=== PATIENT | female | born 1975 | race Caucasian/White ===

== ENCOUNTER → 2023-06-01 09:58 | Outpatient (CLI) | payer BC, SELFPAY ==
[2023-06-02 08:58] LABS: FSH 10.8 mIU/mL (.)
== END ==
PROVIDERS: PCP Family Medicine; Visit Provider Obstetrics & Gynecology
DX: N93.9 Abnormal uterine and vaginal bleeding, unspecified (principal)
CPT/HCPCS: 36415; 82670; 83001

== ENCOUNTER 2024-02-11 08:23 | Emergency (ER) | payer BC, SELFPAY ==
--- NOTE | 2024-02-11 08:35 | ED_ITS ---
Discharge Plan Disposition Patient Disposition: Home, Self-Care Condition: Good Prescriptions Prescriptions: New azithromycin [Zithromax] 250 mg tablet 250 mg PO UD DOSE PK Qty: 6 0RF Rx Instructions: Take two (2) tablets today, then one (1) tablet days #2 thru #5 benzonatate 100 mg capsule 100 mg PO TIDP PRN (Reason: Cough) Qty: 30 0RF methylprednisolone 4 mg Tablets,Dose Pack 4 mg PO DIRECTED 6 Days Qty: 21 0RF Rx Instructions: Take 1 pack as directed for 6 days No Action oxybutynin chloride 5 mg tablet 5 mg PO DAILY tamoxifen 20 mg tablet 20 mg PO DAILY Referrals Follow up/Referrals: Андрей Thornton MD [Primary Care Provider] - See instructions Activity Restrictions/Add. Instructions Additional Instructions/Restrictions: Drink plenty of fluids. Take tylenol or ibuprofen for pain or fever. Take the medications as directed. Follow up with your regular doctor. GO TO THE ER FOR ANY WORSENING SYMPTOMS The rapid covid-19/influenza test will take a couple of hours to complete. If you can't get your results online then please call us to check on it. Clinical Impressions Clinical Impression: Sinusitis, Bronchitis Instructions Patient Instructions: Sinusitis, DI for Sinusitis Discharge ED Provider: Chalo Driver [facility] General Stated complaint: Sore throat Time Seen by Provider: 02/11/24 08:35 History of Present Illness Provider Complaint: She states that for the past 4 days she has had worsening sinus and chest congestion. She has a nonproductive cough and a scratchy throat also. She denies fever, but she has had chills. Related Data Home Medications Medication Instructions Recorded Confirmed oxybutynin chloride 5 mg tablet 5 mg PO DAILY 02/11/24 02/11/24 tamoxifen 20 mg tablet 20 mg PO DAILY 02/11/24 02/11/24 Previous Rx's Medication Instructions Recorded azithromycin 250 mg tablet 250 mg PO UD DOSE PK #6 tabs 02/11/24 (Zithromax) benzonatate 100 mg capsule 100 mg PO TIDP PRN Cough #30 caps 02/11/24 methylprednisolone 4 mg tablets in 4 mg PO DIRECTED 6 days #21 tabs 02/11/24 a dose pack Allergies Allergy/AdvReac Type Severity Reaction Status Date / Time No Known Allergies Allergy Verified 02/11/24 08:49 [facility] Disclaimer: The information contained in this section may have been updated after the patient was seen, as this information can be updated by other users. Medical History (Updated 02/11/24 @ 09:24 by Chalo Driver APRN) HGSIL (high grade squamous intraepithelial lesion) on Pap smear of cervix Breast cancer Abnormal uterine bleeding Surgical History H/O mastectomy History of lumpectomy of right breast Family History Mother Cancer Other Alcoholism Diabetes Hyperlipidemia Hypertension Stroke Social History Smoking Status: Former smoker smoking status stop date: 2015 alcohol intake: current alcohol intake frequency: 0-2 drinks per day substance use type: denies use current occupational status: other Travel in the last 8 weeks: None ROS Obtained: Yes All systems reviewed & no additional complaints except as documented Constitutional Constitutional: Reports poor appetite Eyes Eyes: Reports system reviewed and no additional complaints, except as documented ENT Ears, Nose, Mouth, and Throat: Reports as per HPI Cardiovascular Cardiovascular: Reports system reviewed and no additional complaints, except as documented and Denies chest pain Respiratory Respiratory: Denies shortness of breath, Reports chest congestion, Reports cough, Denies stridor and Denies wheezing Gastrointestinal Gastrointestingal: Reports system reviewed and no additional complaints, except as documented; Denies abdominal pain, diarrhea or vomiting Musculoskeletal Musculoskeletal: Reports system reviewed and no additional complaints, except as documented and Denies arthralgias Integumentary/Breasts Skin/Breast: Reports system reviewed and no additional complaints, except as documented and Denies rash Neurologic Neurologic: Denies paresthesias Allergic/Immunologic Allergic/Immunologic: Denies wheezing Physical Exam General General appearance: alert and in no apparent distress Eye Eye exam: Present normal appearance, PERRL and EOMI ENT ENT exam: Present mucous membranes moist and normal external ear exam Expanded ENT Exam External ear exam: Present normal external inspection TM/Canal exam: Bilateral TM: erythema and bulging Nose exam: Absent sinus tenderness Nasal speculum exam: Bilateral: normal Mouth exam: Present normal external inspection; Absent drooling Teeth exam: Present normal inspection Throat exam: Present tonsillar erythema and tonsillomegaly Neck Neck exam: Present normal inspection, full ROM and trachea midline; Absent tenderness, lymphadenopathy or thyromegaly Chest Chest inspection: Present normal inspection and symmetric chest wall rise; Absent tenderness or rash Respiratory Respiratory exam: Present normal lung sounds bilaterally; Absent respiratory distress, wheezes, stridor or accessory muscle use Cardiovascular Cardiovascular exam: Present regular rate, normal rhythm and normal heart sounds Abdominal Exam Abdominal exam: Present soft; Absent distention, tenderness, guarding, rebound or rigidity Extremities Exam Extremities exam: Present normal inspection, full ROM and normal capillary refill; Absent tenderness or calf tenderness Back Exam Back exam: Present normal inspection and full ROM; Absent tenderness Neurological Exam Neurological exam: Present alert and oriented X3 Psychiatric Psychiatric exam: Present normal affect and normal mood Skin Skin exam: Present warm, dry, intact and normal color Lymphatic Lymphatic Findings: no adenopathy Medical Decision Making Medical Records Medical records reviewed: No I reviewed the patient's medical records. Uday Inquiry Pt receiving controlled substance: No Lab Data Lab results reviewed: Yes I reviewed the patient's lab results.
[2024-02-11 08:40] VITALS: BP 137/88; PULSE 82; RESP 19; TEMP 36.8; O2SAT 98; BMI 35.3
[2024-02-11 08:52] LABS: UTC Strep Screen (Rapid) Negative (Negative)
--- NOTE | 2024-02-11 09:30 | PC.NURSE ---
Rapid sent to lab
[2024-02-11 09:31] VITALS: BP 137/88; PULSE 82; RESP 18; TEMP 36.8; O2SAT 98
--- NOTE | 2024-02-11 09:34 | PC.NURSE ---
Sent rapid to lab via tube system
[2024-02-11 11:14] LABS: Coronavirus 19, PCR Not Detected (NotDetected); Influenza A, PCR Not Detected (NotDetected); Influenza B, PCR Not Detected (NotDetected)
--- NOTE | 2024-02-11 18:16 | PC.NURSE ---
Called pt about test results LM
== END 2024-02-11 09:31 | disposition home or self-care (01) ==
PROVIDERS: Emergency Provider Nurse Practitioner Family; PCP Family Medicine
DX: J20.9 Acute bronchitis, unspecified (principal); J01.90 Acute sinusitis, unspecified; R07.0 Pain in throat
CPT/HCPCS: 87636; 87880; 99204; 99212; G0463

== ENCOUNTER 2024-03-09 09:21 | Outpatient (CLI) | payer BC, SELFPAY ==
[2024-03-09 10:16] LABS: Basophils # 0.1 K/mm3 (0-0.2); Basophils % 1.6 % (0.1-2.0); Eosinophils # 0.2 K/mm3 (0.0-0.4); Eosinophils % 2.9 % (0.1-12.0); Hematocrit 42.6 % (37.0-47.0); Hemoglobin 13.3 g/dL (12.2-16.2); Lymphocytes # 1.4 K/mm3 (0.7-4.5); Lymphocytes % 22.2 % (10-50); Mean Corpuscular HGB Conc 31.1 g/dL (31.8-35.4); Mean Corpuscular Hemoglobin 30.9 pg (27.0-31.2); Mean Corpuscular Volume 99.4 fl (81-99); Mean Platelet Volume 8.1 fl (7.4-10.4); Monocytes # 0.3 K/mm3 (0.1-1.0); Monocytes % 4.4 % (1.7-9.3); Neutrophils # 4.4 K/mm3 (1.8-7.8); Neutrophils % 68.9 % (37.0-80.0); Platelet Count 279 K/mm3 (142-424); Red Blood Count 4.29 M/mm3 (4.20-5.40); Red Cell Distribution Width 13.8 % (11.5-17.5); White Blood Count 6.4 K/mm3 (4.8-10.8)
[2024-03-09 10:56] LABS: Chloride 106 mmol/L (98-107); Sodium 137 mmol/L (136-145)
[2024-03-09 10:57] LABS: Potassium 4.3 mmoL/L (3.5-5.1)
[2024-03-09 10:59] LABS: Alanine Aminotransferase 22 U/L (12-78); Albumin Level 3.6 g/dl (3.5-5.0); Albumin/Globulin Ratio 1.2 (1.1-1.8); Alkaline Phosphatase 78 U/L (38-126); Anion Gap 10.3 mEq/L (5-15); Aspartate Amino Transferase 26 U/L (14-36); Bilirubin,Total 0.3 mg/dl (0.2-1.3); Blood Urea Nitrogen 10 mg/dl (7-17); Carbon Dioxide 25 mmol/L (22.0-30.0); Estimated Glomerular Filt Rate 107 ml/min (>60); GFR (African American) 129 ML/MIN (>60); Total Protein,Serum 6.6 g/dl (6.3-8.2)
[2024-03-09 11:00] LABS: Calcium 9.5 mg/dl (8.4-10.2); Glucose 103 mg/dl (74-100)
[2024-03-09 11:17] LABS: HCG,Quantitative < 2 mIU/ml (0-5.42)
== END 2024-03-09 23:59 | disposition home or self-care (01) ==
LOC: LAB 09:21
PROVIDERS: PCP Family Medicine; Visit Provider Obstetrics & Gynecology
DX: N93.9 Abnormal uterine and vaginal bleeding, unspecified (principal); C50.911 Malignant neoplasm of unspecified site of right female breast
CPT/HCPCS: 36415; 80053; 84702; 85025

== ENCOUNTER 2024-03-16 07:36 | Day surgery (SDC) | payer BC, SELFPAY ==
[2024-03-14 14:12] VITALS: BMI 35.3
[2024-03-16] VITALS (9 sets, daily range): BP systolic 102–148; BP diastolic 57–83; PULSE 64–77; RESP 14–18; TEMP 36.3–36.6; O2SAT 95–100; BMI 35.3
[2024-03-16] MEDS: ACETAMINOPHEN 500MG TAB 1000 MG PO (07:48)
[2024-03-16] MEDS: LACTATED RINGERS 1000ML 1,000 ML 25 ML IV (07:49)
--- NOTE | 2024-03-16 08:26 | P.PNANES_ITS ---
[facility] Disclaimer: The information contained in this section may have been updated after the patient was seen, as this information can be updated by other users. Medical History HGSIL (high grade squamous intraepithelial lesion) on Pap smear of cervix Breast cancer Abnormal uterine bleeding On Tamoxifen Surgical History H/O mastectomy partial, right History of lumpectomy of right breast November and December Family History Mother Cancer Other Alcoholism Diabetes Hyperlipidemia Hypertension Stroke Social History Smoking Status: Former smoker smoking status stop date: 2015 alcohol intake: current alcohol intake frequency: 0-2 drinks per day substance use type: denies use current occupational status: other Travel in the last 8 weeks: None [facility] Anesthesia Checklist Patient Identification Patient Identification: Arm Band Structural Data Admitted From: Home Planned Operative Procedure/s: Hysteroscopy, D&C, Novasu Consent for Planned Operative Procedure(s) Verified: Yes Verified Documents: Surgical Consent and History and Physical NPO Status Verified Time NPO: 00:00 Additional verifications Anesthesia Reactions: Yes (numbness, weakness after surgery.) Hx Blood Transfusions: No Blood Transfusion Reaction: No Airway Assessment Mallampati Score:: Class II C-Spine Mobility Assessed: Yes TMJ Mobility Assessed: Yes Dentition: Good Dentition Neurological Assessment Level of Consciousness: Awake, Alert and Appropriate Anesthesia Plan Anesthesia Risk discussed: Yes Anesthesia Plan: Verified ASA Class: II Anesthesia Type: General
--- NOTE | 2024-03-16 09:50 | EXP.ANES.I ---
[facility] Anesthesia Record Part I Anesthesia Record I Intake, IV Amount: 800 Hydration: Adequate Estimated blood loss (mL): 5 Urine output (mL): 0 Blood Products used (#): none Blood Pressure: 121/77 SaO2: 96 Pulse Rate: 75 Airway Patency: Patent Respiratory Rate: 14 Temperature: 97.8 F Patient is:: Drowsy and Stable Stable to PACU at:: 09:45
--- NOTE | 2024-03-16 10:11 | EXP.OP.NOTE ---
Date of procedure: 03/16/24 Pre-op Diagnosis:: 1. Abnormal uterine bleeding on Tamoxifen 2. History of breast cancer Post-op Diagnosis:: 1. Abnormal uterine bleeding on Tamoxifen 2. History of breast cancer Procedure performed:: Hysteroscopy, dilation and Myosure curettage Surgeon:: Elda Hutchinson DO Program Services Assistant(s):: N/a INFORMATION TECHNOLOGY DIRECTOR:: Chalo Cleaning Anesthesia: GETA Estimated blood loss (mL): 5 Clinical Note:: Mrs Roberta Tolbert is a 48 yo P2002 who presents to [facility] for scheduled procedure. History of breast cancer. She is taking Tamoxifen (started July 2022). Periods are every 3rd month. She reports no bleeding for two months and then a period with heavy flow for 4 days and normal/light flow for 2-3 days. The months she does not have bleeding she notices a clear discharge around the time her period would be. No odor, itching or burning. LMP 03/07/24. She stopped Tamoxifen Wednesday and will restart the day following surgery. Operative findings:: 1. On bimanual exam, uterus normal size and shape, midposition, freely moveable. No adnexal masses palpated 2. On hysteroscopic exam, bilateral tubal ostia easily visualized, areas of fluffy tissue noted on anterior and posterior wall. No vascularity in the tissue seen Operative note:: Risks, benefits and alternatives were discussed with the patient. Risks include but are not limited to bleeding, infection, uterine perforation and VTE. Patient voiced understanding and agreed to proceed. She was wheeled back to the operating room and placed under general anesthesia without difficulty. She was placed in dorsal lithotomy position and prepped and draped in the normal sterile fashion. Straight catheter was used to drain the bladder. A bimanual exam was performed. A weighted Auvard was placed in the vaginal vault. Single tooth tenaculum was placed on anterior lip of the cervix. Uterus sounded to 7. Sequential Dc dilators were used to dilate the cervical os. Hysteroscope was inserted through the cervix without difficulty. Endometrial cavity was evaluated. See findings above. Pictures were taken. Myosure was inserted through the hysteroscope. Myosure curettage was performed per protocol in a 360 degree fashion under direct visualization. A moderate amount of tissue was obtained. Pictures were taken. Hysteroscope with Myosure was removed. Instruments were removed from the vagina. Tenaculum site was noted to be oozing. 2-0 Chromic suture used to ligate tenaculum site. Hemostasis noted. Patient was awaken from anesthesia without difficulty. She was transported to recovery room in stable condition. Patient will be discharged home when awake and ambulating. She was given postop instructions as well as instructions to follow-up in the office in 2 weeks. Will call patient when pathology results. Condition: stable Disposition: same day Specimens:: 1. Endometrial curettings Complications:: None
--- NOTE | 2024-03-17 13:14 | EXP.ANES.II ---
[facility] Anesthesia Record Part II Anesthesia Record Part II Discharge Time: 10:15 Destination: Surgical Day Care (OP Surgery) PACU nurse assessment reviewed?: Yes Patient Condition:: Good Anesthesia Complications:: None Swallowing reflex intact?: Yes Airway Patency: Patent Cyanosis?: No Blood Pressure: 112/67 SaO2: 98 Respiratory Rate: 18 Pulse Rate: 65 Temperature: 97.5 F Mental Status: Alert & Oriented Pain level:: 0 Nausea and/or vomitting:: None Intake, IV Amount: 0 Hydration: Adequate
[2024-03-17 13:15] VITALS: BP 112/67; PULSE 65; RESP 18; TEMP 36.4; O2SAT 98
== END 2024-03-16 10:45 | disposition home or self-care (01) ==
PROVIDERS: PCP Family Medicine; Visit Provider Obstetrics & Gynecology
PROC: (CPT 58558; principal; 2024-03-16 09:15)
DX: N93.9 Abnormal uterine and vaginal bleeding, unspecified (principal); Z85.3 Personal history of malignant neoplasm of breast
CPT/HCPCS: 58558; 96372; J1100; J1885; J2250; J2405; J3010; J7120

== ENCOUNTER 2024-10-18 10:55 | Outpatient (CLI) | payer BC, SELFPAY ==
--- NOTE | 2024-10-18 11:02 | US_ITS ---
PROCEDURE: US TRANSVAGINAL CLINICAL INDICATION: AUB COMPARISON: No exams were available for comparison FINDINGS: Transvaginal sonographic images of the pelvis were obtained. UTERUS: 9.5 cm x 7.2cmx 5.9 cm anteverted with a combined endometrial thickness of 16.8mm. The endometrium has a cystic appearance. Concerning for hyperplasia or endometrial carcinoma. Suggest endometrial sampling. LEFT OVARY: 3.6 cm x3.0 cmx2.6cm with a volume of 14.7ml. There is a follicle in the left ovary measuring 2.3 cm x 3.0 cm x 2.3 cm. RIGHT OVARY: 3.5cmx 3.7 cm. There is a follicle in the right ovary measuring 3.0 cm x 2.8 cm x 2.9 cm. Both ovaries are seen and appear normal. Doppler flow to both ovaries are seen. There is a small amount of fluid in the cul-de-sac. IMPRESSION: 1. Anteverted uterus enlarged and globular in shape. 2. The endometrium is thickened and cystic and is concerning for hyperplasia or endometrial carcinoma. Suggest endometrial sampling. 3. Both ovaries are seen and have dominant follicles. 4. There is a small amount of fluid in the cul-de-sac. Dictated by: Juan F Beck MD 10/18/2024 14:19 Juan F Beck MD in OV 10/18/2024 14:19
== END 2024-10-18 23:59 | disposition home or self-care (01) ==
LOC: RAD 10:57
PROVIDERS: PCP Family Medicine; Visit Provider Obstetrics & Gynecology
DX: N93.9 Abnormal uterine and vaginal bleeding, unspecified (principal)
CPT/HCPCS: 76830

== ENCOUNTER 2024-11-17 10:15 | Outpatient (CLI) | payer BC, SELFPAY ==
--- NOTE | 2024-11-17 10:50 | ECG_ITS ---
APPROVED REPORT Exam: Resting ECG HR:74 bpm ECG Measurements Heart Rate 74 AXES MA 150 P 49 QRSd 89 QRS 15 QT 377 T 41 QTc 404 Conclusion SINUS RHYTHM NORMAL ECG UNCONFIRMED REPORT Electronically signed by : Андрей Flores MD 11/17/2024 15:48:31
[2024-11-17 10:58] LABS: Basophils # 0.1 K/mm3 (0-0.2); Basophils % 1.1 % (0.1-2.0); Eosinophils # 0.1 K/mm3 (0.0-0.4); Eosinophils % 1.8 % (0.1-12.0); Hematocrit 37.5 % (37.0-47.0); Hemoglobin 12.3 g/dL (12.2-16.2); Lymphocytes # 1.6 K/mm3 (0.7-4.5); Lymphocytes % 25.9 % (10-50); Mean Corpuscular HGB Conc 32.8 g/dL (31.8-35.4); Mean Corpuscular Hemoglobin 29.6 pg (27.0-31.2); Mean Corpuscular Volume 90.1 fl (81-99); Mean Platelet Volume 10.3 fl (7.4-10.4); Monocytes # 0.4 K/mm3 (0.1-1.0); Neutrophils # 3.9 K/mm3 (1.8-7.8); Platelet Count 348 K/mm3 (142-424); Red Blood Count 4.16 M/mm3 (4.20-5.40); Red Cell Distribution Width 12.1 % (11.5-17.5); White Blood Count 6.1 K/mm3 (4.8-10.8)
[2024-11-17 11:10] LABS: Alanine Aminotransferase 25 U/L (12-78); Albumin Level 4.3 g/dl (3.5-5.0); Albumin/Globulin Ratio 1.6 (1.1-1.8); Alkaline Phosphatase 53 U/L (38-126); Anion Gap 13.2 mEq/L (5-15); Aspartate Amino Transferase 32 U/L (14-36); Bilirubin,Total 0.3 mg/dl (0.2-1.3); Blood Urea Nitrogen 9 mg/dl (7-17); Calcium 9.3 mg/dl (8.4-10.2); Carbon Dioxide 26 mmol/L (22.0-30.0); Chloride 103 mmol/L (98-107); Estimated Glomerular Filt Rate 107 ml/min (>60); GFR (African American) 129 ML/MIN (>60); Globulin 2.7 g/dL (1.3-3.2); Glucose 106 mg/dl (74-100); Potassium 4.2 mmoL/L (3.5-5.1); Sodium 138 mmol/L (136-145)
[2024-11-17 11:35] LABS: HCG,Quantitative < 2 mIU/ml (0-5.42)
== END 2024-11-17 23:59 | disposition home or self-care (01) ==
LOC: PREOP 10:16
PROVIDERS: PCP Family Medicine; Visit Provider Obstetrics & Gynecology
DX: N93.9 Abnormal uterine and vaginal bleeding, unspecified (principal)
CPT/HCPCS: 80053; 84702; 85025; 93005

== ENCOUNTER 2024-11-23 06:55 | Day surgery (SDC) | payer BC, SELFPAY ==
[2024-11-17 10:54] VITALS: BMI 34.7
[2024-11-23] VITALS (10 sets, daily range): BP systolic 111–130; BP diastolic 47–79; PULSE 61–91; RESP 16–18; TEMP 36.5–36.6; O2SAT 92–100
[2024-11-23] MEDS: LACTATED RINGERS 1000ML 1,000 ML 25 ML IV (07:23)
[2024-11-23] MEDS: ACETAMINOPHEN 500MG TAB 1000 MG PO (07:25)
--- NOTE | 2024-11-23 07:38 | P.PNANES_ITS ---
[facility] Disclaimer: The information contained in this section may have been updated after the patient was seen, as this information can be updated by other users. Medical History Menorrhagia HGSIL (high grade squamous intraepithelial lesion) on Pap smear of cervix Breast cancer Abnormal uterine bleeding Surgical History History of hysteroscopy H/O mastectomy History of lumpectomy of right breast Family History Mother Cancer Other Alcoholism Diabetes Hyperlipidemia Hypertension Stroke Social History (Updated 11/23/24 @ 07:15 by Lala Navarro RN) Smoking Status: Former smoker smoking status stop date: 2015 alcohol intake: former substance use type: denies use current occupational status: unemployed Travel in the last 8 weeks: None Have you lived/traveled outside US in past 30 days?: No Contact w/someone who lives/traveled outside US past 30 days?: No Exposure to someone with infectious disease in past 14 days?: No Do you have a fever (greater than 100.4 F or 38 C)?: No Have you tested positive for COVID-19: Yes Exposed to someone with COVID-19 in past 14 days?: No Do you have a sore throat?: No Do you have a cough?: No Do you have any weakness?: No Are you experiencing any nausea/vomitting?: No Do you have any diarrhea?: No Are you experiencing any unusual bleeding?: No Do you have any muscle aches/pain?: No Do you have any abdominal pain?: No Are you experiencing loss of taste or smell?: No [facility] Anesthesia Checklist Patient Identification Patient Identification: Arm Band Structural Data Admitted From: Home Planned Operative Procedure/s: Hysteroscopy, D&C, Myosure Consent for Planned Operative Procedure(s) Verified: Yes Verified Documents: Surgical Consent and History and Physical NPO Status Verified Time NPO: 00:00 Additional verifications Anesthesia Reactions: No Hx Blood Transfusions: No Blood Transfusion Reaction: No Airway Assessment Mallampati Score:: Class II C-Spine Mobility Assessed: Yes TMJ Mobility Assessed: Yes Dentition: Good Dentition Neurological Assessment Level of Consciousness: Awake, Alert and Appropriate Anesthesia Plan Anesthesia Risk discussed: Yes Anesthesia Plan: Verified ASA Class: II Anesthesia Type: General
--- NOTE | 2024-11-23 08:53 | P.PNANES_ITS ---
[facility] Anesthesia Record Part I Anesthesia Record I Intake, IV Amount: 800 Hydration: Adequate Estimated blood loss (mL): 0 Urine output (mL): 0 Blood Products used (#): none Blood Pressure: 130/79 SaO2: 93 Pulse Rate: 79 Airway Patency: Patent Respiratory Rate: 16 Temperature: 97.7 F Patient is:: Drowsy and Stable Stable to PACU at:: 08:50
--- NOTE | 2024-11-23 09:01 | EXP.OP.NOTE ---
Date of procedure: 11/23/24 Pre-op Diagnosis:: 1. Abnormal uterine bleeding 2. Menorrhagia on Tamoxifen 3. History of breast cancer 4. Abnormal pelvic ultrasound findings Post-op Diagnosis:: 1. Abnormal uterine bleeding 2. Menorrhagia on Tamoxifen 3. History of breast cancer 4. Abnormal pelvic ultrasound findings Procedure performed:: 1. Hysteroscopy, dilation and Myosure curettage Surgeon:: Elda Hutchinson DO Feed House Supervisor(s):: N/a ATTENDING PHYSICIAN:: Mansoor Liang Anesthesia: GETA Estimated blood loss (mL): 0 Clinical Note:: Mrs Roberta Tolbert is a 49 yo P2002 who presents to [facility] for scheduled procedure. She has history of breast cancer and is taking Tamoxifen. She reports having a period every month and bleeding is fairly heavy. She also reports fatigue and headaches. For the past 2 months she stopped drinking alcohol, increased exercise and started the mediteranean diet. We are monitoring endometrial thickness with ultrasound every 6 months since she is having periods on Tamoxifen. Pelvic ultrasound 10/18/24 demonstrated 1. Anteverted uterus enlarged and globular in shape. 2. The endometrium is thickened and cystic and is concerning for hyperplasia or endometrial carcinoma. Suggest endometrial sampling. 3. Both ovaries are seen and have dominant follicles. 4. There is a small amount of fluid in the cul-de-sac. Operative findings:: 1. On bimanual exam, uterus normal size and shape, midposition. No adnexal masses palpated 2. On hysteroscopic exam, bilateral tubal ostia easily visualized. Moderate amount of fluffy endometrial tissue present througout the cavity. Operative note:: Risks, benefits and alternatives were discussed with the patient. Risks include but are not limited to bleeding, infection, uterine perforation and VTE. Patient voiced understanding and agreed to proceed. She was wheeled back to the operating room and placed under general anesthesia without difficulty. She was placed in dorsal lithotomy position and prepped and draped in the normal sterile fashion. Straight catheter was used to drain the bladder. A bimanual exam was performed. A weighted Auvard was placed in the vaginal vault. Single tooth tenaculum was placed on anterior lip of the cervix. Uterus sounded to 7. Sequential Dc dilators were used to dilate the cervical os. Hysteroscope was inserted through the cervix without difficulty. Endometrial cavity was evaluated. See findings above. Pictures were taken. Myosure was inserted through the hysteroscope. Myosure curettage was performed per protocol in a 360 degree fashion under direct visualization. A moderate amount of tissue was obtained. Pictures were taken. Hysteroscope with Myosure was removed. Instruments were removed from the vagina. Tenaculum site had a small amount oozing. Silver nitrate stick x 2 applied to tenaculum site. Hemostasis noted. Patient was awaken from anesthesia without difficulty. She was transported to recovery room in stable condition. Patient will be discharged home when awake and ambulating. She was given postop instructions as well as instructions to follow-up in the office in 2 weeks or sooner if needed. Condition: stable Disposition: same day Specimens:: 1. Endometrial curettings Complications:: None
--- NOTE | 2024-11-23 09:41 | EXP.ANES.II ---
[facility] Anesthesia Record Part II Anesthesia Record Part II Discharge Time: 09:19 Destination: Surgical Day Care (OP Surgery) PACU nurse assessment reviewed?: Yes Patient Condition:: Good Anesthesia Complications:: None Swallowing reflex intact?: Yes Airway Patency: Patent Cyanosis?: No Blood Pressure: 115/71 SaO2: 96 Respiratory Rate: 16 Pulse Rate: 73 Temperature: 97.7 F Mental Status: Alert & Oriented Pain level:: 0 Nausea and/or vomitting:: None Intake, IV Amount: 0 Hydration: Adequate
== END 2024-11-23 09:50 | disposition home or self-care (01) ==
PROVIDERS: PCP Family Medicine; Visit Provider Obstetrics & Gynecology
PROC: 0UDB8ZZ Extraction of Endometrium, Via Natural or Artificial Opening Endoscopic (ICD-10-PCS; CPT 58558; principal; 2024-11-23 08:30)
DX: N93.9 Abnormal uterine and vaginal bleeding, unspecified (principal); N92.0 Excessive and frequent menstruation with regular cycle; Z85.3 Personal history of malignant neoplasm of breast; R93.89 Abnormal findings on diagnostic imaging of other specified body structures
CPT/HCPCS: 58558; J1100; J1885; J2250; J2405; J3010; J7120

== ENCOUNTER 2025-05-22 10:38 | Outpatient (CLI) | payer BC, SELFPAY ==
--- NOTE | 2025-05-22 10:40 | XR_ITS ---
FINAL REPORT CLINICAL HISTORY: cat bite R hand COMPARISON: None FINDINGS: RIGHT HAND Three views demonstrate no acute fracture or dislocation. The visualized joint spaces are normally aligned. There is mild soft tissue swelling over the dorsum of the hand. No evidence of radiopaque foreign body. IMPRESSION: Soft tissue swelling without acute bony abnormality. Reviewed, Interpreted and Dictated by Chauncey Santiago MD Transcribed by Sally Lopez Authenticated and [facility]
--- OUTSIDE RECORDS SUMMARY | 2025-05-22 10:43 | XMS_ITS | Encounter Summary ---
Author Organization [employer] ([place], [place], [place], [place]) Address [address] [place] [address] Care Team Providers Care Solar Process Engineer Name Role Phone Unavailable Primary Care Provider Unavailabl e Encounter Details Date Type Department Care Team (Late st Contact Info) Description 02/03/2022 Transcribed Document [facility] Family Medicine [address] [place] [address] ProviderGuerita MD [address] [place] [address] Social History Tobacco Use Types Packs/Day Years Used Date Smoking Tobacco: Never Assessed Food Insecurity Answer Date Recorded Food run out past 12 months Not on file 10/04 Food did not last past 12 months Not on file 10/22/2023 Employment Answer Date Recorded Help finding and keeping a job Not on file 0 10/22/2023 Family and Community Support Answer Abdoul e Recorded Help with Day to Day Activities Not on file 10/22/2023 Feeling Lonely or Isolated Not on file 10/22 Educational Attainment Answer Date Murray rded Speak language other than Belarusian at home Not on file 10/22/2023 Want help with school or training Not on file 10/22/2023 Substance Use Answer Date Recorded Used prescription meds for non-medical reasons N ot on file 10/22/2023 Used illegal drugs past 12 months Not on file 10/22/2023 Comments Unknown Sex and Gender Information Value Date Recorded Sex Assigned at Female 08/19/2022 12:34 PM AUTOMATION ANALYST Legal Sex Female 6:29 PM CDT Gender Identity Female 08/19/2022 12:34 PM AUTOMATION ANALYST Sexual Orientation Straight 08/19/2022 12 :34 PM AUTOMATION ANALYST COVID-19 Exposure Response Date Recorded In the last 10 days, have rufino reyes been in contact with someone who was confirmed or suspected to have Coronavirus/COVID-19? No / Unsure 02/08/2023 1:28 PM EDT documented as of this encounter Miscellaneous Notes * Cerner Conversion Note - Historical Provider, - 02/03/2022 8:19 AM CDT [facility] PACU Summary Primary Physician: IBIS OLIVAS MD-SUR Finalized Date/Time: 02/03/22 11:54:06 Pt. Name: ROBERTA ROE TIANNA /Sex: 1975 Female Med Rec #: [id number] Physician: IBIS OLIVAS MD-SUR Financial #: [id number] Pt. Type: O Room/Bed: [facility] Admit/Disch: 02/03/22 05:18:00 - Institution: [facility] PACU Case Times Entry 1 In PACU I 02/03/22 11:01:00 Ready for PACU 02/03/22 11:46:00 Discharge Discharge from PACU 02/03/22 11:46:00 I Last Modified By: Graciela Lam RN 02/03/22 11:46:42 [facility] PACU Case Times Audit 02/03/22 11:46:42 Rack Worker: RODOLFO Modifier: CARRIEC <+> 1 Ready for PACU Discharge <+> 1 Discharge from PACU I Finalized By: Graciela Lam, CLARENCE Document Signatures Signed By: Graciela Lam RN 02/03/22 11:54 Electronically signed by Izabel [facility] Conversion Toby Maker Cerner at 01/19/2023 9:12 PM CDT documented in this encounter Plan of Treatment Not on file documented as of this encounter Visit Diagnoses Not on filedocumented in this encounter
--- OUTSIDE RECORDS SUMMARY | 2025-05-22 10:43 | XMS_ITS | Encounter Summary ---
Author Organization [employer] ([place], [place], [place], [place]) Address [address] [place] [address] Care Team Providers Care Manager Deli Name Role Phone Unavailable Primary Care Provider Unavailabl e Encounter Details Date Type Department Care Team (Late st Contact Info) Description 08/20/2022 Outside Orders [facility] [address] [place] [address] Manuel Jefferson MD [address] [place] [address] Personal history of breast cancer (Primary Dx) Social History Tobacco Use Types Packs/Day Years Used Date Smoking Tobacco: Former Smokeless Tobacco: Never Alcohol Use Standard Drinks/Week Comments Not Currently 0 (1 standard drink = 0.6 oz pur e alcohol) Comments Unknown Sex and Gender Information Value Date Recorded Sex Assigned at Female 08/19/2022 12:34 PM HTML WEB DEVELOPER Legal Sex Female 6:29 PM CDT Gender Identity Female 08/19/2022 12:34 PM HTML WEB DEVELOPER Sexual Orientation Straight 08/19/2022 12 :34 PM HTML WEB DEVELOPER documented as of this encounter Plan of Treatment Not on file documented as of this encounter Visit Diagnoses Diagnosis Personal history of breast cancer- Primary Personal history of malignant neoplasm of breast documented in this encounter
--- OUTSIDE RECORDS SUMMARY | 2025-05-22 10:43 | XMS_ITS | Encounter Summary ---
Author Organization [employer] ([place], [place], [place], [place]) Address [address] [place] [address] Care Team Providers Care Rectifying Operator Name Role Phone Unavailable Primary Care Provider Unavailabl e Encounter Details Date Type Department Care Team (Late st Contact Info) Description 10/29/2021 Transcribed Document [facility] Family Medicine [address] [place] [address] ProviderGuerita MD [address] [place] [address] Social History Tobacco Use Types [...] Date Murray rded Speak language other than Polish at home Not on file 10/22/2023 Want help with school or training Not on file 10/22/2023 Substance Use Answer Date Recorded Used prescription meds for non-medical reasons N ot on file 10/22/2023 Used illegal drugs past 12 months Not on file 10/22/2023 Comments Unknown Sex and Gender Information Value Date Recorded Sex Assigned at Female 08/19/2022 12:34 PM PRODUCTION SUPPORT ENGINEER Legal Sex Female 6:29 PM CDT Gender Identity Female 08/19/2022 12:34 PM PRODUCTION SUPPORT ENGINEER Sexual Orientation Straight 08/19/2022 12 :34 PM PRODUCTION SUPPORT ENGINEER COVID-19 Exposure Response Date Recorded In the last 10 days, have rufino reyes been in contact with someone who was confirmed or suspected to have Coronavirus/COVID-19? No / Unsure 02/08/2023 1:28 PM EDT documented as of this encounter Miscellaneous Notes * Cerner Conversion Note - Historical Provider, - 10/29/2021 9:44 AM PRODUCTION SUPPORT ENGINEER [facility] Summary Primary Physician: IBIS OLIVAS MD-SUR Finalized Date/Time: 10/29/21 11:08:54 Pt. Name: ROBERTA ROE TIANNA /Sex: 1975 Female Med Rec #: [id number] Physician: IBIS OLIVAS MD-SUR Financial #: [id number] Pt. Type: O Room/Bed: [facility] Admit/Disch: 10/29/21 06:31:00 - Institution: [facility] PostOp Case Times Entry 1 In PACU II 10/29/21 10:57:00 Ready for PACU II 10/29/21 11:10:00 Discharge Discharge from PACU 10/29/21 11:10:00 II Last Modified By: Jesenia Kruger RN 10/29/21 11:08:45 Finalized By: Jesenia Kruger, RN Document Signatures Signed By: Jesenia Kruger RN 10/29/21 11:08 Electronically signed by Izabel Ranken [facility] Conversion Rag Sorter And Cutter Cerner at 01/19/2023 9:06 PM CDT documented in this encounter Plan of Treatment Not on file documented as of this encounter Visit Diagnoses Not on filedocumented in this encounter
--- OUTSIDE RECORDS SUMMARY | 2025-05-22 10:43 | XMS_ITS | Encounter Summary ---
Author Organization [employer] ([place], [place], [place], [place]) Address [address] [place] [address] Care Team Providers Care Radio Sales Account Executive Name Role Phone Unavailable Primary Care Provider Unavailabl e Encounter Details Date Type Department Care Team (Late st Contact Info) Description 10/29/2021 Transcribed Document [facility] Family Medicine [address] [place] [address] ProviderGuerita MD [address] [place] [address] Social History Tobacco Use Types [...] Date Murray rded Speak language other than Lao at home Not on file 10/22/2023 Want help with school or training Not on file 10/22/2023 Substance Use Answer Date Recorded Used prescription meds for non-medical reasons N ot on file 10/22/2023 Used illegal drugs past 12 months Not on file 10/22/2023 Comments Unknown Sex and Gender Information Value Date Recorded Sex Assigned at Female 08/19/2022 12:34 PM TILE DECORATOR Legal Sex Female 6:29 PM CDT Gender Identity Female 08/19/2022 12:34 PM TILE DECORATOR Sexual Orientation Straight 08/19/2022 12 :34 PM TILE DECORATOR COVID-19 Exposure Response Date Recorded In the last 10 days, have rufino reyes been in contact with someone who was confirmed or suspected to have Coronavirus/COVID-19? 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 you have medicine to turkey picker at your pharmacy. Discharge Follow Up Instructions: Follow up 7-10 days Diet: Discharge Diet: Resume usual diet as tolerated Follow-Up Appointments Follow Up with IBIS OLIVAS MD-YARA When 11/10/2021 10:30 AM EST Comments Appointment has been made Where: [address] [facility] [address] [place] [address]- Medications What How Much When Instructions Next Dose acetaminophen-oxyCODONE (Percocet 5/ 325 oral tablet) 2 Tablet(s) Oral Every 4 Hours as needed for for pain Duration: 5 Day(s) Max 6 tabs per day. Pickup at [facility] #[id number] Pharmacy Information [facility] #[id number]: [address] [phone] Take your medications faithfully. Do NOT skip medication. Do NOT stop taking medications without the direction of a physician. Carry a list of your medications with you at all times, and take this medication list with you to your first follow up visit. Report any side effects. Avoid herbal remedies unless discussed with your physician. As part of your treatment plan, your physician may have prescribed a limited course of a controlled substance. This medication may be given to help people with moderate or severe pain or for other medical conditions, but there are risks involved with treatment. Common side effects may include nausea, constipation, drowsiness, sweating, itching, dry mouth, and rash. More serious side effects may include cognitive and motor impairment, like problems with thinking, concentrating, alertness, and movement (e.g. slowed reflexes), and driving and operating heavy machinery can be dangerous. It is important for you to talk to your physician if you have these side effects or questions. These controlled substances can produce physical dependence and be habit-forming if taken for an extended period of time, which means that the body has gotten used to them and may experience withdrawal symptoms if they are abruptly stopped. Withdrawal symptoms can include runny nose, sweating, goose bumps, diarrhea, abdominal cramping, rapid heartbeat, difficulty sleeping, and nervousness. Please dispose of unused and medications per pharmacy guidance. Education Materials General Anesthesia, Adult, Care After This sheet gives you information about how to care for yourself after your procedure. Your health care provider may also give you more specific instructions. If you have problems or questions, contact your health care provider. What can I expect after the procedure? After the procedure, the following side effects are common: ??? Pain or discomfort at the IV site. ??? Nausea. ??? Vomiting. ??? Sore throat. ??? Trouble concentrating. ??? Feeling cold or chills. ??? Feeling weak or tired. ??? Sleepiness and fatigue. ??? Soreness and body aches. These side effects can affect parts of the body that were not involved in surgery. Follow these instructions at home: For the time period you were told by your health care provider: ??? Rest. ??? Do not participate in activities where you could fall or become injured. ??? Do not drive or use machinery. ??? Do not drink alcohol. ??? Do not take sleeping pills or medicines that cause drowsiness. ??? Do not make important decisions or sign legal documents. ??? Do not take care of children on your own. Eating and drinking ??? Follow any instructions from your health care provider about eating or drinking restrictions. ??? When you feel hungry, start by eating small amounts of foods that are soft and easy to digest (bland), such as toast. Gradually return to your regular diet. ??? Drink enough fluid to keep your urine pale yellow. ??? If you vomit, rehydrate by drinking water, juice, or clear broth. General instructions ??? If you have sleep apnea, surgery and certain medicines can increase your risk for breathing problems. Follow instructions from your health care provider about wearing your sleep device: ? Anytime you are sleeping, including during daytime naps. ? While taking prescription pain medicines, sleeping medicines, or medicines that make you drowsy. ??? Have a responsible adult stay with you for the time you are told. It is important to have someone help care for you until you are awake and alert. ??? Return to your normal activities as told by your health care provider. Ask your health care provider what activities are safe for you. ??? Take zuur-glg-pishgib and prescription medicines only as told by your health care provider. ??? If you smoke, do not smoke without supervision. ??? Keep all follow-up visits as told by your health care provider. This is important. Contact a health care provider if: ??? You have nausea or vomiting that does not get better with medicine. ??? You cannot eat or drink without vomiting. ??? You have pain that does not get better with medicine. ??? You are unable to pass urine. ??? You develop a skin rash. ??? You have a fever. ??? You have redness around your IV site that gets worse. Get help right away if: ??? You have difficulty breathing. ??? You have chest pain. ??? You have blood in your urine or stool, or you vomit blood. Summary ??? After the procedure, it is common to have a sore throat or nausea. It is also common to feel tired. ??? Have a responsible adult stay with you for the time you are told. It is important to have someone help care for you until you are awake and alert. ??? When you feel hungry, start by eating small amounts of foods that are soft and easy to digest (bland), such as toast. Gradually return to your regular diet. ??? Drink enough fluid to keep your urine pale yellow. ??? Return to your normal activities as told by your health care provider. Ask your health care provider what activities are safe for you. This information is not intended to replace advice given to you by your health care provider. Make sure you discuss any questions you have with your health care provider. Document Revised: 06/05/2021 Document Reviewed: 01/02/2021 [employer] Patient Education ?? 2020 [employer] Lumpectomy, Care After This sheet gives you information about how to care for yourself after your procedure. Your health care provider may also give you more specific instructions. If you have problems or questions, contact your health care provider. What can I expect after the procedure? After the procedure, it is common to have: ??? Breast swelling. ??? Breast tenderness. ??? Stiffness in your arm or shoulder. ??? A change in the shape and feel of your breast. ??? Scar tissue that feels hard to the touch in the area where the lump was removed. Follow these instructions at home: Medicines ??? Take gumy-iml-povtsaz and prescription medicines only as told by your health care provider. ??? If you were prescribed an antibiotic medicine, take it as told by your health care provider. Do not stop taking the antibiotic even if you start to feel better. ??? Ask your health care provider if the medicine prescribed to you: ? Requires you to avoid driving or using heavy machinery. ? Can cause constipation. You may need to take these actions to prevent or treat constipation: ? Drink enough fluid to keep your urine pale yellow. ? Take koiw-ezk-qxhzbtu or prescription medicines. ? Eat foods that are high in fiber, such as beans, whole grains, and fresh fruits and vegetables. ? Limit foods that are high in fat and processed sugars, such as fried or sweet foods. Incision care ??? Follow instructions from your health care provider about how to take care of your incision. Make sure you: ? Wash your hands with soap and water before and after you change your bandage (dressing). If soap and water are not available, use hand strickler attendant. ? Change your dressing as told by your health care provider. ? Leave stitches (sutures), skin glue, or adhesive strips in place. These skin closures may need to stay in place for 2 weeks or longer. If adhesive strip edges start to loosen and curl up, you may trim the loose edges. Do not remove adhesive strips completely unless your health care provider tells you to do that. ??? Check your incision area every day for signs of infection. Check for: ? More redness, swelling, or pain. ? Fluid or blood. ? Warmth. ? Pus or a bad smell. ??? Keep your dressing clean and dry. ??? If you were sent home with a surgical drain in place, follow instructions from your health care provider about emptying it. Bathing ??? Do not take baths, swim, or use a hot tub until your health care provider approves. ??? Ask your health care provider if you may take showers. You may only be allowed to take sponge baths. Activity ??? Rest as told by your health care provider. ??? Avoid sitting for a long time without moving. Get up to take short walks every 1???2 hours. This is important to improve blood flow and breathing. Ask for help if you feel weak or unsteady. ??? Return to your normal activities as told by your health care provider. Ask your health care provider what activities are safe for you. ??? Be careful to avoid any activities that could cause an injury to your arm on the side of your surgery. ??? Do not lift anything that is heavier than 10 lb (4.5 kg), or the limit that you are told, until your health care provider says that it is safe. Avoid lifting with the arm that is on the side of your surgery. ??? Do not carry heavy objects on your shoulder on the side of your surgery. ??? Do exercises to keep your shoulder and arm from getting stiff and swollen. Talk with your health care provider about which exercises are safe for you. General instructions ??? Wear a supportive bra as told by your health care provider. ??? Raise (elevate) your arm above the level of your heart while you are sitting or lying down. ??? Do not wear tight jewelry on your arm, wrist, or fingers on the side of your surgery. ??? Keep all follow-up visits as told by your health care provider. This is important. ? You may need to be screened for extra fluid around the lymph nodes and swelling in the breast and arm (lymphedema). Follow instructions from your health care provider about how often you should be checked. ??? If you had any lymph nodes removed during your procedure, be sure to tell all of your health care providers. This is important information to share before you are involved in certain procedures, such as having blood tests or having your blood pressure taken. Contact a health care provider if: ??? You develop a rash. ??? You have a fever. ??? Your pain medicine is not working. ??? You have swelling, weakness, or numbness in your arm that does not improve after a few weeks. ??? You have new swelling in your breast. ??? You have any of these signs of infection: ? More redness, swelling, or pain in your incision area. ? Fluid or blood coming from your incision. ? Warmth coming from the incision area. ? Pus or a bad smell coming from your incision. Get help right away if you have: ??? Very bad pain in your breast or arm. ??? Swelling in your legs or arms. ??? Redness, warmth, or pain in your leg or arm. ??? Chest pain. ??? Difficulty breathing. Summary ??? After the procedure, it is common to have breast tenderness, swelling in your breast, and stiffness in your arm and shoulder. ??? Follow instructions from your health care provider about how to take care of your incision. ??? Do not lift anything that is heavier than 10 lb (4.5 kg), or the limit that you are told, until your health care provider says that it is safe. Avoid lifting with the arm that is on the side of your surgery. ??? If you had any lymph nodes removed during your procedure, be sure to tell all of your health care providers. This is important information to share before you are involved in certain procedures, such as having blood tests or having your blood pressure taken. This information is not intended to replace advice given to you by your health care provider. Make sure you discuss any questions you have with your health care provider. Document Revised: 03/25/2020 Document Reviewed: 03/25/2020 [employer] Patient Education ?? 2020 [employer] Emergency Awareness and Preventative Care STROKE is an EMERGENCY Every Minute Counts Act FAST and Check for these signs: FACE Does the face look uneven? ARM Does one arm drift down? SPEECH Does their speech sound strange? TIME Call at any sign of stroke Stroke Risk Factors Atrial Fibrillation (irregular heartbeat) Diabetes Family history of stroke Heart Disease Heavy alcohol use High Blood Pressure High Cholesterol Physical inactivity and obesity Smoking Cigarette Smoking The facts are clear, cigarette smoking will shorten your life. Smoking can cause many illnesses along the way. As a healthcare provider, we recommend that you stop smoking. Assistance with quitting is available by contacting 1-264-PTCWNOW. This is a free resource providing counseling, support, and referral. Or you may contact your personal physician. [place] [facility]: The National Suicide Prevention Lifeline is a national network of local crisis centers that provides free and confidential emotional support to people in suicidal crisis or emotional distress 24 hours a day, 7 days a week. Don't Wait! Stop a Heart Attack Before it Starts What is a heart attack? A heart attack is damage or to a part of the heart from severely decreased or lack of blood flow to the heart. Over time, arteries can become narrow from the buildup of fat and cholesterol, which is called plaque. The plaque can rupture causing a blood clot to form. When the blood clot forms, the artery can become severely narrowed or completely blocked, causing a heart attack. Heart attack is the leading cause of in the [place]. 85% of muscle damage occurs within the first 2 hours. Delay in the recognition of heart attack symptoms increases the chances of . Know the early symptoms of a heart attack: Nausea Feeling of fullness in chest Jaw Pain Pain that travels down one or both arms Fatigue/being tired Anxiety Back Pain Chest pressure, squeezing, or discomfort Shortness of breath Sweating, or a cold sweat Feeling of impending doom There are unusual signs of a heart attack, too! Women, the elderly, and diabetics may present with atypical symptoms: Fainting/dizziness Weakness Confusion Risk Factors for a Heart Attack Some heart disease risk factors, such as age and family history, cannot be changed. Others, like smoking and lack of exercise, can be changed. Smoking High Cholesterol High Blood Pressure Family History Obesity Age Gender (Males are at higher risk) Lack of Exercise Diabetes Diet Stress Excessive Alcohol Intake If you or someone you know is experiencing the signs and symptoms of a heart attack, DON???T DELAY. Call immediately and seek help. If someone collapses, perform CPR! Do not attempt to drive if you are having symptoms of heart attack. Hands-Only CPR Why Hands-Only CPR? Hands-Only CPR has been shown to be as effective as conventional CPR for cardiac arrests that occur outside of a hospital. Survival depends on immediately receiving CPR from someone nearby. How do you perform Hands-Only CPR? There are two easy steps: Call 9-1-1 if you see a teen or adult collapse Push hard and fast in the center of the chest at a beat of 100 beats per minute. Save a life! 4 WAYS TO GET AHEAD OF SEPSIS SEPSIS is a MEDICAL EMERGENCY. Time matters! Infections put you and your family at risk for a life-threatening condition called sepsis. Sepsis is the body's extreme response to an infection. It is life-threatening, and without timely treatment, sepsis can rapidly lead to tissue damage, organ failure, and . Sepsis happens when an infection you already have-in your skin, lungs, urinary tract or somewhere else-triggers a chain reaction throughout your body. 1 PREVENT INFECTIONS Take good care of chronic conditions. Talk to your doctor about getting the recommended vaccines. 2 PRACTICE GOOD HYGIENE Wash your hands frequently. Keep cuts or open sores clean and covered until they are healed. 3 KNOW THE SYMPTOMS Confusion or disorientation Shortness of breath High heart rate Fever, shivering, or feeling very cold Extreme pain or discomfort Clammy or sweaty skin 4 ACT FAST Get medical care IMMEDIATELY if you suspect sepsis or if you have an infection that is not getting better or is getting worse. To learn more about sepsis and how to prevent infections, visit www.cdc.gov/sepsis. Test Results Laboratory or Other Results This Visit (last charted value for your 10/29/2021 visit) Microbiology 10/27/2021 1:00 PM SARS-CoV-2 (COVID19 PCR): Negative Endocrinology 10/29/2021 7:45 AM HCG Urine Qualitative: Negative Mammography 10/29/2021 10:12 AM MY Surgical Specimen: MY Surgical Specimen 10/29/2021 8:39 AM MY XR GD Ndl Loc RT: MY XR GD Ndl Loc RT Patient Name:ROBERTA ROE I have received this information and was given the opportunity to ask questions. Patient/Automation Control Integrator Name: Patient/Automation Control Integrator Signature: Relationship to Patient: Clinician/Hospital Automation Control Integrator Signature: Date: documented in this encounter Plan of Treatment Not on file documented as of this encounter Visit Diagnoses Not on filedocumented in this encounter
--- OUTSIDE RECORDS SUMMARY | 2025-05-22 10:43 | XMS_ITS | Encounter Summary ---
Author Organization [employer] ([place], [place], [place], [place]) Address [address] [place] [address] Care Team Providers Care Fish Cleaner Name Role Phone Unavailable Primary Care Provider Unavailabl e Encounter Details Date Type Department Care Team (Late st Contact Info) Description 02/03/2022 Transcribed Document [facility] [place] Family Medicine [address] [place] [address] ProviderGuerita MD [address] [place] [address] Social History Tobacco Use Types [...] Date Murray rded Speak language other than Luxembourgish at home Not on file 10/22/2023 Want help with school or training Not on file 10/22/2023 Substance Use Answer Date Recorded Used prescription meds for non-medical reasons N ot on file 10/22/2023 Used illegal drugs past 12 months Not on file 10/22/2023 Comments Unknown Sex and Gender Information Value Date Recorded Sex Assigned at Female 08/19/2022 12:34 PM DRAPERY ESTIMATOR Legal Sex Female 6:29 PM CDT Gender Identity Female 08/19/2022 12:34 PM DRAPERY ESTIMATOR Sexual Orientation Straight 08/19/2022 12 :34 PM DRAPERY ESTIMATOR COVID-19 Exposure Response Date Recorded In the last 10 days, have yo u been in contact with someone who was confirmed or suspected to have Coronavirus/COVID-19? No / Unsure 02/08/2023 1:28 PM EDT documented as of this encounter Miscellaneous Notes * Cerner Conversion Note - Historical Provider, - 02/03/2022 11:59 AM CDT [facility] [address] [place] [address] ROBERTA ROE :1975 Visit Time:02/03/2022 What to do next Your Diagnosis Intraductal carcinoma in situ of right breast, Intraductal carcinoma in situ of right breast Instructions From Your Care Team refer to dr olivas's post op instruction sheet. you have Meds to picker at your pharmacy. Keep surgical bra clean, dry and intact. Follow up with Hue Bonilla as already scheduled for Wednesday No heavy lifting Light activity Walk at least three times a day OK to bathe from waist down Discharge Follow Up Instructions: Follow up 7-10 days Follow Up Instructions: , Order Comment: keep surgical bra clean, dry, intact until f/u appointment f/u as already scheduled Wednesday patient already has her prescriptions no heavy lifting light activity walk is ok to bathe from waist down Activity: Discharge Activity: No strenuous activities Diet: Discharge Diet: Resume usual diet as tolerated Diet: Discharge Diet: Regular diet as tolerated Follow-Up Appointments Follow Up with IBIS OLIVAS MD-YARA When 02/12/2022 03:45 PM EDT Comments [facility] Where: [address] [place] [address]- Medications What How Much When Instructions Next Dose cyanocobalamin (Vitamin B12 1000 mcg oral tablet) 1 Tablet(s) Oral Every Day multivitamin 1 Tablet(s) Oral Every Day Non Formulary (Iron) 9 Milligram(s) Oral Every Day Take your medications faithfully. Do NOT skip [...] and medications per pharmacy guidance. Education Materials Breast Reduction, Care After This sheet gives you information about how to care for yourself after your procedure. Your health care provider may also give you more specific instructions. If you have problems or questions, contact your health care provider. What can I expect after the procedure? After the procedure, it is common to have: ??? Pain, bruising, and swelling in your breasts. You will be given medicine to help relieve pain. ??? Crusting under the breast. This may be caused by fluid leakage or skin loss. A small amount of skin loss is fairly normal and can be managed with an antibiotic ointment. Follow these instructions at home: Medicines ??? Take fumw-xru-qkbqkma and prescription medicines only as told by your health care provider. ??? If you were prescribed an antibiotic medicine or ointment, take it or apply it as told by your health care provider. Do not stop using the antibiotic even if you start to feel better. ??? Ask your health care provider if the medicine prescribed to you: ? Requires you to avoid driving or using heavy machinery. ? Can cause constipation. You may need to take these actions to prevent or treat constipation: ? Drink enough fluid to keep your urine pale yellow. ? Take hbtq-abq-zfksbff or prescription medicines. ? Eat foods that are high in fiber, such as beans, whole grains, and fresh fruits and vegetables. ? Limit foods that are high in fat and processed sugars, such as fried or sweet foods. Incision care ??? Follow instructions from your health care provider about how to take care of your incisions. Make sure you: ? Wash your hands with soap and water before and after you change your bandage (dressing). If soap and water are not available, use hand kettle fry cook operator. ? Change your dressing as told by [...] to do that. ??? Check your incision areas every day for signs of infection. Check for: ? More redness, swelling, or pain. ? More fluid or blood. ? Warmth. ? Pus or a bad smell. Activity ??? Rest as told by your health care provider. ??? Avoid sitting for a long time without moving. Get up to take short walks every 1???2 hours. This is important to improve blood flow and breathing. Ask for help if you feel weak or unsteady. ??? Do not drive until your health care provider approves. ??? Do not raise your arms above the level of your breasts for 10 days. ??? Return to your normal activities as told by your health care provider. Ask your health care provider what activities are safe for you. ??? Do not do physical activity that requires a lot of movement or energy for 1 month after surgery, or as long as told by your health care provider. ??? For 3 weeks, or as long as told by your health care provider: ? Do not lift anything that is heavier than 5 lb (2.3 kg) with one arm. ? Do not lift anything that is heavier than 10 lb (4.5 kg) with both arms. Lifestyle ??? Do not take baths, swim, or use a hot tub until your health care provider approves. Ask your health care provider if you may take showers. You may only be allowed to take sponge baths. ??? Do not use any products that contain nicotine or tobacco, such as cigarettes, e-cigarettes, and chewing tobacco. These can delay incision healing after surgery. If you need help quitting, ask your health care provider. ??? Avoid being in the sun for long periods of time. General instructions ??? Wear compression stockings as told by your health care provider. These stockings help to prevent blood clots and reduce swelling in your legs. ??? If you have tubes draining fluid from your surgical area, care for them as told by your health care provider. ??? Follow instructions from your health care provider about eating or drinking restrictions. ??? Wear a soft bra 24 hours a day for 1 month, or as long as directed. You may remove your bra while bathing. Do not wear underwire bras. ??? Do not sleep on your belly for 4???6 weeks. ??? Keep all follow-up visits as told by your health care provider. This is important. Contact a health care provider if you have: ??? Any of these signs of infection: ? More redness, swelling, or pain around your incision area or in your breast. ? More fluid or blood coming from your incision area. ? Your incision or your breast feeling warm to the touch. ? Pus or a bad smell coming from your incision area. ??? Nausea or vomiting that lasts for more than 2 days. ??? Pain that does not get better with medicine. ??? A cough. ??? Difficulty moving your arm or pain when moving your arm. ??? Areas of blood or fluid collecting in your breast. Get help right away if you have: ??? Chest pain that is new or feels different from your pain after surgery. ??? Trouble breathing or shortness of breath. ??? Swelling in your legs or arms. ??? You have redness, warmth, or pain in your leg or arm. ??? A fever. ??? Bleeding from your incision or discharge coming from your nipple that will not go away. ??? Swelling that is worse in one breast than in the other. Summary ??? After the procedure, it is common to have pain, bruising, and swelling in your breast. You will be given medicine to help relieve pain. ??? Follow instructions from your health care provider about what activities you can do and any restrictions you may have after the procedure. ??? Follow instructions from your health care provider about how to take care of your incisions. ??? Check your incision areas every day for signs of infection. ??? Contact your health care provider if you notice any signs of infection. This information is not intended to replace advice given to you by your health care provider. Make sure you discuss any questions you have with your health care provider. Document Revised: 03/22/2020 Document Reviewed: 03/22/2020 [employer] Patient Education ?? 2020 [employer]. General Anesthesia, Adult, Care After This sheet [...] activities are safe for you. ??? Take qcdb-qgf-gnsiiem and prescription medicines only as told by [...] provider. Document Revised: 06/05/2021 Document Reviewed: 01/02/2021 [employer] Patient Education ?? 2020 [employer]. Lumpectomy, Care After This sheet gives you [...] these instructions at home: Medicines ??? Take hrrb-dxv-bszgimg and prescription medicines only as told by [...] keep your urine pale yellow. ? Take yykj-ogp-dgzgrgg or prescription medicines. ? Eat foods that [...] and water are not available, use hand kettle fry cook operator. ? Change your dressing as told by [...] provider. Document Revised: 03/25/2020 Document Reviewed: 03/25/2020 [employer] Patient Education ?? 2020 [employer]. Emergency Awareness and Preventative Care STROKE is [...] Assistance with quitting is available by contacting 1-101-AAJDNOW. This is a free resource providing counseling, support, and referral. Or you may contact your personal physician. National Suicide Prevention Lifeline: The National Suicide Prevention Lifeline is a [...] This Visit (last charted value for your 02/03/2022 visit) Hematology 01/27/2022 2:08 PM WBC: 9.3 K/uL -- Normal range between ( 3.9 and 10.0 ) RBC: 4.20 Million/uL -- Normal range between ( 3.93 and 5.22 ) Hct: 40.0 % -- Normal range between ( 34.1 and 44.9 ) Hgb: 13.2 Gram/dL -- Normal range between ( 11.2 and 15.7 ) Platelet Count: 340 K/uL -- Normal range between ( 163 and 369 ) MCH: 31.4 pg -- Normal range between ( 25.6 and 32.2 ) MCHC: 33.0 Gram/dL -- Normal range between ( 32.3 and 36.5 ) MCV: 95.2 fL -- Normal range between ( 79.0 and 94.8 ) Slide Review: No RDW: 13.5 % -- Normal range between ( 11.6 and 14.4 ) MPV: 10.6 fL -- Normal range between ( 9.4 and 12.4 ) Microbiology 01/30/2022 1:05 PM SARS-CoV-2 (COVID19 PCR): Negative General Chemistry 01/27/2022 2:08 PM Creatinine Level: 0.66 mg/dL -- Normal range between ( 0.55 and 1.02 ) Sodium Level: 139 mmol/L -- Normal range between ( 136 and 146 ) Potassium Level: 3.6 mmol/L -- Normal range between ( 3.5 and 5.1 ) Chloride Level: 105 mmol/L -- Normal range between ( 102 and 112 ) Carbon Dioxide Level: 27 mmol/L -- Normal range between ( 21 and 32 ) Anion Gap: 11 -- Normal range between ( 9 and 20 ) Bun/Creatinine: 18.2 -- Normal range between ( 8.0 and 20.0 ) Calcium Level: 9.0 mg/dL -- Normal range between ( 8.5 and 10.1 ) eGFR : >60 mL/min/1.73m2 eGFR NonAfrican: >60 mL/min/1.73m2 Glucose Level: 92 mg/dL -- Normal range between ( 74 and 106 ) Blood Urea Nitrogen: 12 mg/dL -- Normal range between ( 7 and 22 ) Endocrinology 02/03/2022 6:34 AM HCG Urine Qualitative: Negative Patient Name:JYOTHIROBERTA I have received this information and was given the opportunity to ask questions. Patient/Admitting Coordinator Name: Patient/Admitting Coordinator Signature: Relationship to Patient: Clinician/Hospital Admitting Coordinator Signature: Date: Electronically signed by Interface, [facility] Conversion Political Director Stacey at 01/19/2023 9:09 PM CDT documented in this encounter Plan of Treatment Not on file documented as of this encounter Visit Diagnoses Not on filedocumented in this encounter
--- OUTSIDE RECORDS SUMMARY | 2025-05-22 10:43 | XMS_ITS | Encounter Summary ---
Author Organization [employer] ([place], [place], [place], [place]) Address [address] [place] [address] Care Team Providers Care Production Or Plant Engineer Name Role Phone Unavailable Primary Care Provider Unavailabl e Encounter Details Date Type Department Care Team (Late st Contact Info) Description 02/03/2022 Transcribed Document [facility] [place] Family Medicine [address] [place] [address] ProviderGuerita MD [address] [place] [address] Social History Tobacco Use Types [...] Date Murray rded Speak language other than Welsh at home Not on file 10/22/2023 Want help with school or training Not on file 10/22/2023 Substance Use Answer Date Recorded Used prescription meds for non-medical reasons N ot on file 10/22/2023 Used illegal drugs past 12 months Not on file 10/22/2023 Comments Unknown Sex and Gender Information Value Date Recorded Sex Assigned at Female 08/19/2022 12:34 PM INPATIENT CODER Legal Sex Female 6:29 PM CDT Gender Identity Female 08/19/2022 12:34 PM INPATIENT CODER Sexual Orientation Straight 08/19/2022 12 :34 PM INPATIENT CODER COVID-19 Exposure Response Date Recorded In the last 10 days, have rufino reyes been in contact with someone who was confirmed or suspected to have Coronavirus/COVID-19? No / Unsure 02/08/2023 1:28 PM EDT documented as of this encounter Miscellaneous Notes * Cerner Conversion Note - Historical Provider, - 02/03/2022 8:19 AM CDT [facility] PreOp Summary Primary Physician: IBIS OLIVAS MD-SUR Finalized Date/Time: 02/03/22 16:19:36 Pt. Name: ROBERTA ROE TIANNA /Sex: 1975 Female Med Rec #: [id number] Physician: IBIS OLIVAS MD-SUR Financial #: [id number] Pt. Type: O Room/Bed: [facility] Admit/Disch: 02/03/22 05:18:00 - 02/03/22 12:05:00 Institution: [facility] PreOp Case Times Entry 1 In Preop 02/03/22 05:20:00 Ready for Holding n/a Room Patient Ready for 02/03/22 07:00:00 Surgery Patient Out of Preop 02/03/22 07:45:00 Patient Out of n/a Holding Room Last Modified By: Kim Ivory RN 02/03/22 16:19:32 [facility] PreOp Case Times Audit 02/03/22 16:19:32 Capital Campaign Fundraiser: MAYNARL Modifier: RAMEZALR <+> 1 Patient Ready for Surgery 02/03/22 07:45:52 Capital Campaign Fundraiser: [id number] Modifier: MAYNARL <+> 1 Patient Out of Preop Finalized By: Kim Ivory, RN Document Signatures Signed By: Kim Ivory, RN 02/03/22 16:19 documented in this encounter Plan of Treatment Not on file documented as of this encounter Visit Diagnoses Not on filedocumented in this encounter
--- OUTSIDE RECORDS SUMMARY | 2025-05-22 10:43 | XMS_ITS | Encounter Summary ---
Author Organization [employer] ([place], [place], [place], [place]) Address [address] [place] [address] Care Team Providers Care Board Certified Behavioral Analyst Name Role Phone Unavailable Primary Care Provider Unavailabl e Encounter Details Date Type Department Care Team (Late st Contact Info) Description 02/03/2022 Transcribed Document [facility] Radiology [address] [place] [address] Cricket Bonilla MD [address] [place] [address] Social History Tobacco Use Types Packs/Day Years [...] Date Murray rded Speak language other than Spanish at home Not on file 10/22/2023 Want help with school or training Not on file 10/22/2023 Substance Use Answer Date Recorded Used prescription meds for non-medical reasons N ot on file 10/22/2023 Used illegal drugs past 12 months Not on file 10/22/2023 Comments Unknown Sex and Gender Information Value Date Recorded Sex Assigned at Female 08/19/2022 12:34 PM CHEMICAL PRODUCTION TECHNICIAN Legal Sex Female 6:29 PM CDT Gender Identity Female 08/19/2022 12:34 PM CHEMICAL PRODUCTION TECHNICIAN Sexual Orientation Straight 08/19/2022 12 :34 PM CHEMICAL PRODUCTION TECHNICIAN COVID-19 Exposure Response Date Recorded In the last 10 days, have yo u been in contact with someone who was confirmed or suspected to have Coronavirus/COVID-19? No / Unsure 02/08/2023 1:28 PM EDT documented as of this encounter Miscellaneous Notes * Cerner Conversion Note - Cricket Bonilla MD - 02/03/2022 11:47 AM EDT DATE OF PROCEDURE: 02/03/2022 SURGEON: Cricket Bonilla MD PREOPERATIVE DIAGNOSIS: Right breast cancer. POSTOPERATIVE DIAGNOSES: 1. Right breast cancer. 2. Breast asymmetry. DIRECTOR APPAREL: Emily Shelton, who was essential in completion of this procedure in a timely and efficient fashion by assisting with suctioning, retraction, suturing, and placement of dressing. ANESTHESIA: General. PROCEDURE PERFORMED: Bilateral reduction mammoplasty via a Sandoval pattern type mammoplasty incision and a superomedial pedicle. INDICATION: The patient is a 46-year-old white female, who underwent several attempts at clearance of a right breast cancer by a right lumpectomy. The patient continued to have positive margins. It was determined that a large portion of her right breast would need to be resected. For symmetry purposes, the patient was referred to my office for bilateral breast reduction for symmetry. The technique, potential complications, and typical postoperative course were discussed with the patient. She indicated her understanding and wished to proceed. FINDINGS: Bilateral grade 3 breast ptosis. DESCRIPTION OF PROCEDURE: The patient was taken from preoperative holding to the operating room after informed consent was signed and on the chart and placed under general anesthesia successfully. Prior to induction of anesthesia, the patient received a prophylactic dose of antibiotics and had bilateral lower extremity sequential compression devices in place and operational. She was placed supine on the operating room table. She had a pillow placed beneath her knees. Her arms were gently abducted to 90 degrees and she had ulnar nerve padding. Her chest wall was prepped and draped in the usual sterile fashion. After properly identifying the patient and the patient's problem, bilateral Sandoval pattern type mammoplasty incisions were marked and reinforced with a marking pen. A superomedial pedicle was marked bilaterally. A justin-areola was marked with a 42 mm [employer] cutter. Both breasts were injected with 0.25% lidocaine with 1:400,000 epinephrine. After properly identifying the patient and the patient's problem, all planned incisions on the right side were scored with a 10 blade. The superior pedicle was then de-epithelialized with a 10 blade. It was then created with electrocautery. Next, full-thickness incisions were made through the skin with electrocautery. At this point of the procedure, I turned the procedure over to Dr. Jefferson, who proceeded with a right partial mastectomy which essentially included the tissue resection within the Sandoval pattern type mammoplasty incision. Due to the fact that he needed to resect under the right breast lateral pillar, tissue was preserved in the central inferior region of the resection pattern. This area was de-epithelialized with a 10 blade. Hemostasis was achieved with electrocautery. His specimen was marked according to his instructions. It was sent to Pathology for permanent section. The nipple-areolar complex was transposed to the 12 o'clock position and inset with 3-0 Monocryl suture in a deep dermal buried interrupted fashion. The caudal base of the justin-areolar opening was closed in similar fashion. The base of the vertical component of the Sandoval pattern type mammoplasty incision was closed in a similar fashion. The medial and lateral pillars were approximated with 2-0 Vicryl suture in a simple interrupted fashion. The breast tissue in the lateral zone of the breast was approximated to the abdominal wall tissue with 2-0 Vicryl suture in a simple interrupted fashion at the level of the superficial fascia. The skin was then temporarily closed with ron. Total weight on the right was 559 g. All planned incisions were scored with a 10 blade. A superior pedicle was de-epithelialized and then created with a 10 blade and electrocautery respectively. Tissue within the Sandoval pattern mammoplasty incision was then resected with electrocautery. Hemostasis was achieved with electrocautery. Total weight on the left side was 549 g. The tissue was then inset in a similar fashion. The patient was sat upright to check for symmetry. Symmetry was confirmed. The patient was sat back down supine on the operating room table. The remainder of the skin around the areola and the vertical component was closed with 3-0 Monocryl suture in a deep dermal buried interrupted fashion with 4-0 Monocryl suture in an intracuticular fashion. The skin along the horizontal component was closed with dermal ron and 3-0 Stratafix suture in an intracuticular fashion. Prineo skin glue and Dermabond were applied to the incision. The patient's chest wall was dressed with Kerlix fluffs and a surgical bra. The case was turned over to Anesthesia, at which point the patient was awoken from general anesthesia successfully and taken to PACU in stable condition. I was present for the entire procedure. All counts were correct. ESTIMATED BLOOD LOSS: Minimal. DRAINS: None. COMPLICATIONS: None immediate. /[id number] MD SHERLEY Mayen/DEMETRIO / SHERLEY / MODL /[id number] documented in this encounter Plan of Treatment Not on file documented as of this encounter Visit Diagnoses Not on filedocumented in this encounter
--- OUTSIDE RECORDS SUMMARY | 2025-05-22 10:43 | XMS_ITS | Encounter Summary ---
Author Organization [employer] ([place], [place], [place], [place]) Address [address] [place] [address] Care Team Providers Care Census Taker Name Role Phone Unavailable Primary Care Provider Unavailabl e Encounter Details Date Type Department Care Team (Late st Contact Info) Description 10/31/2021 Transcribed Document [facility] [place] [address] [place] [address] ProviderGuerita MD [address] [place] [address] Social History Tobacco Use Types [...] Date Murray rded Speak language other than Faroese at home Not on file 10/22/2023 Want help with school or training Not on file 10/22/2023 Substance Use Answer Date Recorded Used prescription meds for non-medical reasons N ot on file 10/22/2023 Used illegal drugs past 12 months Not on file 10/22/2023 Comments Unknown Sex and Gender Information Value Date Recorded Sex Assigned at Female 08/19/2022 12:34 PM RENAL MEDICINE SPECIALIST Legal Sex Female 6:29 PM CDT Gender Identity Female 08/19/2022 12:34 PM RENAL MEDICINE SPECIALIST Sexual Orientation Straight 08/19/2022 12 :34 PM RENAL MEDICINE SPECIALIST COVID-19 Exposure Response Date Recorded In the last 10 days, have rufino u been in contact with someone who was confirmed or suspected to have Coronavirus/COVID-19? No / Unsure 02/08/2023 1:28 PM EDT documented as of this encounter Miscellaneous Notes * Cerner Conversion Note - Historical Provider, - 10/31/2021 3:42 PM RENAL MEDICINE SPECIALIST [place] Suicide Severity Rating Scale (C-SSRS) Entered On: 10/31/2021 16:06 EST Performed On: 10/31/2021 16:06 EST by NATHANIEL NOYOLA Rn [place] Suicide Severity Rating Scale (C-SSRS) CSSRS Past Month Wish to be : No CSSRS Past Month Suicidal Thoughts : No CSSRS Lifetime Suicide Behavior : No Suicide Severity Rating Score : 0 Suicide Severity Rating : No Additional Care Required at this time Thoughts of Harming/Killing Others : No NATHANIEL NOYOLA Rn - 10/31/2021 16:06 EST documented in this encounter Plan of Treatment Not on file documented as of this encounter Visit Diagnoses Not on filedocumented in this encounter
--- OUTSIDE RECORDS SUMMARY | 2025-05-22 10:43 | XMS_ITS | Clinical Summary ---
Author Organization [employer] ([place], [place], [place], [place]) Address [address] [place] [address] Care Team Providers Care Video Production Engineer Name Role Phone Unavailable Primary Care Provider Unavailabl e Allergies No known active allergies Medications multivitamin capsule 1 Tab, Oral, Daily, 0 Refill(s) 01/27/2022 Active ascorbic acid, vitamin C, (ascorbic acid) 250 mg Chew Take by mouth. Active tamoxifen (NOLVADEX) 20 MG tablet Take 1 tablet (20 mg total) by mouth daily. 90 tablet 3 08/19/2022 Active dgan-KJ-csz-epa- IUD-TFWH-oj-mv 1.5 mg iron- 8.73 mg CpID Iron, 9 mg =, Oral, Daily, 0 Refill(s) 01/27/2022 Active Active Problems Problem Noted Date Diagnosed Date Malignant neoplasm of overla pping sites of right breast in female, estrogen receptor positive 08/18/2022 Cancer Staging:Pathologic stage from 10/06/2021:Stage 0(pTis (DCIS), cN0, cM0, ER+, IL+) - Signed by Reyna Mendez MD on 08/18/2022 Encounter for postoperative care 11/10/2021 Ductal carcinoma in situ (DCIS) of breast 2021 Mass of breast 08/21/2021 Mass of thoracic structure 08/08/2021 Fatigue 08/06/2021 Otalgia, unspecified ear 08/06/2021 Encounter for gynecological examination (general) (routine) without abnormal findings 07/26/2020 Encounter for general adult medical examination without abnormal findings 07/26/2020 Obesity with body mass index 30 or greater 07/26 Screening for malignant neoplasm of cervix perfo rmed 07/26/2020 Immunizations Name Administration Dates Next Due Influenza Four-QIV 6MO+ PF IM ([id number]) 2,07/08/2020 Influenza Four-qiv Pf 09/16/2021 Family History Medical History Relation Name Comments Lung cancer Mother Relation Name Status Comments Mother Social History Tobacco Use Types Packs/Day Years Used Date Smoking Tobacco: Former Smokeless Tobacco: Never Tobacco Cessation:Counseling Given: Not Answered Alcohol Use Standard Drinks/Week Comments Not Currently 0 (1 standard drink = 0.6 oz pur e alcohol) Food Insecurity Answer Date Recorded Food run [...] Date Murray rded Speak language other than Malawian at home Not on file 10/22/2023 Want help with school or training Not on file 10/22/2023 Substance Use Answer Date Recorded Used prescription meds for non-medical reasons N ot on file 10/22/2023 Used illegal drugs past 12 months Not on file 10/22/2023 Comments Unknown Sex and Gender Information Value Date Recorded Sex Assigned at Female 08/19/2022 12:34 PM BUSINESS SERVICES OFFICER Legal Sex Female 6:29 PM CDT Gender Identity Female 08/19/2022 12:34 PM BUSINESS SERVICES OFFICER Sexual Orientation Straight 08/19/2022 12 :34 PM BUSINESS SERVICES OFFICER Last Filed Vital Signs Vital Sign Reading Time Taken Comments Blood Pressure 152/95 11/05/2022 11:04 AM EST Pulse 75 11/05/2022 11:04 AM EST Temperature 37 C (98.6 F) 11/05/2022 11:04 AM EST Respiratory Rate 18 11/05/2022 11:04 AM EST Oxygen Saturation 99% 11/05/2022 11:04 AM EST RA Inhaled Oxygen Concentration - - Weight 93 kg (205 lb) 11/05/2022 11:04 AM EST Height 160.5 cm (5' 3.19 ) 11/05/2022 11:04 AM Anurag BONE Body Mass Index 36.1 11/05/2022 11:04 AM EST Plan of Treatment Health Maintenance Due Date Last Done Comments CT Colonography 1975 Colonoscopy 1975 Colorectal Cancer Screening 1975 FOBT/FIT 1975 Fit-DNA (Cologuard) 1975 Sigmoidoscopy 1975 Depression Screening (12+) 1987 HIV Screening 1990 Hepatitis C Screening 1993 DTAP/TDAP/TD VACCINES (1 - Tdap) 1994 Pap Smear 1996 Lipid Panel 2020 COVID-19 VACCINE ( season) 2024 08/06/2022, 10/22/2021, 01/08/2021, Additional history exists Breast Cancer Screening 08/20/2024 08/20/20, 10/06/2021, 09/01/2021 Tobacco Cessation Counseling and Screening (12+) 09/01/2024 09/01/2023 Influenza Vaccine (#1) 2025 08/06/2022, 2019 Pneumococcal Vaccine: 0-49 Years Aged Out No longer eligible based on patient's age to complete this topic Procedures Procedure Name Priority Date/Time Associated Diagnosis Comments MM DIGITAL MAMMO DIAGNOSTIC WITH RACHNA BILATERAL Routine 08/20/2022 11:48 AM EST Status post right breast lumpectomy from Last 3 Months or Most Recently Relevant to Health Maintenance Results * MM digital mammo diagnostic with rachna bilateral (08/20/2022 11:48 AM EST) Anatomical Region Laterality Modality Breast Bilateral Mammography 08/20/2022 12:0 5 PM EST Impressions 08/20/2022 12:07 PM EST FINAL IMPRESSION: ACR BI-RADS 2: Benign findings. RECOMMENDATIONS: Bilateral diagnostic mammogram with tomosynthesis in one year. At our facility, a [place] marker is positioned over a visible skin lesion and a linear marker is placed over a scar. Triangular marker indicates palpable mass. The results and recommendations were discussed with the patient on the day of her appointment. In addition, a written report in lay terms was given to the patient. Patient information was entered into a reminder system with a target due date for the next mammogram. Narrative 08/20/2022 12:07 PM EST PROCEDURE: Bilateral diagnostic mammogram with tomosynthesis REASON FOR EXAM: History of right lumpectomy for breast cancer 9 months ago followed by bilateral reduction mammoplasty FAMILY HISTORY: No family history of breast cancer COMPARISON STUDY: [facility] FINDINGS: Craniocaudal and mediolateral oblique images of both breasts were obtained in 2D, C-view and 3D modes. In addition, bilateral exaggerated craniocaudal projections were performed to better visualize the posterior lateral aspects of both breasts. In addition, right lateral to medial and magnified right lateral to medial views were obtained to better evaluate the site of prior lumpectomy. The breast tissue has scattered fibroglandular densities. Post reduction mammoplasty asymmetries are noted bilaterally. There are no dominant masses or suspicious calcifications. Specifically, there are no residual calcifications on the right. This examination was reviewed with the benefit of computer aided detection (CAD). Procedure Note Reva Veloz MD - 08/20/2022 PROCEDURE: Bilateral diagnostic mammogram with tomosynthesis REASON FOR EXAM: History of right lumpectomy for breast cancer 9 months ago followed by bilateral reduction mammoplasty FAMILY HISTORY: No family history of breast cancer COMPARISON STUDY: [facility] FINDINGS: Craniocaudal and mediolateral oblique images of both breasts were obtained in 2D, C-view and 3D modes. In addition, bilateral exaggerated craniocaudal projections were performed to better visualize the posterior lateral aspects of both breasts. In addition, right lateral to medial and magnified right lateral to medial views were obtained to better evaluate the site of prior lumpectomy. The breast tissue has scattered fibroglandular densities. Post reduction mammoplasty asymmetries are noted bilaterally. There are no dominant masses or suspicious calcifications. Specifically, there are no residual calcifications on the right. This examination was reviewed with the benefit of computer aided detection (CAD). IMPRESSION: FINAL IMPRESSION: ACR BI-RADS 2: Benign findings. RECOMMENDATIONS: Bilateral diagnostic mammogram with tomosynthesis in one year. At our facility, a [place] marker is positioned over a visible skin lesion and a linear marker is placed over a scar. Triangular marker indicates palpable mass. The results and recommendations were discussed with the patient on the day of her appointment. In addition, a written report in lay terms was given to the patient. Patient information was entered into a reminder system with a target due date for the next mammogram. us Manuel Jefferson MD IMG MAMMOGRAPHY ORDERABLES F inal Result from Last 3 Months or Most Recently Relevant to Health Maintenance Insurance BLUE CROSS/BLUE SHIELD
--- OUTSIDE RECORDS SUMMARY | 2025-05-22 10:43 | XMS_ITS | Encounter Summary ---
Author Organization [employer] ([place], [place], [place], [place]) Address [address] [place] [address] Care Team Providers Care Drupal Developer Name Role Phone Unavailable Primary Care Provider Unavailabl e Encounter Details Date Type Department Care Team (Late st Contact Info) Description 10/31/2021 Transcribed Document [facility] [place] [address] [place] [address] ProviderGuerita MD [address] [place] [address] Social History Tobacco Use Types [...] Date Murray rded Speak language other than Kyrgyz at home Not on file 10/22/2023 Want help with school or training Not on file 10/22/2023 Substance Use Answer Date Recorded Used prescription meds for non-medical reasons N ot on file 10/22/2023 Used illegal drugs past 12 months Not on file 10/22/2023 Comments Unknown Sex and Gender Information Value Date Recorded Sex Assigned at Female 08/19/2022 12:34 PM DATABASE TECHNICIAN Legal Sex Female 6:29 PM CDT Gender Identity Female 08/19/2022 12:34 PM DATABASE TECHNICIAN Sexual Orientation Straight 08/19/2022 12 :34 PM DATABASE TECHNICIAN COVID-19 Exposure Response Date Recorded In the last 10 days, have rufino reyes been in contact with someone who was confirmed or suspected to have Coronavirus/COVID-19? No / Unsure 02/08/2023 1:28 PM EDT documented as of this encounter Miscellaneous Notes * [employer]ner Conversion Note - Historical Provider, - 10/31/2021 6:36 PM DATABASE TECHNICIAN CR Chest 1 Vw Portable Ordered: 10/31/2021 Modified Reason for Exam: numbness 10/31/2021 17:47 10/31/2021 18:36 (ROSEANN LEY) No further action required documented in this encounter Plan of Treatment Not on file documented as of this encounter Visit Diagnoses Not on filedocumented in this encounter
--- OUTSIDE RECORDS SUMMARY | 2025-05-22 10:43 | XMS_ITS | Encounter Summary ---
Author Organization [employer] ([place], [place], [place], [place]) Address [address] [place] [address] Care Team Providers Care Mannequin Decorator Name Role Phone Unavailable Primary Care Provider Unavailabl e Encounter Details Date Type Department Care Team (Late st Contact Info) Description 10/31/2021 Transcribed Document [facility] Family Medicine [address] [place] [address] ProviderGuerita MD [address] [place] [address] Social History Tobacco Use Types [...] Date Murray rded Speak language other than Romanian at home Not on file 10/22/2023 Want help with school or training Not on file 10/22/2023 Substance Use Answer Date Recorded Used prescription meds for non-medical reasons N ot on file 10/22/2023 Used illegal drugs past 12 months Not on file 10/22/2023 Comments Unknown Sex and Gender Information Value Date Recorded Sex Assigned at Female 08/19/2022 12:34 PM FLATBED TRUCK DRIVER Legal Sex Female 6:29 PM CDT Gender Identity Female 08/19/2022 12:34 PM FLATBED TRUCK DRIVER Sexual Orientation Straight 08/19/2022 12 :34 PM FLATBED TRUCK DRIVER COVID-19 Exposure Response Date Recorded In the last 10 days, have rufino reyes been in contact with someone who was confirmed or suspected to have Coronavirus/COVID-19? No / Unsure 02/08/2023 1:28 PM EDT documented as of this encounter Miscellaneous Notes * Cerner Conversion Note - Historical Provider, - 10/31/2021 8:38 PM FLATBED TRUCK DRIVER ED Discharge Entered On: 10/31/2021 20:39 EST Performed On: 10/31/2021 20:38 EST by Laruie Salazar RN-PATIENT CARE BEDSIDE NON-EXEMPT Discharge Process Patient Disposition : Discharge Personal Belongings With Patient : Yes Patient Education Completed : Yes Teaching Evaluation : Verbalizes understanding IV Discontinued : Yes Nursing Documentation Completed : Yes Laurie Salazar RN-PATIENT CARE BEDSIDE NON-EXEMPT - 10/31/2021 20:38 EST ED Discharge Vital Signs Temperature Source : Oral Temperature Mode : Fahrenheit Temperature, Fahrenheit : 98.5 Deg F Clinical Temperature, C : 36.9 Deg C Peripheral Pulse Rate : 79 bpm Respiratory Rate : 18 Breaths/Min Systolic Blood Pressure : 128 mmHg Diastolic Blood Pressure : 79 mmHg Oxygen Saturation : 100 % Laurie Salazar RN-PATIENT CARE BEDSIDE NON-EXEMPT - 10/31/2021 20:38 EST ED Discharge Discharge To : Home with ambulatory/outpatient follow-up Mode Of Departure : Ambulatory Accompanied By : Responsible adult Discharge Instructions Reviewed With, Opportunity For Questions Given : Patient Prescriptions Given to Patient : Electronically sent Number of Prescriptions Given : 1 Laurie Salazar RN-PATIENT CARE BEDSIDE NON-EXEMPT - 10/31/2021 20:38 EST Electronically signed by Izabel [facility] Conversion Clerical Methods Analyst Cerner at 01/19/2023 9:16 PM CDT documented in this encounter Plan of Treatment Not on file documented as of this encounter Visit Diagnoses Not on filedocumented in this encounter
--- OUTSIDE RECORDS SUMMARY | 2025-05-22 10:43 | XMS_ITS | Encounter Summary ---
Author Organization [employer] ([place], [place], [place], [place]) Address [address] [place] [address] Care Team Providers Care Travel Insurance Agent Name Role Phone Unavailable Primary Care Provider Unavailabl e Encounter Details Date Type Department Care Team (Late st Contact Info) Description 10/29/2021 Transcribed Document [facility] [place] [address] [place] [address] ProviderGuerita MD [address] [place] [address] Social History Tobacco Use Types [...] Date Murray rded Speak language other than Frisian at home Not on file 10/22/2023 Want help with school or training Not on file 10/22/2023 Substance Use Answer Date Recorded Used prescription meds for non-medical reasons N ot on file 10/22/2023 Used illegal drugs past 12 months Not on file 10/22/2023 Comments Unknown Sex and Gender Information Value Date Recorded Sex Assigned at Female 08/19/2022 12:34 PM DIRECTOR TREASURER Legal Sex Female 6:29 PM CDT Gender Identity Female 08/19/2022 12:34 PM DIRECTOR TREASURER Sexual Orientation Straight 08/19/2022 12 :34 PM DIRECTOR TREASURER COVID-19 Exposure Response Date Recorded In the last 10 days, have rufino reyes been in contact with someone who was confirmed or suspected to have Coronavirus/COVID-19? No / Unsure 02/08/2023 1:28 PM EDT documented as of this encounter Miscellaneous Notes * Cerner Conversion Note - Historical Provider, - 10/29/2021 9:44 AM DIRECTOR TREASURER [facility] Main OR PreOp Summary Primary Physician: IBIS OLIVAS MD-SUR Finalized Date/Time: 10/30/21 07:51:10 Pt. Name: ROBERTA ROE TIANNA /Sex: 1975 Female Med Rec #: [id number] Physician: IBIS OLIVAS MD-SUR Financial #: [id number] Pt. Type: O Room/Bed: [facility] Admit/Disch: 10/29/21 06:31:00 - 10/29/21 11:10:00 Institution: [facility] PreOp Case Times Entry 1 In Preop 10/29/21 06:50:00 Ready for Holding n/a Room Patient Ready for 10/29/21 07:50:00 Surgery Patient Out of Preop 10/29/21 12:08:00 Patient Out of n/a Holding Room Last Modified By: KAMILLE HARRIS 10/30/21 07:51:08 [facility] PreOp Case Times Audit 10/30/21 07:51:08 Front Elevator Operator: [id number] Modifier: [email or web address] <+> 1 Patient Out of Preop Finalized By: KAMILLE HARRIS Document Signatures Signed By: KAMILLE HARRIS 10/30/21 07:51 Electronically signed by Izabel [facility] Conversion Software Configuration Analyst Cerner at 01/19/2023 9:06 PM CDT documented in this encounter Plan of Treatment Not on file documented as of this encounter Visit Diagnoses Not on filedocumented in this encounter
--- OUTSIDE RECORDS SUMMARY | 2025-05-22 10:43 | XMS_ITS | Encounter Summary ---
Author Organization [employer] ([place], [place], [place], [place]) Address [address] [place] [address] Care Team Providers Care Clinical Sciences Professor Name Role Phone Unavailable Primary Care Provider Unavailabl e Encounter Details Date Type Department Care Team (Late st Contact Info) Description 02/03/2022 Transcribed Document [facility] [place] [email or web address] [place] [address] Manuel Jefferson MD [email or web address] [place] [address] Social History Tobacco Use Types Packs/Day Years [...] Date Murray rded Speak language other than Indonesian at home Not on file 10/22/2023 Want help with school or training Not on file 10/22/2023 Substance Use Answer Date Recorded Used prescription meds for non-medical reasons N ot on file 10/22/2023 Used illegal drugs past 12 months Not on file 10/22/2023 Comments Unknown Sex and Gender Information Value Date Recorded Sex Assigned at Female 08/19/2022 12:34 PM MEDICAL SCRIBE Legal Sex Female 6:29 PM CDT Gender Identity Female 08/19/2022 12:34 PM MEDICAL SCRIBE Sexual Orientation Straight 08/19/2022 12 :34 PM MEDICAL SCRIBE COVID-19 Exposure Response Date Recorded In the last 10 days, have yo u been in contact with someone who was confirmed or suspected to have Coronavirus/COVID-19? No / Unsure 02/08/2023 1:28 PM EDT documented as of this encounter Miscellaneous Notes * Cerner Conversion Note - Manuel Jefferson MD - 02/03/2022 1:47 PM EDT DATE OF PROCEDURE: 02/03/2022 SURGEON: Manuel Jefferson MD PREOPERATIVE DIAGNOSIS: Positive margins following right breast lumpectomy. POSTOPERATIVE DIAGNOSIS: Positive margins following right breast lumpectomy. PROCEDURES PERFORMED: Right breast re-excision partial mastectomy. DRY HEAT CABINET ATTENDANT: Emily Shelton. ANESTHESIA: General. ESTIMATED BLOOD LOSS: Minimal. COMPLICATIONS: None. OPERATIVE INDICATIONS: Ms. Tolbert is a 46-year-old female patient, who is status post right breast lumpectomy for DCIS. She had positive margins requiring re-excision. Her re-excision also revealed evidence of positive posterior and inferior margins. As a result, repeat re-excision partial mastectomy along with bilateral breast reduction was offered and recommended and after risks and benefits of operative intervention were explained to her, she wished to proceed. OPERATIVE FINDINGS: She had no gross residual evidence of disease in the right breast. DESCRIPTION OF PROCEDURE: After obtaining informed consent, Ms. Tolbert was taken to the operating room and placed in supine position. General anesthesia was induced. Her chest was prepped and draped in usual sterile fashion. Attention was turned to the right side, where a skin incision was made adjacent to the previous lumpectomy scar along the marked area. Dr. Bonilla has planned reduction. Dissection down into the breast tissue was achieved using electrocautery. Next, electrocautery was used to excise the breast tissue in the lower outer quadrant, taking care to ensure the posterior margin that went all the way to the chest wall and the inferior margin all the way to the inframammary crease. The specimen was removed. It was marked with short stitch superiorly and long stitch laterally. It was passed off to Pathology. Meticulous hemostasis was ensured. At this point, care of Ms. Tolbert was transferred to Dr. Bonilla for completion of his bilateral reduction portion of the procedure. /[id number] MD NOMI Canales/DEMETRIO / NOMI / MODL /[id number] CC: [facility] documented in this encounter Plan of Treatment Not on file documented as of this encounter Visit Diagnoses Not on filedocumented in this encounter
--- OUTSIDE RECORDS SUMMARY | 2025-05-22 10:43 | XMS_ITS | Encounter Summary ---
Author Organization [employer] ([place], [place], [place], [place]) Address [address] [place] [address] Care Team Providers Care Supervisory It Specialist Name Role Phone Unavailable Primary Care Provider Unavailabl e Encounter Details Date Type Department Care Team (Late st Contact Info) Description 02/03/2022 Transcribed Document [facility] [place] Family Medicine [address] [place] [address] ProviderGuerita MD [address] [place] [address] Social History Tobacco Use Types [...] Date Murray rded Speak language other than Armenian at home Not on file 10/22/2023 Want help with school or training Not on file 10/22/2023 Substance Use Answer Date Recorded Used prescription meds for non-medical reasons N ot on file 10/22/2023 Used illegal drugs past 12 months Not on file 10/22/2023 Comments Unknown Sex and Gender Information Value Date Recorded Sex Assigned at Female 08/19/2022 12:34 PM SUPERVISOR GELATIN PLANT Legal Sex Female 6:29 PM CDT Gender Identity Female 08/19/2022 12:34 PM SUPERVISOR GELATIN PLANT Sexual Orientation Straight 08/19/2022 12 :34 PM SUPERVISOR GELATIN PLANT COVID-19 Exposure Response Date Recorded In the last 10 days, have yo u been in contact with someone who was confirmed or suspected to have Coronavirus/COVID-19? No / Unsure 02/08/2023 1:28 PM EDT documented as of this encounter Miscellaneous Notes * Cerner Conversion Note - Historical Provider, - 02/03/2022 8:19 AM CDT [facility] IntraOp Summary Primary Physician: IBIS OLIVAS MD-SUR Finalized Date/Time: 02/03/22 12:05:55 Pt. Name: DEMETRIA ROE TIANNA /Sex: 1975 Female Med Rec #: [id number] Physician: IBIS OLIVAS MD-SUR Financial #: [id number] Pt. Type: O Room/Bed: [facility] Admit/Disch: 02/03/22 05:18:00 - Institution: [facility] [place] IntraOp Case Attendance Entry 1 Entry 2 Entry 3 Case Attendee IBIS OLIVAS HILL, JOSEPH L, MD-Emily Rogers MD-SUR Waste Elimination Role Performed Surgeon/Proceduralist, Surgeon/Proceduralist, Scrub, Second First Second Time In 02/03/22 07:48:00 02/03/22 07:48:00 02/03/22 07:48:00 Time Out 02/03/22 10:59:00 02/03/22 10:59:00 02/03/22 10:59:00 Procedure Breast Lumpectomy, Breast Lumpectomy, Breast Lumpectomy, Mammoplasty Reduction Mammoplasty Reduction Mammoplasty Reduction Other Attendee Superficial Wound Closed By: Last Modified By: JEFFERSON RIOS, JEFFERSON RIOS, JEFFERSON RIOS, RN-PATIENT CARE BEDSIDE RN-PATIENT CARE BEDSIDE RN-PATIENT CARE BEDSIDE NON-EXEMPT 02/03/22 NON-EXEMPT 02/03/22 NON-EXEMPT 02/03/22 11:02:52 11:02:52 11:02:15 Entry 4 Entry 5 Entry 6 Case Attendee Saritha Marie DAWNIELLE, RHOTEN, CAROLYN, RN-PATIENT CARE BEDSIDE DORMITORY MAID-NURSE BALL THREAD MACHINE TENDER NON-EXEMPT Role Performed Scrub, First Certified Cytotechnologist, First Student Time In 02/03/22 07:48:00 02/03/22 07:48:00 02/03/22 07:48:00 Time Out 02/03/22 10:59:00 02/03/22 10:59:00 02/03/22 10:59:00 Procedure Breast Lumpectomy, Breast Lumpectomy, Breast Lumpectomy, Mammoplasty Reduction Mammoplasty Reduction Mammoplasty Reduction Other Attendee Superficial Wound Closed By: Last Modified By: JEFFERSON RIOS CLARK, DAWNIELLE, JEFFERSON RIOS, RN-PATIENT CARE BEDSIDE RN-PATIENT CARE BEDSIDE RN-PATIENT CARE BEDSIDE NON-EXEMPT 02/03/22 NON-EXEMPT 02/03/22 NON-EXEMPT 02/03/22 11:02:15 11:02:15 11:02:15 Entry 7 Entry 8 Case Attendee FAUSTO SHAIKH, HO, Tung Gib[address] ST ALTERNATIVE MEDICINE PRACTITIONER-ANS Role Performed ALTERNATIVE MEDICINE PRACTITIONER/Nurse Supply Requirements Officer Scrub, First Time In 02/03/22 07:48:00 02/03/22 09:45:00 Time Out 02/03/22 10:59:00 02/03/22 10:59:00 Procedure Breast Lumpectomy, Breast Lumpectomy, Mammoplasty Reduction Mammoplasty Reduction Other Attendee BREAK Superficial Wound Closed By: Last Modified By: JEFFERSON RIOS, JEFFERSON RIOS, RN-PATIENT CARE BEDSIDE RN-PATIENT CARE BEDSIDE NON-EXEMPT 02/03/22 NON-EXEMPT 02/03/22 11:02:15 11:02:15 [facility] IntraOp Case Attendance Audit 02/03/22 11:02:52 Weatherization Crew Leader: [id number] Modifier: [id number] <+> 1 Procedure <+> 2 Procedure 02/03/22 11:02:15 Weatherization Crew Leader: [id number] Modifier: [id number] <+> 1 Time Out <+> 2 Time Out 3 <+> Time Out 3 <*> Procedure Breast Lumpectomy, Mammoplasty Reduction 4 <+> Time Out 4 <*> Procedure Breast Lumpectomy, Mammoplasty Reduction 5 <+> Time Out 5 <*> Procedure Breast Lumpectomy, Mammoplasty Reduction 6 <+> Time Out 6 <*> Procedure Breast Lumpectomy, Mammoplasty Reduction 7 <+> Time Out 7 <*> Procedure Breast Lumpectomy, Mammoplasty Reduction 8 <+> Time Out 8 <*> Procedure Breast Lumpectomy, Mammoplasty Reduction 02/03/22 10:29:35 Weatherization Crew Leader: [id number] Modifier: [id number] <+> 8 Case Attendee <+> 8 Role Performed <+> 8 Time In <+> 8 Procedure <+> 8 Other Attendee 02/03/22 09:30:00 Weatherization Crew Leader: [id number] Modifier: [id number] <*> Procedure Breast Lumpectomy, Mammoplasty Reduction 4 <*> Procedure Breast Lumpectomy, Mammoplasty Reduction 5 <+> Time In 5 <*> Procedure Breast Lumpectomy, Mammoplasty Reduction 6 <+> Time In 6 <*> Procedure Breast Lumpectomy, Mammoplasty Reduction 7 <+> Time In 7 <*> Procedure Breast Lumpectomy, Mammoplasty Reduction 02/03/22 08:34:00 Weatherization Crew Leader: [id number] Modifier: [id number] <+> Time In 3 <*> Procedure Breast Lumpectomy, Mammoplasty Reduction 4 <+> Time In 4 <*> Procedure Breast Lumpectomy, Mammoplasty Reduction <+> 5 Case Attendee <+> 5 Role Performed <+> 5 Procedure <+> 6 Case Attendee <+> 6 Role Performed <+> 6 Procedure <+> 7 Case Attendee <+> 7 Role Performed <+> 7 Procedure [facility] IntraOp Case Times Entry 1 Patient In Room Time 02/03/22 07:48:00 Out Room Time 02/03/22 10:59:00 Anesthesia Start Time 02/03/22 07:48:00 Stop Time 02/03/22 10:59:00 Anesthesia Ready 02/03/22 07:48:00 Surgery / Procedure Times Start Time 02/03/22 08:19:00 Stop Time 02/03/22 10:54:00 Last Modified By: JEFFERSON RIOS RN-PATIENT CARE BEDSIDE NON-EXEMPT 02/03/22 11:02:13 [facility] IntraOp Case Times Audit 02/03/22 11:02:13 Weatherization Crew Leader: [id number] Modifier: [id number] <+> 1 Out Room Time <+> 1 Stop Time 02/03/22 10:59:14 Weatherization Crew Leader: [id number] Modifier: [id number] <+> 1 Stop Time 02/03/22 08:28:24 Weatherization Crew Leader: [id number] Modifier: [id number] 1 <*> Start Time 02/03/22 08:18:00 [facility] IntraOp Cautery Entry 1 ESU Identification Cautery Type Monopolar ESU ID Number [id number] ID Type Hospital Number Cautery Settings Cut Setting 30 Coag Setting 30 ESU Grounding Pad Ground Pad Type Adult Grounding Pad Site Right thigh Grounding Pad JEFFERSON RIOS, Applied By RN-PATIENT CARE BEDSIDE NON-EXEMPT Grounding Pad Site Intact Skin Condition Before Cautery Grounding Pad Site Unchanged Skin Condition After Cautery Site Skin Condition intact After Comment Last Modified By: JEFFERSON RIOS RN-PATIENT CARE BEDSIDE NON-EXEMPT 02/03/22 08:48:08 [facility] IntraOp Communication Entry 1 Communication To Family/Significant other Communication By IBIS OLIVAS MD-YARA Last Modified By: JEFFERSON RIOS RN-PATIENT CARE BEDSIDE NON-EXEMPT 02/03/22 08:50:43 [facility] IntraOp Counts Verification Entry 1 Procedure Breast Lumpectomy, Mammoplasty Reduction Count Info Count Type Sponge, Sharps, Miscellaneous Counts Verification Baseline/pre-procedure Sequence Counts Performed By Count Performed By Saritha Marie (Scrub) Count Performed By JEFFERSON RIOS (RN) RN-PATIENT CARE BEDSIDE NON-EXEMPT Last Modified By: JEFFERSON RIOS RN-PATIENT CARE BEDSIDE NON-EXEMPT 02/03/22 08:51:01 [facility] IntraOp Counts Final Entry 1 Procedure Breast Lumpectomy, Mammoplasty Reduction Final Count Info Count Type Sponge, Sharps, Miscellaneous Counts Verification Skin Closure/end of Sequence procedure Count Results Correct, surgeon notified Counts Performed By Count Performed By Saritha Marie (Scrub) Count Performed By JEFFERSON RIOS (RN) RN-PATIENT CARE BEDSIDE NON-EXEMPT Last Modified By: JEFFERSON RIOS RN-PATIENT CARE BEDSIDE NON-EXEMPT 02/03/22 08:51:25 [facility] IntraOp Cultures and Spec Summary Entry 1 Cultrures and Specimens Specimen Ordered: Yes Test(s) Routine/Path-Lab Requested/Final Disposition Last Modified By: JEFFERSON RIOS RN-PATIENT CARE BEDSIDE NON-EXEMPT 02/03/22 08:51:38 [facility] IntraOp Delays Entry 1 Delay Reason Surgeon late - no reason Duration 18 Minute(s) Last Modified By: JEFFERSON RIOS RN-PATIENT CARE BEDSIDE NON-EXEMPT 02/03/22 08:54:09 [facility] IntraOp Departure from OR Entry 1 Integumentary Assessment Integumentary WDL Assessment WDL Transfer/Handoff Transfer to PACU Phase I Handoff Method Bedside/Face to face Post-op Transport Stretcher/Gurney Via Patient Transport JEFFERSON RIOS, Accompanied by RN-PATIENT CARE BEDSIDE NON-EXEMPT, FAUSTO SHAIKH, REHABILITATION TECHNICIAN, ALTERNATIVE MEDICINE PRACTITIONER-ANS Last Modified By: JEFFERSON RIOS RN-PATIENT CARE BEDSIDE NON-EXEMPT 02/03/22 08:54:18 [facility] IntraOp Dressing and Packing Entry 1 Type Dressing Location BREAST Wound Dressing Item Skin adhesive Applied By AMAURY TATE MD-TOMAS Last Modified By: JEFFERSON RIOS RN-PATIENT CARE BEDSIDE NON-EXEMPT 02/03/22 08:54:51 [facility] IntraOp Fire Risk Assessment Entry 1 Fire Info Surgical Site or 1- Yes Incision Above the Xyphoid Open O2 Source 0- No (Mask or Cannula) Available Ignition 1- Yes (ESU, Laser, Light Source) Fire Risk 2 Assessment Score Fire Score Fire Risk Yes Assessment Complete Fire Risk JEFFERSON RIOS, Assessment Verified RN-PATIENT CARE BEDSIDE By NON-EXEMPT Fire Risk 02/03/22 08:17:00 Assessment Verified Date/Time Fire Risk Standard Fire Yes Safety Precautions Followed Last Modified By: JEFFERSON RIOS RN-PATIENT CARE BEDSIDE NON-EXEMPT 02/03/22 08:56:03 [facility] IntraOp General Case Regional Agronomist 1 Case Information OR OR 02 SJE Case Level 1 Room Verified Yes Wound Class 1 - Clean Specialty General Anesthesia Type General ASA Class 2 Diagnosis Preop Diagnosis RIGHT BREAST CANCER Postop Same As Preop Yes Postop Diagnosis RIGHT BREAST CANCER Wound Class Definitions Last Modified By: JEFFERSON RIOS RN-PATIENT CARE BEDSIDE NON-EXEMPT 02/03/22 09:16:37 [facility] IntraOp Intraoperative Assessment Entry 1 Handoff Method Other Valid History / Yes Physical in Chart Preoperative Yes Checklist Reviewed/Evaluated Allergies Reviewed Yes Patient is Latex Yes, protocol initiated Sensitive Isolation Not applicable Precautions Noted Level of WDL Consciousness (WDL = Alert, Oriented to Person, Place, and Time) Skin Assessment Yes Verified Present Upon IVs Arrival to OR Last Modified By: JEFFERSON RIOS RN-PATIENT CARE BEDSIDE NON-EXEMPT 02/03/22 09:17:29 [facility] IntraOp Intraoperative Equipment Entry 1 Type Equipment Equipment Equipment Susie Suction System ID Number [id number] Intraop Monitoring Electrocardiogram Three lead placement (ECG) Electrode Placement Blood Pressure Non-Invasive BP Device Source Blood Pressure Arm, right lower Location Pulse Oximeter Hand, left Probe Site Antiembolic Devices Antiembolic Devices Sequential compression device, knee high Antiembolic Device Bilateral Location Antiembolic Device [id number] ID Number Scopes Photo/Video Documentation Photo No Video No Last Modified By: JEFFERSON RIOS RN-PATIENT CARE BEDSIDE NON-EXEMPT 02/03/22 09:21:35 [facility] IntraOp Medication Admin Entry 1 Medication/Irrigant Xylocaine 1% w/ epinephrine 1:200,000 30ml vial - [id number] Combo Med List 1 - Combo Med Route of LOCAL INJECTION Administration Dose Dose 50 Unit of Measure ml Volume QS Administered By IBIS OLIVAS MD-YARA Procedure Irrigation Last Modified By: JEFFERSON RIOS RN-PATIENT CARE BEDSIDE NON-EXEMPT 02/03/22 09:29:36 General Comments: 50ML LIDOCAINE WITH EPI MIXED IN 100ML SALINE [facility] IntraOp Patient Positioning Entry 1 Procedure Breast Lumpectomy Body Position Supine Left Arm Position Secured on padded arm board Right Arm Position Secured on padded arm board Left Leg Position Uncrossed, parallel Right Leg Position Uncrossed, parallel Feet Uncrossed Yes Pressure Points Yes Checked Positioning Devices Arm Board, Safety Strap, Thighs Positioned By JEFFERSON RIOS RN-PATIENT CARE BEDSIDE NON-EXEMPT, FAUSTO SHAIKH, HO, ALTERNATIVE MEDICINE PRACTITIONER-ANS Position Verified Positioning Yes Verified by Anesthesia Positioning Yes Verified by Surgeon Last Modified By: JEFFERSON RIOS RN-PATIENT CARE BEDSIDE NON-EXEMPT 02/03/22 09:29:46 [facility] IntraOp Sign In Entry 1 Patient, Site, Yes Procedure Identified Surgical Consent Yes Confirmed Relevant Surgical Yes Documents Available Surgical Site Yes Marked by person performing procedure Anesthesia Machine Yes Check Completed Medication Checks Yes Completed Allergies Yes Airway Difficult No Airway/Aspiration Risk Difficult Yes Airway/Aspiration Intervention Equipment Available Blood Loss Risk Yes Blood Loss Yes Intervention Equipment Prepared and Ready Blood Identifiers Not applicable Verified Per Policy Hypothermia Risk Yes Warming Measures Yes Taken Last Modified By: JEFFERSON RIOS RN-PATIENT CARE BEDSIDE NON-EXEMPT 02/03/22 09:29:58 [facility] Intra Op Sign Out Entry 1 RN Confirmation Surgical Yes Procedure(s) Identified Instrument, Sponge Yes and Sharps Counts Correct/Documented Equipment Problems N/A Documented Specimen Labeled Yes Correctly Urinary Catheter N/A Documented in IView Wound Yes classification reviewed, verified and updated post case in both the General Case Data and Procedure segments [place] Patient Yes Recovery Concerns Reviewed with Anesthesia Provider, Surgeon and RN [place] Patient Yes Management Concerns Reviewed with Anesthesia Provider, Surgeon and RN Safety Checklist Yes Elements Complete? RN Sign Out JEFFERSON RIOS, Carmelita RN-PATIENT CARE BEDSIDE NON-EXEMPT RN Sign Out 02/03/22 10:59:00 Signature Date/Time Plan of Care Outcome - Fire Risk OUTCOME STATEMENT: Goal met Patient is free from injury related to surgical fire Plan of Care Outcome - Pt Positioning OUTCOME STATEMENT: Goal met Absence of signs and symptoms of positioning injury. Plan of Care Outcome - Skin Prep OUTCOME STATEMENT: Goal met Intraoperative care is consistent with measures to prevent infection Plan of Care Outcome - Xray/Images OUTCOME STATEMENT: N/A Absence of observable signs or symptoms of radiation injury Plan of Care Outcome - Counts OUTCOME STATEMENT: Goal met Absence of signs and symptoms of injury related to extraneous objects Last Modified By: JEFFERSON RIOS RN-PATIENT CARE BEDSIDE NON-EXEMPT 02/03/22 11:02:22 [facility] Intra Op Sign Out Audit 02/03/22 11:02:22 Weatherization Crew Leader: [id number] Modifier: [id number] <+> 1 RN Sign Out Signature Date/Time [facility] IntraOp Skin Prep Entry 1 Procedure Breast Lumpectomy Prescribed Yes Pre-Surgical Prep Completed Prep Area CHEST/BREAST SHETT TO SHEET NECK TO MID ABDOMEN. Intraop Prep Integumentary WDL Assessment WDL Prep Agents Chlorhexadine gluconate Prep by JEFFERSON RIOS RN-PATIENT CARE BEDSIDE NON-EXEMPT Hair Removal Methods No hair removal performed Last Modified By: JEFFERSON RIOS RN-PATIENT CARE BEDSIDE NON-EXEMPT 02/03/22 09:16:59 [facility] IntraOp Surgical Procedures Entry 1 Entry 2 Procedure Breast Lumpectomy Mammoplasty Reduction Modifiers Additional RIGHT BREAST RE Procedure EXCISION LUMPECTOMY Description WITH BILATERAL BREAST REDUCTION Primary Procedure Yes No Primary Surgeon IBIS OLIVAS HILL, JOSEPH L, MD-TOMAS -YARA Start 02/03/22 08:19:00 02/03/22 08:19:00 Stop 02/03/22 10:54:00 02/03/22 10:54:00 Physician States Cecum Reached Anesthesia Type General General Specialty General Plastic Wound Class 1 - Clean 1 - Clean Last Modified By: JEFFERSON RIOS, JEFFERSON RIOS RN-PATIENT CARE BEDSIDE RN-PATIENT CARE BEDSIDE NON-EXEMPT 02/03/22 NON-EXEMPT 02/03/22 10:59:36 10:59:36 [facility] IntraOp Surgical Procedures Audit 02/03/22 10:59:36 Weatherization Crew Leader: [id number] Modifier: [id number] <+> 1 Stop <+> 2 Stop [facility] IntraOp Temp Regulation Devices Entry 1 Temp Regulation Temperature Forced Air Warming Regulation Device device Temperature 4764 Regulation Device Serial/Unit Number Temperature Lower body Regulation Site Temperature Device 43 DEGREES C Setting Temperature JEFFERSON RIOS, Regulation Device RN-PATIENT CARE BEDSIDE Applied by NON-EXEMPT Last Modified By: JEFFERSON RIOS RN-PATIENT CARE BEDSIDE NON-EXEMPT 02/03/22 09:30:58 [facility] IntraOp Time Out Entry 1 Procedure to be Breast Lumpectomy, Performed Mammoplasty Reduction Time Out Time Out Pause Time 02/03/22 08:17:00 All activity Yes suspended (unless life threatening emergency) Team Verbally Correct patient Confirms Information identity, Correct side and site are marked, Consent form is present and accurate, Agreement on the procedure to be done, Correct patient position, Relevant images/results properly labeled/appropriately displayed, Confirm antibiotics have been administered, Confirm the skin prep has dried, Confirm prosthesis/implant/devic e is present, Performed in location of procedure after prepped/draped Antibiotic Yes Prophylaxis Administered Or In Progress Within the Last 60 Minutes Beta Lizette N/A Administered Venous N/A Thromboembolism Prophylaxis Required Anticipated Critical Events Surgeon None expected Anesthesia Provider None expected Nursing Assures Sterility of instruments, Equipment concerns or issues Last Modified By: JEFFERSON RIOS RN-PATIENT CARE BEDSIDE NON-EXEMPT 02/03/22 10:59:31 [facility] IntraOp Time Out Audit 02/03/22 10:59:31 Weatherization Crew Leader: [id number] Modifier: [id number] 1 <+> Antibiotic Prophylaxis Administered Or In Progress Within the Last 60 Minutes 1 <*> Procedure to be Performed Breast Lumpectomy, Mammoplasty Reduction Case Comments <None> Finalized By: Rachael Bustamante RN Document Signatures Signed By: JEFFERSON RIOS RN-PATIENT CARE BEDSIDE NON-EXEMPT 02/03/22 11:02 Rachael Bustamante RN 02/03/22 12:05 Unfinalized History Date/Time Username Reason for Unfinalizing Freetext Reason for Unfinalizing 02/03/22 12:05 EFRAIN Chart Audit Electronically signed by Izabel [id number] Conversion Directory Operator Cerner at 01/19/2023 9:05 PM CDT documented in this encounter Plan of Treatment Not on file documented as of this encounter Visit Diagnoses Not on filedocumented in this encounter
--- OUTSIDE RECORDS SUMMARY | 2025-05-22 10:43 | XMS_ITS | Encounter Summary ---
Author Organization [employer] ([place], [place], [place], [place]) Address [address] [place] [address] Care Team Providers Care Drive Thru Order Taker Name Role Phone Unavailable Primary Care Provider Unavailabl e Reason for Visit * Reason Onset Date Comments Follow-up 03/10/2023 Encounter Details Date Type Department Care Team (Late st Contact Info) Description 03/10/2023 Telephone [facility] [address] [id number] Toma Muse, ORACLE SCM CONSULTANT [address] [employer] [facility] [address] [place] [address] Follow-up Social History Tobacco Use Types Packs/Day Years Used Date Smoking Tobacco: Former Smokeless Tobacco: Never Alcohol Use Standard Drinks/Week Comments Not Currently 0 (1 standard drink = 0.6 oz pur e alcohol) Comments Unknown Sex and Gender Information Value Date Recorded Sex Assigned at Female 08/19/2022 12:34 PM FIRE REGULATOR Legal Sex Female 6:29 PM CDT Gender Identity Female 08/19/2022 12:34 PM FIRE REGULATOR Sexual Orientation Straight 08/19/2022 12 :34 PM FIRE REGULATOR COVID-19 Exposure Response Date Recorded In the last 10 days, have yo u been in contact with someone who was confirmed or suspected to have Coronavirus/COVID-19? No / Unsure 02/08/2023 1:28 PM EDT documented as of this encounter Plan of Treatment Not on file documented as of this encounter Visit Diagnoses Not on filedocumented in this encounter
--- OUTSIDE RECORDS SUMMARY | 2025-05-22 10:43 | XMS_ITS | Encounter Summary ---
Author Organization [employer] ([place], [place], [place], [place]) Address [address] [place] [address] Care Team Providers Care Cadmium Plater Name Role Phone Unavailable Primary Care Provider Unavailabl e Encounter Details Date Type Department Care Team (Late st Contact Info) Description 02/03/2022 Transcribed Document [facility] [place] [address] [place] [address] ProviderGuerita MD [address] [place] [address] Social History Tobacco Use Types [...] Date Murray rded Speak language other than Macedonian at home Not on file 10/22/2023 Want help with school or training Not on file 10/22/2023 Substance Use Answer Date Recorded Used prescription meds for non-medical reasons N ot on file 10/22/2023 Used illegal drugs past 12 months Not on file 10/22/2023 Comments Unknown Sex and Gender Information Value Date Recorded Sex Assigned at Female 08/19/2022 12:34 PM PEGGER Legal Sex Female 6:29 PM CDT Gender Identity Female 08/19/2022 12:34 PM PEGGER Sexual Orientation Straight 08/19/2022 12 :34 PM PEGGER COVID-19 Exposure Response Date Recorded In the last 10 days, have rufino reyes been in contact with someone who was confirmed or suspected to have Coronavirus/COVID-19? No / Unsure 02/08/2023 1:28 PM EDT documented as of this encounter Miscellaneous Notes * Cerner Conversion Note - Historical Provider, - 02/03/2022 8:19 AM CDT [facility] OR PostOp Summary Primary Physician: IBIS OLIVAS MD-SUR Finalized Date/Time: 02/03/22 12:05:22 Pt. Name: ROBERTA ROE TIANNA /Sex: 1975 Female Med Rec #: [id number] Physician: IBIS OLIVAS MD-SUR Financial #: [id number] Pt. Type: O Room/Bed: [facility] Admit/Disch: 02/03/22 05:18:00 - Institution: [facility] PostOp Case Times Entry 1 In PACU II 02/03/22 11:50:00 Ready for PACU II 02/03/22 12:05:00 Discharge Discharge from PACU 02/03/22 12:05:00 II Last Modified By: LUIZA GRIDER, RN 02/03/22 12:05:19 Finalized By: LUIZA GRIDER, RN Document Signatures Signed By: LUIZA GRIDER, RN 02/03/22 12:05 Electronically signed by Izabel [facility] Conversion Chief Vendor Quality Cerner at 01/19/2023 9:22 PM CDT documented in this encounter Plan of Treatment Not on file documented as of this encounter Visit Diagnoses Not on filedocumented in this encounter
--- OUTSIDE RECORDS SUMMARY | 2025-05-22 10:43 | XMS_ITS | Encounter Summary ---
Author Organization [employer] ([place], [place], [place], [place]) Address [address] [place] [address] Care Team Providers Care Air Duct Mechanic Name Role Phone Unavailable Primary Care Provider Unavailabl e Encounter Details Date Type Department Care Team (Late st Contact Info) Description 02/03/2022 Transcribed Document [facility] [place] Family Medicine [address] [place] [address] ProviderGuerita MD [address] [place] [address] Social History Tobacco Use Types [...] Date Murray rded Speak language other than Turkmen at home Not on file 10/22/2023 Want help with school or training Not on file 10/22/2023 Substance Use Answer Date Recorded Used prescription meds for non-medical reasons N ot on file 10/22/2023 Used illegal drugs past 12 months Not on file 10/22/2023 Comments Unknown Sex and Gender Information Value Date Recorded Sex Assigned at Female 08/19/2022 12:34 PM BARKER OPERATOR Legal Sex Female 6:29 PM CDT Gender Identity Female 08/19/2022 12:34 PM BARKER OPERATOR Sexual Orientation Straight 08/19/2022 12 :34 PM BARKER OPERATOR COVID-19 Exposure Response Date Recorded In the last 10 days, have rufino reyes been in contact with someone who was confirmed or suspected to have Coronavirus/COVID-19? No / Unsure 02/08/2023 1:28 PM EDT documented as of this encounter Miscellaneous Notes * Cerner Conversion Note - Historical Provider, - 02/03/2022 10:57 AM CDT Patient Education Materials Follows:and Gynecology Breast Reduction, Care After This sheet gives [...] these instructions at home: Medicines ??? Take alsx-zzp-jsaokbm and prescription medicines only as told by [...] keep your urine pale yellow. ? Take jayc-ibs-wviiwia or prescription medicines. ? Eat foods that [...] and water are not available, use hand engineer operations and maintenance. ? Change your dressing as told by [...] Get up to take short walks every 1?2 hours. This is important to improve blood [...] Do not sleep on your belly for 4?6 weeks. ??? Keep all follow-up visits as [...] provider. Document Revised: 03/22/2020 Document Reviewed: 03/22/2020 Presentain Patient Education ? 2020 [employer]. Lumpectomy, Care After This sheet gives you [...] these instructions at home: Medicines ??? Take oqpi-krp-pruktfi and prescription medicines only as told by [...] keep your urine pale yellow. ? Take iqap-zun-iyctxxh or prescription medicines. ? Eat foods that [...] and water are not available, use hand engineer operations and maintenance. ? Change your dressing as told by [...] Get up to take short walks every 1?2 hours. This is important to improve blood [...] provider. Document Revised: 03/25/2020 Document Reviewed: 03/25/2020 Presentain Patient Education ? 2020 [employer]. Pharmacology General Anesthesia, Adult, Care After This sheet [...] activities are safe for you. ??? Take cqvf-cmh-xvprzvp and prescription medicines only as told by [...] provider. Document Revised: 06/05/2021 Document Reviewed: 01/02/2021 Presentain Patient Education ? 2020 [employer]. documented in this encounter Plan of Treatment Not on file documented as of this encounter Visit Diagnoses Not on filedocumented in this encounter
--- OUTSIDE RECORDS SUMMARY | 2025-05-22 10:43 | XMS_ITS | Encounter Summary ---
Author Organization [employer] ([place], [place], [place], [place]) Address [address] [place] [address] Care Team Providers Care Electronic Components Assembler Name Role Phone Unavailable Primary Care Provider Unavailabl e Encounter Details Date Type Department Care Team (Late st Contact Info) Description 10/31/2021 Transcribed Document [facility] [place] Family Medicine [address] [place] [address] ProviderGuerita MD [address] [place] [address] Social History Tobacco Use Types [...] Date Murray rded Speak language other than Italian at home Not on file 10/22/2023 Want help with school or training Not on file 10/22/2023 Substance Use Answer Date Recorded Used prescription meds for non-medical reasons N ot on file 10/22/2023 Used illegal drugs past 12 months Not on file 10/22/2023 Comments Unknown Sex and Gender Information Value Date Recorded Sex Assigned at Female 08/19/2022 12:34 PM DRIP MOLDER Legal Sex Female 6:29 PM CDT Gender Identity Female 08/19/2022 12:34 PM DRIP MOLDER Sexual Orientation Straight 08/19/2022 12 :34 PM DRIP MOLDER COVID-19 Exposure Response Date Recorded In the last 10 days, have yo u been in contact with someone who was confirmed or suspected to have Coronavirus/COVID-19? No / Unsure 02/08/2023 1:28 PM EDT documented as of this encounter Miscellaneous Notes * Cerner Conversion Note - Historical Provider, - 10/31/2021 6:00 PM DRIP MOLDER Patient: ROBERTA TOLBERT Age: 45 Years Sex: Female : 1975 documented in this encounter Plan of Treatment Not on file documented as of this encounter Visit Diagnoses Not on filedocumented in this encounter
--- OUTSIDE RECORDS SUMMARY | 2025-05-22 10:44 | XMS_ITS | Encounter Summary ---
Author Organization [employer] ([place], [place], [place], [place]) Address [address] [place] [address] Care Team Providers Care Motor Runner Name Role Phone Unavailable Primary Care Provider Unavailabl e Encounter Details Date Type Department Care Team (Late st Contact Info) Description 11/19/2021 Transcribed Document [facility] [place] [address] [place] [address] Manuel Jefferson MD [address] [place] [address] Social History Tobacco Use Types [...] Date Murray rded Speak language other than Kinyarwanda at home Not on file 10/22/2023 Want help with school or training Not on file 10/22/2023 Substance Use Answer Date Recorded Used prescription meds for non-medical reasons N ot on file 10/22/2023 Used illegal drugs past 12 months Not on file 10/22/2023 Comments Unknown Sex and Gender Information Value Date Recorded Sex Assigned at Female 08/19/2022 12:34 PM WEB DESIGNER DEVELOPER Legal Sex Female 6:29 PM CDT Gender Identity Female 08/19/2022 12:34 PM WEB DESIGNER DEVELOPER Sexual Orientation Straight 08/19/2022 12 :34 PM WEB DESIGNER DEVELOPER COVID-19 Exposure Response Date Recorded In the last 10 days, have yo u been in contact with someone who was confirmed or suspected to have Coronavirus/COVID-19? No / Unsure 02/08/2023 1:28 PM EDT documented as of this encounter Miscellaneous Notes * Cerner Conversion Note - Manuel Jefferson MD - 11/19/2021 8:36 AM EST DATE OF PROCEDURE: 11/18/2021 SURGEON: Manuel Jefferson MD PREOPERATIVE DIAGNOSIS: Positive margin following right breast lumpectomy. POSTOPERATIVE DIAGNOSIS: Positive margin following right breast lumpectomy. PROCEDURE PERFORMED: Right needle localized re-excision partial mastectomy. RACE AND SPORTS BOOK WRITER: Edward Alcantara PA-C ANESTHESIA: General. ESTIMATED BLOOD LOSS: Minimal. COMPLICATIONS: None. OPERATIVE INDICATIONS: Ms. Tolbert is a 45-year-old female patient, who is status post right breast lumpectomy. Pathology revealed evidence of a positive posterior margin. As a result, reexcision lumpectomy was recommended. Repeat magnification mammogram views revealed residual calcifications in the posterior direction. As a result, the decision was made to needle localize these residual calcifications to better target the reexcision lumpectomy. After the risks and benefits of this operative intervention were explained, she wished to proceed. OPERATIVE FINDINGS: She had a residual area of posterior calcifications needle localized on the right. DESCRIPTION OF PROCEDURE: After obtaining informed consent, Ms. Tolbert was taken to the operative room and placed in the supine position. General anesthesia was induced. Her right breast was prepped and draped in usual sterile fashion. Attention was turned to the previous lumpectomy incision, which was reopened. A small amount of seroma fluid was evacuated. There was no gross evidence of residual disease. Attention was turned to the posterior margin in the direction of the needle localization wire. The additional posterior margin was reexcised using electrocautery. It was removed and marked with a short stitch superiorly and a long stitch laterally. It was further marked with black ink deep. It was passed off and sent to the breast center for specimen mammogram. Intraoperative confirmation confirmed that the residual calcifications were within the specimen, however, they were close to the inferior margin. As a result, an additional inferior posterior margin was excised and also marked with black ink and passed off and sent to Pathology. Meticulous hemostasis was ensured. The skin incision was then closed again in 2 layers followed by Dermabond. All sponge, needle, and instrument counts were correct at the end of the procedure. There were no complications. Ms. Tolbert tolerated the procedure well. Finally, Ms. Tolbert was extubated and taken to the PACU in stable condition. /[id number] MD NOMI Canales/DEMETRIO / NOMI / MODL /[id number] CC: [facility] documented in this encounter Plan of Treatment Not on file documented as of this encounter Visit Diagnoses Not on filedocumented in this encounter
--- OUTSIDE RECORDS SUMMARY | 2025-05-22 10:44 | XMS_ITS | Encounter Summary ---
Author Organization [employer] ([place], [place], [place], [place]) Address [address] [place] [address] Care Team Providers Care Core Assembly Supervisor Name Role Phone Unavailable Primary Care Provider Unavailabl e Encounter Details Date Type Department Care Team (Late st Contact Info) Description 11/18/2021 Transcribed Document [facility] [place] Family Medicine [address] [place] [address] ProviderGuerita MD [address] [place] [address] Social History Tobacco Use Types [...] Date Murray rded Speak language other than Nepali at home Not on file 10/22/2023 Want help with school or training Not on file 10/22/2023 Substance Use Answer Date Recorded Used prescription meds for non-medical reasons N ot on file 10/22/2023 Used illegal drugs past 12 months Not on file 10/22/2023 Comments Unknown Sex and Gender Information Value Date Recorded Sex Assigned at Female 08/19/2022 12:34 PM EXECUTIVE TALENT ACQUISITION CONSULTANT Legal Sex Female 6:29 PM CDT Gender Identity Female 08/19/2022 12:34 PM EXECUTIVE TALENT ACQUISITION CONSULTANT Sexual Orientation Straight 08/19/2022 12 :34 PM EXECUTIVE TALENT ACQUISITION CONSULTANT COVID-19 Exposure Response Date Recorded In the last 10 days, have rufino u been in contact with someone who was confirmed or suspected to have Coronavirus/COVID-19? No / Unsure 02/08/2023 1:28 PM EDT documented as of this encounter Miscellaneous Notes * Cerner Conversion Note - Historical Provider, - 11/18/2021 1:53 PM EXECUTIVE TALENT ACQUISITION CONSULTANT Patient Education Materials Follows:and Gynecology Lumpectomy, Care After This sheet gives you [...] these instructions at home: Medicines ??? Take xpwv-oab-kanzsxy and prescription medicines only as told by [...] keep your urine pale yellow. ? Take wend-fhh-geplvej or prescription medicines. ? Eat foods that [...] and water are not available, use hand drop wire aligner. ? Change your dressing as told by [...] 03/25/2020 Document Reviewed: 03/25/2020 Elsevier Patient Education ? 2020 Elsevier Inc. Pharmacology General Anesthesia, Adult General anesthesia is the use of medicines to make a person go to sleep (unconscious) for a medical procedure. General anesthesia must be used for certain procedures, and is often recommended for procedures that: ??? Last a long time. ??? Require you to be still or in an unusual position. ??? Are major and can cause blood loss. The medicines used for general anesthesia are called general anesthetics. As well as making you unconscious for a certain amount of time, these medicines: ??? Prevent pain. ??? Control your blood pressure. ??? Relax your muscles. Tell a health care provider about: ??? Any allergies you have. ??? All medicines you are taking, including vitamins, herbs, eye drops, creams, and wtec-biu-eblaizh medicines. ??? Any problems you or family members have had with anesthetic medicines. ??? Types of anesthetics you have had in the past. ??? Any blood disorders you have. ??? Any surgeries you have had. ??? Any medical conditions you have. ??? Any recent upper respiratory, chest, or ear infections. ??? Any history of: ? Heart or lung conditions, such as heart failure, sleep apnea, asthma, or chronic obstructive pulmonary disease (COPD). ? service. ? Depression or anxiety. ??? Any tobacco or drug use, including marijuana or alcohol use. ??? Whether you are or may be . What are the risks? Generally, this is a safe procedure. However, problems may occur, including: ??? Allergic reaction. ??? Lung and heart problems. ??? Inhaling food or liquid from the stomach into the lungs (aspiration). ??? Nerve injury. ??? Dental injury. ??? Air in the bloodstream, which can lead to stroke. ??? Extreme agitation or confusion (delirium) when you wake up from the anesthetic. ??? Waking up during your procedure and being unable to move. This is rare. These problems are more likely to develop if you are having a major surgery or if you have an advanced or serious medical condition. You can prevent some of these complications by answering all of your health care provider's questions thoroughly and by following all instructions before your procedure. General anesthesia can cause side effects, including: ??? Nausea or vomiting. ??? A sore throat from the breathing tube. ??? Hoarseness. ??? Wheezing or coughing. ??? Shaking chills. ??? Tiredness. ??? Body aches. ??? Anxiety. ??? Sleepiness or drowsiness. ??? Confusion or agitation. What happens before the procedure? Staying hydrated Follow instructions from your health care provider about hydration, which may include: ??? Up to 2 hours before the procedure ? you may continue to drink clear liquids, such as water, clear fruit juice, black coffee, and plain tea. Eating and drinking restrictions Follow instructions from your health care provider about eating and drinking, which may include: ??? 8 hours before the procedure ? stop eating heavy meals or foods such as meat, fried foods, or fatty foods. ??? 6 hours before the procedure ? stop eating light meals or foods, such as toast or cereal. ??? 6 hours before the procedure ? stop drinking milk or drinks that contain milk. ??? 2 hours before the procedure ? stop drinking clear liquids. Medicines Ask your health care provider about: ??? Changing or stopping your regular medicines. This is especially important if you are taking diabetes medicines or blood thinners. ??? Taking medicines such as aspirin and ibuprofen. These medicines can thin your blood. Do not take these medicines unless your health care provider tells you to take them. ??? Taking fdtr-ufc-woqzmzt medicines, vitamins, herbs, and supplements. Do not take these during the week before your procedure unless your health care provider approves them. General instructions ??? Starting 3?6 weeks before the procedure, do not use any products that contain nicotine or tobacco, such as cigarettes and e-cigarettes. If you need help quitting, ask your health care provider. ??? If you brush your teeth on the morning of the procedure, make sure to spit out all of the toothpaste. ??? Tell your health care provider if you become ill or develop a cold, cough, or fever. ??? If instructed by your health care provider, bring your sleep apnea device with you on the day of your surgery (if applicable). ??? Ask your health care provider if you will be going home the same day, the following day, or after a longer hospital stay. ? Plan to have a responsible adult take you home from the hospital or clinic. ? Plan to have a responsible adult care for you for the time you are told after you leave the hospital or clinic. This is important. What happens during the procedure? You will be given anesthetics through both of the following: ? A mask placed over your nose and mouth. ? An IV in one of your veins. ??? You may receive a medicine to help you relax (sedative). ??? After you are unconscious, a breathing tube may be inserted down your throat to help you breathe. This will be removed before you wake up. ??? An anesthesia specialist will stay with you throughout your procedure. He or she will: ? Keep you comfortable and safe by continuing to give you medicines and adjusting the amount of medicine that you get. ? Monitor your blood pressure, pulse, and oxygen levels to make sure that the anesthetics do not cause any problems. The procedure may vary among health care providers and hospitals. What happens after the procedure? Your blood pressure, temperature, heart rate, breathing rate, and blood oxygen level will be monitored until the medicines you were given have worn off. ??? You will wake up in a recovery area. You may wake up slowly. ??? If you feel anxious or agitated, you may be given medicine to help you calm down. ??? If you will be going home the same day, your health care provider may check to make sure you can walk, drink, and urinate. ??? Your health care provider will treat any pain or side effects you have before you go home. ??? Do not drive or operate machinery until your health care provider says that it is safe. Summary ??? General anesthesia is used to keep you still and prevent pain during a procedure. ??? It is important to tell your health care provider about your medical history and any surgeries you have had, and previous experience with anesthesia. ??? Follow your health care provider's instructions about when to stop eating, drinking, or taking certain medicines before your procedure. ??? Plan to have a responsible adult take you home from the hospital or clinic. This information is not intended to replace advice given to you by your health care provider. Make sure you discuss any questions you have with your health care provider. Document Revised: 06/02/2021 Document Reviewed: 01/01/2021 [employer] Patient Education ? 2020 [employer]. documented in this encounter Plan of Treatment Not on file documented as of this encounter Visit Diagnoses Not on filedocumented in this encounter
--- OUTSIDE RECORDS SUMMARY | 2025-05-22 10:44 | XMS_ITS | Encounter Summary ---
Author Organization [employer] ([place], [place], [place], [place]) Address [address] [place] [address] Care Team Providers Care Aircraft Engine Assembler Name Role Phone Unavailable Primary Care Provider Unavailabl e Encounter Details Date Type Department Care Team (Late st Contact Info) Description 11/18/2021 Transcribed Document [facility] [place] Family Medicine [address] [place] [address] ProviderGuerita MD [address] [place] [address] Social History Tobacco Use Types [...] Date Murray rded Speak language other than Korean at home Not on file 10/22/2023 Want help with school or training Not on file 10/22/2023 Substance Use Answer Date Recorded Used prescription meds for non-medical reasons N ot on file 10/22/2023 Used illegal drugs past 12 months Not on file 10/22/2023 Comments Unknown Sex and Gender Information Value Date Recorded Sex Assigned at Female 08/19/2022 12:34 PM CONCRETE PUDDLER Legal Sex Female 6:29 PM CDT Gender Identity Female 08/19/2022 12:34 PM CONCRETE PUDDLER Sexual Orientation Straight 08/19/2022 12 :34 PM CONCRETE PUDDLER COVID-19 Exposure Response Date Recorded In the last 10 days, have rufino reyes been in contact with someone who was confirmed or suspected to have Coronavirus/COVID-19? No / Unsure 02/08/2023 1:28 PM EDT documented as of this encounter Miscellaneous Notes * Cerner Conversion Note - Historical Provider, - 11/18/2021 12:07 PM CONCRETE PUDDLER [facility] PostOp Summary Primary Physician: IBIS OLIVAS MD-SUR Finalized Date/Time: 11/18/21 15:00:45 Pt. Name: ROBERTA ROE TIANNA /Sex: 1975 Female Med Rec #: [id number] Physician: IBIS OLIVAS MD-SUR Financial #: [id number] Pt. Type: O Room/Bed: [facility] Admit/Disch: 11/18/21 07:47:00 - Institution: [facility] PostOp Case Times Entry 1 In PACU II 11/18/21 13:44:00 Ready for PACU II 11/18/21 14:10:00 Discharge Discharge from PACU 11/18/21 14:10:00 II Last Modified By: Noni Larios Rn 11/18/21 15:00:43 Finalized By: Noni Larios, Rn Document Signatures Signed By: Noni Larios Rn 11/18/21 15:00 Electronically signed by [facility] Conversion Green Building Engineer Cerner at 01/19/2023 9:03 PM CDT documented in this encounter Plan of Treatment Not on file documented as of this encounter Visit Diagnoses Not on filedocumented in this encounter
--- OUTSIDE RECORDS SUMMARY | 2025-05-22 10:44 | XMS_ITS | Encounter Summary ---
Author Organization [employer] ([place], [place], [place], [place]) Address [address] [place] [address] Care Team Providers Care Client Business Manager Name Role Phone Unavailable Primary Care Provider Unavailabl e Encounter Details Date Type Department Care Team (Late st Contact Info) Description 10/31/[address] [facility] [place] Family Medicine [address] [place] [address] ProviderGuerita MD [address] [place] [address] Social History Tobacco Use Types [...] Date Murray rded Speak language other than Croatian at home Not on file 10/22/2023 Want help with school or training Not on file 10/22/2023 Substance Use Answer Date Recorded Used prescription meds for non-medical reasons N ot on file 10/22/2023 Used illegal drugs past 12 months Not on file 10/22/2023 Comments Unknown Sex and Gender Information Value Date Recorded Sex Assigned at Female 08/19/2022 12:34 PM SOLDER DEPOSIT OPERATOR Legal Sex Female 6:29 PM CDT Gender Identity Female 08/19/2022 12:34 PM SOLDER DEPOSIT OPERATOR Sexual Orientation Straight 08/19/2022 12 :34 PM SOLDER DEPOSIT OPERATOR COVID-19 Exposure Response Date Recorded In the last 10 days, have rufino reyes been in contact with someone who was confirmed or suspected to have Coronavirus/COVID-19? No / Unsure 02/08/2023 1:28 PM EDT documented as of this encounter Miscellaneous Notes * Cerner Conversion Note - Historical Provider, - 10/31/2021 3:42 PM SOLDER DEPOSIT OPERATOR Broset Violence Assessment Entered On: 10/31/2021 16:06 EST Performed On: 10/31/2021 16:06 EST by NATHANIEL NOYOLA Rn Broset Violence Assessment Broset Violence Checklist of Symptoms : None Broset Violence Symptoms Subtotal : 0 Broset Violence Symptoms Indicator : Low risk (0) Broset Interventions : [place] precautions for safety used NATHANIEL NOYOLA Rn - 10/31/2021 16:06 EST documented in this encounter Plan of Treatment Not on file documented as of this encounter Visit Diagnoses Not on filedocumented in this encounter
--- OUTSIDE RECORDS SUMMARY | 2025-05-22 10:44 | XMS_ITS | Encounter Summary ---
Author Organization [employer] ([place], [place], [place], [place]) Address [address] [place] [address] Care Team Providers Care Retort Press Operator Name Role Phone Unavailable Primary Care Provider Unavailabl e Encounter Details Date Type Department Care Team (Late st Contact Info) Description 10/29/2021 Transcribed Document [facility] [place] Family Medicine [address] [place] [address] ProviderGuerita MD [address] [place] [address] Social History Tobacco Use Types [...] Date Murray rded Speak language other than Argentine at home Not on file 10/22/2023 Want help with school or training Not on file 10/22/2023 Substance Use Answer Date Recorded Used prescription meds for non-medical reasons N ot on file 10/22/2023 Used illegal drugs past 12 months Not on file 10/22/2023 Comments Unknown Sex and Gender Information Value Date Recorded Sex Assigned at Female 08/19/2022 12:34 PM NARCOTICS DETECTIVE Legal Sex Female 6:29 PM CDT Gender Identity Female 08/19/2022 12:34 PM NARCOTICS DETECTIVE Sexual Orientation Straight 08/19/2022 12 :34 PM NARCOTICS DETECTIVE COVID-19 Exposure Response Date Recorded In the last 10 days, have rufino reyes been in contact with someone who was confirmed or suspected to have Coronavirus/COVID-19? No / Unsure 02/08/2023 1:28 PM EDT documented as of this encounter Miscellaneous Notes * Cerner Conversion Note - Historical Provider, - 10/29/2021 7:29 AM NARCOTICS DETECTIVE PAT Adult Entered On: 10/29/2021 7:36 EST Performed On: 10/29/2021 7:29 EST by Nhi Alba RN Vital Measurements Temperature Source : Temporal artery scanning Temperature Mode : Fahrenheit Temperature, Fahrenheit : 97 Deg F Clinical Temperature, C : 36.1 Deg C Pulse Method : Pulse Oximetry Peripheral Pulse Rate : 89 bpm Pulse Rhythm : Regular Respiratory Rate : 16 Breaths/Min Blood Pressure Location : Arm, left upper Blood Pressure Source : Non-Invasive BP Device Blood Pressure Position : Sitting Systolic Blood Pressure : 159 mmHg (HI) Diastolic Blood Pressure : 89 mmHg Oxygen Saturation : 99 % Oxygen Therapy Mode : Room air Nhi Alba RN - 10/29/2021 7:29 EST Pain Assessment Pain Assessment : Initial assessment Pain Scale Goal : 4 Pain Scale Used : 0-10 Scale Nhi Alba RN - 10/29/2021 7:29 EST Height and Weight, Clinical Dosing Height Source : Stated Height Entry Format : [place] Height, Feet : 5 ft(Converted to: 152 cm, 60 Inch) Height, Inches : 2 Inch(Converted to: 0 ft 2 Inch, 5.08 cm) Clinical Height : 157.48 cm Weight Source : Standing scale Weight Entry Format : [place] Clinical Dosing Weight : 91.73 kg Weight, Pounds : 201.8 lb Body Surface Area (BSA) : 1.92 m2 Body Mass Index : 37 kg/m2 (HI) [place] Body Weight : 50 kg Nhi Alba RN - 10/29/2021 7:29 EST Health Histories Smoking Status : Former smoker, quit more than 30 days ago Smokeless Tobacco Status : Never Nhi Alba RN - 10/29/2021 7:29 EST Social History (As Of: 10/29/2021 07:36:21 EST) Tobacco: Former smoker, quit more than 30 days ago Smoking Status. Never Smokeless Tobacco Status. None Smokeless Tobacco Use History. Years of Use: 23. Last Used: 2015. Second Hand Smoke Exposure: No. (Last Updated: 10/29/2021 07:33:23 EST by Nhi Alba RN) Alcohol: Alcohol Use History Yes. Total Drinks/Week: 12. Use in Last 12 Months: Yes. Alcohol Use Frequency Daily. (Last Updated: 10/29/2021 07:33:23 EST by Nhi Alba RN) Substance Abuse: Drug Use Hx: No. Use in Last 12 Months: No. (Last Updated: 10/29/2021 07:33:23 EST by Nhi Alba RN) Infectious Disease History Does patient have symptoms of COVID-19? : No Has the Patient Been Tested for COVID-19 in the last 14 days? : Yes, Patient stated results Negative Where and When was COVID19 testing completed? : [facility] 10/27/21 Does the Patient state known exposure to a COVID-19 positive case in the last 14 days? : No Patient Vaccinated for COVID-19 : Fully vaccinated Nhi Alba RN - 10/29/2021 7:29 EST Infectious Disease Risk Screening Grid Cough < 2 wks of unknown origin : NO Cough > 2 weeks : NO Blood in Sputum : NO Fever or self-reported Fever : NO Rash of unknown origin : NO Headache : NO Stiff neck : NO Night Sweats : NO Unexplained Weight Loss : NO Diarrhea (3 episode per day) : NO Nhi Alba RN - 10/29/2021 7:29 EST Patient Masked? : Yes When Mask Placed on Patient? : upon arrival to hospital Physical contact outside US in the last 30 days : No Hospitalized in Foreign Country : No Infectious Disease History : Chicken pox/Shingles Childhood Vaccinations Up to Date : N/A Exposure to Contagious Illness : No Active Surveillance Screen Assessment : Patient does not meet any of above criteria Active Surveillance Screen Negative : Yes INF Disease TB Screening Calc : 0 INF Disease Recent Travel Calc : 0 Nhi Alba RN - 10/29/2021 7:29 EST COVID19 PreProcedure Screening Is this an Emergent or Add on Procedure? : No Date PreProcedure COVID-19 test known? : Yes Date of PreProcedure COVID-19 : 10/27/2021 EST Has patient been isolated since the test : Yes Exposed to COVID19 symptoms since test? : No Nhi Alba RN - 10/29/2021 7:29 EST Anesthesia/Transfusion History Family History of Anesthesia Reaction : No prior transfusion(s) Transfusion History : No prior anesthesia Family History of Anesthesia Reaction : None Nhi Alba RN - 10/29/2021 7:29 EST Functional Assessment Functional ADL Evaluation Index EBN Bathing : Independent (2) Dressing : Independent (2) Toileting : Independent (2) Transferring Bed or Chair : Independent (2) Continence : Independent (2) Feeding : Independent (2) Nhi Alba RN - 10/29/2021 7:29 EST ADL Index Score : 12 Nhi Alba RN - 10/29/2021 7:29 EST Advance Directive Patient has Advance Directive *Q : No, patient refuses Advance Directive information Nhi Alba RN - 10/29/2021 7:29 EST Spiritual/Cultural Needs Any Spiritual/Cultural Needs or Requests : No Nhi Alba RN - 10/29/2021 7:29 EST [place] Suicide Severity Rating Scale (C-SSRS) CSSRS Past Month Wish to be : No CSSRS Past Month Suicidal Thoughts : No CSSRS Lifetime Suicide Behavior : No Suicide Severity Rating Score : 0 Suicide Severity Rating : No Additional Care Required at this time Thoughts of Harming/Killing Others : No Nhi Alba RN - 10/29/2021 7:29 EST Psychosocial History Do You Have a History of the Following? : Patient denies history Currently in Unsafe Situation : No Nhi Alba RN - 10/29/2021 7:29 EST Teaching/Learning Assessment Barriers To Learning : None evident Individuals Taught : Patient, Spouse Readiness to Learn : Cooperative Baseline Knowledge of Topic : Good Readiness to Learn : Explanation Learning Style Preferences Patient : Printed materials, Verbal explanation Learning Style Preferences Family : Printed materials, Verbal explanation Nhi Alba RN - 10/29/2021 7:29 EST General Info Preferred Name : Griselda Arrived From : Home Mode of Arrival on Unit : Ambulatory Patient Arrival Date/Time : 10/29/2021 6:50 EST Legal Guardian : Spouse Want Family/Rep/Phys Notified of Admit : No Emergency Contact #1 : Efrain Emergency Contact #1 Emergency Contact #1 Relationship : Spouse Emergency Contact #2 : . Emergency Contact #2 Phone Number : . Emergency Contact #2 Relationship : . Information Obtained From : Patient Primary Language : Argentine Preferred Communication Mode : Verbal Communication Barrier : None Label Pinker Needed : No Objects to Sharing Info w Family : No Currently Lactating : No Status : Patient denies Clinical Trials Participant *Q : None CTP, None *Q : Yes Nhi Alba RN - 10/29/2021 7:29 EST Oneil Scale Oneil Sensory Perception : No impairment Oneil Moisture : Rarely moist Oneil Activity : Walks frequently Oneil Mobility : No limitation Oneil Nutrition : Adequate Oneil Friction and Shear : No apparent problem Oneil Score : 22 Nhi Alba RN - 10/29/2021 7:29 EST Sleep Apnea Risk Assmt Hx of Obstructive Sleep Apnea Diagnosis : No Snore Loudly : No Tired, Fatigued, or Sleepy During Day : No Observed Stopping Breathing During Sleep : No Have/Are Being Treated for Hypertension : No BMI Greater Than 35 kg/m2 : Yes Age over 50 Years Old : No Neck Circumference Greater Than 40 cm : No Gender Male : No STOP-BANG Sleep Apnea Risk Level Score : 1 Nhi Alba RN - 10/29/2021 7:29 EST Pain Scale Intensity : 0 Nhi Alba RN - 10/29/2021 7:29 EST Image 4 - Images currently included in the form version of this document have not been included in the text rendition version of the form. documented in this encounter Plan of Treatment Not on file documented as of this encounter Visit Diagnoses Not on filedocumented in this encounter
--- OUTSIDE RECORDS SUMMARY | 2025-05-22 10:44 | XMS_ITS | Encounter Summary ---
Author Organization [employer] ([place], [place], [place], [place]) Address [address] [place] [address] Care Team Providers Care Gaming Table Operator Name Role Phone Unavailable Primary Care Provider Unavailabl e Encounter Details Date Type Department Care Team (Late st Contact Info) Description 10/31/2021 Transcribed Document [facility] [place] Family Medicine [address] [place] [address] ProviderGuerita MD [address] [place] [address] Social History Tobacco Use Types [...] Sex Assigned at Female 08/19/2022 12:34 PM COMMUNICATIONS STRATEGIST Legal Sex Female 6:29 PM CDT Gender Identity Female 08/19/2022 12:34 PM COMMUNICATIONS STRATEGIST Sexual Orientation Straight 08/19/2022 12 :34 PM COMMUNICATIONS STRATEGIST COVID-19 Exposure Response Date Recorded In the last 10 days, have yo u been in contact with someone who was confirmed or suspected to have Coronavirus/COVID-19? No / Unsure 02/08/2023 1:28 PM EDT documented as of this encounter Miscellaneous Notes * Cerner Conversion Note - Historical Provider, - 10/31/2021 3:42 PM COMMUNICATIONS STRATEGIST ED Triage Entered On: 10/31/2021 16:05 EST Performed On: 10/31/2021 16:03 EST by NATHANIEL NOYOLA director of rooms Triage Across the Room Chief Complaint : PT had lumpectomy/ right breast this past Wed, c/o BL arm, BL leg, and limp numbness, resp even andunlabored, denies pain Triage Date/Time : 10/31/2021 16:03 EST NATHANIEL NOYOLA Rn - 10/31/2021 16:03 EST DCP GENERIC CODE Tracking Acuity : 3 - Urgent Tracking Group : [facility] NATHANIEL NOYOLA Rn - 10/31/2021 16:03 EST Mode of Arrival : Ambulatory Transported to ED by : Private vehicle To Room Via : Ambulate Accompanied By : Unaccompanied ED Vital Signs : Document Height & Weight : Document ED Allergies : Document ED Reason for Visit : Document Last Menstrual Period : 10/24/2021 EST Status : Patient denies NATHANIEL NOYOLA Rn - 10/31/2021 16:03 EST Infectious Disease History Does patient have symptoms of COVID-19? : No Has the Patient Been Tested for COVID-19 in the last 14 days? : No, Patient stated Does the Patient state known exposure to a COVID-19 positive case in the last 14 days? : No Patient Vaccinated for COVID-19 : Fully vaccinated NATHANIEL NOYOLA Rn - 10/31/2021 16:03 EST Infectious Disease Risk Screening Grid Cough < 2 wks of unknown origin : NO Cough > 2 weeks : NO Blood in Sputum : NO Fever or self-reported Fever : NO Rash of unknown origin : NO Headache : NO Stiff neck : NO Night Sweats : NO Unexplained Weight Loss : NO Diarrhea (3 episode per day) : NO NATHANIEL NOYOLA Rn - 10/31/2021 16:03 EST Physical contact outside US in the last 30 days : No Hospitalized in Foreign Country : No Infectious Disease History : Chicken pox/Shingles INF Disease TB Screening Calc : 0 INF Disease Recent Travel Calc : 0 NATHANIEL NOYOLA Rn - 10/31/2021 16:03 EST Vital Signs ED Temperature Source : Tympanic Temperature Mode : Fahrenheit Temperature, Fahrenheit : 96.9 Deg F Clinical Temperature, C : 36.1 Deg C Peripheral Pulse Rate : 80 bpm Respiratory Rate : 18 Breaths/Min Systolic Blood Pressure : 187 mmHg (HI) Diastolic Blood Pressure : 112 mmHg (HI) Oxygen Saturation : 99 % NATHANIEL NOYOLA Rn - 10/31/2021 16:03 EST Allergy (As Of: 10/31/2021 16:05:54 EST) Allergies (Active) Latex Estimated Onset Date: Unspecified ; Reactions: Swelling, Rash ; Created By: Nhi Alba RN; Reaction Status: Active ; Category: Drug ; Substance: Latex ; Type: Allergy ; Updated By: Nhi Alba RN; Reviewed Date: 10/31/2021 16:04 EST Diagnosis Control ED (As Of: 10/31/2021 16:05:54 EST) Problems(Active) 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 ) 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 ; Recorder: Nhi Alba RN; Confirmation: Confirmed ; Classification: Medical ; Code: [id number] ; Contributor System: PowerChart ; Last Updated: 10/29/2021 7:28 EST ; Life Cycle Date: 10/29/2021 ; Life Cycle Status: Active ; Vocabulary: SNOMED CT Diagnoses(Active) Surgical problem reevaluation Date: 10/31/2021 ; Diagnosis Type: Reason For Visit ; Confirmation: Complaint of ; Clinical Dx: Surgical problem reevaluation ; Classification: Medical ; Clinical Service: Non-Specified ; Code: PNED ; Probability: 0 ; Diagnosis Code: [id number] ED Height and Weight Height Source : Stated Height Entry Format : [place] Height, Feet : 5 ft(Converted to: 152 cm, 60 Inch) Height, Inches : 2 Inch(Converted to: 0 ft 2 Inch, 5.08 cm) Clinical Height : 157.48 cm Weight Source, ED : Standing scale Weight Entry Format : [place] Weight, Pounds : 201 lb Clinical Dosing Weight : 91.36 kg Body Surface Area (BSA) : 1.92 m2 Body Mass Index : 36.8 kg/m2 (HI) [place] Body Weight (IBW) : 49.73 kg NATHANIEL NOYOLA Rn - 10/31/2021 16:03 EST Electronically signed by Izabel [facility] Conversion Press Assistant And Feeder Cerner at 01/19/2023 9:12 PM CDT documented in this encounter Plan of Treatment Not on file documented as of this encounter Visit Diagnoses Not on filedocumented in this encounter
--- OUTSIDE RECORDS SUMMARY | 2025-05-22 10:44 | XMS_ITS | Encounter Summary ---
Author Organization [employer] ([place], [place], [place], [place]) Address [address] [place] [address] Care Team Providers Care Airline Transport Pilot Name Role Phone Unavailable Primary Care Provider Unavailabl e Encounter Details Date Type Department Care Team (Late st Contact Info) Description 11/18/2021 Transcribed Document [facility] [place] [address] [place] [address] ProviderGuerita MD [address] [place] [address] Social History Tobacco Use Types [...] Date Murray rded Speak language other than Thai at home Not on file 10/22/2023 Want help with school or training Not on file 10/22/2023 Substance Use Answer Date Recorded Used prescription meds for non-medical reasons N ot on file 10/22/2023 Used illegal drugs past 12 months Not on file 10/22/2023 Comments Unknown Sex and Gender Information Value Date Recorded Sex Assigned at Female 08/19/2022 12:34 PM HELP DESK OPERATOR Legal Sex Female 6:29 PM CDT Gender Identity Female 08/19/2022 12:34 PM HELP DESK OPERATOR Sexual Orientation Straight 08/19/2022 12 :34 PM HELP DESK OPERATOR COVID-19 Exposure Response Date Recorded In the last 10 days, have rufino reyes been in contact with someone who was confirmed or suspected to have Coronavirus/COVID-19? No / Unsure 02/08/2023 1:28 PM EDT documented as of this encounter Miscellaneous Notes * Cerner Conversion Note - Historical Provider, - 11/18/2021 8:47 AM HELP DESK OPERATOR PAT Adult Entered On: 11/18/2021 8:49 EST Performed On: 11/18/2021 8:47 EST by Palmira Wong RN Vital Measurements Temperature Source : Temporal artery scanning Temperature, Fahrenheit : 97.7 Deg F Clinical Temperature, C : 36.5 Deg C Peripheral Pulse Rate : 87 bpm Pulse Rhythm : Regular Respiratory Rate : 16 Breaths/Min Systolic Blood Pressure : 135 mmHg Diastolic Blood Pressure : 98 mmHg (HI) Oxygen Saturation : 97 % Oxygen Therapy Mode : Room air Palmira Wong RN - 11/18/2021 8:47 EST Pain Assessment Pain Assessment : Initial assessment Pain Scale Used : 0-10 Scale Palmira Wong RN - 11/18/2021 8:47 EST Height and Weight, Clinical Dosing Height Source : Stated Height Entry Format : [place] Height, Feet : 5 ft(Converted to: 152 cm, 60 Inch) Height, Inches : 2 Inch(Converted to: 0 ft 2 Inch, 5.08 cm) Clinical Height : 157.48 cm Weight Source : Standing scale Weight Entry Format : [place] Clinical Dosing Weight : 93.18 kg Weight, Pounds : 205 lb Body Surface Area (BSA) : 1.93 m2 Body Mass Index : 37.6 kg/m2 (HI) [place] Body Weight : 50 kg Palmira Wong RN - 11/18/2021 8:47 EST Health Histories Smoking Status : Former smoker, quit more than 30 days ago Smokeless Tobacco Status : Never Palmira Wong RN - 11/18/2021 8:47 EST Social History (As Of: 11/18/2021 08:49:36 EST) Tobacco: Former smoker, quit more than [...] days? : Yes, Patient stated results Negative Does the Patient state known exposure to a COVID-19 positive case in the last 14 days? : No Patient Vaccinated for COVID-19 : Fully vaccinated Palmira Wong RN - 11/18/2021 8:47 EST Infectious Disease Risk Screening Grid Cough < 2 wks of unknown origin : NO Cough > 2 weeks : NO Blood in Sputum : NO Fever or self-reported Fever : NO Rash of unknown origin : NO Headache : NO Stiff neck : NO Night Sweats : NO Unexplained Weight Loss : NO Diarrhea (3 episode per day) : NO Palmira Wong RN - 11/18/2021 8:47 EST Physical contact outside US in the last 30 days : No Hospitalized in Foreign Country : No Infectious Disease History : Chicken pox/Shingles INF Disease TB Screening Calc : 0 INF Disease Recent Travel Calc : 0 Palmira Wong RN - 11/18/2021 8:47 EST COVID19 PreProcedure Screening Is this an Emergent or Add on Procedure? : No Date PreProcedure COVID-19 test known? : Yes Date of PreProcedure COVID-19 : 11/14/2021 EST Has patient been isolated since the test : Yes Exposed to COVID19 symptoms since test? : No Palmira Wong RN - 11/18/2021 8:47 EST Anesthesia/Transfusion History Family History of Anesthesia Reaction : No prior transfusion(s) Transfusion History : No prior anesthesia Family History of Anesthesia Reaction : None Palmira Wong RN - 11/18/2021 8:47 EST Functional Assessment Functional ADL Evaluation Index EBN Bathing : Independent (2) Dressing : Independent (2) Toileting : Independent (2) Transferring Bed or Chair : Independent (2) Continence : Independent (2) Feeding : Independent (2) Palmira Wong RN - 11/18/2021 8:47 EST ADL Index Score : 12 Palmira Wong RN - 11/18/2021 8:47 EST Advance Directive Patient has Advance Directive *Q : No, patient refuses Advance Directive information Palmira Wong RN - 11/18/2021 8:47 EST Spiritual/Cultural Needs Any Spiritual/Cultural Needs or Requests : No Palmira Wong RN - 11/18/2021 8:47 EST [place] Suicide Severity Rating Scale (C-SSRS) CSSRS Past Month Wish to be : No CSSRS Past Month Suicidal Thoughts : No CSSRS Lifetime Suicide Behavior : No Suicide Severity Rating Score : 0 Suicide Severity Rating : No Additional Care Required at this time Palmira Wong RN - 11/18/2021 8:47 EST Psychosocial History Do You Have a History of the Following? : Patient denies history Currently in Unsafe Situation : No Palmira Wong RN - 11/18/2021 8:47 EST Teaching/Learning Assessment Barriers To Learning : None evident Individuals Taught : Patient Readiness to Learn : Cooperative Baseline Knowledge of Topic : Good Readiness to Learn : Explanation Learning Style Preferences Patient : Verbal explanation Learning Style Preferences Family : Verbal explanation Palmira Wong RN - 11/18/2021 8:47 EST Education Topics, Periop Preadmission Perioperative Education Grid Incentive Spirometry : Verbalizes understanding Infection Control : Verbalizes understanding IV's : Verbalizes understanding NPO Status/Directions : Verbalizes understanding Palmira Wong RN - 11/18/2021 8:47 EST General Info Preferred Name : Griselda Ramírez Family/Rep/Phys Notified of Admit : No Emergency Contact #1 : Juan Emergency Contact #1 Emergency Contact #1 Relationship : Emergency Contact #2 : . Emergency Contact #2 Phone Number : . Emergency Contact #2 Relationship : . Primary Language : Thai Preferred Communication Mode : Verbal Communication Barrier : None Adhesive Bandage Making Operator Needed : Palmira Myrick RN - 11/18/2021 8:47 EST Oneil Scale Oneil Sensory Perception : No impairment Oneil Moisture : Rarely moist Oneil Activity : Walks frequently Oneil Mobility : No limitation Oneil Nutrition : Excellent Oneil Friction and Shear : No apparent problem Oneil Score : 23 Palmira Wong RN - 11/18/2021 8:47 EST Sleep Apnea Risk Assmt Hx of [...] Sleep Apnea Risk Level Score : 1 Palmira Wong RN - 11/18/2021 8:47 EST Pain Scale Intensity : 0 Palmira Wong RN - 11/18/2021 8:47 EST Image 4 - Images currently included in the form version of this document have not been included in the text rendition version of the form. documented in this encounter Plan of Treatment Not on file documented as of this encounter Visit Diagnoses Not on filedocumented in this encounter
--- OUTSIDE RECORDS SUMMARY | 2025-05-22 10:44 | XMS_ITS | Encounter Summary ---
Author Organization [employer] ([place], [place], [place], [place]) Address [address] [place] [address] Care Team Providers Care Assembler Wire Mesh Gate Name Role Phone Unavailable Primary Care Provider Unavailabl e Encounter Details Date Type Department Care Team (Late st Contact Info) Description 11/18/2021 Transcribed Document [facility] [place] [address] [place] [address] ProviderGuerita MD [address] [place] [address] Social History Tobacco Use Types [...] Date Murray rded Speak language other than Azeri at home Not on file 10/22/2023 Want help with school or training Not on file 10/22/2023 Substance Use Answer Date Recorded Used prescription meds for non-medical reasons N ot on file 10/22/2023 Used illegal drugs past 12 months Not on file 10/22/2023 Comments Unknown Sex and Gender Information Value Date Recorded Sex Assigned at Female 08/19/2022 12:34 PM REELING OPERATOR Legal Sex Female 6:29 PM CDT Gender Identity Female 08/19/2022 12:34 PM REELING OPERATOR Sexual Orientation Straight 08/19/2022 12 :34 PM REELING OPERATOR COVID-19 Exposure Response Date Recorded In the last 10 days, have rufino reyes been in contact with someone who was confirmed or suspected to have Coronavirus/COVID-19? No / Unsure 02/08/2023 1:28 PM EDT documented as of this encounter Miscellaneous Notes * Cerner Conversion Note - Historical Provider, - 11/18/2021 11:25 AM REELING OPERATOR [facility] Main [facility] PreOp Summary Primary Physician: IBIS OLIVAS MD-SUR Finalized Date/Time: 11/18/21 12:03:35 Pt. Name: ROBERTA ROE TIANNA /Sex: 1975 Female Med Rec #: [id number] Physician: IBIS OLIVAS MD-SUR Financial #: [id number] Pt. Type: O Room/Bed: [facility] Admit/Disch: 11/18/21 07:47:00 - Institution: [facility] [place] PreOp Case Times Entry 1 In Preop 11/18/21 07:30:00 Ready for Holding n/a Room Patient Ready for 11/18/21 08:55:00 Surgery Patient Out of Preop 11/18/21 11:39:00 Patient Out of n/a Holding Room Last Modified By: Palmira Wong RN 11/18/21 12:03:33 [facility] [place] PreOp Case Times Audit 11/18/21 12:03:33 [employer] Developer: [id number] Modifier: [id number] <+> 1 Patient Out of Preop Finalized By: Palmira Wong, RN Document Signatures Signed By: Palmira Wong, CLARENCE 11/18/21 12:03 Electronically signed by Izabel [facility] Conversion Burn Out Tender Lace Cerner at 01/19/2023 9:11 PM CDT documented in this encounter Plan of Treatment Not on file documented as of this encounter Visit Diagnoses Not on filedocumented in this encounter
--- OUTSIDE RECORDS SUMMARY | 2025-05-22 10:44 | XMS_ITS | Encounter Summary ---
Author Organization [facility] ([place], [place], [place], [place]) Address [address] [place] [address] Care Team Providers Care Chief Data Officer Name Role Phone Unavailable Primary Care Provider Unavailabl e Encounter Details Date Type Department Care Team (Late st Contact Info) Description 11/18/2021 Transcribed Document [facility] [place] [facility] [address] [place] [address] ProviderGuerita MD [address] [place] [address] Social History Tobacco Use Types [...] Date Murray rded Speak language other than Danish at home Not on file 10/22/2023 Want help with school or training Not on file 10/22/2023 Substance Use Answer Date Recorded Used prescription meds for non-medical reasons N ot on file 10/22/2023 Used illegal drugs past 12 months Not on file 10/22/2023 Comments Unknown Sex and Gender Information Value Date Recorded Sex Assigned at Female 08/19/2022 12:34 PM 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 No / Unsure 02/08/2023 1:28 PM EDT documented as of this encounter Miscellaneous Notes * Cerner Conversion Note - Historical Provider, - 11/18/2021 12:07 PM FARM EQUIPMENT MAINTENANCE SUPERVISOR [facility] PACU Summary Primary Physician: IBIS OLIVAS MD-SUR Finalized Date/Time: 11/18/21 13:47:31 Pt. Name: ROBERTA ROE TIANNA /Sex: 1975 Female Med Rec #: [id number] Physician: IBIS OLIVAS MD-SUR Financial #: [id number] Pt. Type: O Room/Bed: [facility] Admit/Disch: 11/18/21 07:47:00 - Institution: [facility] OR PACU Case Times Entry 1 In PACU I 11/18/21 12:56:00 Ready for PACU 11/18/21 13:43:00 Discharge Discharge from PACU 11/18/21 13:43:00 I Last Modified By: Soledad Gonzales RN 11/18/21 13:47:21 [facility] OR PACU Case Times Audit 11/18/21 13:47:21 Mail Handler Equipment Operator: COLLEEN Modifier: [email or web address] <+> 1 Ready for PACU Discharge <+> 1 Discharge from PACU I Finalized By: Soledad Gonzales, RN Document Signatures Signed By: Soledad Gonzales RN 11/18/21 13:47 Electronically signed by [facility] Conversion Personal Security Specialist Cerner at 01/19/2023 9:13 PM CDT documented in this encounter Plan of Treatment Not on file documented as of this encounter Visit Diagnoses Not on filedocumented in this encounter
--- OUTSIDE RECORDS SUMMARY | 2025-05-22 10:44 | XMS_ITS | Encounter Summary ---
Author Organization [employer] ([place], [place], [place], [place]) Address [address] [place] [address] Care Team Providers Care Monologist Name Role Phone Unavailable Primary Care Provider Unavailabl e Encounter Details Date Type Department Care Team (Late st Contact Info) Description 10/31/2021 Transcribed Document [facility] Family Medicine [address] [place] [address] ProviderGuerita MD [address] [place] [address] Social History Tobacco Use Types [...] Sex Assigned at Female 08/19/2022 12:34 PM [employer] Legal Sex Female 6:29 PM CDT Gender Identity Female 08/19/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 No / Unsure 02/08/2023 1:28 PM EDT documented as of this encounter Miscellaneous Notes * Cerner Conversion Note - Historical Provider, - 10/31/2021 8:30 [place] [address] AGATHA ROESANTIAGO WYNN :1975 Visit Time:10/31/2021 Your Visit Summary Your Care Team Primary Provider: JOHN RAGSDALE Secondary Provider: Your Diagnosis Paresthesia Paresthesia Surgical problem reevaluation Medical Information You may obtain a copy of your Emergency Department visit from Medical Records by calling the hospital phone number listed above and asking to be directed to the Medical Records Department. If you had special tests, such as EKG???s or X-rays, the interpretation of your tests given to you by the Emergency Department Physician is a preliminary report. Some fractures and illnesses fail to show up on preliminary tests. These will be reviewed again and we will call you if there are any new suggestions. If your symptoms continue notify your physician. After you leave, you should follow the instructions provided. What to do next Follow-Up Appointments Follow Up with IRMA FLEMING When Within 2 to 3 days Comments Call for follow up appointment with your oncologist, return to ER for worsening of symptoms: Altered mental status, fainting, chest pain Where: [address] [facility] [address] [id number] Business (1) Follow Up with WINDY WELSH When Within 2 to 3 days Comments Call for follow up appointment with neurologist if symptoms persist Where: [address] [facility] [address] [place] [address]- Business (1) Follow Up with ADI HADDAD When Within 2 to 3 days Allergies Latex (Swelling, Rash) Immunizations This Visit No Immunizations Found Medications What How Much When Instructions Next Dose acetaminophen-oxyCODONE (Percocet 5/ 325 oral tablet) 2 Tablet(s) Oral Every 4 Hours as needed for for pain Duration: 5 Day(s) Max 6 tabs per day. The home medications listed are only as accurate as the information you provided. Please continue taking all of your medications prescribed by your Primary Care Provider unless specifically told to change or discontinue the medication. Please direct any questions regarding your home medications to your Primary Care Provider. Take your medications faithfully. Do NOT skip [...] of unused and medications per pharmacy guidance. Test Results Laboratory or Other Results This Visit (last charted value for your 10/31/2021 visit) Hematology 10/31/2021 4:07 PM WBC: 9.4 K/uL -- Normal range between ( 3.9 and 10.0 ) RBC: 4.23 Million/uL -- Normal range between ( 3.93 and 5.22 ) Hct: 41.1 % -- Normal range between ( 34.1 and 44.9 ) Hgb: 13.4 Gram/dL -- Normal range between ( 11.2 and 15.7 ) Platelet Count: 423 K/uL -- Normal range between ( 163 and 369 ) MCH: 31.7 pg -- Normal range between ( 25.6 and 32.2 ) MCHC: 32.6 Gram/dL -- Normal range between ( 32.3 and 36.5 ) MCV: 97.2 fL -- Normal range between ( 79.0 and 94.8 ) Slide Review: No Eos %: 1.0 % -- Normal range between ( 1.0 and 7.0 ) [place] #: 0.58 K/uL -- Normal range between ( 0.24 and 0.82 ) Eos #: 0.09 K/uL -- Normal range between ( 0.04 and 0.54 ) [place] %: 6.2 % -- Normal range between ( 4.7 and 12.5 ) Baso %: 0.8 % -- Normal range between ( 0.0 and 1.0 ) Baso #: 0.08 K/uL -- Normal range between ( 0.01 and 0.08 ) RDW: 12.9 % -- Normal range between ( 11.6 and 14.4 ) Neut %: 57.7 % -- Normal range between ( 34.0 and 71.0 ) Neut #: 5.44 K/uL -- Normal range between ( 1.56 and 6.13 ) Lymph %: 34.0 % -- Normal range between ( 19.3 and 53.0 ) Lymph #: 3.20 K/uL -- Normal range between ( 1.18 and 3.74 ) MPV: 10.0 fL -- Normal range between ( 9.4 and 12.4 ) IG#: 0 x10(3)/uL IG%: 0 % -- Normal range between ( 0 and 1 ) Urinalysis 10/31/2021 4:40 PM Ur RBC: None Seen Urine Nitrite: Negative Urine Leukocyte Esterase: Small Urine Appearance: Cloudy Urine Glucose Dipstick: Negative Urine Blood Dipstick: Negative Urine Urobilinogen Dipstick: 1.0 EU/dL -- Normal range between ( 0.2 and 1.0 ) Urine Protein Dipstick: Negative Ur Bacteria: Trace Ur Squamous Epithelial Cells: 20-50 /HPF Urine Color: Yellow Ur WBC: 2-5 /HPF Urine Ketones Dipstick: Negative Urine pH Dipstick: 7.0 -- Normal range between ( 6.0 and 8.0 ) Urine Bilirubin Dipstick: Negative Urine Specific [place]: 1.018 -- Normal range between ( 1.005 and 1.030 ) Urine Type.: U CleanCatch Urine Culture if Indicated: Not Indicated General Chemistry 10/31/2021 4:07 PM Creatinine Level: 0.77 mg/dL -- Normal range between ( 0.55 and 1.02 ) Sodium Level: 139 mmol/L -- Normal range between ( 136 and 146 ) Potassium Level: 3.5 mmol/L -- Normal range between ( 3.5 and 5.1 ) Chloride Level: 105 mmol/L -- Normal range between ( 102 and 112 ) Carbon Dioxide Level: 30 mmol/L -- Normal range between ( 21 and 32 ) Anion Gap: 8 -- Normal range between ( 9 and 20 ) Bilirubin Total: 0.2 mg/dL -- Normal range between ( 0.2 and 1.3 ) A/G Ratio: 0.9 -- Normal range between ( 1.1 and 2.5 ) ALT: 35 Units/Liter -- Normal range between ( 12 and 78 ) AST: 22 Units/Liter -- Normal range between ( 5 and 37 ) Globulin: 3.9 Gram/dL -- Normal range between ( 1.5 and 4.5 ) Alk Phos: 87 Units/Liter -- Normal range between ( 27 and 136 ) Bun/Creatinine: 18.2 -- Normal range between ( 8.0 and 20.0 ) Calcium Level: 8.7 mg/dL -- Normal range between ( 8.5 and 10.1 ) eGFR : >60 mL/min/1.73m2 eGFR NonAfrican: >60 mL/min/1.73m2 Glucose Level: 98 mg/dL -- Normal range between ( 74 and 106 ) Blood Urea Nitrogen: 14 mg/dL -- Normal range between ( 7 and 22 ) Protein Total: 7.6 Gram/dL -- Normal range between ( 6.4 and 8.2 ) Albumin Level: 3.7 Gram/dL -- Normal range between ( 3.4 and 5.0 ) Cardiac Specific Markers 10/31/2021 4:07 PM Troponin I Ultra: <0.015 ng/mL -- Normal range between ( 0.015 and 0.045 ) ProBNP: 79 pg/mL -- Normal range between ( 0 and 125 ) Endocrinology 10/31/2021 4:07 PM HCG Serum Quant: <1.0 mIU/mL HCG Urine Qualitative: Negative Toxicology 10/31/2021 4:40 PM UDS Amp: Negative UDS Henna: Negative UDS Benzo: Negative UDS Francisco J: Negative UDS Meth: Negative UDS Opi: Negative UDS Oxy: Positive UDS PCP: Negative UDS TCA: Negative UDS THC: Positive Buprenorphine Screen, Urine: Negative Meperidine Screen, Urine: Negative Tramadol Screen, Urine: Negative Heroin Metab (6AM) by LC-MS/MS, Urine: Negative Carisoprodol Screen, Urine: Negative SpGravity, Urine: 1.015 Propoxyphene, Urine: Negative UDS pH: 7.4 Fentanyl, Urine: Negative UDS Creatinine, Toxicology: 111.1 mg/dL Computed Tomography 10/31/2021 4:[address] Head WO Code Stroke: CT Head WO Code Stroke CTA Head Code Stroke: CTA Head Code Stroke CTA Neck Code Stroke: CTA Neck Code Stroke Diagnostic Radiology 10/31/2021 5:06 PM CR Chest 1 Vw Portable: CR Chest 1 Vw Portable Magnetic Resonance Imaging 10/31/2021 7:13 PM MRI Brain CODE Stroke WO: MRI Brain CODE Stroke WO Education Materials Lumpectomy, Care After This sheet gives you [...] these instructions at home: Medicines ??? Take spro-ker-pnrnuwp and prescription medicines only as told by [...] keep your urine pale yellow. ? Take zenm-hti-bgbdrfu or prescription medicines. ? Eat foods that [...] and water are not available, use hand icing and glaze maker. ? Change your dressing as told by [...] provider. Document Revised: 03/25/2020 Document Reviewed: 03/25/2020 [employer] Patient Education ?? 2020 [employer]. Lumpectomy A lumpectomy, sometimes called a partial mastectomy, is surgery to remove a cancerous tumor or mass (the lump) from a breast. It is a form of breast-conserving or breast-preservation surgery. This means that the cancerous tissue is removed but the breast remains intact. During a lumpectomy, the portion of the breast that contains the tumor is removed. Some normal tissue around the lump may be taken out to make sure that all of the tumor has been removed. Lymph nodes under your arm may also be removed and tested to find out if the cancer has spread. Lymph nodes are part of the body's disease-fighting system (immune system) and are usually the first place where breast cancer spreads. Tell a health care provider about: ??? Any allergies you have. ??? All medicines you are taking, including vitamins, herbs, eye drops, creams, and oweu-rbf-ajzdpri medicines. ??? Any problems you or family members have had with anesthetic medicines. ??? Any blood disorders you have. ??? Any surgeries you have had. ??? Any medical conditions you have. ??? Whether you are or may be . What are the risks? Generally, this is a safe procedure. However, problems may occur, including: ??? Bleeding. ??? Infection. ??? Allergic reaction to medicines. ??? Pain, swelling, weakness, or numbness in the arm on the side of your surgery. ??? Temporary swelling. ??? Change in the shape of the breast, particularly if a large portion is removed. ??? Scar tissue that forms at the surgical site and feels hard to the touch. ??? Blood clots. What happens before the procedure? Staying hydrated Follow instructions from your health care provider about hydration, which may include: ??? Up to 2 hours before the procedure ??? you may continue to drink clear liquids, such as water, clear fruit juice, black coffee, and plain tea. Eating and drinking restrictions Follow instructions from your health care provider about eating and drinking, which may include: ??? 8 hours before the procedure ??? stop eating heavy meals or foods, such as meat, fried foods, or fatty foods. ??? 6 hours before the procedure ??? stop eating light meals or foods, such as toast or cereal. ??? 6 hours before the procedure ??? stop drinking milk or drinks that contain milk. ??? 2 hours before the procedure ??? stop drinking clear liquids. Medicines Ask your health care provider about: ??? Changing or stopping your regular medicines. This is especially important if you are taking diabetes medicines or blood thinners. ??? Taking medicines such as aspirin and ibuprofen. These medicines can thin your blood. Do not take these medicines unless your health care provider tells you to take them. ??? Taking nuzk-lqp-jmaojxf medicines, vitamins, herbs, and supplements. General instructions ??? Prior to surgery, your health care provider may do a procedure to locate and krystyna the tumor area in your breast (localization). This will help guide your surgeon to where the incision will be made. This may be done with: ? Imaging, such as a mammogram, ultrasound, or MRI. ? Insertion of a small wire, clip, or seed, or an implant that will reflect a radar signal. ??? You may have screening tests or exams to get baseline measurements of your arm. These can be compared to measurements done after surgery to monitor for swelling (lymphedema) that can develop after having lymph nodes removed. ??? Ask your health care provider: ? How your surgery site will be marked. ? What steps will be taken to help prevent infection. These may include: ? Washing skin with a germ-killing soap. ? Taking antibiotic medicine. ??? Plan to have someone take you home from the hospital or clinic. ??? Plan to have a responsible adult care for you for at least 24 hours after you leave the hospital or clinic. This is important. What happens during the procedure? An IV will be inserted into one of your veins. ??? You will be given one or more of the following: ? A medicine to help you relax (sedative). ? A medicine to numb the area (local anesthetic). ? A medicine to make you fall asleep (general anesthetic). ??? Your health care provider will use a kind of electric scalpel that uses heat to reduce bleeding (electrocautery knife). A curved incision that follows the natural curve of your breast will be made. This type of incision will allow for minimal scarring and better healing. ??? The tumor will be removed along with some of the tissue around it. This will be sent to the lab for testing. Your health care provider may also remove lymph nodes at this time if needed. ??? If the tumor is close to the muscles over your chest, some muscle tissue may also be removed. ??? A small drain tube may be inserted into your breast area or armpit to collect fluid that may build up after surgery. This tube will be connected to a suction bulb on the outside of your body to remove the fluid. ??? The incision will be closed with stitches (sutures). ??? A bandage (dressing) may be placed over the incision. The procedure may vary among health care providers and hospitals. What happens after the procedure? Your blood pressure, heart rate, breathing rate, and blood oxygen level will be monitored until you leave the hospital or clinic. ??? You will be given medicine for pain as needed. ??? Your IV will be removed when you are able to eat and drink by mouth. ??? You will be encouraged to get up and walk as soon as you can. This is important to improve blood flow and breathing. Ask for help if you feel weak or unsteady. ??? You may have: ? A drain tube in place for 2???3 days to prevent a collection of blood (hematoma) from developing in the breast. You will be given instructions about caring for the drain before you go home. ? A pressure bandage applied for 1???2 days to prevent bleeding or swelling. Your pressure bandage may look like a thick piece of fabric or an elastic wrap. Ask your health care provider how to care for your bandage at home. ??? You may be given a tight sleeve to wear over your arm on the side of your surgery. You should wear this sleeve as told by your health care provider. ??? Do not drive for 24 hours if you were given a sedative during your procedure. Summary ??? A lumpectomy, sometimes called a partial mastectomy, is surgery to remove a cancerous tumor or mass (the lump) from a breast. ??? During a lumpectomy, the portion of the breast that contains the tumor is removed. Lymph nodes under your arm may also be removed and tested to find out if the cancer has spread. ??? Plan to have someone take you home from the hospital or clinic. ??? You may have a drain tube in place for 2???3 days to prevent a collection of blood (hematoma) from developing in the breast. You will be given instructions about caring for the drain before you go home. This information is not intended to replace advice given to you by your health care provider. Make sure you discuss any questions you have with your health care provider. Document Revised: 03/25/2020 Document Reviewed: 03/25/2020 [employer] Patient Education ?? 2020 [employer]. Paresthesia Paresthesia is an abnormal burning or prickling sensation. It is usually felt in the hands, arms, legs, or feet. However, it may occur in any part of the body. Usually, paresthesia is not painful. It may feel like: ??? Tingling or numbness. ??? Buzzing. ??? Itching. Paresthesia may occur without any clear cause, or it may be caused by: ??? Breathing too quickly (hyperventilation). ??? Pressure on a nerve. ??? An underlying medical condition. ??? Side effects of a medication. ??? Nutritional deficiencies. ??? Exposure to toxic chemicals. Most people experience temporary (transient) paresthesia at some time in their lives. For some people, it may be long-lasting (chronic) because of an underlying medical condition. If you have paresthesia that lasts a long time, you may need to be evaluated by your health care provider. Follow these instructions at home: Alcohol use ??? Do not drink alcohol if: ? Your health care provider tells you not to drink. ? You are , may be , or are planning to become . ??? If you drink alcohol: ? Limit how much you use to: ? 0???1 drink a day for women. ? 0???2 drinks a day for men. ? Be aware of how much alcohol is in your drink. In the [place] one drink equals one 12 oz bottle of beer (355 mL), one 5 oz glass of wine (148 mL), or one 1?? oz glass of hard liquor (44 mL). Nutrition ??? Eat a healthy diet. This includes: ? Eating foods that are high in fiber, such as fresh fruits and vegetables, whole grains, and beans. ? Limiting foods that are high in fat and processed sugars, such as fried or sweet foods. General instructions ??? Take hpnj-gzk-arlxmwi and prescription medicines only as told by your health care provider. ??? Do not use any products that contain nicotine or tobacco, such as cigarettes and e-cigarettes. These can keep blood from reaching damaged nerves. If you need help quitting, ask your health care provider. ??? If you have diabetes, work closely with your health care provider to keep your blood sugar under control. ??? If you have numbness in your feet: ? Check every day for signs of injury or infection. Watch for redness, warmth, and swelling. ? Wear padded socks and comfortable shoes. These help protect your feet. ??? Keep all follow-up visits as told by your health care provider. This is important. Contact a health care provider if you: ??? Have paresthesia that gets worse or does not go away. ??? Have a burning or prickling feeling that gets worse when you walk. ??? Have pain, cramps, or dizziness. ??? Develop a rash. Get help right away if you: ??? Feel weak. ??? Have trouble walking or moving. ??? Have problems with speech, understanding, or vision. ??? Feel confused. ??? Cannot control your bladder or bowel movements. ??? Have numbness after an injury. ??? Develop new weakness in an arm or leg. ??? Faint. Summary ??? Paresthesia is an abnormal burning or prickling sensation that is usually felt in the hands, arms, legs, or feet. It may also occur in other parts of the body. ??? Paresthesia may occur without any clear cause, or it may be caused by breathing too quickly (hyperventilation), pressure on a nerve, an underlying medical condition, side effects of a medication, nutritional deficiencies, or exposure to toxic chemicals. ??? If you have paresthesia that lasts a long time, you may need to be evaluated by your health care provider. This information is not intended to replace advice given to you by your health care provider. Make sure you discuss any questions you have with your health care provider. Document Revised: 10/16/2019 Document Reviewed: 09/29/2018 [employer] Patient Education ?? 2020 [employer]. Emergency Awareness and Preventative Care STROKE is [...] Assistance with quitting is available by contacting 8-180-GYHG-NOW. This is a free resource providing counseling, [...] CPR? There are two easy steps: Call if you see a teen or adult [...] and how to prevent infections, visit www.cdc.gov/sepsis. The examination and treatment you have received in the Emergency Department has been done to provide an appropriate evaluation and stabilizing treatment on an emergency basis only. Given the limited resources, it is not meant to be a substitute for complete medical care. The follow-up doctor you named will receive a copy of your records and all test reports. IT IS IMPORTANT THAT YOU SCHEDULE A FOLLOW-UP APPOINTMENT AND ARE RE-EVALUATED. You should report any new complaints, symptoms, or remaining problems at that time. IT IS IMPOSSIBLE FOR THE EMERGENCY DEPARTMENT TO RECOGNIZE AND TREAT ALL ELEMENTS OF INJURY OR ILLNESS IN A SINGLE VISIT. If you have been referred to a specialist physician, it means that we believe you may have a condition that requires the expertise of a specialist. These physicians work in partnership with the hospital and have agreed to see referred patients in their office for further evaluation. KEEP IN MIND THAT THE SPECIALIST HAS HIS/HER OWN OFFICE POLICIES WHICH MAY REQUIRE PROPER INSURANCE OR PAYMENT UP FRONT BEFORE THE SPECIALIST WILL SEE YOU. It is your responsibility to call the specialist physician to make an appointment. We do not have the ability to refer patients to specialists/physicians that work with specific insurance companies. Please be advised that all financial charges or billing practices are determined by that practice, not the hospital. If your insurance company requires that you see a specialist from their approved list, it is your responsibility to contact your insurance company to make those arrangements. It is also your responsibility to follow any other requirements of your insurance company necessary to obtain coverage for claims submitted. We will bill your insurance; however, you are responsible today for any co-pay amounts. You will receive a separate bill for any services you may have received including: emergency, radiology, or pathology physicians. Patient Name:DEMETRIA ROE TIANNA Baum have received this information and was given the opportunity to ask questions. Patient/Shuttle Buggy Operator Name: Patient/Shuttle Buggy Operator Signature: Relationship to Patient: Clinician/Hospital Shuttle Buggy Operator Signature: Please Provide a Telephone Number Where You Can Be Reached: Is it Permissible To Leave a Message? Date: documented in this encounter Plan of Treatment Not on file documented as of this encounter Visit Diagnoses Not on filedocumented in this encounter
--- OUTSIDE RECORDS SUMMARY | 2025-05-22 10:44 | XMS_ITS | Encounter Summary ---
Author Organization [employer] ([place], [place], [place], [place]) Address [address] [place] [address] Care Team Providers Care Cupola Mechanic Name Role Phone Unavailable Primary Care Provider Unavailabl e Encounter Details Date Type Department Care Team (Late st Contact Info) Description 10/31/2021 Transcribed Document [facility] [place] Family Medicine [address] [place] [address] ProviderGuerita MD [address] [place] [address] Social History Tobacco Use Types [...] Date Murray rded Speak language other than Maltese at home Not on file 10/22/2023 Want help with school or training Not on file 10/22/2023 Substance Use Answer Date Recorded Used prescription meds for non-medical reasons N ot on file 10/22/2023 Used illegal drugs past 12 months Not on file 10/22/2023 Comments Unknown Sex and Gender Information Value Date Recorded Sex Assigned at Female 08/19/2022 12:34 PM TUTORING ASSISTANT Legal Sex Female 6:29 PM CDT Gender Identity Female 08/19/2022 12:34 PM TUTORING ASSISTANT Sexual Orientation Straight 08/19/2022 12 :34 PM TUTORING ASSISTANT COVID-19 Exposure Response Date Recorded In the last 10 days, have rufino u been in contact with someone who was confirmed or suspected to have Coronavirus/COVID-19? No / Unsure 02/08/2023 1:28 PM EDT documented as of this encounter Miscellaneous Notes * Cerner Conversion Note - Historical Provider, - 10/31/2021 4:51 PM TUTORING ASSISTANT Patient: DEMETRIA ROE Age: 45 years Sex: Female : 1975 Associated Diagnoses: Paresthesia Author: JOHN RAGSDALE APRN Basic Information Time seen: Date & time 10/31/2021 16:40:00. History source: Patient. Arrival mode: Private vehicle. History limitation: None. Additional information: Chief Complaint from Nursing Triage Note : Chief Complaint 10/31/2021 16:03 EST Chief Complaint PT had lumpectomy/ right breast this past Wed, c/o BL arm, BL leg, and limp numbness, resp even andunlabored, denies pain . History of Present Illness The patient presents with Paresthesia. The onset was 5 hours ago. The course/duration of symptoms is fluctuating in intensity. Location: Right face. The character of symptoms is altered sensation. The degree at onset was moderate. The degree at maximum was moderate. The degree at present is minimal. Risk factors consist of recent surgery. The patient's dominant hand is the right hand. Prior episodes: none. Therapy today: none. Associated symptoms: none. Patient is 45-year-old female with past history of breast cancer and lumpectomy on October 29, 2021, presented today with complaint of numbness and tingling to her right face, right arm and right leg, bilateral feet and mouth. She reports symptoms onset around 11:00, she woke with Dr. Coon's office at noon and was advised to go to ER for evaluation. She was advised might have right arm numbness postlumpectomy, became worried when numbness progressed to her face and leg. She denies any medications besides from prescribed doxy codon. Review of Systems Constitutional symptoms: No fever, no chills, no decreased activity. Skin symptoms: No rash, Eye symptoms: Vision unchanged. ENMT symptoms: No sore throat, Respiratory symptoms: No shortness of breath, no cough. Cardiovascular symptoms: No chest pain, no syncope. Gastrointestinal symptoms: No abdominal pain, no vomiting, no diarrhea. Genitourinary symptoms: No dysuria, Musculoskeletal symptoms: No back pain, Neurologic symptoms: Numbness, tingling, no headache, no dizziness, no altered level of consciousness. Psychiatric symptoms: No anxiety, Endocrine symptoms: No polyuria, Hematologic/Lymphatic symptoms: Bleeding tendency negative, Allergy/immunologic symptoms: No recurrent infections, Health Status Allergies: Allergic Reactions (All) Severity Not Documented Latex- Swelling and rash.. Medications: (Selected) Inpatient Medications Ordered Sodium Chloride 0.9% bolus: 1,000 mL, 1,000 mL/Hr, IV Piggyback, 1-Time Prescriptions Prescribed Percocet 5/325 oral tablet: 2 Tab, Oral, Q4H, for 5 Day(s), Max 6 tabs per day., PRN: for pain, 20 Tab, 0 Refill(s). Immunizations: Per nurse's notes. Menstrual history: Per nurse's notes. Past Medical/ Family/ Social History Medical history Reviewed as documented in chart. Surgical history: No active procedure history items have been selected or recorded., Reviewed as documented in chart. Family history: No family history items have been selected or recorded., Reviewed as documented in chart. Social history: Social & Psychosocial Habits Alcohol 10/29/2021 Alcohol Use History, Social Habits Yes Total Drinks Per Week 12 Alcohol Use in Last Twelve Months Yes Alcohol Use Frequency Daily Substance Abuse 10/29/2021 Recreational Drug Use History No Recreational Drug Use Last 12 Months No Tobacco 10/29/2021 Smoking Status Former smoker, quit more Smokeless Tobacco Status Never Smokeless Tobacco Use History None Years of Tobacco Use 23 Month Tobacco Last Used 2016 Second Hand Smoke Exposure No , Reviewed as documented in chart. Problem list: Active Problems (1) Ductal carcinoma in situ of right breast , per nurse's notes. Physical Examination Vital Signs Vital Signs/Vital Measures 10/31/2021 16:03 EST Systolic Blood Pressure 187 mmHg HI Diastolic Blood Pressure 112 mmHg HI Temperature Source Tympanic Temperature Mode Fahrenheit Temperature, Fahrenheit 96.9 Deg F Clinical Temperature, C 36.1 Deg C Peripheral Pulse Rate 80 bpm Respiratory Rate 18 Breaths/Min Oxygen Saturation 99 % . Measurements 10/31/2021 16:03 EST Height Source Stated Height Entry Format [place] Height/Length, MEXICAN (ft) 5 ft Height/Length MEXICAN 2 Inch CLINICALHEIGHT 157.48 cm [place] Body Weight 49.73 kg Weight Source, ED Standing scale Weight Entry Format [place] Weight Maltese lb 201 lb CLINICALWEIGHT 91.36 kg Body Surface Area (BSA) 1.92 m2 Body Mass Index 36.8 kg/m2 HI . Oxygen Saturation 10/31/2021 16:03 EST Oxygen Saturation 99 % . General: Alert, no acute distress. Skin: Warm. Head: Normocephalic. Neck: Supple. Eye: Sclera: not icteric. Ears, nose, mouth and throat: Oral mucosa moist. Cardiovascular: Regular rate and rhythm, No murmur, Normal peripheral perfusion, No edema. Respiratory: Lungs are clear to auscultation, respirations are non-labored, breath sounds are equal. Chest wall: No tenderness. Back: Nontender. Gastrointestinal: Soft, Nontender, Non distended, Normal bowel sounds. Neurological: No focal neurological deficit observed, NIH -1 (sensory), Level of consciousness: Appropriate for age, Speech: Normal, Gait: Normal. Lymphatics: No lymphadenopathy. Psychiatric: Cooperative. Medical Decision Making Differential Diagnosis: Non-hemorrhagic cerebral vascular accident, transient ischemic attack, paresthesia, hypoglycemia, hyperglycemia, Han's Palsy, Guillain-Meza# syndrome, peripheral neuropathy. Results review: Lab results : Lab Results 10/31/2021 16:40 EST Urine Type. U CleanCatch Urine Color Yellow Urine Appearance Cloudy Urine Specific [place] 1.018 Urine pH Dipstick 7.0 Urine Leukocyte Esterase Small Urine Nitrite Negative Urine Protein Dipstick Negative Urine Glucose Dipstick Negative Urine Ketones Dipstick Negative Urine Urobilinogen Dipstick 1.0 EU/dL Urine Bilirubin Dipstick Negative Urine Blood Dipstick Negative Ur RBC None Seen Ur WBC 2-5 /HPF Ur Bacteria Trace Ur Squamous Epithelial Cells 20-50 /HPF Urine Culture if Indicated Not Indicated UDS pH 7.4 NA UDS Amp Negative UDS [place] Negative UDS Benzo Negative UDS [place] J Negative UDS Meth Negative UDS Opi Negative UDS Oxy Positive UDS PCP Negative UDS TCA Negative UDS THC Positive Buprenorphine Screen, Urine Negative Carisoprodol Screen, Urine Negative Fentanyl, Urine Negative Heroin Metab (6AM) by LC-MS/MS, Urine Negative Meperidine Screen, Urine Negative Propoxyphene, Urine Negative SpGravity, Urine 1.015 NA Tramadol Screen, Urine Negative UDS Creatinine, Toxicology 111.1 mg/dL NA 10/31/2021 16:07 EST Sodium Level 139 mmol/L Potassium Level 3.5 mmol/L Chloride Level 105 mmol/L Carbon Dioxide Level 30 mmol/L Anion Gap 8 LOW Glucose Level 98 mg/dL Blood Urea Nitrogen 14 mg/dL Creatinine Level 0.77 mg/dL eGFR >60 mL/min/1.73m2 eGFR NonAfrican >60 mL/min/1.73m2 Bun/Creatinine 18.2 Calcium Level 8.7 mg/dL Protein Total 7.6 Gram/dL Albumin Level 3.7 Gram/dL Globulin 3.9 Gram/dL A/G Ratio 0.9 LOW Bilirubin Total 0.2 mg/dL Alk Phos 87 Units/Liter AST 22 Units/Liter ALT 35 Units/Liter Troponin I Ultra <0.015 ng/mL ProBNP 79 pg/mL WBC 9.4 K/uL RBC 4.23 Million/uL Hgb 13.4 Gram/dL Hct 41.1 % MCV 97.2 fL HI MCH 31.7 pg MCHC 32.6 Gram/dL Platelet Count 423 K/uL HI MPV 10.0 fL RDW 12.9 % Neut % 57.7 % Neut # 5.44 K/uL Lymph % 34.0 % Lymph # 3.20 K/uL Pike % 6.2 % Pike # 0.58 K/uL Eos % 1.0 % Eos # 0.09 K/uL Baso % 0.8 % Baso # 0.08 K/uL Slide Review No IG# 0 x10(3)/uL IG% 0 % HCG Urine Qualitative Negative HCG Serum Quant <1.0 mIU/mL NA . Radiology results: Radiology Results (Last 48 hours) [id number] -- 10/31/2021 15:42 CT Head WO Code Stroke (10/31/2021 16:53) Result: CT HEAD AND NECK ANGIO, WITHOUT AND WITH CONTRAST 10/31/2021 4:37 PMHISTORY: Carotid stenosis, syncope.TECHNIQUE: Thin section axial CT with IV contrast supplemented withmultiplanar 3D reconstructions of the head and neck. This study wasperformed with techniques to keep radiation doses as low as reasonablyachievable, (ALARA). Individualized dose reduction techniques usingautomated exposure control or adjustment of mA and/or kV according tothe patient size were employed.FINDINGS:NASCET technique utilized for stenosis evaluation.HEAD CT: The ventricles are normal in size. There is no evidence ofhemorrhage. No masses are identified. No extra-axial fluid is seen. Thesinuses are normal.CTA: AORTIC ARCH: Arch shows no significant narrowing. Great vessel originsare excluded.RIGHT CAROTID: No significant stenosis is seen of the cervical commonor internal carotid artery.LEFT CAROTID: No significant stenosis is seen of the cervical common orinternal carotid artery.VERTEBRALS: The vertebrals are patent. No significant stenosis ispresent.The cranial circulation is unremarkable. There is no significantstenosis, aneurysm, or occlusion.IMPRESSION: No acute process. The ER was notified.Images reviewed, interpreted, and dictated by Troy Ashley MD CTA Head Code Stroke (10/31/2021 16:53) Result: CT HEAD AND NECK ANGIO, WITHOUT AND WITH CONTRAST 10/31/2021 4:37 PMHISTORY: Carotid stenosis, syncope.TECHNIQUE: Thin section axial CT with IV contrast supplemented withmultiplanar 3D reconstructions of the head and neck. This study wasperformed with techniques to keep radiation doses as low as reasonablyachievable, (ALARA). Individualized dose reduction techniques usingautomated exposure control or adjustment of mA and/or kV according tothe patient size were employed.FINDINGS:NASCET technique utilized for stenosis evaluation.HEAD CT: The ventricles are normal in size. There is no evidence ofhemorrhage. No masses are identified. No extra-axial fluid is seen. Thesinuses are normal.CTA: AORTIC ARCH: Arch shows no significant narrowing. Great vessel originsare excluded.RIGHT CAROTID: No significant stenosis is seen of the cervical commonor internal carotid artery.LEFT CAROTID: No significant stenosis is seen of the cervical common orinternal carotid artery.VERTEBRALS: The vertebrals are patent. No significant stenosis ispresent.The cranial circulation is unremarkable. There is no significantstenosis, aneurysm, or occlusion.IMPRESSION: No acute process. The ER was notified.Images reviewed, interpreted, and dictated by Troy Ashley MD CTA Neck Code Stroke (10/31/2021 16:53) Result: CT HEAD AND NECK ANGIO, WITHOUT AND WITH CONTRAST 10/31/2021 4:37 PMHISTORY: Carotid stenosis, syncope.TECHNIQUE: Thin section axial CT with IV contrast supplemented withmultiplanar 3D reconstructions of the head and neck. This study wasperformed with techniques to keep radiation doses as low as reasonablyachievable, (ALARA). Individualized dose reduction techniques usingautomated exposure control or adjustment of mA and/or kV according tothe patient size were employed.FINDINGS:NASCET technique utilized for stenosis evaluation.HEAD CT: The ventricles are normal in size. There is no evidence ofhemorrhage. No masses are identified. No extra-axial fluid is seen. Thesinuses are normal.CTA: AORTIC ARCH: Arch shows no significant narrowing. Great vessel originsare excluded.RIGHT CAROTID: No significant stenosis is seen of the cervical commonor internal carotid artery.LEFT CAROTID: No significant stenosis is seen of the cervical common orinternal carotid artery.VERTEBRALS: The vertebrals are patent. No significant stenosis ispresent.The cranial circulation is unremarkable. There is no significantstenosis, aneurysm, or occlusion.IMPRESSION: No acute process. The ER was notified.Images reviewed, interpreted, and dictated by Troy Ashley MD , Radiology Results (Last 48 hours) [id number] -- 10/31/2021 15:42 CT Head WO Code Stroke (10/31/2021 16:53) Result: CT HEAD AND NECK ANGIO, WITHOUT AND WITH CONTRAST 10/31/2021 4:37 PMHISTORY: Carotid stenosis, syncope.TECHNIQUE: Thin section axial CT with IV contrast supplemented withmultiplanar 3D reconstructions of the head and neck. This study wasperformed with techniques to keep radiation doses as low as reasonablyachievable, (ALARA). Individualized dose reduction techniques usingautomated exposure control or adjustment of mA and/or kV according tothe patient size were employed.FINDINGS:NASCET technique utilized for stenosis evaluation.HEAD CT: The ventricles are normal in size. There is no evidence ofhemorrhage. No masses are identified. No extra-axial fluid is seen. Thesinuses are normal.CTA: AORTIC ARCH: Arch shows no significant narrowing. Great vessel originsare excluded.RIGHT CAROTID: No significant stenosis is seen of the cervical commonor internal carotid artery.LEFT CAROTID: No significant stenosis is seen of the cervical common orinternal carotid artery.VERTEBRALS: The vertebrals are patent. No significant stenosis ispresent.The cranial circulation is unremarkable. There is no significantstenosis, aneurysm, or occlusion.IMPRESSION: No acute process. The ER was notified.Images reviewed, interpreted, and dictated by Troy Ashley MD CTA Head Code Stroke (10/31/2021 16:53) Result: CT HEAD AND NECK ANGIO, WITHOUT AND WITH CONTRAST 10/31/2021 4:37 PMHISTORY: Carotid stenosis, syncope.TECHNIQUE: Thin section axial CT with IV contrast supplemented withmultiplanar 3D reconstructions of the head and neck. This study wasperformed with techniques to keep radiation doses as low as reasonablyachievable, (ALARA). Individualized dose reduction techniques usingautomated exposure control or adjustment of mA and/or kV according tothe patient size were employed.FINDINGS:NASCET technique utilized for stenosis evaluation.HEAD CT: The ventricles are normal in size. There is no evidence ofhemorrhage. No masses are identified. No extra-axial fluid is seen. Thesinuses are normal.CTA: AORTIC ARCH: Arch shows no significant narrowing. Great vessel originsare excluded.RIGHT CAROTID: No significant stenosis is seen of the cervical commonor internal carotid artery.LEFT CAROTID: No significant stenosis is seen of the cervical common orinternal carotid artery.VERTEBRALS: The vertebrals are patent. No significant stenosis ispresent.The cranial circulation is unremarkable. There is no significantstenosis, aneurysm, or occlusion.IMPRESSION: No acute process. The ER was notified.Images reviewed, interpreted, and dictated by Troy Ashley MD CTA Neck Code Stroke (10/31/2021 16:53) Result: CT HEAD AND NECK ANGIO, WITHOUT AND WITH CONTRAST 10/31/2021 4:37 PMHISTORY: Carotid stenosis, syncope.TECHNIQUE: Thin section axial CT with IV contrast supplemented withmultiplanar 3D reconstructions of the head and neck. This study wasperformed with techniques to keep radiation doses as low as reasonablyachievable, (ALARA). Individualized dose reduction techniques usingautomated exposure control or adjustment of mA and/or kV according tothe patient size were employed.FINDINGS:NASCET technique utilized for stenosis evaluation.HEAD CT: The ventricles are normal in size. There is no evidence ofhemorrhage. No masses are identified. No extra-axial fluid is seen. Thesinuses are normal.CTA: AORTIC ARCH: Arch shows no significant narrowing. Great vessel originsare excluded.RIGHT CAROTID: No significant stenosis is seen of the cervical commonor internal carotid artery.LEFT CAROTID: No significant stenosis is seen of the cervical common orinternal carotid artery.VERTEBRALS: The vertebrals are patent. No significant stenosis ispresent.The cranial circulation is unremarkable. There is no significantstenosis, aneurysm, or occlusion.IMPRESSION: No acute process. The ER was notified.Images reviewed, interpreted, and dictated by Troy Ashley MD CR Chest 1 Vw Portable (10/31/2021 17:06) Result: CLINICAL INDICATION: Numbness. EXAMINATION TECHNIQUE: CR Chest 1 Vw PortableCOMPARISON:Radiograph 08/06/2021.FINDINGS:Lungs are clear without evidence of focal airspace consolidation. Nopneumothorax. No pleural effusion. Heart and mediastinal contours arewithin normal limits. No acute osseous or soft tissue abnormalities. Nofree air under the hemidiaphragms.IMPRESSION:No acute findings in the chest.Images personally reviewed, interpreted and dictated by CHRIS Artis. MRI Brain CODE Stroke WO (10/31/2021 19:13) Result: MRI BRAIN WITHOUT CONTRASTHISTORY: Right-sided numbness, history of breast cancerTECHNIQUE: Multiplanar, multisequence images of the brain were performedwithout contrast.FINDINGS: The diffusion weighted images demonstrate no restricteddiffusion. There is no acute ischemia. The cervicomedullary junction isnormal. There is no Chiari malformation. The upper cervical cord isnormal in appearance. The midline structures are unremarkable. Thebrainstem and posterior fossa are unremarkable. The ventricles and basalcisterns are unremarkable. There is no cortical edema. There is nohemorrhage. There is no mass or mass effect. There are no extra-axialfluid collections. The visualized orbits and globes appear unremarkable.IMPRESSION: Unremarkable MRI of the brain without contrast. Images reviewed, interpreted, and dictated by Toño Mattson MD . Reexamination/ Reevaluation Time: 10/31/2021 20:12:00 . Vital signs per nurse's notes Notes: Discussed with patient diagnostic test results, differential diagnosis of the symptoms, treatment plan treatment plan, in detail adviseds, advised follow-up with primary care physician for further evaluation and management, also give patient specific instruction to return to the emergency department, if symptoms worsens. Impression and Plan Diagnosis Paresthesia - Discharge, Medical Calls-Consults - 10/31/2021 17:41:00 , LINDA FOSS MD, recommends tele admit, consult with neurology, Dr. Turner advised MRI from ER, if normal discharge patient home. Plan Condition: Stable. Disposition: Discharged Admit/Transfer/Discharge: Discharge (Order): Start: 10/31/2021 20:13 EST, Discharge to: Home. Patient was given the following educational materials: Paresthesia, Lumpectomy, Lumpectomy, Care After. Follow up with: ADI HADDAD Within 2 to 3 days; WINDY TURNER Within 2 to 3 days Call for follow up appointment with neurologist if symptoms persist; IRMA FLEMING Within 2 to 3 days Call for follow up appointment with your oncologist, return to ER for worsening of symptoms: Altered mental status, fainting, chest pain. Counseled: Patient, Regarding diagnosis, Regarding diagnostic results, Regarding treatment plan, Patient indicated understanding of instructions. documented in this encounter Plan of Treatment Not on file documented as of this encounter Visit Diagnoses Not on filedocumented in this encounter
--- OUTSIDE RECORDS SUMMARY | 2025-05-22 10:44 | XMS_ITS | Encounter Summary ---
Author Organization [employer] ([place], [place], [place], [place]) Address [address] [place] [address] Care Team Providers Care Safety Belt Installer Name Role Phone Unavailable Primary Care Provider Unavailabl e Encounter Details Date Type Department Care Team (Late st Contact Info) Description 11/18/2021 Transcribed Document [facility] [place] [facility] [address] [place] [address] ProviderGuerita MD [address] [place] [address] Social History Tobacco Use Types [...] Date Murray rded Speak language other than Persian at home Not on file 10/22/2023 Want help with school or training Not on file 10/22/2023 Substance Use Answer Date Recorded Used prescription meds for non-medical reasons N ot on file 10/22/2023 Used illegal drugs past 12 months Not on file 10/22/2023 Comments Unknown Sex and Gender Information Value Date Recorded Sex Assigned at Female 08/19/2022 12:34 PM POUND KEEPER Legal Sex Female 6:29 PM CDT Gender Identity Female 08/19/2022 12:34 PM POUND KEEPER Sexual Orientation Straight 08/19/2022 12 :34 PM POUND KEEPER COVID-19 Exposure Response Date Recorded In the last 10 days, have rufino reyes been in contact with someone who was confirmed or suspected to have Coronavirus/COVID-19? No / Unsure 02/08/2023 1:28 PM EDT documented as of this encounter Miscellaneous Notes * Cerner Conversion Note - Historical Provider, - 11/18/2021 12:07 PM POUND KEEPER [facility] Main OR IntraOp Summary Primary Physician: IBIS OLIVAS MD-SUR Finalized Date/Time: 11/18/21 12:55:41 Pt. Name: DEMETRIA ROE TIANNA /Sex: 1975 Female Med Rec #: [id number] Physician: IBIS OLIVAS MD-SUR Financial #: [id number] Pt. Type: O Room/Bed: [facility] Admit/Disch: 11/18/21 07:47:00 - [place] [facility] [place] Attendance Entry 1 Entry 2 Entry 3 Case Attendee IBIS OLIVAS Evans, Mandy, MORROW, ERIC, PA MD-SUR RN-PATIENT CARE BEDSIDE NON-EXEMPT Role Performed Surgeon/Proceduralist, Health And Wellness Instructor, First Physician ambulance assistant First Time In 11/18/21 11:43:00 11/18/21 11:43:00 11/18/21 11:43:00 Time Out 11/18/21 12:55:00 11/18/21 12:55:00 11/18/21 12:55:00 Procedure Breast Biopsy FS Needle Breast Biopsy FS Needle Breast Biopsy FS Needle Localization Localization Localization Other Attendee Superficial Wound Closed By: Last Modified By: Jolene Massey Evans, Mandy, Evans, Mandy, RN-PATIENT CARE BEDSIDE RN-PATIENT CARE BEDSIDE RN-PATIENT CARE BEDSIDE NON-EXEMPT 11/18/21 NON-EXEMPT 11/18/21 NON-EXEMPT 11/18/21 12:55:39 12:55:39 12:55:39 Entry 4 Entry 5 Entry 6 Case Attendee Soledad Mcduffie, POUND KEEPER LES RIOS, PARALEGAL SUPERVISOR OTHER, ATTENDEE #1 Role Performed Scrub, First PARALEGAL SUPERVISOR/Nurse Die Lay Out Worker Student Time In 11/18/21 11:43:00 11/18/21 11:43:00 11/18/21 11:43:00 Time Out 11/18/21 12:20:00 11/18/21 12:55:00 11/18/21 12:55:00 Procedure Breast Biopsy FS Needle Breast Biopsy FS Needle Breast Biopsy FS Needle Localization Localization Localization Other Attendee PARALEGAL SUPERVISOR STUDENT - YONNY SERVIN Superficial Wound Closed By: Last Modified By: Jolene Massey Evans, Mandy, Jolene Massey, RN-PATIENT CARE BEDSIDE RN-PATIENT CARE BEDSIDE RN-PATIENT CARE BEDSIDE NON-EXEMPT 11/18/21 NON-EXEMPT 11/18/21 NON-EXEMPT 11/18/21 12:55:39 12:55:39 12:55:39 Entry 7 Case Attendee Tung Gibbons ST Role Performed Scrub, Second Time In 11/18/21 12:16:00 Time Out 11/18/21 12:55:00 Procedure Breast Biopsy FS Needle Localization Other Attendee Superficial Wound Closed By: Last Modified By: Jolene Massey RN-PATIENT CARE BEDSIDE NON-EXEMPT 11/18/21 12:55:39 [facility] IntraOp Case Attendance Audit 11/18/21 12:55:39 Plug Grower: [id number] Modifier: [id number] <+> Time Out 1 <*> Procedure Breast Biopsy FS Needle Localization 2 <+> Time Out 2 <*> Procedure Breast Biopsy FS Needle Localization 3 <+> Time Out 3 <*> Procedure Breast Biopsy FS Needle Localization 4 <*> Procedure Breast Biopsy FS Needle Localization 5 <+> Time Out 5 <*> Procedure Breast Biopsy FS Needle Localization 6 <+> Time Out 6 <*> Procedure Breast Biopsy FS Needle Localization 7 <+> Time Out 7 <*> Procedure Breast Biopsy FS Needle Localization 11/18/21 12:25:47 Plug Grower: [id number] Modifier: [id number] <+> 1 Procedure 2 <*> Procedure Breast Biopsy FS Needle Localization 3 <*> Procedure Breast Biopsy FS Needle Localization 4 <*> Procedure Breast Biopsy FS Needle Localization 5 <*> Procedure Breast Biopsy FS Needle Localization 6 <*> Procedure Breast Biopsy FS Needle Localization 7 <*> Procedure Breast Biopsy FS Needle Localization 11/18/21 12:23:29 Plug Grower: [id number] Modifier: [id number] <+> Time Out 4 <*> Procedure Breast Biopsy FS Needle Localization 11/18/21 12:17:26 Plug Grower: [id number] Modifier: [id number] <+> Time In 2 <*> Procedure Breast Biopsy FS Needle Localization 3 <+> Time In 3 <*> Procedure Breast Biopsy FS Needle Localization 4 <+> Time In 4 <*> Procedure Breast Biopsy FS Needle Localization 5 <+> Time In 5 <*> Procedure Breast Biopsy FS Needle Localization 6 <+> Time In 6 <*> Procedure Breast Biopsy FS Needle Localization <+> 7 Case Attendee <+> 7 Role Performed <+> 7 Time In <+> 7 Procedure 11/18/21 12:12:51 Plug Grower: [id number] Modifier: [id number] <+> 1 Time In <+> 2 Case Attendee <+> 2 Role Performed <+> 2 Procedure <+> 3 Case Attendee <+> 3 Role Performed <+> 3 Procedure <+> 4 Case Attendee <+> 4 Role Performed <+> 4 Procedure <+> 5 Case Attendee <+> 5 Role Performed <+> 5 Procedure <+> 6 Case Attendee <+> 6 Role Performed <+> 6 Procedure <+> 6 Other Attendee [facility] IntraOp Case Times Entry 1 Patient In Room Time 11/18/21 11:43:00 Out Room Time 11/18/21 12:55:00 Anesthesia Start Time 11/18/21 11:43:00 Stop Time 11/18/21 12:55:00 Anesthesia Ready 11/18/21 11:43:00 Surgery / Procedure Times Start Time 11/18/21 12:07:00 Stop Time 11/18/21 12:52:00 Last Modified By: Jolene Massey, RN-PATIENT CARE BEDSIDE NON-EXEMPT 11/18/21 12:55:25 [facility] IntraOp Case Times Audit 11/18/21 12:55:25 Plug Grower: [id number] Modifier: [id number] <+> 1 Out Room Time <+> 1 Stop Time <+> 1 Stop Time [facility] IntraOp Cautery Entry 1 ESU Identification Cautery Type Monopolar ESU ID Number [id number] ID Type Hospital Number Cautery Settings Cut Setting 30 Coag Setting 30 ESU Grounding Pad Ground Pad Type Adult Grounding Pad Site Right thigh Grounding Pad Jolene Massey, Applied By RN-PATIENT CARE BEDSIDE NON-EXEMPT Grounding Pad Site Intact Skin Condition Before Cautery Grounding Pad Site Unchanged Skin Condition After Cautery Last Modified By: Jolene Massey RN-PATIENT CARE BEDSIDE NON-EXEMPT 11/18/21 12:17:43 [facility] IntraOp Communication Entry 1 Communication To Family/Significant other Communication By Jolene Massey RN-PATIENT CARE BEDSIDE NON-EXEMPT Date and Time 11/18/21 12:12:00 Last Modified By: Jolene Massey RN-PATIENT CARE BEDSIDE NON-EXEMPT 11/18/21 12:15:38 [facility] IntraOp Counts Verification Entry 1 Procedure Breast Biopsy FS Needle Localization Count Info Count Type Sponge, Sharps Counts Verification Baseline/pre-procedure Sequence Count Results Correct, surgeon notified Counts Performed By Count Performed By Soledad Mcduffie CST (Scrub) Count Performed By Jolene Massey (RN) RN-PATIENT CARE BEDSIDE NON-EXEMPT Last Modified By: Jolene Massey RN-PATIENT CARE BEDSIDE NON-EXEMPT 11/18/21 12:18:08 [facility] IntraOp Counts Final Entry 1 Procedure Breast Biopsy FS Needle Localization Final Count Info Count Type Sponge, Sharps Counts Verification Skin Closure/end of Sequence procedure Count Results Correct, surgeon notified Counts Performed By Count Performed By Tung Gibbons ST (Scrub) Count Performed By Jolene Massey (RN) RN-PATIENT CARE BEDSIDE NON-EXEMPT Last Modified By: Jolene Massey RN-PATIENT CARE BEDSIDE NON-EXEMPT 11/18/21 12:26:35 [facility] IntraOp Cultures and Spec Summary Entry 1 Cultrures and Specimens Specimen Ordered: Yes Test(s) Routine/Path-Lab, Requested/Final Fresh/Path-Lab Disposition Last Modified By: Jolene Massey RN-PATIENT CARE BEDSIDE NON-EXEMPT 11/18/21 12:18:13 [facility] IntraOp Departure from OR Entry 1 Integumentary Assessment Integumentary WDL Assessment WDL Transfer/Handoff Transfer to PACU Phase I Handoff Method Bedside/Face to face Post-op Transport Stretcher/Gurney Via Patient Transport Jolene Massey, Accompanied by RN-PATIENT [facility] NON-EXEMPT, RIOS, LES, PARALEGAL SUPERVISOR, OTHER, ATTENDEE #1 Last Modified By: Jolene Massey RN-PATIENT CARE BEDSIDE NON-EXEMPT 11/18/21 12:18:20 [facility] IntraOp Dressing and Packing Entry 1 Type Dressing Location BREAST; RIGHT Wound Dressing Item Skin Closure Glue Applied By FRANCISCO JAVIER MARISCAL PA Other Comments DERMABOND Last Modified By: Jolene Massey RN-PATIENT CARE BEDSIDE NON-EXEMPT 11/18/21 12:18:32 [facility] IntraOp Fire Risk Assessment Entry 1 Fire Info Surgical Site or 1- Yes Incision Above the Xyphoid Open O2 Source 0- No (Mask or Cannula) Available Ignition 1- Yes (ESU, Laser, Light Source) Fire Risk 2 Assessment Score Fire Score Fire Risk Yes Assessment Complete Fire Risk Jolene Massey, Assessment Verified RN-PATIENT CARE BEDSIDE By NON-EXEMPT Fire Risk 11/18/21 11:43:00 Assessment Verified Date/Time Fire Risk Standard Fire Yes Safety Precautions Followed Last Modified By: Jolene Massey RN-PATIENT CARE BEDSIDE NON-EXEMPT 11/18/21 12:18:38 [facility] IntraOp General Case Garbage Man 1 Case Information OR OR 02 [facility] Case Level 1 Room Verified Yes Wound Class 1 - Clean Specialty General Anesthesia Type General ASA Class 3 Diagnosis Preop Diagnosis RIGHT BREAST CANCER Postop Same As Preop No Postop Diagnosis SEE MD POST OP NOTE Wound Class Definitions Last Modified By: Jolene Massey RN-PATIENT CARE BEDSIDE NON-EXEMPT 11/18/21 12:24:01 [facility] IntraOp Intraoperative Assessment Entry 1 Handoff Method Other Valid History / Yes Physical in Chart Preoperative Yes Checklist Reviewed/Evaluated Allergies Reviewed Yes Patient is Latex Yes, protocol initiated Sensitive Isolation Not applicable Precautions Noted Level of WDL Consciousness (WDL = Alert, Oriented to Person, Place, and Time) Skin Assessment Yes Verified Present Upon IVs Arrival to OR Last Modified By: Jolene Massey RN-PATIENT CARE BEDSIDE NON-EXEMPT 11/18/21 12:24:08 [facility] IntraOp Intraoperative Equipment Entry 1 Type Equipment Equipment Equipment Susie Suction System ID Number OR ROOM 2 Setting HIGH Intraop Monitoring Electrocardiogram Three lead placement (ECG) Electrode Placement Blood Pressure Non-Invasive BP Device Source Blood Pressure Arm, left upper Location Pulse Oximeter Hand, left Probe Site Antiembolic Devices Antiembolic Devices Sequential compression device, knee high Antiembolic Device Bilateral Location Scopes Photo/Video Documentation Photo No Video No Last Modified By: Jolene Massey RN-PATIENT CARE BEDSIDE NON-EXEMPT 11/18/21 12:24:29 [facility] IntraOp Medication Admin Entry 1 Medication/Irrigant lidocaine 1% w/ epinephrine 1:100,000 30ml vial - [id number] Route of LOCAL INJECTION Administration Dose Dose 1 Unit of Measure % Volume QS Administered By IBIS OLIVAS MD-SUR Procedure Irrigation Last Modified By: Jolene Massey RN-PATIENT CARE BEDSIDE NON-EXEMPT 11/18/21 12:24:43 [facility] IntraOp Patient Positioning Entry 1 Procedure Breast Biopsy FS Needle Localization Body Position Supine Left Arm Position Secured on padded arm board Right Arm Position Secured on padded arm board Left Leg Position Uncrossed, parallel Right Leg Position Uncrossed, parallel Feet Uncrossed Yes Pressure Points Yes Checked Positioning Devices Arm Board, Safety Strap, Thighs, Pillows Positioned By Jolene Massey RN-PATIENT CARE BEDSIDE NON-EXEMPT, RIOS, LES, PARALEGAL SUPERVISOR, IBIS OLIVAS MD-YARA, OTHER, ATTENDEE #1, FRANCISCO JAVIER MARISCAL PA Position Verified Positioning Yes Verified by Anesthesia Positioning Yes Verified by Surgeon Last Modified By: Jolene Massey RN-PATIENT CARE BEDSIDE NON-EXEMPT 11/18/21 12:25:14 [facility] IntraOp Sign In Entry 1 Patient, Site, Yes Procedure Identified Surgical Consent Yes Confirmed Relevant Surgical Yes Documents Available Surgical Site Yes Marked by person performing procedure Anesthesia Machine Yes Check Completed Medication Checks Yes Completed Airway Difficult No Airway/Aspiration Risk Difficult Yes Airway/Aspiration Intervention Equipment Available Blood Loss Risk No Blood Loss Yes Intervention Equipment Prepared and Ready Blood Identifiers Not applicable Verified Per Policy Hypothermia Risk Yes Warming Measures Yes Taken Last Modified By: Jolene Massey RN-PATIENT CARE BEDSIDE NON-EXEMPT 11/18/21 12:07:34 [facility] Intra Op Sign Out Entry 1 [...] Checklist Yes Elements Complete? RN Sign Out Jolene Massey, Signature RN-PATIENT CARE BEDSIDE NON-EXEMPT RN Sign Out 11/18/21 12:55:00 Signature Date/Time Plan of Care Outcome - [...] related to extraneous objects Last Modified By: Jolene Massey RN-PATIENT CARE BEDSIDE NON-EXEMPT 11/18/21 12:55:32 [facility] Intra Op Sign Out Audit 11/18/21 12:55:32 Plug Grower: [id number] Modifier: [id number] <+> 1 RN Sign Out Signature Date/Time [facility] IntraOp Skin Prep Entry 1 Procedure Breast Biopsy FS Needle Localization Prescribed Yes Pre-Surgical Prep Completed Prep Area CHEST SHEET TO SHEET, NECK TO MID ABDOMEN; RIGHT Intraop Prep Integumentary WDL Assessment WDL Prep Agents Chlorhexadine gluconate Prep by Jolene Massey RN-PATIENT CARE BEDSIDE NON-EXEMPT Hair Removal Methods No hair removal performed Last Modified By: Jolene Massey RN-PATIENT CARE BEDSIDE NON-EXEMPT 11/18/21 12:25:32 [facility] IntraOp Surgical Procedures Entry 1 Procedure Breast Biopsy FS Needle Localization Additional RIGHT BREAST RE-EXCSION Procedure LUMPECTOMY WITH NEEDLE Description LOC Primary Procedure Yes Primary Surgeon IBIS OLIVAS MD-YARA Start 11/18/21 12:07:00 Stop 11/18/21 12:52:00 Anesthesia Type General Specialty General Wound Class 1 - Clean Last Modified By: Jolene Massey RN-PATIENT CARE BEDSIDE NON-EXEMPT 11/18/21 12:55:36 [facility] IntraOp Surgical Procedures Audit 11/18/21 12:55:36 Plug Grower: [id number] Modifier: [id number] <+> 1 Stop [facility] IntraOp Time Out Entry 1 Procedure to be Breast Biopsy FS Needle Performed Localization Time Out Time Out Pause Time 11/18/21 12:06:00 All activity Yes suspended (unless life threatening [...] 60 Minutes Beta Lizette N/A Administered Venous Yes Thromboembolism Prophylaxis Required Anticipated Critical Events Surgeon None expected Anesthesia Provider None expected Nursing Assures Sterility of instruments Essential Imaging Yes Labeled and Displayed Last Modified By: Jolene Massey RN-PATIENT CARE BEDSIDE NON-EXEMPT 11/18/21 12:23:07 Case Comments <None> Finalized By: Jolene Massey RN-PATIENT CARE BEDSIDE NON-EXEMPT Document Signatures Signed By: Jolene Massey RN-PATIENT CARE BEDSIDE NON-EXEMPT 11/18/21 12:55 documented in this encounter Plan of Treatment Not on file documented as of this encounter Visit Diagnoses Not on filedocumented in this encounter
--- OUTSIDE RECORDS SUMMARY | 2025-05-22 10:44 | XMS_ITS | Encounter Summary ---
Author Organization [employer] ([place], [place], [place], [place]) Address [address] [place] [address] Care Team Providers Care Ton Container Shipper Name Role Phone Unavailable Primary Care Provider Unavailabl e Encounter Details Date Type Department Care Team (Late st Contact Info) Description 10/29/2021 Transcribed Document [facility] Family Medicine [address] [place] [address] ProviderGuerita MD [address] [place] [address] Social History Tobacco Use Types [...] Date Murray rded Speak language other than Kiswahili at home Not on file 10/22/2023 Want help with school or training Not on file 10/22/2023 Substance Use Answer Date Recorded Used prescription meds for non-medical reasons N ot on file 10/22/2023 Used illegal drugs past 12 months Not on file 10/22/2023 Comments Unknown Sex and Gender Information Value Date Recorded Sex Assigned at Female 08/19/2022 12:34 PM DYE TANK TENDER Legal Sex Female 6:29 PM CDT Gender Identity Female 08/19/2022 12:34 PM DYE TANK TENDER Sexual Orientation Straight 08/19/2022 12 :34 PM DYE TANK TENDER COVID-19 Exposure Response Date Recorded In the last 10 days, have rufino reyes been in contact with someone who was confirmed or suspected to have Coronavirus/COVID-19? No / Unsure 02/08/2023 1:28 PM EDT documented as of this encounter Miscellaneous Notes * Cerner Conversion Note - Historical Provider, - 10/29/2021 9:44 AM DYE TANK TENDER [facility] Main OR IntraOp Summary Primary Physician: IBIS OLIVAS MD-SUR Finalized Date/Time: 10/29/21 10:20:01 Pt. Name: DEMETRIA ROE TIANNA /Sex: 1975 Female Med Rec #: [id number] Physician: IBIS OLIVAS MD-SUR Financial #: [id number] Pt. Type: O Room/Bed: [facility] Admit/Disch: 10/29/21 06:31:00 - Institution: [facility] IntraOp Case Attendance Entry 1 Entry 2 Entry 3 Case Attendee IBIS OLIVAS Dooley, Carol, RN OTHER, ATTENDEE #1 LOURDES Role Performed Surgeon/Proceduralist, Pulp Mixer, First INSTRUCTOR PILOT/Nurse Construction Field Engineer First Time In 10/29/21 09:20:00 10/29/21 09:20:00 10/29/21 09:20:00 Time Out 10/29/21 10:30:00 10/29/21 10:30:00 10/29/21 10:30:00 Procedure Breast Lumpectomy, Breast Lumpectomy, Breast Lumpectomy, Breast Biopsy FS Needle Breast Biopsy FS Needle Breast Biopsy FS Needle Localization Localization Localization Other Attendee june meeks Superficial Wound Closed By: Last Modified By: Demetrice Dunham, Demetrice Vargas, Demetrice Vargas, CLARENCE 10/29/21 10:19:36 10/29/21 10:19:36 10/29/21 10:19:36 Entry 4 Entry 5 Entry 6 Case Attendee FRANCISCO JAVIER MARISCAL PA Antrobus, Monica, LEININGER, SUSAN, tunnel drier operatorSenior Drupal Developer Role Performed Vp Ad Products And Planning, First Scrub, First Pulp Mixer, Second Time In 10/29/21 09:20:00 10/29/21 09:20:00 10/29/21 10:09:00 Time Out 10/29/21 10:30:00 10/29/21 10:30:00 10/29/21 10:30:00 Procedure Breast Lumpectomy, Breast Lumpectomy, Breast Lumpectomy, Breast Biopsy FS Needle Breast Biopsy FS Needle Breast Biopsy FS Needle Localization Localization Localization Other Attendee office manager receptionist break Superficial Wound Closed By: Last Modified By: Demetrice Dunham, RN Demetrice Dunham, RN Demetrice Dunham RN 10/29/21 10:19:36 10/29/21 10:19:36 10/29/21 10:19:36 [facility] IntraOp Case Attendance Audit 10/29/21 10:19:36 Pulley Mortiser Operator: DOOLEYC Modifier: DOOLEYC 1 <+> Time Out 1 <*> Procedure Breast Lumpectomy, Breast Biopsy FS Needle Localization 2 <+> Time Out 2 <*> Procedure Breast Lumpectomy, Breast Biopsy FS Needle Localization 3 <+> Time Out 3 <*> Procedure Breast Lumpectomy, Breast Biopsy FS Needle Localization 4 <+> Time Out 4 <*> Procedure Breast Lumpectomy, Breast Biopsy FS Needle Localization 5 <+> Time Out 5 <*> Procedure Breast Lumpectomy, Breast Biopsy FS Needle Localization 6 <+> Time Out 6 <*> Procedure Breast Lumpectomy, Breast Biopsy FS Needle Localization 10/29/21 10:14:29 Pulley Mortiser Operator: DOOLEYC Modifier: DOOLEYC 1 <+> Time In 1 <*> Procedure Breast Lumpectomy, Breast Biopsy FS Needle Localization 2 <+> Time In 2 <*> Procedure Breast Lumpectomy, Breast Biopsy FS Needle Localization 3 <+> Time In 3 <*> Procedure Breast Lumpectomy, Breast Biopsy FS Needle Localization 4 <+> Time In 4 <*> Procedure Breast Lumpectomy, Breast Biopsy FS Needle Localization 5 <+> Time In 5 <*> Procedure Breast Lumpectomy, Breast Biopsy FS Needle Localization <+> 6 Case Attendee <+> 6 Role Performed <+> 6 Time In <+> 6 Procedure <+> 6 Other Attendee [facility] IntraOp Case Times Entry 1 Patient In Room Time 10/29/21 09:20:00 Out Room Time 10/29/21 10:30:00 Anesthesia Start Time 10/29/21 09:20:00 Stop Time 10/29/21 10:30:00 Anesthesia Ready 10/29/21 09:20:00 Surgery / Procedure Times Start Time 10/29/21 09:44:00 Stop Time 10/29/21 10:19:00 Last Modified By: Demetrice Dunham RN 10/29/21 10:19:35 [facility] IntraOp Case Times Audit 10/29/21 10:19:35 Pulley Mortiser Operator: DOOLEYC Modifier: DOOLEYC <+> 1 Out Room Time <+> 1 Stop Time <+> 1 Stop Time [facility] IntraOp Cautery Entry 1 ESU Identification Cautery Type Monopolar ESU ID Number [id number] ID Type Hospital Number Cautery Settings Cut Setting 30 Coag Setting 30 ESU Grounding Pad Ground Pad Type Adult Grounding Pad Site Left thigh Grounding Pad Demetrice Dunham RN Applied By Grounding Pad Site Intact Skin Condition Before Cautery Grounding Pad Site Unchanged Skin Condition After Cautery Last Modified By: Demetrice Dunham RN 10/29/21 09:47:13 [facility] IntraOp Communication Entry 1 Communication To Family/Significant other Communication By Demetrice Dunham RN Last Modified By: Demetrice Dunham RN 10/29/21 09:47:22 [facility] IntraOp Counts Verification Entry 1 Procedure Breast Lumpectomy, Breast Biopsy FS Needle Localization Count Info Count Type Sponge, Sharps Counts Verification Baseline/pre-procedure Sequence Count Results Not Applicable Counts Performed By Count Performed By Rozina Bhatia, (Scrub) Senior Drupal Developer Count Performed By Demetrice Dunham RN (RN) Last Modified By: Demetrice Dunham RN 10/29/21 09:47:42 [facility] IntraOp Counts Final Entry 1 Procedure Breast Lumpectomy, Breast Biopsy FS Needle Localization Final Count Info Count Type Sponge, Sharps Counts Verification Skin Closure/end of Sequence procedure Count Results Correct, surgeon notified Counts Performed By Count Performed By Rozina Bhatia, (Scrub) Senior Drupal Developer Count Performed By Demetrice Dunham RN (RN) Last Modified By: Demetrice Dunham RN 10/29/21 10:09:25 [facility] IntraOp Cultures and Spec Summary Entry 1 Cultrures and Specimens Specimen Ordered: Yes Test(s) Routine/Path-Lab Requested/Final Disposition Last Modified By: Demetrice Dunham RN 10/29/21 09:47:47 [facility] IntraOp Delays Entry 1 Delay Reason Anesthesia late Duration 15 Minute(s) Last Modified By: Demetrice Dunham RN 10/29/21 09:48:11 [facility] IntraOp Departure from OR Entry 1 Integumentary Assessment Integumentary WDL Assessment WDL Transfer/Handoff Transfer to PACU Phase I Handoff Method Bedside/Face to face Post-op Transport Stretcher/Gurney Via Patient Transport Demetrice Dunham RN, Accompanied by OTHER, ATTENDEE #1 Last Modified By: Demetrice Dunham RN 10/29/21 09:48:15 [facility] IntraOp Dressing and Packing Entry 1 Type Dressing Location BREAST Wound Dressing Item Skin Closure Glue Last Modified By: Demetrice Dunham RN 10/29/21 09:48:20 [facility] IntraOp Fire Risk Assessment Entry 1 Fire Info Surgical Site or 1- Yes Incision Above the Xyphoid Open O2 Source 0- No (Mask or Cannula) Available Ignition 1- Yes (ESU, Laser, Light Source) Fire Risk 2 Assessment Score Fire Score Fire Risk Yes Assessment Complete Fire Risk Demetrice Dunham RN Assessment Verified By Fire Risk 10/29/21 09:20:00 Assessment Verified Date/Time Fire Risk Standard Fire Yes Safety Precautions Followed Last Modified By: Demetrice Dunham RN 10/29/21 09:48:26 [facility] IntraOp General Case Kelp Gatherer 1 Case Information OR OR 03 [facility] Case Level 1 Room Verified Yes Wound Class 1 - Clean Specialty General Anesthesia Type General ASA Class 2 Diagnosis Preop Diagnosis right breast cancer Postop Same As Preop Yes Postop Diagnosis right breast cancer Wound Class Definitions Last Modified By: Demetrice Dunham RN 10/29/21 09:48:50 [facility] IntraOp Intraoperative Assessment Entry 1 Handoff Method Other Valid History / Yes Physical in Chart Preoperative Yes Checklist Reviewed/Evaluated Allergies Reviewed Yes Patient is Latex Yes, protocol initiated Sensitive Isolation Not applicable Precautions Noted Level of WDL Consciousness (WDL = Alert, Oriented to Person, Place, and Time) Skin Assessment Yes Verified Present Upon IVs Arrival to OR Last Modified By: Demetrice Dunham RN 10/29/21 09:48:56 [facility] IntraOp Intraoperative Equipment Entry 1 Equipment Intraop Monitoring Electrocardiogram Three lead placement (ECG) Electrode Placement Blood Pressure Non-Invasive BP Device Source Antiembolic Devices Antiembolic Devices Sequential compression device, knee high Antiembolic Device Bilateral Location Scopes Photo/Video Documentation Photo No Video No Last Modified By: Demetrice Dunham RN 10/29/21 09:49:00 [facility] IntraOp Medication Admin Entry 1 Medication/Irrigant lidocaine 1% w/ epinephrine 1:100,000 30ml vial - [id number] Route of LOCAL INJECTION Administration Dose Dose 20 Unit of Measure ml Volume QS Administered By IBIS OLIVAS MD-SUR Procedure Irrigation Last Modified By: Demetrice Dunham RN 10/29/21 09:49:08 [facility] IntraOp Patient Positioning Entry 1 Procedure Breast Lumpectomy, Breast Biopsy FS Needle Localization Body Position Supine Left Arm Position Secured on padded arm board Right Arm Position Secured on padded arm board Left Leg Position Uncrossed, parallel Right Leg Position Uncrossed, parallel Feet Uncrossed Yes Pressure Points Yes Checked Positioning Devices Arm Board, Safety Strap, Thighs, Pillows Positioned By Demetrice Dunham RN, FRANCISCO JAVIER MARISCAL PA, OTHER, ATTENDEE #1, IBIS OLIVAS MD-SUR Position Verified Positioning Yes Verified by Anesthesia Positioning Yes Verified by Surgeon Last Modified By: Demetrice Dunham RN 10/29/21 09:49:14 [facility] IntraOp Sign In Entry 1 Patient, [...] Warming Measures Yes Taken Last Modified By: Demetrice Dunham RN 10/29/21 09:49:18 [facility] Intra Op Sign Out Entry 1 [...] Checklist Yes Elements Complete? RN Sign Out Demetrice Dunham, RN Signature RN Sign Out 10/29/21 10:30:00 Signature Date/Time Plan of Care Outcome - [...] related to extraneous objects Last Modified By: Demetrice Dunham RN 10/29/21 10:19:23 [facility] Intra Op Sign Out Audit 10/29/21 10:19:23 Pulley Mortiser Operator: DOOLEYC Modifier: DOOLEYC <+> 1 RN Sign Out Signature Date/Time [facility] IntraOp Skin Prep Entry 1 Procedure Breast Lumpectomy, Breast Biopsy FS Needle Localization Prescribed Yes Pre-Surgical Prep Completed Prep Area CHEST SHEET TO SHEET, NECK TO MID ABDOMEN Intraop Prep Integumentary WDL Assessment WDL Prep Agents Chlorhexadine gluconate Prep by Demetrice Dunham RN Hair Removal Methods No hair removal performed Last Modified By: Demetrice Dunham RN 10/29/21 09:49:24 [facility] IntraOp Surgical Procedures Entry 1 Entry 2 Procedure Breast Lumpectomy Breast Biopsy FS Needle Localization Modifiers Additional RIGHT BREAST LUMPECTOMY Procedure WITH NEEDLE LOCALIZATION Description Primary Procedure Yes No Primary Surgeon IBIS OLIVAS, IBIS OLIVAS MD-YARA DIEZ-YARA Start 10/29/21 09:44:00 10/29/21 09:44:00 Stop 10/29/21 10:19:00 10/29/21 10:19:00 Physician States Cecum Reached Anesthesia Type General General Specialty General General Wound Class 1 - Clean 1 - Clean Last Modified By: Demetrice Dunham RN Dooley, Carol, RN 10/29/21 10:19:55 10/29/21 10:19:55 [facility] IntraOp Surgical Procedures Audit 10/29/21 10:19:55 Pulley Mortiser Operator: JOSH Modifier: DOOLEYC 1 <*> Procedure Breast Lumpectomy 1 <+> Wound Class 2 <*> Procedure Breast Biopsy FS Needle Localization 2 <+> Wound Class [facility] IntraOp Time Out Entry 1 Procedure to be Breast Lumpectomy, Performed Breast Biopsy FS Needle Localization Time Out Time Out Pause Time 10/29/21 09:43:00 All activity Yes suspended (unless life threatening [...] present, Performed in location of procedure after prepped/draped, Performed before each procedure if multiple procedures, Reconcile problems if responses among team members differ Antibiotic Yes Prophylaxis Administered Or In Progress Within the Last 60 Minutes Beta Lizette Yes Administered Venous Yes Thromboembolism Prophylaxis Required Anticipated Critical Events Surgeon None expected Anesthesia Provider None expected Nursing Assures Sterility of instruments Essential Imaging Yes Labeled and Displayed Last Modified By: Demetrice Dunham RN 10/29/21 09:50:04 Case Comments <None> Finalized By: Demetrice Dunham, RN Document Signatures Signed By: Demetrice Dunham RN 10/29/21 10:20 Electronically signed by Wiliam Paiz Conversion [employer] Combat Skills Cerner at 01/19/2023 9:31 PM CDT documented in this encounter Plan of Treatment Not on file documented as of this encounter Visit Diagnoses Not on filedocumented in this encounter
--- OUTSIDE RECORDS SUMMARY | 2025-05-22 10:44 | XMS_ITS | Encounter Summary ---
Author Organization [employer] ([place], [place], [place], [place]) Address [address] [place] [address] Care Team Providers Care Database Admin Name Role Phone Unavailable Primary Care Provider Unavailabl e Encounter Details Date Type Department Care Team (Late st Contact Info) Description 01/27/2022 Transcribed Document [facility] [place] [address] [place] [address] ProviderGuerita MD [address] [place] [address] Social History Tobacco Use Types [...] Date Murray rded Speak language other than Occitan at home Not on file 10/22/2023 Want help with school or training Not on file 10/22/2023 Substance Use Answer Date Recorded Used prescription meds for non-medical reasons N ot on file 10/22/2023 Used illegal drugs past 12 months Not on file 10/22/2023 Comments Unknown Sex and Gender Information Value Date Recorded Sex Assigned at Female 08/19/2022 12:34 PM PLASTIC FABRICATOR Legal Sex Female 6:29 PM CDT Gender Identity Female 08/19/2022 12:34 PM PLASTIC FABRICATOR Sexual Orientation Straight 08/19/2022 12 :34 PM PLASTIC FABRICATOR COVID-19 Exposure Response Date Recorded In the last 10 days, have rufino reyes been in contact with someone who was confirmed or suspected to have Coronavirus/COVID-19? No / Unsure 02/08/2023 1:28 PM EDT documented as of this encounter Miscellaneous Notes * Cerner Conversion Note - Historical Provider, - 01/27/2022 2:08 PM CDT PAT Adult Entered On: 01/27/2022 14:13 EDT Performed On: 01/27/2022 14:08 EDT by Melani Pillai RN Vital Measurements Temperature Source : Temporal artery scanning Temperature Mode : Fahrenheit Temperature, Fahrenheit : 97.6 Deg F Clinical Temperature, C : 36.4 Deg C Pulse Method : Pulse Oximetry Peripheral Pulse Rate : 77 bpm Respiratory Rate : 18 Breaths/Min Blood Pressure Location : Arm, left upper Blood Pressure Source : Non-Invasive BP Device Blood Pressure Position : Sitting Systolic Blood Pressure : 185 mmHg (HI) Diastolic Blood Pressure : 89 mmHg Oxygen Saturation : 100 % Oxygen Therapy Mode : Room air Melani Pillai RN - 01/27/2022 14:08 EDT Pain Assessment Pain Assessment : Initial assessment Pain Scale Used : 0-10 Scale Franklin Michael RN - 02/03/2022 6:43 EDT Height and Weight, Clinical Dosing Height Source : Measured Height Entry Format : [place] Height, Feet : 5 ft(Converted to: 152 cm, 60 Inch) Height, Inches : 2 Inch(Converted to: 0 ft 2 Inch, 5.08 cm) Clinical Height : 157.48 cm Weight Source : Standing scale Weight Entry Format : [place] Clinical Dosing Weight : 91.36 kg Weight, Pounds : 201 lb Body Surface Area (BSA) : 1.92 m2 Body Mass Index : 36.8 kg/m2 (HI) [place] Body Weight : 50 kg Melani Pillai RN - 01/27/2022 14:08 EDT Health Histories Smoking Status : Former smoker, quit more than 30 days ago Smokeless Tobacco Status : Never Melani Pillai RN - 01/27/2022 14:08 EDT Social History (As Of: 02/03/2022 06:45:07 EDT) Tobacco: Former smoker, quit more than 30 [...] by Nhi Alba RN) Infectious Disease History COVID19 Link to [facility] Symptoms : Right click and select reference text Franklin Michael RN - 02/03/2022 6:43 EDT Does patient have symptoms of COVID-19? : No Melani Pillai RN - 01/27/2022 14:08 EDT Tested for COVID19 in the past 14 days : Yes, Patient stated results Negative Franklin Michael RN - 02/03/2022 6:43 EDT Does the Patient state known exposure to a COVID-19 positive case in the last 14 days? : No Patient Vaccinated for COVID-19 : Fully vaccinated Melani Pillai RN - 01/27/2022 14:08 EDT Infectious Disease Risk Screening Grid Cough < 2 wks of unknown origin : NO Cough > 2 weeks : NO Blood in Sputum : NO Fever or self-reported Fever : NO Rash of unknown origin : NO Headache : NO Stiff neck : NO Night Sweats : NO Unexplained Weight Loss : NO Diarrhea (3 episode per day) : NO Melani Pillai RN - 01/27/2022 14:08 EDT Physical contact outside [place] in the last 30 days : No Hospitalized in Foreign Country : No Infectious Disease History : Chicken pox/Shingles INF Disease TB Screening Calc : 0 INF Disease Recent Travel Calc : 0 Melani Pillai RN - 01/27/2022 14:08 EDT COVID19 PreProcedure Screening Is this an Emergent or Add on Procedure? : No Date PreProcedure COVID-19 test known? : Yes Date of PreProcedure COVID-19 : 01/30/2022 EDT Has patient been isolated since the test : N/A - PreProcedure, in-person visit Exposed to COVID19 symptoms since test? : N/A - PreProcedure, in-person visit Melani Pillai RN - 01/27/2022 14:08 EDT Anesthesia/Transfusion History Family History of Anesthesia Reaction : No prior transfusion(s) Transfusion History : Prior anesthesia without reaction Family History of Anesthesia Reaction : None Melani Pillai RN - 01/27/2022 14:08 EDT Advance Directive Patient has Advance Directive *Q : No, patient refuses Advance Directive information Melani Pillai RN - 01/27/2022 14:08 EDT [place] Suicide Severity Rating Scale (C-SSRS) CSSRS Past Month Wish to be : No CSSRS Past Month Suicidal Thoughts : No CSSRS Lifetime Suicide Behavior : No Suicide Severity Rating Score : 0 Suicide Severity Rating : No Additional Care Required at this time Melani Pillai RN - 01/27/2022 14:08 EDT Psychosocial History Do You Have a History of the Following? : Patient denies history Currently in Unsafe Situation : No Melani Pillai RN - 01/27/2022 14:08 EDT Teaching/Learning Assessment Barriers To Learning : None evident Individuals Taught : Patient Readiness to Learn : Cooperative Baseline Knowledge of Topic : Comprehensive Readiness to Learn : Explanation, Printed materials Learning Style Preferences Patient : Printed materials, Verbal explanation Melani Pillai RN - 01/27/2022 14:08 EDT Education Topics, Periop Preadmission Perioperative Education Grid Arrival Time/Place : Verbalizes understanding Infection Control : Verbalizes understanding NPO Status/Directions : Verbalizes understanding Preprocedure Preparations : Verbalizes understanding Preprocedure Tests/Labs : Verbalizes understanding Remove Body Piercings : Verbalizes understanding Responsible Adult : Verbalizes understanding Take/Hold Medications Pre-Procedure : Verbalizes understanding Melani Pillai RN - 01/27/2022 14:08 EDT General Info Preferred Name : Griselda Ramírez Family/Rep/Phys Notified of Admit : No Emergency Contact #1 : Juan Tolbert Emergency Contact #1 Emergency Contact #1 Relationship : Spouse Emergency Contact #2 : . Emergency Contact #2 Phone Number : . Emergency Contact #2 Relationship : . Primary Language : Occitan Preferred Communication Mode : Verbal Communication Barrier : None Lactation Nurse Needed : No Melani Pillai RN - 01/27/2022 14:08 EDT Oneil Scale Oneil Sensory Perception : Slightly limited Oneil Moisture : Rarely moist Oneil Activity : Walks frequently Oneil Mobility : No limitation Oneil Nutrition : Excellent Oneil Friction and Shear : No apparent problem Oneil Score : 22 Melani Pillai RN - 01/27/2022 14:08 EDT Sleep Apnea Risk Assmt Hx of Obstructive [...] Sleep Apnea Risk Level Score : 1 Melani Pillai RN - 01/27/2022 14:08 EDT Pain Scale Intensity : 0 Franklin Michael RN - 02/03/2022 6:43 EDT Image 4 - Images currently included in the form version of this document have not been included in the text rendition version of the form. documented in this encounter Plan of Treatment Not on file documented as of this encounter Visit Diagnoses Not on filedocumented in this encounter
--- OUTSIDE RECORDS SUMMARY | 2025-05-22 10:44 | XMS_ITS | Encounter Summary ---
Author Organization [facility] Address [address] [place] [address] Care Team Providers Care Vba Programmer Name Role Phone Андрей Thornton MD Primary Care Provider + Reason for Visit * Reason Onset Date Comments Med Refill 05/15/2024 Encounter Details Date Type Department Care Team (Late st Contact Info) Description 05/15/2024 Refill [facility] HEMATOLOGY & ONCOLOGY [address] [phone] Mavis Huffman MD [address] [place] [address] Social History Tobacco Use Types Packs/Day Years Used Date Smoking Tobacco: Former Cigarettes 1 17.9 0 10/04/1998 - 09/03/2016 Smokeless Tobacco: Never Alcohol Use Standard Drinks/Week Comments Yes 56 (1 standard drink = 0.6 oz pu re alcohol) Daily, wine Comments Unknown Sex and Gender Information Value Date Recorded Sex Assigned at Female 04/04/2025 5:18 PM EDT Legal Sex Female 12:34 PM EDT Gender Identity Not on file Sexual Orientation Straight 04/04/2025 5: 18 PM EDT documented as of this encounter Miscellaneous Notes * Telephone Encounter - Misty Nichols MA - 05/15/2024 12:54 PM EDT [facility] APPTS With Oncology (Mavis Huffman MD) 10/10/2024 at 2:00 PM LAST OFFICE VISIT - THIS DEPT 04/04/2024 Mavis Huffman MD Last refill documented in this encounter Plan of Treatment Upcoming Encounters Date Type Department Care Team (Late st Contact Info) Description 08/06/2025 9:00 AM EST Appointment [facility] [place] [address] [facility] [address] [place] [phone] 08/23/2025 10:15 AM EST Office Visit [facility] HEMATOLOGY & ONCOLOGY [address] [facility] [address] [place] [phone] Mavis Huffman MD [address] [facility] [address] [place] [address] 10/09/2025 10:15 AM EST Office Visit [facility] FAMILY MEDICINE [address] [facility] [place] [address] Андрей Thornton MD [address] [place] [address] documented as of this encounter Visit Diagnoses Not on filedocumented in this encounter Care Teams Vba Programmer Relationship Specialty Start Date End Date Андрей Thornton MD [address] [place] [address] PCP - General Family Medicine 03/25/23 documented as of this encounter
--- OUTSIDE RECORDS SUMMARY | 2025-05-22 10:44 | XMS_ITS | Referral Summary ---
Author Organization [employer] ([place], [place], [place], [place]) Address [address] [place] [address] Care Team Providers Care Drill Press Operator For Metal Name Role Phone Unavailable Primary Care Provider Unavailabl e Allergies No known active allergies Medications multivitamin capsule 1 Tab, Oral, Daily, 0 Refill(s) 01/27/2022 Active ascorbic acid, vitamin C, (ascorbic acid) 250 mg Chew Take by mouth. Active tamoxifen (NOLVADEX) 20 MG tablet Take 1 tablet (20 mg total) by mouth daily. 90 tablet 3 08/19/2022 Active akmb-JR-rpc-epa- LME-XUMD-vf-mv 1.5 mg iron- 8.73 mg CpID Iron, 9 mg =, Oral, Daily, 0 Refill(s) 01/27/2022 Active Active Problems Problem Noted Date Diagnosed Date Malignant neoplasm of overla pping sites of right breast in female, estrogen receptor positive 08/18/2022 Cancer Staging:Pathologic stage from 10/06/2021:Stage 0(pTis (DCIS), cN0, cM0, ER+, ID+) - Signed by Reyna Mendez MD on [...] Next Due Influenza Four-QIV 6MO+ PF IM ([id number]) 2,07/08/2020 Influenza Four-qiv Pf 09/16/2021 Social History Tobacco Use Types Packs/Day Years [...] Date Murray rded Speak language other than Bangladeshi at home Not on file 10/22/2023 Want help with school or training Not on file 10/22/2023 Substance Use Answer Date Recorded Used prescription meds for non-medical reasons N ot on file 10/22/2023 Used illegal drugs past 12 months Not on file 10/22/2023 Comments Unknown Sex and Gender Information Value Date Recorded Sex Assigned at Female 08/19/2022 12:34 PM DISTRIBUTOR SALES MANAGER Legal Sex Female 6:29 PM CDT Gender Identity Female 08/19/2022 12:34 PM DISTRIBUTOR SALES MANAGER Sexual Orientation Straight 08/19/2022 12 :34 PM DISTRIBUTOR SALES MANAGER Last Filed Vital Signs Vital Sign Reading [...] cm (5' 3.19 ) 11/05/2022 11:[address] Body Mass Index 36.1 11/05/2022 11:04 AM EST Plan of Treatment Not on file Procedures Procedure Name Priority Date/Time Associated Diagnosis [...] in one year. At our facility, a [place] marker is positioned over a visible skin [...] family history of breast cancer COMPARISON STUDY: [facility] [id number] FINDINGS: Craniocaudal and mediolateral oblique images of [...] family history of breast cancer COMPARISON STUDY: [facility] FINDINGS: Craniocaudal and mediolateral oblique images of [...] in one year. At our facility, a port gra[place] marker is positioned over a visible skin [...] target due date for the next mammogram. Manuel Jefferson MD IMG MAMMOGRAPHY ORDERABLES F inal Result from Last 3 Months or Most Recently Relevant to Health Maintenance Insurance BLUE CROSS/BLUE SHIELD
--- OUTSIDE RECORDS SUMMARY | 2025-05-22 10:44 | XMS_ITS | Encounter Summary ---
Author Organization [employer] ([place], [place], [place], [place]) Address [address] [place] [address] Care Team Providers Care Packing House Supervisor Name Role Phone Unavailable Primary Care Provider Unavailabl e Encounter Details Date Type Department Care Team (Late st Contact Info) Description 10/31/2021 Transcribed Document [facility] [place] Family Medicine [address] [place] [address] ProviderGuerita MD [address] [place] [address] Social History Tobacco Use Types [...] Sex Assigned at Female 08/19/2022 12:34 PM SONG AND DANCE PERFORMER Legal Sex Female 6:29 PM CDT Gender Identity Female 08/19/2022 12:34 PM SONG AND DANCE PERFORMER Sexual Orientation Straight 08/19/2022 12 :34 PM SONG AND DANCE PERFORMER COVID-19 Exposure Response Date Recorded In the last 10 days, have yo u been in contact with someone who was confirmed or suspected to have Coronavirus/COVID-19? No / Unsure 02/08/2023 1:28 PM EDT documented as of this encounter Miscellaneous Notes * Cerner Conversion Note - Historical Provider, - 10/31/2021 8:15 PM SONG AND DANCE PERFORMER documented in this encounter Plan of Treatment Not on file documented as of this encounter Visit Diagnoses Not on filedocumented in this encounter
--- OUTSIDE RECORDS SUMMARY | 2025-05-22 10:44 | XMS_ITS | Encounter Summary ---
Author Organization [employer] ([place], [place], [place], [place]) Address [address] [place] [address] Care Team Providers Care Cnc Service Engineer Name Role Phone Unavailable Primary Care Provider Unavailabl e Encounter Details Date Type Department Care Team (Late st Contact Info) Description 11/18/2021 Transcribed Document [facility] [place] [address] [place] [address] ProviderGuerita MD [address] [place] [address] Social History Tobacco Use Types [...] Date Murray rded Speak language other than Albanian at home Not on file 10/22/2023 Want help with school or training Not on file 10/22/2023 Substance Use Answer Date Recorded Used prescription meds for non-medical reasons N ot on file 10/22/2023 Used illegal drugs past 12 months Not on file 10/22/2023 Comments Unknown Sex and Gender Information Value Date Recorded Sex Assigned at Female 08/19/2022 12:34 PM CUTTING AND BONING SUPERVISOR Legal Sex Female 6:29 PM CDT Gender Identity Female 08/19/2022 12:34 PM CUTTING AND BONING SUPERVISOR Sexual Orientation Straight 08/19/2022 12 :34 PM CUTTING AND BONING SUPERVISOR COVID-19 Exposure Response Date Recorded In the last 10 days, have rufino reyes been in contact with someone who was confirmed or suspected to have Coronavirus/COVID-19? 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 Instructions From Your Care Team no heavy lifting, no pressure to right breast may shower tomorrow, pat incision dry pain medication at [facility] follow with as instructed Discharge Diet: Resume usual diet as tolerated Follow-Up Appointments Follow Up with IBIS OLIVAS MD-YARA When 11/27/2021 03:15 PM EST Comments Appointment has been made Where: [address] [address] [place] [address]- Medications What How Much When Instructions Next Dose acetaminophen-oxyCODONE (Percocet 5/ 325 oral tablet) 2 Tablet(s) Oral Every 4 Hours as needed for for pain Duration: 2 Day(s) Max 6 tabs per day. Pickup at [facility] #[id number] 5:30pm Pharmacy Information [facility] #[id number]: [address] [phone] Take your medications faithfully. Do NOT skip [...] per pharmacy guidance. Education Materials General Anesthesia, Adult General anesthesia is the [...] including vitamins, herbs, eye drops, creams, and pqgn-tyg-euwqtpm medicines. ??? Any problems you or family [...] procedure ??? stop eating heavy meals or foods such [...] tells you to take them. ??? Taking smzy-kau-ggexirx medicines, vitamins, herbs, and supplements. Do not take these during the week before your procedure unless your health care provider approves them. General instructions ??? Starting 3???6 weeks before the procedure, do not use [...] provider. Document Revised: 06/02/2021 Document Reviewed: 01/01/2021 Elsevier Patient Education ?? 2020 [employer] Lumpectomy, Care After This sheet gives [...] these instructions at home: Medicines ??? Take gbsv-lqg-viqmrlf and prescription medicines only as told by [...] keep your urine pale yellow. ? Take wqra-tel-kppxksg or prescription medicines. ? Eat foods that [...] and water are not available, use hand college or university faculty member. ? Change your dressing as told by [...] provider. Document Revised: 03/25/2020 Document Reviewed: 03/25/2020 [employer] Patient Education ?? 2020 [employer]. acetaminophen and oxycodone (a SEET a MIN oh fen and OX i KOE done) Endocet 10/325, Endocet 2.5/325, Endocet 5/325, Endocet 7.5/325, Nalocet, Percocet, Primlev What is the most important information I should know about acetaminophen and oxycodone? MISUSE OF OPIOID MEDICINE CAN CAUSE ADDICTION, OVERDOSE, OR . Keep the medication in a place where others cannot get to it. Taking opioid medicine during may cause life-threatening withdrawal symptoms in the . Fatal side effects can occur if you use opioid medicine with alcohol, or with other drugs that cause drowsiness or slow your breathing. Stop taking this medicine and call your doctor right away if you have skin redness or a rash that spreads and causes blistering and peeling. What is acetaminophen and oxycodone? Acetaminophen and oxycodone is a combination medicine used to relieve moderate to severe pain. Acetaminophen and oxycodone contains an opioide medicine and may be habit-forming. Acetaminophen and oxycodone may also be used for purposes not listed in this medication guide. What should I discuss with my healthcare provider before taking acetaminophen and oxycodone? You should not use this medicine if you are allergic to acetaminophen or oxycodone, or if you have: ?? severe asthma or breathing problems; or ?? a blockage in your stomach or intestines. Tell your doctor if you have ever had: ?? breathing problems, sleep apnea; ?? liver disease; ?? a drug or alcohol addiction; ?? kidney disease; ?? a head injury or seizures; ?? urination problems; or ?? problems with your thyroid, pancreas, or gallbladder. If you use opioid medicine while you are , your baby could become dependent on the drug. This can cause life-threatening withdrawal symptoms in the baby after it is born. Babies born dependent on opioids may need medical treatment for several weeks. Ask a doctor before using opioid medicine if you are . Tell your doctor if you notice severe drowsiness or slow breathing in the nursing baby. How should I take acetaminophen and oxycodone? Follow all directions on your prescription label. Never take this medicine in larger amounts, or for longer than prescribed. An overdose can damage your liver or cause . Tell your doctor if you feel an increased urge to use more of this medicine. Never share opioid medicine with another person, especially someone with a history of drug abuse or addiction. MISUSE CAN CAUSE ADDICTION, OVERDOSE, OR . Keep the medicine in a place where others cannot get to it. Selling or giving away opioid medicine is against the law. Measure liquid medicine carefully. Use the dosing syringe provided, or use a medicine dose-measuring device (not a kitchen spoon). If you need surgery or medical tests, tell the doctor ahead of time that you are using this medicine. You should not stop using this medicine suddenly. Follow your doctor's instructions about tapering your dose. Store at room temperature away from moisture and heat. Keep track of your medicine. You should be aware if anyone is using it improperly or without a prescription. Do not keep leftover opioid medication. Just one dose can cause in someone using this medicine accidentally or improperly. Ask your pharmacist where to locate a drug take-back disposal program. If there is no take-back program, flush the unused medicine down the toilet. What happens if I miss a dose? Since this medicine is used for pain, you are not likely to miss a dose. Skip any missed dose if it is almost time for your next dose. Do not use two doses at one time. What happens if I overdose? Seek emergency medical attention or call the Poison Help line at . An overdose of this medicine can be fatal, especially in a child or other person using the medicine without a prescription. Overdose symptoms may include nausea, vomiting, sweating, severe drowsiness, pinpoint pupils, slow breathing, or no breathing. Your doctor may recommend you get naloxone (a medicine to reverse an opioid overdose) and keep it with you at all times. A person caring for you can give the naloxone if you stop breathing or don't wake up. Your caregiver must still get emergency medical help and may need to perform CPR (cardiopulmonary resuscitation) on you while waiting for help to arrive. Anyone can buy naloxone from a pharmacy or local health department. Make sure any person caring for you knows where you keep naloxone and how to use it. What should I avoid while taking acetaminophen and oxycodone? Avoid driving or operating machinery until you know how this medicine will affect you. Dizziness or drowsiness can cause falls, accidents, or severe injuries. Do not drink alcohol. Dangerous side effects or could occur. Ask a doctor or pharmacist before using any other medicine that may contain acetaminophen (sometimes abbreviated as APAP). Taking certain medications together can lead to a fatal overdose. What are the possible side effects of acetaminophen and oxycodone? Get emergency medical help if you have signs of an allergic reaction: hives; difficulty breathing; swelling of your face, lips, tongue, or throat. Opioid medicine can slow or stop your breathing, and may occur. A person caring for you should give naloxone and/or seek emergency medical attention if you have slow breathing with long pauses, blue colored lips, or if you are hard to wake up. In rare cases, acetaminophen may cause a severe skin reaction that can be fatal. This could occur even if you have taken acetaminophen in the past and had no reaction. Stop taking this medicine and call your doctor right away if you have skin redness or a rash that spreads and causes blistering and peeling. Call your doctor at once if you have: ?? noisy breathing, sighing, shallow breathing, breathing that stops; ?? a light-headed feeling, like you might pass out; ?? weakness, tiredness, fever, unusual bruising or bleeding; ?? confusion, unusual thoughts or behavior; ?? problems with urination; ?? liver problems--nausea, upper stomach pain, tiredness, loss of appetite, dark urine, nilton-colored stools, jaundice (yellowing of the skin or eyes); ?? low cortisol levels-- nausea, vomiting, loss of appetite, dizziness, worsening tiredness or weakness; or ?? high levels of serotonin in the body--agitation, hallucinations, fever, sweating, shivering, fast heart rate, muscle stiffness, twitching, loss of coordination, nausea, vomiting, diarrhea. Serious breathing problems may be more likely in older adults and in those who are debilitated or have wasting syndrome or chronic breathing disorders. Common side effects include: ?? dizziness, drowsiness, feeling tired; ?? feelings of extreme happiness or sadness; ?? nausea, vomiting, stomach pain; ?? constipation; or ?? headache. This is not a complete list of side effects and others may occur. Call your doctor for medical advice about side effects. You may report side effects to FDA at 3-303-ZCG-1880. What other drugs will affect acetaminophen and oxycodone? You may have breathing problems or withdrawal symptoms if you start or stop taking certain other medicines. Tell your doctor if you also use an antibiotic, antifungal medication, heart or blood pressure medication, seizure medication, or medicine to treat HIV or hepatitis C. Opioid medication can interact with many other drugs and cause dangerous side effects or . Be sure your doctor knows if you also use: ?? cold or allergy medicines, bronchodilator asthma/COPD medication, or a diuretic ('water pill'); ?? medicines for motion sickness, irritable bowel syndrome, or overactive bladder; ?? other opioids--opioid pain medicine or prescription cough medicine; ?? a sedative like Valium--diazepam, alprazolam, lorazepam, Xanax, Klonopin, Versed, and others; ?? drugs that make you sleepy or slow your breathing--a sleeping pill, muscle relaxer, medicine to treat mood disorders or mental illness; ?? drugs that affect serotonin levels in your body--a stimulant, or medicine for depression, Parkinson's disease, migraine headaches, serious infections, or nausea and vomiting. This list is not complete. Other drugs may affect acetaminophen and oxycodone, including prescription and qfbo-hyn-mgufcjv medicines, vitamins, and herbal products. Not all possible interactions are listed here. Where can I get more information? Your doctor or pharmacist can provide more information about acetaminophen and oxycodone. Remember, keep this and all other medicines out of the reach of children, never share your medicines with others, and use this medication only for the indication prescribed. Every effort has been made to ensure that the information provided by [employer]') is accurate, up-to-date, and complete, but no guarantee is made to that effect. Drug information contained herein may be time sensitive. [employer] information has been compiled for use by healthcare practitioners and consumers in the [place] and therefore [employer] does not warrant that uses outside of the [place] are appropriate, unless specifically indicated otherwise. [employer]'s drug information does not endorse drugs, diagnose patients or recommend therapy. [facility] drug information is an informational resource designed to assist licensed healthcare practitioners in caring for their patients and/or to serve consumers viewing this service as a supplement to, and not a substitute for, the expertise, skill, knowledge and judgment of healthcare practitioners. The absence of a warning for a given drug or drug combination in no way should be construed to indicate that the drug or drug combination is safe, effective or appropriate for any given patient. [facility] does not assume any responsibility for any aspect of healthcare administered with the aid of information [facility] provides. The information contained herein is not intended to cover all possible uses, directions, precautions, warnings, drug interactions, allergic reactions, or adverse effects. If you have questions about the drugs you are taking, check with your doctor, nurse or pharmacist. Copyright 0623-2310 [facility]. Version: .. Revision Date: 11/08/2020. Emergency Awareness and Preventative Care STROKE is [...] Assistance with quitting is available by contacting 4-363-TLLJ-NOW. This is a free resource providing counseling, [...] This Visit (last charted value for your 11/18/2021 visit) Microbiology 11/14/2021 10:15 AM SARS-CoV-2 (COVID19 PCR): Negative Endocrinology 11/18/2021 9:01 AM HCG Urine Qualitative: Negative Patient Name:JYOTHIDEMETRIA I have received this information and was given the opportunity to ask questions. Patient/Director Commercial Sales Name: Patient/Director Commercial Sales Signature: Relationship to Patient: Clinician/Hospital Director Commercial Sales Signature: Date: documented in this encounter Plan of Treatment Not on file documented as of this encounter Visit Diagnoses Not on filedocumented in this encounter
--- OUTSIDE RECORDS SUMMARY | 2025-05-22 10:44 | XMS_ITS | Clinical Summary ---
Author Organization [facility] Address [address] [place] [address] Care Team Providers Care Workforce Management Consultant Name Role Phone Андрей Thornton MD Primary Care Provider + Allergies No known active allergies Medications tamoxifen (NOLVADEX) 10 MG tablet Take 1 tab daily 90 tablet 3 01/04/2025 Active oxybutynin (DITROPAN) 5 MG tabletIndication s:Ductal carcinoma in situ (DCIS) of right breast Take 1 tablet by mouth Daily. 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 Immunizations Immunization Administration Dates Next Due COVID-19 (JARED) 12/02/2020 Fluzone (or Fluarix & Flulav al for VFC) >6mos 09/16/2021 Influenza Injectable Mdck Pf Quad 06/22/2023,12/2021,07/08/2020 Influenza, Unspecified 09/16/2021 Family History Medical History Relation Name Comments Heart disease Father Cancer Mother Lung cancer Mother Relation Name Status Comments Father Mother Alive Social History Tobacco Use Types Packs/Day Years Used Date Smoking Tobacco: Former Cigarettes 1 17.9 0 10/04/1998 - 09/03/2016 Smokeless Tobacco: Never Tobacco Cessation:Counseling Given: Not Answered Alcohol Use Standard Drinks/Week Comments Yes 56 (1 standard drink = 0.6 oz pu re alcohol) Daily, wine PHQ-2 Answer Date Recorded Retired PHQ-9: Brief Depression Severity Measure Score 1 06/08/2024 Comments No Sex and Gender Information Value Date Recorded Sex Assigned at Female 04/04/2025 5:18 PM EDT Legal Sex Female 12:34 PM EDT Gender Identity Not on file Sexual Orientation Straight 04/04/2025 5: 18 PM EDT Last Filed Vital Signs Vital Sign Reading Time Taken Comments Blood Pressure 142/85 01/04/2025 8:57 AM EDT Pulse 98 01/04/2025 8:57 AM EDT Temperature 36.2 C (97.2 F) 01/04/2025 8:57 AM EDT Respiratory Rate 20 06/08/2024 10:44 AM EDT Oxygen Saturation 98% 01/04/2025 8:57 AM EDT Inhaled Oxygen Concentration - - Weight 87.1 kg (192 lb) 01/04/2025 8:57 AM EDT Height 157.5 cm (5' 2.01 ) 01/04/2025 8:57 AM ED T Body Mass Index 35.11 01/04/2025 8:57 AM EDT Plan of Treatment Upcoming Encounters Date Type Department Care Team (Late st Contact Info) Description 08/06/2025 9:00 AM EST Appointment [facility] [place] [address] [facility] [address] [place] [id number] 08/23/2025 10:15 AM EST Office Visit [facility] [address] [facility] [address] [place] [phone] Mavis Huffman MD [address] [facility] [address] [place] [address] 10/09/2025 10:15 AM EST Office Visit [facility] [address] [facility] [address] Андрей Thornton MD [address] [place] [address] Health Maintenance Due Date Last Done Comments Annual Gynecologic Pelvic and Breast Exam 1975 TDAP/TD VACCINES (1 - Tdap) 1994 PAP SMEAR 1996 COLOGUARD 2020 COLON CANCER SCREENING [address] COLONOGRAPHY 2020 FECAL OCCULT BLOOD TEST 2020 FIT Testing (1 year) 2020 HEPATITIS C SCREENING 03/25/2023 ANNUAL PHYSICAL 04/19/2024 04/19/2023 INFLUENZA VACCINE 07/04/2025 11/02/2024, , 08/06/2022, Additional history exists MAMMOGRAM 08/03/2026 08/03/2024, 08/04, 08/20/2022, Additional history exists COLONOSCOPY 09/14/2028 09/14/2023 COLORECTAL CANCER SCREENING 09/14/2028 COVID-19 Vaccine Completed 11/09/2024, , 08/06/2022, Additional history exists Pneumococcal Vaccine 0-49 Aged Out No longer eligible based on patient's age to complete this topic Procedures Procedure Name Priority Date/Time Associated Diagnosis Comments MAMMO DIAGNOSTIC DIGITAL TOMOSYNTHESIS BILATERAL W CAD Routine 08/03/2024 1:56 PM EDT Ductal carcinoma in situ (DCIS) of right breast SCANNED - COLONOSCOPY 09/14/2023 from Last 3 Months or Most Recently Relevant to Health Maintenance Results * Mammo Diagnostic Digital Tomosynthesis Bilateral With CAD (08/03/2024 1:56 PM EDT) Anatomical Region Laterality Modality Breast Bilateral Mammography 08/03/2024 2:03 PM EDT Impressions 08/03/2024 2:04 PM EDT BI-RADS 2, benign findings. RECOMMENDATION: Annual routine screening mammography is advised. The standard false-negative rate of mammography is between 10% and 25%. Complex patterns or increased breast density will markedly elevate the false-negative rate of mammography. A results letter, in lay terminology, will be given to the patient at the conclusion of the exam. This report was finalized on 08/03/2024 2:[address] Irivng Angelo MD. Narrative 08/03/2024 2:04 PM EDT EXAMINATION:MAMMO DIAGNOSTIC DIGITAL TOMOSYNTHESIS BILATERAL W CAD- HISTORY: 48-year-old female status post right lumpectomy in 2021 as well as bilateral reduction mammoplasty. Postlumpectomy protocol. TECHNIQUE: 2D and 3D bilateral MLO and cc views were obtained. CAD was utilized. COMPARISON: Prior studies dating back to 09/01/2021. FINDINGS: The breast tissue is heterogeneously dense, which may obscure small masses. Post reduction mammoplasty changes are noted bilaterally. Stable right breast postlumpectomy changes are noted with associated postsurgical fat necrosis changes. No worrisome masses, calcifications, or architectural distortion is identified bilaterally. Mavis Huffman MD IMG MAMMOGRAPHY ORDERABLES Fin al Result * SCANNED - COLONOSCOPY (09/14/2023) Yony Sánchez MD CHART REVIEW T ABS Final Result from Last 3 Months or Most Recently Relevant to Health Maintenance Insurance [employer] PPO [facility] Bench SHIELD PPO Care Teams Workforce Management Consultant Relationship Specialty Start Date End Date Андрйе Thornton MD [address] [place] [id number] PCP - General Family Medicine 03/25/23
--- OUTSIDE RECORDS SUMMARY | 2025-05-22 10:44 | XMS_ITS | Encounter Summary ---
Author Organization [employer] ([place], [place], [place], [place]) Address [address] [place] [address] Care Team Providers Care Hand Stoner Name Role Phone Unavailable Primary Care Provider Unavailabl e Encounter Details Date Type Department Care Team (Late st Contact Info) Description 10/31/2021 Transcribed Document [facility] [address] [place] [address] ProviderGuerita MD [address] [place] [address] Social History Tobacco Use Types [...] Sex Assigned at Female 08/19/2022 12:34 PM TWX OPERATOR Legal Sex Female 6:29 PM CDT Gender Identity Female 08/19/2022 12:34 PM TWX OPERATOR Sexual Orientation Straight 08/19/2022 12 :34 PM TWX OPERATOR COVID-19 Exposure Response Date Recorded In the last 10 days, have rufino reyes been in contact with someone who was confirmed or suspected to have Coronavirus/COVID-19? No / Unsure 02/08/2023 1:28 PM EDT documented as of this encounter Miscellaneous Notes * Cerner Conversion Note - Historical Provider, - 10/31/2021 5:18 PM TWX OPERATOR Modified Coby Bedside Swallowing Screen Entered On: 10/31/2021 17:19 EST Performed On: 10/31/2021 17:18 EST by TOM ENRIQUE RN Modified Coby Bedside Swallowing 2 Exhibits Slurred or Garbled Speech : No 3 Trouble Speaking/Understanding Words : No 1 Alert (Follows Commands) : Yes 4 Exhibits Drooling : No 5 Wet-sounding Voice : No 6 Coughs After 1 tsp Water : No 7 Voice Sounds Gurgly After 1 tsp Water : No 8 Dribbles From Mouth After 1 tsp Water : No 9 Coughs After 60 mL of Water : No 10 Voice Gurgly After 60 mL Water : No 11 Dribbles from Mouth After 60 mL Water : No TOM ENRIQUE RN - 10/31/2021 17:18 EST Electronically signed by Izabel [facility] Conversion Garden Center Manager Stacey at 01/19/2023 9:14 PM CDT documented in this encounter Plan of Treatment Not on file documented as of this encounter Visit Diagnoses Not on filedocumented in this encounter
--- OUTSIDE RECORDS SUMMARY | 2025-05-22 10:44 | XMS_ITS | Encounter Summary ---
Author Organization [employer] ([place], [place]) Address [address] [place] [address] Care Team Providers Care Machine Container Washer Name Role Phone Unavailable Primary Care Provider Unavailabl e Encounter Details Date Type Department Care Team (Late st Contact Info) Description 10/29/2021 Transcribed Document [facility] [address] [place] [address] ProviderGuerita MD [address] [place] [address] Social History Tobacco Use Types [...] Sex Assigned at Female 08/19/2022 12:34 PM LAUNDRY TECHNICIAN Legal Sex Female 6:29 PM CDT Gender Identity Female 08/19/2022 12:34 PM LAUNDRY TECHNICIAN Sexual Orientation Straight 08/19/2022 12 :34 PM LAUNDRY TECHNICIAN COVID-19 Exposure Response Date Recorded In the last 10 days, have rufino reyes been in contact with someone who was confirmed or suspected to have Coronavirus/COVID-19? No / Unsure 02/08/2023 1:28 PM EDT documented as of this encounter Miscellaneous Notes * Cerner Conversion Note - Historical Provider, - 10/29/2021 10:26 AM LAUNDRY TECHNICIAN Patient Education Materials Follows:and Gynecology Lumpectomy, Care [...] these instructions at home: Medicines ??? Take tqmk-rlw-phxzfbo and prescription medicines only as told by [...] keep your urine pale yellow. ? Take ijdp-kao-msrgphc or prescription medicines. ? Eat foods that [...] and water are not available, use hand cell attendant. ? Change your dressing as told [...] Reviewed: 03/25/2020 Elsevier Patient Education ? 2020 [employer] Pharmacology General Anesthesia, Adult, Care After This [...] activities are safe for you. ??? Take aidh-opt-xqjyrxj and prescription medicines only as told by [...] provider. Document Revised: 06/05/2021 Document Reviewed: 01/02/2021 [employer] Patient Education ? 2020 [employer] documented in this encounter Plan of Treatment Not on file documented as of this encounter Visit Diagnoses Not on filedocumented in this encounter
--- OUTSIDE RECORDS SUMMARY | 2025-05-22 10:44 | XMS_ITS | Encounter Summary ---
Author Organization [employer] ([place], [place], [place], [place]) Address [address] [place] [address] Care Team Providers Care Publication Director Name Role Phone Unavailable Primary Care Provider Unavailabl e Encounter Details Date Type Department Care Team (Late st Contact Info) Description 10/29/2021 Transcribed Document [facility] [place] [address] [place] [address] Manuel Jefferson MD [address] [place] [address] Social History Tobacco Use Types [...] Date Murray rded Speak language other than Japanese at home Not on file 10/22/2023 Want help with school or training Not on file 10/22/2023 Substance Use Answer Date Recorded Used prescription meds for non-medical reasons N ot on file 10/22/2023 Used illegal drugs past 12 months Not on file 10/22/2023 Comments Unknown Sex and Gender Information Value Date Recorded Sex Assigned at Female 08/19/2022 12:34 PM DIRECTOR OF RADIO SERVICES Legal Sex Female 6:29 PM CDT Gender Identity Female 08/19/2022 12:34 PM DIRECTOR OF RADIO SERVICES Sexual Orientation Straight 08/19/2022 12 :34 PM DIRECTOR OF RADIO SERVICES COVID-19 Exposure Response Date Recorded In the last 10 days, have yo u been in contact with someone who was confirmed or suspected to have Coronavirus/COVID-19? No / Unsure 02/08/2023 1:28 PM EDT documented as of this encounter Miscellaneous Notes * Cerner Conversion Note - Manuel Jefferson MD - 10/29/2021 12:00 PM EST DATE OF PROCEDURE: 10/29/2021 SURGEON: Manuel Jefferson MD PREOPERATIVE DIAGNOSIS: Right breast ductal carcinoma in situ. POSTOPERATIVE DIAGNOSIS: Right breast ductal carcinoma in situ. PROCEDURE PERFORMED: Right needle localized partial mastectomy. PAPER BOX CUTTER: Edward Alcantara PA-C. ANESTHESIA: General. ESTIMATED BLOOD LOSS: Minimal. COMPLICATIONS: None. OPERATIVE INDICATIONS: Ms. [place] is a 45-year-old female patient, who is referred to ar for surgical evaluation of newly diagnosed right breast DCIS. She requested breast conserving surgery and after risks and benefits of this operative intervention were explained to her, she wished to proceed. OPERATIVE FINDINGS: She had an area of residual DCIS localized with bracketed needle localization wires on the right. DESCRIPTION OF PROCEDURE: After obtaining informed consent, Ms. Tol[place] was taken to the operative room and placed in supine position. General anesthesia was induced. Her right breast was prepped and draped in usual sterile fashion. Attention was turned to the needle localization wires. A small skin incision was made between the wires and dissection down to the breast tissue was achieved using electrocautery. Electrocautery was then used to excise the breast tissue between and surrounding the needle localization wires circumferentially and with adequate margins. The specimen was removed and oriented with a short stitch superiorly and a long stitch laterally. It was further marked with black ink deep. It was passed off and sent to the breast center for specimen mammogram. Intraoperative confirmation confirmed that the residual abnormality was contained within the specimen. Meticulous hemostasis was ensured using electrocautery. Next, the skin incision was closed in 2 layers followed by Dermabond. All sponge, needle, and instrument counts were correct at the end of the procedure. There were no complications. Ms. Tolbert tolerated the procedure well. Finally, Ms. Tolbert was extubated and taken to PACU in stable condition. /[id number] MD NOMI Canales/[facility]RIO / NOMI / MODL /[id number] CC: [facility] documented in this encounter Plan of Treatment Not on file documented as of this encounter Visit Diagnoses Not on filedocumented in this encounter
--- OUTSIDE RECORDS SUMMARY | 2025-05-22 10:44 | XMS_ITS | Encounter Summary ---
Author Organization [employer] ([place], [place], [place], [place]) Address [address] [place] [address] Care Team Providers Care Circular Knitter Name Role Phone Unavailable Primary Care Provider Unavailabl e Encounter Details Date Type Department Care Team (Late st Contact Info) Description 10/29/2021 Transcribed Document [facility] [address] [place] [address] ProviderGuerita MD [address] [place] [address] Social History Tobacco Use Types [...] Sex Assigned at Female 08/19/2022 12:34 PM CITY SURVEYOR Legal Sex Female 6:29 PM CDT Gender Identity Female 08/19/2022 12:34 PM CITY SURVEYOR Sexual Orientation Straight 08/19/2022 12 :34 PM CITY SURVEYOR COVID-19 Exposure Response Date Recorded In the last 10 days, have rufino reyes been in contact with someone who was confirmed or suspected to have Coronavirus/COVID-19? No / Unsure 02/08/2023 1:28 PM EDT documented as of this encounter Miscellaneous Notes * Cerner Conversion Note - Historical Provider, - 10/29/2021 9:44 AM CITY SURVEYOR [facility] Main OR PACU Summary Primary Physician: IBIS OLIVAS MD-SUR Finalized Date/Time: 10/29/21 11:05:08 Pt. Name: ROBERTA ROE TIANNA /Sex: 1975 Female Med Rec #: [id number] Physician: IBIS OLIVAS MD-SUR Financial #: [id number] Pt. Type: O Room/Bed: [facility] Admit/Disch: 10/29/21 06:31:00 - Institution: [facility] [place] PACU Case Times Entry 1 In PACU I 10/29/21 10:24:00 Ready for PACU 10/29/21 10:54:00 Discharge Discharge from PACU 10/29/21 10:54:00 I Last Modified By: Graciela Lam RN 10/29/21 10:54:13 Finalized By: Graciela Lam, CLARENCE Document Signatures Signed By: Graciela Lam RN 10/29/21 11:05 Electronically signed by Izabel [facility] Conversion Lead Esthetician Cerner at 01/19/2023 9:16 PM CDT documented in this encounter Plan of Treatment Not on file documented as of this encounter Visit Diagnoses Not on filedocumented in this encounter
--- OUTSIDE RECORDS SUMMARY | 2025-05-22 10:44 | XMS_ITS | Encounter Summary ---
Author Organization [employer] ([place], [place], [place], [place]) Address [address] [place] [address] Care Team Providers Care Tugboat Operator Name Role Phone Unavailable Primary Care Provider Unavailabl e Encounter Details Date Type Department Care Team (Late st Contact Info) Description 10/31/2021 Transcribed Document [facility] [place] Family Medicine [address] [place] [address] ProviderGuerita MD [address] [place] [address] Social History Tobacco Use Types [...] Date Murray rded Speak language other than Kazakh at home Not on file 10/22/2023 Want help with school or training Not on file 10/22/2023 Substance Use Answer Date Recorded Used prescription meds for non-medical reasons N ot on file 10/22/2023 Used illegal drugs past 12 months Not on file 10/22/2023 Comments Unknown Sex and Gender Information Value Date Recorded Sex Assigned at Female 08/19/2022 12:34 PM TAPPER HELPER Legal Sex Female 6:29 PM CDT Gender Identity Female 08/19/2022 12:34 PM TAPPER HELPER Sexual Orientation Straight 08/19/2022 12 :34 PM TAPPER HELPER COVID-19 Exposure Response Date Recorded In the last 10 days, have rufino reyes been in contact with someone who was confirmed or suspected to have Coronavirus/COVID-19? No / Unsure 02/08/2023 1:28 PM EDT documented as of this encounter Miscellaneous Notes * Cerner Conversion Note - Historical Provider, - 10/31/2021 3:42 PM TAPPER HELPER ED Assessment Entered On: 10/31/2021 17:04 EST Performed On: 10/31/2021 17:02 EST by TOM ENRIQUE, PROFESSIONAL HOUSING CONSULTANT Quick Look Assessment Level of Consciousness : Alert, Awake Affect/Behavior : Cooperative, Anxious Orientation : Oriented x 4 Skin Temperature : Warm Skin Description : Dry TOM ENRIQEU RN - 10/31/2021 17:02 EST ED General-Functional Assess Information Obtained From : Patient Preferred Communication Mode : Verbal Communication Barrier : None Primary Language : Kazakh Any Spiritual/Cultural Needs or Requests : No Currently in Unsafe Situation : No TOM ENRIQUE RN - 10/31/2021 17:02 EST Social Habits Smoking Status : Former smoker, quit more than 30 days ago Smokeless Tobacco Status : Never Desires Tobacco Cessation Calc : 0 TOM ENRIQUE RN - 10/31/2021 17:02 EST Social History (As Of: 10/31/2021 17:04:24 EST) Tobacco: Former smoker, quit more than [...] 10/29/2021 07:33:23 EST by Nhi Alba RN) Neurologic ASMT, ED Neurologic Assessment WDL : WDL with exceptions (Comment: c/o chronic Charly feet tingling, worse since her lumpectomy on wednesday. reports RUE tingling pins and needles since surgery, but advises she was warned that was a side effect. Reports R cheek, lip, tongue tingling since this am. decreased sensation on RUE, R cheek [TOM ENRIQUE, RN - 10/31/2021 17:02 EST] ) Neurological Symptoms : Tingling TOM ENRIQUE RN - 10/31/2021 17:02 EST documented in this encounter Plan of Treatment Not on file documented as of this encounter Visit Diagnoses Not on filedocumented in this encounter
== END 2025-05-22 23:59 | disposition home or self-care (01) ==
LOC: RAD 10:39
PROVIDERS: PCP Family Medicine; Visit Provider Student in an Organized Health Care Education/Training Program
DX: S61.451A Open bite of right hand, initial encounter (principal); M79.89 Other specified soft tissue disorders; W55.01XA Bitten by cat, initial encounter
CPT/HCPCS: 73130

== ENCOUNTER 2025-05-22 10:58 | Emergency (ER) | payer BC, SELFPAY ==
[2025-05-22 11:09] VITALS: BP 185/99; PULSE 81; RESP 17; O2SAT 99; BMI 33.8
--- NOTE | 2025-05-22 11:10 | PC.NURSE ---
Patient states that she has already filled out animal bite form when she was at [facility] earlier today.
--- NOTE | 2025-05-22 11:23 | ED_ITS ---
<Statement entered by Dayton Cheema DO - 05/24/25 10:06> I was consulted by the DIMPLE, and we discussed the complexity of problems being addressed. I approved the treatment and management plan for this patient's care in the emergency department, thus performing a substantive portion of the medical decision making. Agree with DIMPLE note and assessment/plan. Would like to add she is on appropriate antibiotic coverage with augmentin already, so we did not prescribe an additional antibiotic prescription. Dayton Cheema DO Discharge Plan Disposition Patient Disposition: Home, Self-Care Prescriptions Prescriptions: No Action amoxicillin-pot clavulanate 875-125 mg tablet 1 tab PO BID 10 Days Qty: 20 0RF oxybutynin chloride 5 mg tablet 5 mg PO DAILY Referrals Follow up/Referrals: Андрей Thornton MD [Primary Care Provider, Medical] - See instructions Activity Restrictions/Add. Instructions Additional Instructions/Restrictions: You will need to return to the ER for RabAvert on days 3, 7 and 14 to finish the immunization schedule. Clinical Impressions Clinical Impression: Bite by animal, Rabies contact Instructions Patient Instructions: Animal Bites Print Language Print Language: Mongolian Discharge ED Provider: Dayton Cheema General Adult HPI General Chief complaint: Animal Bite Stated complaint: AO -05/20 bit by feral cat on rt hand Time Seen by Provider: 05/22/25 11:13 Mode of Arrival: Ambulatory Source of Information: Patient Description of Symptoms (Recalled from ER Triage Doc. by RN): Patient reports she was bitten by cat on her right hand on wednesday. [facility] was [facility] this morning and advised to come to the ED for a rabies vaccination. History of Present Illness HPI narrative: 40-year-old female presents to the ED for complaint of being bitten by a cat on her right hand Wednesday she was seen in the urgent treatment center this morning and advised to come to the ED for rabies vaccine. The cat is feral and is not her cat. She says she is scared the cat trying to get it away from her dog. It turned around and bit her in the hand. She says the cat does not act sick. She sees a cat around pretty often. She has been placed on antibiotics and given a tetanus shot and given an x-ray. She says she did not feel well this morning when she woke up. She denies fevers or chills. But the hand is pretty swollen. Related Data Home Medications ?Medication ?Instructions ?Recorded ?Confirmed oxybutynin chloride 5 mg tablet 5 mg PO DAILY 02/11/24 05/22/25 Previous Rx's ?Medication ?Instructions ?Recorded amoxicillin 875 mg-potassium 1 tab PO BID 10 days #20 tabs 05/22/25 clavulanate 125 mg tablet Allergies Allergy/AdvReac Type Severity Reaction Status Date / Time No Known Allergies Allergy Verified 12/07/24 10:23 [facility] Disclaimer: The information contained in this section may have been updated after the patient was seen, as this information can be updated by other users. Medical History Menorrhagia HGSIL (high grade squamous intraepithelial lesion) on Pap smear of cervix Breast cancer Abnormal uterine bleeding On Tamoxifen Surgical History History of hysteroscopy H/O mastectomy partial, right History of lumpectomy of right breast November and December Family History Mother Cancer Other Alcoholism Diabetes Hyperlipidemia Hypertension Stroke Social History Smoking Status: Never smoker smoking status stop date: 2015 alcohol intake: former substance use type: denies use current occupational status: unemployed Travel in the last 8 weeks?: None Have you lived/traveled outside US in past 30 days?: No Contact w/someone who lives/traveled outside US past 30 days?: No Exposure to someone with infectious disease in past 14 days?: No Do you have a fever (greater than 100.4 F or 38 C)?: No Have you tested positive for COVID-19?: No Exposed to someone with COVID-19 in past 14 days?: No Do you have a sore throat?: No Do you have a cough?: No Do you have any weakness?: No Do you have any diarrhea?: No Are you experiencing any unusual bleeding?: No Do you have any muscle aches/pain?: No Do you have any abdominal pain?: No Are you experiencing loss of taste or smell?: No ROS Obtained: Yes Systems reviewed as appropriate & no additional complaints except as documented Constitutional Constitutional: Reports as per HPI Physical Exam General General appearance: alert and in no apparent distress Head Head exam: normocephalic Eye Eye exam: Present PERRL and EOMI ENT ENT exam: Present normal oropharynx and mucous membranes moist Neck Neck exam: Present full ROM and trachea midline Respiratory Respiratory exam: Present normal lung sounds bilaterally Cardiovascular Cardiovascular exam: Present regular rate, normal rhythm, normal heart sounds, +S1 and +S2 Extremities Exam Extremities exam: Present tenderness (right hand) and normal capillary refill Neurological Exam Neurological exam: Present alert, oriented X3 and normal gait Skin Skin exam: Present warm, dry and erythema (right hand) Medical Decision Making Medical Records Screening: Per USPSTF and CDC recommendations, given the prevalence of disease in our region, it is our hospital?s policy to screen for HIV and viral Hepatitis for all patients aged 18 and over and those with ongoing risk factors. Uday Inquiry Pt receiving controlled substance: No Uday was queried for this patient: No Vital Signs: 05/22/25 11:09 05/22/25 13:20 Temperature 97.9 F Pulse Rate 80 Pulse Rate [Right Brachial] 81 Respiratory Rate 17 17 Blood Pressure 158/85 H Blood Pressure [Right Arm] 185/99 H Blood Pressure Mean [Right Arm] 127 Blood Pressure Source [Right Arm] Automatic Cuff Blood Pressure Position [Right Arm] Sitting 02 Sat by Pulse Oximetry 99 Oxygen Delivery Method Room Air Room Air Orders (Tests/Meds): ED MEDICATIONS Discontinued Medications Generic Name Dose Route Start Last Admin Trade Name Freq PRN Reason Stop Dose Admin Rabies Immune Globulin 1,675 unit 05/22/25 11:32 05/22/25 12:48 Rabies Immune Globulin/Pf 300 Unit/Ml 5ml Vial IM 05/22/25 11:33 1,675 unit ONCE ONE Administration Rabies Vaccine 2.5 unit 05/22/25 11:32 05/22/25 12:49 Rabies Vaccine (Pcec)/Pf 2.5 Unit Vial IM 05/22/25 11:33 2.5 unit .ONCE ONE Administration Medical Decision Narrative: patient is a 49-year-old female presenting to the emergency department for evaluation of cat bite on right hand. Patient is hemodynamically stable and nontoxic-appearing upon arrival, afebrile. Differential diagnosis includes cat bite, cellulitis. Patient has already been seen by [facility] and placed on antibiotics, given tetanus and had a x-ray. Patient was given an immunoglobulin and RabAvert immunization. Will need to come back on days 3, 7 and 14 patient is safe for discharge home Critical Care Critical Care Time Critical Care Time: No
[2025-05-22] MEDS: RABIES IMMUNE GLOBULIN/PF 300 UNIT/ML 5ML VIAL 1675 UNIT IM (12:48)
[2025-05-22] MEDS: RABIES VACCINE (PCEC)/PF 2.5 UNIT VIAL IM (12:49)
[2025-05-22 13:20] VITALS: BP 158/85; PULSE 80; RESP 17; TEMP 36.6; O2SAT 99
== END 2025-05-22 13:22 | disposition home or self-care (01) ==
PROVIDERS: Emergency Provider Student in an Organized Health Care Education/Training Program; PCP Family Medicine
DX: S61.451A Open bite of right hand, initial encounter (principal); W55.01XA Bitten by cat, initial encounter; Z29.14 Encounter for prophylactic rabies immune globulin
CPT/HCPCS: 90375; 90471; 90675; 96372; 99283; 99284

== ENCOUNTER 2025-05-25 11:30 | Outpatient (CLI) | payer BC, SELFPAY ==
--- OUTSIDE RECORDS SUMMARY | 2025-05-25 11:36 | XMS_ITS | Encounter Summary ---
Author Organization [employer] ([place], [place], [place], [place]) Address [address] [place] [address] Care Team Providers Care Linen Checker Name Role Phone Unavailable Primary Care Provider Unavailabl e Encounter Details Date Type Department Care Team (Late st Contact Info) Description 10/29/2021 Transcribed Document [facility] Family Medicine [address] [place] [address] ProviderGuerita MD [address] [place] [address] Social History Tobacco Use Types [...] Date Murray rded Speak language other than Maori at home Not on file 10/22/2023 Want help with school or training Not on file 10/22/2023 Substance Use Answer Date Recorded Used prescription meds for non-medical reasons N ot on file 10/22/2023 Used illegal drugs past 12 months Not on file 10/22/2023 Comments Unknown Sex and Gender Information Value Date Recorded Sex Assigned at Female 08/19/2022 12:34 PM CARDIOPULMONARY TECHNICIAN AND EEG TECH Legal Sex Female 6:29 PM CDT Gender Identity Female 08/19/2022 12:34 PM CARDIOPULMONARY TECHNICIAN AND EEG TECH Sexual Orientation Straight 08/19/2022 12 :34 PM CARDIOPULMONARY TECHNICIAN AND EEG TECH COVID-19 Exposure Response Date Recorded In the last 10 days, have rufino reyes been in contact with someone who was confirmed or suspected to have Coronavirus/COVID-19? No / Unsure 02/08/2023 1:28 PM EDT documented as of this encounter Miscellaneous Notes * [employer]ner Conversion Note - Historical Provider, - 10/29/2021 9:44 AM CARDIOPULMONARY TECHNICIAN AND EEG TECH [facility] [place] PreOp Summary Primary Physician: IBIS OLIVAS MD-SUR Finalized Date/Time: 10/30/21 07:51:10 Pt. Name: ROBERTA ROE TIANNA /Sex: 1975 Female Med Rec #: [id number] Physician: IBIS OLIVAS MD-SUR Financial #: [id number] Pt. Type: O Room/Bed: [facility] Admit/Disch: 10/29/21 06:31:00 - 10/29/21 11:10:00 Institution: [facility] Pre[facility] Case Times Entry 1 In Preop 10/29/21 06:50:00 Ready for Holding n/a Room Patient Ready for 10/29/21 07:50:00 Surgery Patient Out of Preop 10/29/21 12:08:00 Patient Out of n/a Holding Room Last Modified By: KAMILLE HARRIS 10/30/21 07:51:08 [facility] Pre[facility] Case Times Audit 10/30/21 07:51:08 Outpatient Clerk: [id number] Modifier: CATLETDD <+> 1 Patient Out of Preop Finalized By: KAMILLE HARRIS Document Signatures Signed By: KAMILLE HARRIS 10/30/21 07:51 Electronically signed by Izabel [facility] Conversion Machine Gunner Cerner at 01/19/2023 9:06 PM CDT documented in this encounter Plan of Treatment Not on file documented as of this encounter Visit Diagnoses Not on filedocumented in this encounter
--- OUTSIDE RECORDS SUMMARY | 2025-05-25 11:36 | XMS_ITS | Encounter Summary ---
Author Organization [employer] ([place], [place], [place], [place]) Address [address] [place] [address] Care Team Providers Care Animal Tech Name Role Phone Unavailable Primary Care Provider Unavailabl e Encounter Details Date Type Department Care Team (Late st Contact Info) Description 10/29/2021 Transcribed Document [facility] [place] [address] [place] [address] ProviderGuerita MD [address] [place] [address] Social History Tobacco Use Types [...] Date Murray rded Speak language other than Khmer at home Not on file 10/22/2023 Want help with school or training Not on file 10/22/2023 Substance Use Answer Date Recorded Used prescription meds for non-medical reasons N ot on file 10/22/2023 Used illegal drugs past 12 months Not on file 10/22/2023 Comments Unknown Sex and Gender Information Value Date Recorded Sex Assigned at Female 08/19/2022 12:34 PM BREAK OFF WORKER Legal Sex Female 6:29 PM CDT Gender Identity Female 08/19/2022 12:34 PM BREAK OFF WORKER Sexual Orientation Straight 08/19/2022 12 :34 PM BREAK OFF WORKER COVID-19 Exposure Response Date Recorded In the last 10 days, have rufino reyes been in contact with someone who was confirmed or suspected to have Coronavirus/COVID-19? 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 you have medicine to cloth picker at your pharmacy. Discharge Follow Up Instructions: Follow up 7-10 days Diet: Discharge Diet: Resume usual diet as tolerated Follow-Up Appointments Follow Up with IBIS OLIVAS MD-YARA When 11/10/2021 10:30 AM EST Comments Appointment has been made Where: [address] [facility] [address] [place] [address]- Medications What How Much When Instructions Next Dose acetaminophen-oxyCODONE (Percocet 5/ 325 oral tablet) 2 Tablet(s) Oral Every 4 Hours as needed for for pain Duration: 5 Day(s) Max 6 tabs per day. Pickup at [facility] #[id number] Pharmacy Information [facility] #[id number]: [address] [phone] Take your medications faithfully. Do NOT skip [...] activities are safe for you. ??? Take ocrg-wpj-rmzmhgq and prescription medicines only as told by [...] provider. Document Revised: 06/05/2021 Document Reviewed: 01/02/2021 [employer] Patient Education ?? 2020 [employer] Lumpectomy, Care After This sheet gives [...] these instructions at home: Medicines ??? Take nydh-und-bdsbqbk and prescription medicines only as told by [...] keep your urine pale yellow. ? Take ftgh-dlo-wqwears or prescription medicines. ? Eat foods that [...] and water are not available, use hand aircraft painter apprentice. ? Change your dressing as told by [...] Assistance with quitting is available by contacting 8-944-FUBLNOW. This is a free resource providing counseling, support, and referral. Or you may contact your personal physician. [place] [facility]: The National Suicide Prevention Lifeline is [...] was given the opportunity to ask questions. Patient/Market Development Analyst Name: Patient/Market Development Analyst Signature: Relationship to Patient: Clinician/Hospital Market Development Analyst Signature: Date: documented in this encounter Plan of Treatment Not on file documented as of this encounter Visit Diagnoses Not on filedocumented in this encounter
--- OUTSIDE RECORDS SUMMARY | 2025-05-25 11:36 | XMS_ITS | Encounter Summary ---
Author Organization [employer] ([place], [place], [place], [place]) Address [address] [place] [address] Care Team Providers Care Finance Broker Name Role Phone Unavailable Primary Care Provider Unavailabl e Encounter Details Date Type Department Care Team (Late st Contact Info) Description 10/29/2021 Transcribed Document [facility] [place] Family Medicine [address] [place] [address] ProviderGuerita MD [address] [place] [address] Social History Tobacco Use Types [...] Sex Assigned at Female 08/19/2022 12:34 PM CHIEF EXECUTIVE Legal Sex Female 6:29 PM CDT Gender Identity Female 08/19/2022 12:34 PM CHIEF EXECUTIVE Sexual Orientation Straight 08/19/2022 12 :34 PM CHIEF EXECUTIVE COVID-19 Exposure Response Date Recorded In the last 10 days, have rufino reyes been in contact with someone who was confirmed or suspected to have Coronavirus/COVID-19? No / Unsure 02/08/2023 1:28 PM EDT documented as of this encounter Miscellaneous Notes * Cerner Conversion Note - Historical Provider, - 10/29/2021 9:44 AM CHIEF EXECUTIVE [facility] PostOp Summary Primary Physician: IBIS OLIVAS MD-SUR Finalized Date/Time: 10/29/21 11:08:54 Pt. Name: ROBERTA ROE TIANNA /Sex: 1975 Female Med Rec #: [id number] Physician: IBIS OLIVAS MD-SUR Financial #: [id number] Pt. Type: O Room/Bed: [facility] Admit/Disch: 10/29/21 06:31:00 - Institution: [facility] [place] PostOp Case Times Entry 1 In PACU II 10/29/21 10:57:00 Ready for PACU II 10/29/21 11:10:00 Discharge Discharge from PACU 10/29/21 11:10:00 II Last Modified By: Jesenia Kruger RN 10/29/21 11:08:45 Finalized By: Jesenia Kruger, RN Document Signatures Signed By: Jesenia Kruger RN 10/29/21 11:08 Electronically signed by Izabel [facility] Conversion Fruit And Vegetable Factory Worker Cerner at 01/19/2023 9:06 PM CDT documented in this encounter Plan of Treatment Not on file documented as of this encounter Visit Diagnoses Not on filedocumented in this encounter
--- OUTSIDE RECORDS SUMMARY | 2025-05-25 11:36 | XMS_ITS | Encounter Summary ---
Author Organization [employer] ([place], [place], [place], [place]) Address [address] [place] [address] Care Team Providers Care Shell Machine Operator Name Role Phone Unavailable Primary Care Provider Unavailabl e Reason for Visit * Reason Onset Date Comments Follow-up 03/10/2023 Encounter Details Date Type Department Care Team (Late st Contact Info) Description 03/10/2023 Telephone [facility] [employer] [address] [employer] [address] [id number] Toma Muse, PROGRAM CONSULTANT [address] [employer] [facility] [address] [place] [address] Follow-up Social History Tobacco Use Types Packs/Day Years Used Date Smoking Tobacco: Former Smokeless Tobacco: Never Alcohol Use Standard Drinks/Week Comments Not Currently 0 (1 standard drink = 0.6 oz pur e alcohol) Comments Unknown Sex and Gender Information Value Date Recorded Sex Assigned at Female 08/19/2022 12:34 PM PERFUME COMPOUNDER Legal Sex Female 6:29 PM CDT Gender Identity Female 08/19/2022 12:34 PM PERFUME COMPOUNDER Sexual Orientation Straight 08/19/2022 12 :34 PM PERFUME COMPOUNDER COVID-19 Exposure Response Date Recorded In the [...]
--- OUTSIDE RECORDS SUMMARY | 2025-05-25 11:36 | XMS_ITS | Clinical Summary ---
Author Organization [employer] ([place], [place], [place], [place]) Address [address] [place] [address] Care Team Providers Care Stone Belt Sander Name Role Phone Unavailable Primary Care Provider Unavailabl e Allergies No known active allergies Medications multivitamin capsule 1 Tab, Oral, Daily, 0 Refill(s) 01/27/2022 Active ascorbic acid, vitamin C, (ascorbic acid) 250 mg Chew Take by mouth. Active tamoxifen (NOLVADEX) 20 MG tablet Take 1 tablet (20 mg total) by mouth daily. 90 tablet 3 08/19/2022 Active iilz-LO-epy-epa- FDZ-IKDL-dv-mv 1.5 mg iron- 8.73 mg CpID Iron, 9 mg =, Oral, Daily, 0 Refill(s) 01/27/2022 Active Active Problems Problem Noted Date Diagnosed Date Malignant neoplasm of overla pping sites of right breast in female, estrogen receptor positive 08/18/2022 Cancer Staging:Pathologic stage from 10/06/2021:Stage 0(pTis (DCIS), cN0, cM0, ER+, OR+) - Signed by Reyna Mendez MD on [...] Next Due Influenza Four-QIV 6MO+ PF IM ([id number]) 2,07/08/2020 Influenza Four-qiv Pf 09/16/2021 Family History [...] Date Murray rded Speak language other than Venezuelan at home Not on file 10/22/2023 Want help with school or training Not on file 10/22/2023 Substance Use Answer Date Recorded Used prescription meds for non-medical reasons N ot on file 10/22/2023 Used illegal drugs past 12 months Not on file 10/22/2023 Comments Unknown Sex and Gender Information Value Date Recorded Sex Assigned at Female 08/19/2022 12:34 PM SANDING MACHINE TENDER AUTOMATIC Legal Sex Female 6:29 PM CDT Gender Identity Female 08/19/2022 12:34 PM SANDING MACHINE TENDER AUTOMATIC Sexual Orientation Straight 08/19/2022 12 :34 PM SANDING MACHINE TENDER AUTOMATIC Last Filed Vital Signs Vital Sign Reading [...] in one year. At our facility, a viejas marker is positioned over a visible skin [...] family history of breast cancer COMPARISON STUDY: [facility] FINDINGS: Craniocaudal and mediolateral oblique images [...] family history of breast cancer COMPARISON STUDY: [facility] FINDINGS: Craniocaudal and mediolateral oblique images [...] in one year. At our facility, a viejas marker is positioned over a visible skin [...]
--- OUTSIDE RECORDS SUMMARY | 2025-05-25 11:37 | XMS_ITS | Encounter Summary ---
Author Organization [employer] ([place], [place], [place], [place]) Address [address] [place] [address] Care Team Providers Care Cable Way Operator Name Role Phone Unavailable Primary Care Provider Unavailabl e Encounter Details Date Type Department Care Team (Late st Contact Info) Description 10/31/2021 Transcribed Document [facility] Family Medicine [address] [place] [address] ProviderGuerita MD [address] [place] [address] Social History Tobacco Use Types [...] Sex Assigned at Female 08/19/2022 12:34 PM INTERNET MARKETING INTERN Legal Sex Female 6:29 PM CDT Gender Identity Female 08/19/2022 12:34 PM INTERNET MARKETING INTERN Sexual Orientation Straight 08/19/2022 12 :34 PM INTERNET MARKETING INTERN COVID-19 Exposure Response Date Recorded In the last 10 days, have yo u been in contact with someone who was confirmed or suspected to have Coronavirus/COVID-19? No / Unsure 02/08/2023 1:28 PM EDT documented as of this encounter Miscellaneous Notes * Cerner Conversion Note - Historical Provider, - 10/31/2021 8:15 PM INTERNET MARKETING INTERN Electronically signed by Izabel, [facility] Conversion Research Director Cerner at 01/19/2023 9:30 PM CDT documented in this encounter Plan of Treatment Not on file documented as of this encounter Visit Diagnoses Not on filedocumented in this encounter
--- OUTSIDE RECORDS SUMMARY | 2025-05-25 11:37 | XMS_ITS | Encounter Summary ---
Author Organization [employer] ([place], [place], [place], [place]) Address [address] [place] [address] Care Team Providers Care Beater Worker Helper Name Role Phone Unavailable Primary Care Provider Unavailabl e Encounter Details Date Type Department Care Team (Late st Contact Info) Description 11/18/2021 Transcribed Document [facility] [place] Family [place] [address] [place] [address] ProviderGuerita MD [address] [place] [address] Social History Tobacco Use Types [...] Date Murray rded Speak language other than Romansh at home Not on file 10/22/2023 Want help with school or training Not on file 10/22/2023 Substance Use Answer Date Recorded Used prescription meds for non-medical reasons N ot on file 10/22/2023 Used illegal drugs past 12 months Not on file 10/22/2023 Comments Unknown Sex and Gender Information Value Date Recorded Sex Assigned at Female 08/19/2022 12:34 PM STAMP MOUNTER Legal Sex Female 6:29 PM CDT Gender Identity Female 08/19/2022 12:34 PM STAMP MOUNTER Sexual Orientation Straight 08/19/2022 12 :34 PM STAMP MOUNTER COVID-19 Exposure Response Date Recorded In the last 10 days, have rufino u been in contact with someone who was confirmed or suspected to have Coronavirus/COVID-19? No / Unsure 02/08/2023 1:28 PM EDT documented as of this encounter Miscellaneous Notes * Cerner Conversion Note - Historical Provider, - 11/18/2021 1:53 PM STAMP MOUNTER Patient Education Materials Follows:and Gynecology Lumpectomy, Care [...] these instructions at home: Medicines ??? Take ohdq-cgo-dlsgjsr and prescription medicines only as told by [...] keep your urine pale yellow. ? Take bwqn-myx-lezlcor or prescription medicines. ? Eat foods that [...] and water are not available, use hand technical editor. ? Change your dressing as told by [...] including vitamins, herbs, eye drops, creams, and bzfz-hfz-jnxhmsv medicines. ??? Any problems you or family [...] tells you to take them. ??? Taking wxia-wuf-aohfyaa medicines, vitamins, herbs, and supplements. Do not [...] provider. Document Revised: 06/02/2021 Document Reviewed: 01/01/2021 [employer] Patient Education ? 2020 [employer]. documented in this encounter Plan of Treatment Not on file documented as of this encounter Visit Diagnoses Not on filedocumented in this encounter
--- OUTSIDE RECORDS SUMMARY | 2025-05-25 11:37 | XMS_ITS | Encounter Summary ---
Author Organization [employer] ([place], [place], [place], [place]) Address [address] [place] [address] Care Team Providers Care Master Yacht Name Role Phone Unavailable Primary Care Provider Unavailabl e Encounter Details Date Type Department Care Team (Late st Contact Info) Description 02/03/2022 Transcribed Document [facility] [place] [address] [place] [address] ProviderGuerita MD [address] [place] [address] Social History Tobacco Use Types [...] Sex Assigned at Female 08/19/2022 12:34 PM COMMUNITY HEALTH WORKER Legal Sex Female 6:29 PM CDT Gender Identity Female 08/19/2022 12:34 PM COMMUNITY HEALTH WORKER Sexual Orientation Straight 08/19/2022 12 :34 PM COMMUNITY HEALTH WORKER COVID-19 Exposure Response Date Recorded In [...] TIANNA /Sex: 1975 Female Med Rec #: [id number] Physician: IBIS OLIVAS MD-SUR Financial #: [id number] Pt. Type: O Room/Bed: [facility] Admit/Disch: 02/03/22 05:18:00 - [place] [facility] [place] Attendance Entry 1 Entry 2 Entry 3 Case Attendee IBIS OLIVAS HILL, JOSEPH L, MD-Emily Rogers MD-SUR Station Inspector Role Performed Surgeon/Proceduralist, Surgeon/Proceduralist, Scrub, Second First [...] Marie DAWNIELLE, RHOTEN, CAROLYN, RN-PATIENT CARE BEDSIDE SIGN BUILDER-NURSE GROUP FITNESS INSTRUCTOR NON-EXEMPT Role Performed Scrub, First Manager Global, First Student Time In 02/03/22 07:48:00 02/03/22 [...] Attendee FAUSTO SHAIKH, HO, Tung Gibbons ST WOOD FORM BUILDER-ANS Role Performed WOOD FORM BUILDER/Nurse Internal Recruiter Scrub, First Time In 02/03/22 07:48:00 02/03/22 09:45:00 Time Out 02/03/22 10:59:00 02/03/22 10:59:00 Procedure Breast Lumpectomy, Breast Lumpectomy, Mammoplasty Reduction Mammoplasty Reduction Other Attendee BREAK Superficial Wound Closed By: Last Modified By: JEFFERSON RIOS, JEFFERSON RIOS, RN-PATIENT CARE BEDSIDE RN-PATIENT CARE BEDSIDE NON-EXEMPT 02/03/22 NON-EXEMPT 02/03/22 11:02:15 11:02:15 [facility] IntraOp Case Attendance Audit 02/03/22 11:02:52 Cab Supervisor: [id number] Modifier: [id number] <+> 1 Procedure <+> 2 Procedure 02/03/22 11:02:15 Cab Supervisor: [id number] Modifier: [id number] <+> 1 Time Out <+> 2 Time [...] Procedure Breast Lumpectomy, Mammoplasty Reduction 02/03/22 10:29:35 Cab Supervisor: [id number] Modifier: [id number] <+> 8 Case Attendee <+> 8 Role Performed <+> 8 Time In <+> 8 Procedure <+> 8 Other Attendee 02/03/22 09:30:00 Cab Supervisor: [id number] Modifier: [id number] <*> Procedure Breast Lumpectomy, Mammoplasty Reduction 4 <*> Procedure Breast Lumpectomy, Mammoplasty Reduction 5 <+> Time In 5 <*> Procedure Breast Lumpectomy, Mammoplasty Reduction 6 <+> Time In 6 <*> Procedure Breast Lumpectomy, Mammoplasty Reduction 7 <+> Time In 7 <*> Procedure Breast Lumpectomy, Mammoplasty Reduction 02/03/22 08:34:00 Cab Supervisor: [id number] Modifier: [id number] <+> Time In 3 <*> Procedure [...] [facility] IntraOp Case Times Audit 02/03/22 11:02:13 Cab Supervisor: [id number] Modifier: [id number] <+> 1 Out Room Time <+> 1 Stop Time 02/03/22 10:59:14 Cab Supervisor: [id number] Modifier: [id number] <+> 1 Stop Time 02/03/22 08:28:24 Cab Supervisor: [id number] Modifier: [id number] 1 <*> Start Time 02/03/22 08:18:00 [facility] [...] by RN-PATIENT CARE BEDSIDE NON-EXEMPT, FAUSTO SHAIKH, OPERATIONS/DISPATCH, WOOD FORM BUILDER-ANS Last Modified By: JEFFERSON RIOS RN-PATIENT CARE [...] NON-EXEMPT 02/03/22 08:56:03 [facility] IntraOp General Case Compensation Programs Manager 1 Case Information OR OR 02 [facility] [...] 1% w/ epinephrine 1:200,000 30ml vial - [id number] Combo Med List 1 - Combo Med [...] RN-PATIENT CARE BEDSIDE NON-EXEMPT, FAUSTO SHAIKH, HO, WOOD FORM BUILDER-ANS Position Verified Positioning Yes Verified by Anesthesia [...] Intra Op Sign Out Audit 02/03/22 11:02:22 Cab Supervisor: [id number] Modifier: [id number] <+> 1 RN Sign Out Signature Date/Time [...] [facility] IntraOp Surgical Procedures Audit 02/03/22 10:59:36 Cab Supervisor: [id number] Modifier: [id number] <+> 1 Stop <+> 2 Stop SJE [...] [facility] IntraOp Time Out Audit 02/03/22 10:59:31 Cab Supervisor: [id number] Modifier: [id number] 1 <+> Antibiotic Prophylaxis Administered Or In [...] for Unfinalizing 02/03/22 12:05 EFRAIN Chart Audit documented in this encounter Plan of Treatment Not on file documented as of this encounter Visit Diagnoses Not on filedocumented in this encounter
--- OUTSIDE RECORDS SUMMARY | 2025-05-25 11:37 | XMS_ITS | Encounter Summary ---
Author Organization [employer] ([place], [place], [place], [place]) Address [address] [place] [address] Care Team Providers Care Shellfish Processing Laborer Name Role Phone Unavailable Primary Care Provider Unavailabl e Encounter Details Date Type Department Care Team (Late st Contact Info) Description 02/03/2022 Transcribed Document [facility] [place] [address] [place] [address] ProviderGuerita MD [address] [place] [address] Social History Tobacco Use Types [...] Date Murray rded Speak language other than Icelandic at home Not on file 10/22/2023 Want help with school or training Not on file 10/22/2023 Substance Use Answer Date Recorded Used prescription meds for non-medical reasons N ot on file 10/22/2023 Used illegal drugs past 12 months Not on file 10/22/2023 Comments Unknown Sex and Gender Information Value Date Recorded Sex Assigned at Female 08/19/2022 12:34 PM GUARD CAPTAIN Legal Sex Female 6:29 PM CDT Gender Identity Female 08/19/2022 12:34 PM GUARD CAPTAIN Sexual Orientation Straight 08/19/2022 12 :34 PM GUARD CAPTAIN COVID-19 Exposure Response Date Recorded In the [...] TIANNA /Sex: 1975 Female Med Rec #: [id number] Physician: IBIS OLIVAS MD-SUR Financial #: [id number] Pt. Type: O Room/Bed: [facility] Admit/Disch: 02/03/22 05:18:00 - Institution: [facility] PACU Case Times Entry 1 In PACU I 02/03/22 11:01:00 Ready for PACU 02/03/22 11:46:00 Discharge Discharge from PACU 02/03/22 11:46:00 I Last Modified By: Graciela Lam RN 02/03/22 11:46:42 [facility] PACU Case Times Audit 02/03/22 11:46:42 Aws Developer: [email or web address] Modifier: [email or web address] <+> 1 Ready for PACU Discharge <+> 1 Discharge from PACU I Finalized By: Graciela Lam, CLARENCE Document Signatures Signed By: Graciela Lam RN 02/03/22 11:54 documented in this encounter Plan of Treatment Not on file documented as of this encounter Visit Diagnoses Not on filedocumented in this encounter
--- OUTSIDE RECORDS SUMMARY | 2025-05-25 11:37 | XMS_ITS | Encounter Summary ---
Author Organization [facility] ([place], [place], [place], [place]) Address [address] [place] [address] Care Team Providers Care Sales Architect Name Role Phone Unavailable Primary Care Provider Unavailabl e Encounter Details Date Type Department Care Team (Late st Contact Info) Description 10/31/2021 Transcribed Document [facility] [place] [address] [place] [address] ProviderGuerita MD [address] [place] [address] Social History Tobacco Use Types [...] Date Murray rded Speak language other than Bulgarian at home Not on file 10/22/2023 Want help with school or training Not on file 10/22/2023 Substance Use Answer Date Recorded Used prescription meds for non-medical reasons N ot on file 10/22/2023 Used illegal drugs past 12 months Not on file 10/22/2023 Comments Unknown Sex and Gender Information Value Date Recorded Sex Assigned at Female 08/19/2022 12:34 PM MARINE STEAM FITTER HELPER Legal Sex Female 6:29 PM CDT Gender Identity Female 08/19/2022 12:34 PM MARINE STEAM FITTER HELPER Sexual Orientation Straight 08/19/2022 12 :34 PM MARINE STEAM FITTER HELPER COVID-19 Exposure Response Date Recorded In the last 10 days, have yo u been in contact with someone who was confirmed or suspected to have Coronavirus/COVID-19? No / Unsure 02/08/2023 1:28 PM EDT documented as of this encounter Miscellaneous Notes * Cerner Conversion Note - Historical Provider, - 10/31/2021 3:42 PM MARINE STEAM FITTER HELPER ED Triage Entered On: 10/31/2021 16:05 EST Performed On: 10/31/2021 16:03 EST by NATHANIEL NOYOLA police detective Triage Across the Room Chief Complaint : PT had lumpectomy/ right breast this past Wed, c/o BL arm, BL leg, and limp numbness, resp even andunlabored, denies pain Triage Date/Time : 10/31/2021 16:03 EST NATHANIEL NOYOLA Rn - 10/31/2021 16:03 EST DCP GENERIC CODE Tracking Acuity : 3 - Urgent Tracking Group : [facility] [place] NATHANIEL NOYOLA Rn [...] in situ of right breast (SNOMED CT :381838815 ) 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 ; Recorder: Nhi Alba RN; Confirmation: Confirmed ; Classification: Medical ; Code: [id number] ; Contributor System: PowerChart ; Last Updated: 10/29/2021 7:28 EST ; Life Cycle Date: 10/29/2021 ; Life Cycle Status: Active ; Vocabulary: SNOMED CT Diagnoses(Active) Surgical problem reevaluation Date: 10/31/2021 ; Diagnosis Type: Reason For Visit ; Confirmation: Complaint of ; Clinical Dx: Surgical problem reevaluation ; Classification: Medical ; Clinical Service: Non-Specified ; Code: PNED ; Probability: 0 ; Diagnosis Code: [id number] ED Height and Weight Height Source : Stated Height Entry Format : [place] Height, Feet : 5 ft(Converted to: 152 cm, 60 Inch) Height, Inches : 2 Inch(Converted to: 0 ft 2 Inch, 5.08 cm) Clinical Height : 157.48 cm Weight Source, ED : Standing scale Weight Entry Format : [place] Weight, Pounds : 201 lb Clinical Dosing Weight : 91.36 kg Body Surface Area (BSA) : 1.92 m2 Body Mass Index : 36.8 kg/m2 (HI) [place] Body Weight (IBW) : 49.73 kg NATHANIEL NOYOLA Rn - 10/31/2021 16:03 EST Electronically signed by Izabel [facility] Conversion Control Tower Radio Operator Cerner at 01/19/2023 9:12 PM CDT documented in this encounter Plan of Treatment Not on file documented as of this encounter Visit Diagnoses Not on filedocumented in this encounter
--- OUTSIDE RECORDS SUMMARY | 2025-05-25 11:37 | XMS_ITS | Encounter Summary ---
Author Organization [employer] ([place], [place], [place], [place]) Address [address] [place] [address] Care Team Providers Care Dough Cutting Machine Operator Name Role Phone Unavailable Primary Care Provider Unavailabl e Encounter Details Date Type Department Care Team (Late st Contact Info) Description 10/29/2021 Transcribed Document [facility] [address] [place] [address] ProviderGuerita MD [address] [place] [address] Social History Tobacco Use Types [...] at Female 08/19/2022 12:34 PM BUSINESS SERVICES ANALYST Legal Sex Female 6:29 PM CDT Gender Identity Female 08/19/2022 12:34 PM BUSINESS SERVICES ANALYST Sexual Orientation Straight 08/19/2022 12 :34 PM BUSINESS SERVICES ANALYST COVID-19 Exposure Response Date Recorded In the last 10 days, have rufino reyes been in contact with someone who was confirmed or suspected to have Coronavirus/COVID-19? No / Unsure 02/08/2023 1:28 PM EDT documented as of this encounter Miscellaneous Notes * Cerner Conversion Note - Historical Provider, - 10/29/2021 7:29 AM BUSINESS SERVICES ANALYST PAT Adult Entered On: 10/29/2021 7:36 EST [...] Source : Stated Height Entry Format : [place] Height, Feet : 5 ft(Converted to: 152 cm, 60 Inch) Height, Inches : 2 Inch(Converted to: 0 ft 2 Inch, 5.08 cm) Clinical Height : 157.48 cm Weight Source : Standing scale Weight Entry Format : [place] Clinical Dosing Weight : 91.73 kg Weight, Pounds : 201.8 lb Body Surface Area (BSA) : 1.92 m2 Body Mass Index : 37 kg/m2 (HI) [place] Body Weight : 50 kg Nhi Alba [...] and When was COVID19 testing completed? : [facility] 10/27/21 Does the Patient state known exposure [...] Nhi Alba RN - 10/29/2021 7:29 EST [place] Suicide Severity Rating Scale (C-SSRS) CSSRS Past [...] Mode : Verbal Communication Barrier : None Glass Decorator Needed : No Objects to Sharing Info [...]
--- OUTSIDE RECORDS SUMMARY | 2025-05-25 11:37 | XMS_ITS | Encounter Summary ---
Author Organization [employer] ([place], [place], [place], [place]) Address [address] [place] [address] Care Team Providers Care Security Controls Assessor Name Role Phone Unavailable Primary Care Provider Unavailabl e Encounter Details Date Type Department Care Team (Late st Contact Info) Description 10/29/2021 Transcribed Document [facility] [place] [address] [place] [address] ProviderGuerita MD [address] [place] [address] Social History Tobacco Use Types [...] Date Murray rded Speak language other than Mongolian at home Not on file 10/22/2023 Want help with school or training Not on file 10/22/2023 Substance Use Answer Date Recorded Used prescription meds for non-medical reasons N ot on file 10/22/2023 Used illegal drugs past 12 months Not on file 10/22/2023 Comments Unknown Sex and Gender Information Value Date Recorded Sex Assigned at Female 08/19/2022 12:34 PM LABORER ELECTROPLATING Legal Sex Female 6:29 PM CDT Gender Identity Female 08/19/2022 12:34 PM LABORER ELECTROPLATING Sexual Orientation Straight 08/19/2022 12 :34 PM LABORER ELECTROPLATING COVID-19 Exposure Response Date Recorded In the last 10 days, have rufino reyes been in contact with someone who was confirmed or suspected to have Coronavirus/COVID-19? No / Unsure 02/08/2023 1:28 PM EDT documented as of this encounter Miscellaneous Notes * Cerner Conversion Note - Historical Provider, - 10/29/2021 10:26 AM LABORER ELECTROPLATING Patient Education Materials Follows:and Gynecology Lumpectomy, Care [...] these instructions at home: Medicines ??? Take uudz-sqr-twtnayp and prescription medicines only as told by [...] keep your urine pale yellow. ? Take lvnc-rxs-yiulmew or prescription medicines. ? Eat foods that [...] and water are not available, use hand implementation consultant. ? Change your dressing as told by [...] Reviewed: 03/25/2020 Elsevier Patient Education ? 2020 [employer] Pharmacology General Anesthesia, Adult, Care After [...] activities are safe for you. ??? Take cagr-ohh-mjiabdw and prescription medicines only as told by [...] provider. Document Revised: 06/05/2021 Document Reviewed: 01/02/2021 [employer] Patient Education ? 2020 [employer] documented in this encounter Plan of Treatment Not on file documented as of this encounter Visit Diagnoses Not on filedocumented in this encounter
--- OUTSIDE RECORDS SUMMARY | 2025-05-25 11:37 | XMS_ITS | Encounter Summary ---
Author Organization [employer] ([place], [place], [place]) Address [address] [place] [address] Care Team Providers Care Administrative Assistant Office Manager Name Role Phone Unavailable Primary Care Provider Unavailabl e Encounter Details Date Type Department Care Team (Late st Contact Info) Description 02/03/2022 Transcribed Document [facility] [place] [address] [place] [address] ProviderGuerita MD [address] [place] [address] Social History Tobacco Use Types [...] Sex Assigned at Female 08/19/2022 12:34 PM SECURITY AND COMPLIANCE PROJECT MANAGER Legal Sex Female 6:29 PM CDT Gender Identity Female 08/19/2022 12:34 PM SECURITY AND COMPLIANCE PROJECT MANAGER Sexual Orientation Straight 08/19/2022 12 :34 PM SECURITY AND COMPLIANCE PROJECT MANAGER COVID-19 Exposure Response Date Recorded In the [...] TIANNA /Sex: 1975 Female Med Rec #: [id number] Physician: IBIS OLIVAS MD-SUR Financial #: [id number] Pt. Type: O Room/Bed: [facility] Admit/Disch: 02/03/22 05:18:00 - Institution: [facility] PostOp Case Times Entry 1 In PACU II 02/03/22 11:50:00 Ready for PACU II 02/03/22 12:05:00 Discharge Discharge from PACU 02/03/22 12:05:00 II Last Modified By: LUIZA GRIDER, RN 02/03/22 12:05:19 Finalized By: LUIZA GRIDER, RN Document Signatures Signed By: LUIZA GRIDER, RN 02/03/22 12:05 Electronically signed by Izabel [facility] Conversion Equity Sales Assistant Cerner at 01/19/2023 9:22 PM CDT documented in this encounter Plan of Treatment Not on file documented as of this encounter Visit Diagnoses Not on filedocumented in this encounter
--- OUTSIDE RECORDS SUMMARY | 2025-05-25 11:37 | XMS_ITS | Encounter Summary ---
Author Organization [employer] ([place], [place], [place], [place]) Address [address] [place] [address] Care Team Providers Care Pcb Design Engineer Name Role Phone Unavailable Primary Care Provider Unavailabl e Encounter Details Date Type Department Care Team (Late st Contact Info) Description 10/31/2021 Transcribed Document [facility] [place] [address] [place] [address] ProviderGuerita MD [address] [place] [address] Social History Tobacco Use Types [...] Sex Assigned at Female 08/19/2022 12:34 PM MOBILE HOME LABORER Legal Sex Female 6:29 PM CDT Gender Identity Female 08/19/2022 12:34 PM MOBILE HOME LABORER Sexual Orientation Straight 08/19/2022 12 :34 PM MOBILE HOME LABORER COVID-19 Exposure Response Date Recorded In the last 10 days, have rufino reyes been in contact with someone who was confirmed or suspected to have Coronavirus/COVID-19? No / Unsure 02/08/2023 1:28 PM EDT documented as of this encounter Miscellaneous Notes * Cerner Conversion Note - Historical Provider, - 10/31/2021 5:18 PM MOBILE HOME LABORER Modified [place] Bedside Swallowing Screen Entered On: [...] 10/31/2021 17:18 EST Electronically signed by Izabel [facility] Conversion Outsole Scheduler Stacey at 01/19/2023 9:14 PM CDT documented in this encounter Plan of Treatment Not on file documented as of this encounter Visit Diagnoses Not on filedocumented in this encounter
--- OUTSIDE RECORDS SUMMARY | 2025-05-25 11:37 | XMS_ITS | Encounter Summary ---
Author Organization [employer] ([place], [place], [place]) Address [address] [place] [address] Care Team Providers Care Wealth Management Manager Name Role Phone Unavailable Primary Care Provider Unavailabl e Encounter Details Date Type Department Care Team (Late st Contact Info) Description 10/31/2021 Transcribed Document [facility] [place] [address] [place] [address] ProviderGuerita MD [address] [place] [address] Social History Tobacco Use Types [...] Date Murray rded Speak language other than Turkish at home Not on file 10/22/2023 Want help with school or training Not on file 10/22/2023 Substance Use Answer Date Recorded Used prescription meds for non-medical reasons N ot on file 10/22/2023 Used illegal drugs past 12 months Not on file 10/22/2023 Comments Unknown Sex and Gender Information Value Date Recorded Sex Assigned at Female 08/19/2022 12:34 PM BLOOD BANK BOOKING CLERK Legal Sex Female 6:29 PM CDT Gender Identity Female 08/19/2022 12:34 PM BLOOD BANK BOOKING CLERK Sexual Orientation Straight 08/19/2022 12 :34 PM BLOOD BANK BOOKING CLERK COVID-19 Exposure Response Date Recorded In the last 10 days, have rufino reyes been in contact with someone who was confirmed or suspected to have Coronavirus/COVID-19? No / Unsure 02/08/2023 1:28 PM EDT documented as of this encounter Miscellaneous Notes * Cerner Conversion Note - Historical Provider, - 10/31/2021 8:30 PM [place] [address] AGATHA ROESANTIAGO WYNN :1975 Visit Time:10/31/2021 Your [...] mental status, fainting, chest pain Where: [address] [facility] [address] [id number] Business (1) Follow Up with WINDY WELSH When Within 2 to 3 days Comments Call for follow up appointment with neurologist if symptoms persist Where: [address] [facility] [address] [place] [address]- Business (1) Follow Up with [...] range between ( 1.0 and 7.0 ) Tama #: 0.58 K/uL -- Normal range between ( 0.24 and 0.82 ) Eos #: 0.09 K/uL -- Normal range between ( 0.04 and 0.54 ) Tama %: 6.2 % -- Normal range between [...] ) Urine Bilirubin Dipstick: Negative Urine Specific [place]: 1.018 -- Normal range between ( 1.005 [...] these instructions at home: Medicines ??? Take zmcg-tqu-elrquyn and prescription medicines only as told by [...] keep your urine pale yellow. ? Take odfk-uzt-xgiudzj or prescription medicines. ? Eat foods that [...] and water are not available, use hand commercial kitchen service technician. ? Change your dressing as told by [...] provider. Document Revised: 03/25/2020 Document Reviewed: 03/25/2020 [employer] Patient Education ?? 2020 [employer]. Lumpectomy A lumpectomy, sometimes called a partial [...] including vitamins, herbs, eye drops, creams, and nqtb-axb-twjijbh medicines. ??? Any problems you or family [...] tells you to take them. ??? Taking aebk-tqa-pyngmjx medicines, vitamins, herbs, and supplements. General instructions [...] provider. Document Revised: 03/25/2020 Document Reviewed: 03/25/2020 [employer] Patient Education ?? 2020 [employer]. Paresthesia Paresthesia is an abnormal burning or [...] or sweet foods. General instructions ??? Take gsis-vrf-knuassk and prescription medicines only as told by [...] provider. Document Revised: 10/16/2019 Document Reviewed: 09/29/2018 [employer] Patient Education ?? 2020 [employer]. Emergency Awareness and Preventative Care STROKE is [...] Assistance with quitting is available by contacting 1-685-KURE-NOW. This is a free resource providing counseling, [...] was given the opportunity to ask questions. Patient/Career Development Associate Name: Patient/Career Development Associate Signature: Relationship to Patient: Clinician/Hospital Career Development Associate Signature: Please Provide a Telephone Number Where You Can Be Reached: Is it Permissible To Leave a Message? Date: documented in this encounter Plan of Treatment Not on file documented as of this encounter Visit Diagnoses Not on filedocumented in this encounter
--- OUTSIDE RECORDS SUMMARY | 2025-05-25 11:37 | XMS_ITS | Encounter Summary ---
Author Organization [employer] ([place]) Address [address] [place] [address] Care Team Providers Care Vice President Supply Chain Name Role Phone Unavailable Primary Care Provider Unavailabl e Encounter Details Date Type Department Care Team (Late st Contact Info) Description 10/31/2021 Transcribed Document [facility] [place] Family Medicine [address] [place] [address] ProviderGuerita MD [address] [place] [address] Social History Tobacco Use Types [...] Date Murray rded Speak language other than Yoruba at home Not on file 10/22/2023 Want help with school or training Not on file 10/22/2023 Substance Use Answer Date Recorded Used prescription meds for non-medical reasons N ot on file 10/22/2023 Used illegal drugs past 12 months Not on file 10/22/2023 Comments Unknown Sex and Gender Information Value Date Recorded Sex Assigned at Female 08/19/2022 12:34 PM CIGAR HEAD PIERCER Legal Sex Female 6:29 PM CDT Gender Identity Female 08/19/2022 12:34 PM CIGAR HEAD PIERCER Sexual Orientation Straight 08/19/2022 12 :34 PM CIGAR HEAD PIERCER COVID-19 Exposure Response Date Recorded In the last 10 days, have rufino u been in contact with someone who was confirmed or suspected to have Coronavirus/COVID-19? No / Unsure 02/08/2023 1:28 PM EDT documented as of this encounter Miscellaneous Notes * Cerner Conversion Note - Historical Provider, - 10/31/2021 3:42 PM CIGAR HEAD PIERCER [place] Suicide Severity Rating Scale (C-SSRS) Entered On: 10/31/2021 16:06 EST Performed On: 10/31/2021 16:06 EST by NATHANIEL NOYOLA Rn [place] Suicide Severity Rating Scale (C-SSRS) CSSRS Past [...]
--- OUTSIDE RECORDS SUMMARY | 2025-05-25 11:37 | XMS_ITS | Encounter Summary ---
Author Organization [facility] ([place], [place], [place], [place]) Address [address] [place] [address] Care Team Providers Care Wax Pot Tender Name Role Phone Unavailable Primary Care Provider Unavailabl e Encounter Details Date Type Department Care Team (Late st Contact Info) Description 10/31/2021 Transcribed Document [facility] [place] [address] [place] [address] ProviderGuerita MD [address] [place] [address] Social History Tobacco Use Types [...] Sex Assigned at Female 08/19/2022 12:34 PM TOURIST INFORMATION ASSISTANT Legal Sex Female 6:29 PM CDT Gender Identity Female 08/19/2022 12:34 PM TOURIST INFORMATION ASSISTANT Sexual Orientation Straight 08/19/2022 12 :34 PM TOURIST INFORMATION ASSISTANT COVID-19 Exposure Response Date Recorded In the last 10 days, have rufino reyes been in contact with someone who was confirmed or suspected to have Coronavirus/COVID-19? No / Unsure 02/08/2023 1:28 PM EDT documented as of this encounter Miscellaneous Notes * Cerner Conversion Note - Historical Provider, - 10/31/2021 6:36 PM TOURIST INFORMATION ASSISTANT CR Chest 1 Vw Portable Ordered: 10/31/2021 Modified Reason for Exam: numbness 10/31/2021 17:47 10/31/2021 18:36 (ROSEANN LEY) No further action required documented in this encounter Plan of Treatment Not on file documented as of this encounter Visit Diagnoses Not on filedocumented in this encounter
--- OUTSIDE RECORDS SUMMARY | 2025-05-25 11:37 | XMS_ITS | Encounter Summary ---
Author Organization [employer] ([place], [place], [place], [place]) Address [address] [place] [address] Care Team Providers Care Cloth Covered Helmet Puller Name Role Phone Unavailable Primary Care Provider Unavailabl e Encounter Details Date Type Department Care Team (Late st Contact Info) Description 11/18/2021 Transcribed Document [facility] [place] [address] [place] [address] ProviderGuerita MD [address] [place] [address] Social History Tobacco Use Types [...] Date Murray rded Speak language other than Vietnamese at home Not on file 10/22/2023 Want help with school or training Not on file 10/22/2023 Substance Use Answer Date Recorded Used prescription meds for non-medical reasons N ot on file 10/22/2023 Used illegal drugs past 12 months Not on file 10/22/2023 Comments Unknown Sex and Gender Information Value Date Recorded Sex Assigned at Female 08/19/2022 12:34 PM CHARGE MASTER ANALYST Legal Sex Female 6:29 PM CDT Gender Identity Female 08/19/2022 12:34 PM CHARGE MASTER ANALYST Sexual Orientation Straight 08/19/2022 12 :34 PM CHARGE MASTER ANALYST COVID-19 Exposure Response Date Recorded In the last 10 days, have rufino reyes been in contact with someone who was confirmed or suspected to have Coronavirus/COVID-19? No / Unsure 02/08/2023 1:28 PM EDT documented as of this encounter Miscellaneous Notes * Cerner Conversion Note - Historical Provider, - 11/18/2021 8:47 AM CHARGE MASTER ANALYST PAT Adult Entered On: 11/18/2021 8:49 EST [...] Source : Stated Height Entry Format : Grady Height, Feet : 5 ft(Converted to: 152 cm, 60 Inch) Height, Inches : 2 Inch(Converted to: 0 ft 2 Inch, 5.08 cm) Clinical Height : 157.48 cm Weight Source : Standing scale Weight Entry Format : Grady Clinical Dosing Weight : 93.18 kg Weight, Pounds : 205 lb Body Surface Area (BSA) : 1.93 m2 Body Mass Index : 37.6 kg/m2 (HI) [place] Body Weight : 50 kg Palmira Wong [...] Palmira Wong RN - 11/18/2021 8:47 EST [place] Suicide Severity Rating Scale (C-SSRS) CSSRS Past [...] #2 Relationship : . Primary Language : Vietnamese Preferred Communication Mode : Verbal Communication Barrier : None Project Drilling Engineer Needed : Palmira Myrick RN - 11/18/2021 [...]
--- OUTSIDE RECORDS SUMMARY | 2025-05-25 11:37 | XMS_ITS | Encounter Summary ---
Author Organization [employer] ([place], [place], [place], [place]) Address [address] [place] [address] Care Team Providers Care Ore Sampler Name Role Phone Unavailable Primary Care Provider Unavailabl e Encounter Details Date Type Department Care Team (Late st Contact Info) Description 02/03/2022 Transcribed Document [facility] [place] [address] [place] [address] ProviderGuerita MD [address] [place] [address] Social History Tobacco Use Types [...] Date Murray rded Speak language other than Setswana at home Not on file 10/22/2023 Want help with school or training Not on file 10/22/2023 Substance Use Answer Date Recorded Used prescription meds for non-medical reasons N ot on file 10/22/2023 Used illegal drugs past 12 months Not on file 10/22/2023 Comments Unknown Sex and Gender Information Value Date Recorded Sex Assigned at Female 08/19/2022 12:34 PM ACTIVE DIRECTORY ARCHITECT Legal Sex Female 6:29 PM CDT Gender Identity Female 08/19/2022 12:34 PM ACTIVE DIRECTORY ARCHITECT Sexual Orientation Straight 08/19/2022 12 :34 PM ACTIVE DIRECTORY ARCHITECT COVID-19 Exposure Response Date Recorded In the [...] these instructions at home: Medicines ??? Take jfze-esr-ryzejnb and prescription medicines only as told by [...] keep your urine pale yellow. ? Take dvge-xbi-rnqtrfv or prescription medicines. ? Eat foods that [...] and water are not available, use hand candy roller. ? Change your dressing as told by [...] provider. Document Revised: 03/22/2020 Document Reviewed: 03/22/2020 [employer] Patient Education ? 2020 in[employer]ree. Lumpectomy, Care After This sheet gives you [...] these instructions at home: Medicines ??? Take uktu-tti-qteoill and prescription medicines only as told by [...] keep your urine pale yellow. ? Take idku-zkj-yyxvqrs or prescription medicines. ? Eat foods that [...] and water are not available, use hand candy roller. ? Change your dressing as told by [...] provider. Document Revised: 03/25/2020 Document Reviewed: 03/25/2020 [employer] Patient Education ? 2020 inDegree. Pharmacology General Anesthesia, Adult, Care After This [...] activities are safe for you. ??? Take osug-yba-zeyvfkz and prescription medicines only as told by [...] provider. Document Revised: 06/05/2021 Document Reviewed: 01/02/2021 [employer] Patient Education ? 2020 inDegree. documented in this encounter Plan of Treatment Not on file documented as of this encounter Visit Diagnoses Not on filedocumented in this encounter
--- OUTSIDE RECORDS SUMMARY | 2025-05-25 11:37 | XMS_ITS | Encounter Summary ---
Author Organization [employer] ([place], [place], [place], [place]) Address [address] [place] [address] Care Team Providers Care Project Superintendent Name Role Phone Unavailable Primary Care Provider Unavailabl e Encounter Details Date Type Department Care Team (Late st Contact Info) Description 10/29/2021 Transcribed Document [facility] [place] [address] [place] [address] ProviderGuerita MD [address] [place] [address] Social History Tobacco Use Types [...] Sex Assigned at Female 08/19/2022 12:34 PM GLASS FINISHER Legal Sex Female 6:29 PM CDT Gender Identity Female 08/19/2022 12:34 PM GLASS FINISHER Sexual Orientation Straight 08/19/2022 12 :34 PM GLASS FINISHER COVID-19 Exposure Response Date Recorded In the last 10 days, have rufino reyes been in contact with someone who was confirmed or suspected to have Coronavirus/COVID-19? No / Unsure 02/08/2023 1:28 PM EDT documented as of this encounter Miscellaneous Notes * Cerner Conversion Note - Historical Provider, - 10/29/2021 9:44 AM GLASS FINISHER [facility] Main OR PACU Summary Primary Physician: IBIS OLIVAS MD-SUR Finalized Date/Time: 10/29/21 11:05:08 Pt. Name: ROBERTA ROE TIANNA /Sex: 1975 Female Med Rec #: [id number] Physician: IBIS OLIVAS MD-SUR Financial #: [id number] Pt. Type: O Room/Bed: [facility] Admit/Disch: 10/29/21 06:31:00 - [place] [facility] [place] PAC[place] Case Times Entry 1 In PACU I 10/29/21 10:24:00 Ready for PACU 10/29/21 10:54:00 Discharge Discharge from PACU 10/29/21 10:54:00 I Last Modified By: Graciela Lam RN 10/29/21 10:54:13 Finalized By: Graciela Lam, CLARENCE Document Signatures Signed By: Graciela Lam RN 10/29/21 11:05 Electronically signed by Izabel [facility] Conversion [employer] Product Consultant Cerner at 01/19/2023 9:16 PM CDT documented in this encounter Plan of Treatment Not on file documented as of this encounter Visit Diagnoses Not on filedocumented in this encounter
--- OUTSIDE RECORDS SUMMARY | 2025-05-25 11:37 | XMS_ITS | Encounter Summary ---
Author Organization [employer] ([place], [place], [place], [place]) Address [address] [place] [address] Care Team Providers Care Hand Buffer Name Role Phone Unavailable Primary Care Provider Unavailabl e Encounter Details Date Type Department Care Team (Late st Contact Info) Description 02/03/2022 Transcribed Document [facility] [place] [address] [place] [address] ProviderGuerita MD [address] [place] [address] Social History Tobacco Use Types [...] Date Murray rded Speak language other than Wolof at home Not on file 10/22/2023 Want help with school or training Not on file 10/22/2023 Substance Use Answer Date Recorded Used prescription meds for non-medical reasons N ot on file 10/22/2023 Used illegal drugs past 12 months Not on file 10/22/2023 Comments Unknown Sex and Gender Information Value Date Recorded Sex Assigned at Female 08/19/2022 12:34 PM VOCATIONAL DIRECTOR Legal Sex Female 6:29 PM CDT Gender Identity Female 08/19/2022 12:34 PM VOCATIONAL DIRECTOR Sexual Orientation Straight 08/19/2022 12 :34 PM VOCATIONAL DIRECTOR COVID-19 Exposure Response Date Recorded In the [...] TIANNA /Sex: 1975 Female Med Rec #: [id number] Physician: IBIS OLIVAS MD-SUR Financial #: [id number] Pt. Type: O Room/Bed: [facility] Admit/Disch: 02/03/22 05:18:00 - 02/03/22 12:05:00 Institution: [facility] [place] PreOp Case Times Entry 1 In Preop 02/03/22 05:20:00 Ready for Holding n/a Room Patient Ready for 02/03/22 07:00:00 Surgery Patient Out of Preop 02/03/22 07:45:00 Patient Out of n/a Holding Room Last Modified By: Kim Ivory RN 02/03/22 16:19:32 [facility] PreOp Case Times Audit 02/03/22 16:19:32 Primary Teacher: MAYNARL Modifier: [email or web address] <+> 1 Patient Ready for Surgery 02/03/22 07:45:52 Primary Teacher: [id number] Modifier: MAYNARL <+> 1 Patient Out of Preop Finalized By: Kim Ivory, RN Document Signatures Signed By: Kim Ivory, RN 02/03/22 16:19 documented in this encounter Plan of Treatment Not on file documented as of this encounter Visit Diagnoses Not on filedocumented in this encounter
--- OUTSIDE RECORDS SUMMARY | 2025-05-25 11:37 | XMS_ITS | Clinical Summary ---
Author Organization [facility] Address [address] [place] [address] Care Team Providers Care Personnel Recruiter Name Role Phone Андрей Thornton MD Primary [...] Info) Description 08/06/2025 9:00 AM EST Appointment [facility]GRAPHY [place] [address] [facility] [address] [place] [phone] 08/23/2025 10:15 AM EST Office Visit [facility] HEMATOLOGY & ONCOLOGY [address] [facility] [address] [place] [phone] Mavis Huffman MD [address] [facility] [address] [place] [address] 10/09/2025 10:15 AM EST Office Visit [facility] FAMILY MEDICINE [address] [facility] [place] [address] Андрей Thornton MD [address] [place] [address] Health Maintenance Due Date Last Done Comments [...] Procedure Name Priority Date/Time Associated Diagnosis Comments SCANNED - IMAGING 05/22/2025 MAMMO DIAGNOSTIC DIGITAL TOMOSYNTHESIS BILATERAL W CAD Routine 08/03/2024 1:56 PM EDT Ductal carcinoma in situ (DCIS) of right breast SCANNED - COLONOSCOPY 09/14/2023 from Last 3 Months or Most Recently Relevant to Health Maintenance Results * IMAGING SCANNED (05/22/2025) Anatomical Region Laterality Modality Radiographic [place] ging us Андрей Thornton MD IMG DIAGNOSTIC IMAGING O RDERABLES Final Result * Mammo Diagnostic Digital Tomosynthesis Bilateral With [...] finalized on 08/03/2024 2:[address] Irving Angelo MD. Narrative 08/03/2024 2:04 PM EDT [...] Most Recently Relevant to Health Maintenance Insurance [facility] PPO [facility] [employer] PPO Care Teams Personnel Recruiter Relationship Specialty Start Date End Date Андрей Thornton MD [address] [facility] [address] PCP - General Family Medicine 03/25/23
--- OUTSIDE RECORDS SUMMARY | 2025-05-25 11:37 | XMS_ITS | Encounter Summary ---
Author Organization [employer] ([place], [place], [place], [place]) Address [address] [place] [address] Care Team Providers Care Systems Mgr Name Role Phone Unavailable Primary Care Provider Unavailabl e Encounter Details Date Type Department Care Team (Late st Contact Info) Description 02/03/2022 Transcribed Document [facility] [place] [address] [place] [address] ProviderGuerita MD [address] [place] [address] Social History Tobacco Use Types [...] Sex Assigned at Female 08/19/2022 12:34 PM IT NETWORK ENGINEER Legal Sex Female 6:29 PM CDT Gender Identity Female 08/19/2022 12:34 PM IT NETWORK ENGINEER Sexual Orientation Straight 08/19/2022 12 :34 PM IT NETWORK ENGINEER COVID-19 Exposure Response Date Recorded In the last 10 days, have yo u been in contact with someone who was confirmed or suspected to have Coronavirus/COVID-19? No / Unsure 02/08/2023 1:28 PM EDT documented as of this encounter Miscellaneous Notes * Cerner Conversion Note - Historical Provider, - 02/03/2022 11:59 AM CDT [facility] [address] [place] [address] ROBERTA ROE :1975 Visit Time:02/03/2022 What to do next Your Diagnosis Intraductal carcinoma in situ of right breast, Intraductal carcinoma in situ of right breast Instructions From Your Care Team refer to dr olivas's post op instruction sheet. you have Meds to pick pulling machine operator at your pharmacy. Keep surgical bra clean, [...] be at the Breast Center Where: [address] [place] [address]- Medications What How Much When Instructions Next [...] these instructions at home: Medicines ??? Take wsta-goe-ipepbhl and prescription medicines only as told by [...] keep your urine pale yellow. ? Take qryl-upz-ehmjdjv or prescription medicines. ? Eat foods that [...] and water are not available, use hand trash hauler. ? Change your dressing as told by [...] provider. Document Revised: 03/22/2020 Document Reviewed: 03/22/2020 [employer] Patient Education ?? 2020 [employer]. General Anesthesia, Adult, Care After This sheet [...] activities are safe for you. ??? Take hvln-ube-ogcssaa and prescription medicines only as told by [...] provider. Document Revised: 06/05/2021 Document Reviewed: 01/02/2021 [employer] Patient Education ?? 2020 [employer]. Lumpectomy, Care After This sheet gives you [...] these instructions at home: Medicines ??? Take ctco-obe-axamosj and prescription medicines only as told by [...] keep your urine pale yellow. ? Take kfdp-ppf-djheqxc or prescription medicines. ? Eat foods that [...] and water are not available, use hand trash hauler. ? Change your dressing as told by [...] provider. Document Revised: 03/25/2020 Document Reviewed: 03/25/2020 [employer] Patient Education ?? 2020 [employer]. Emergency Awareness and Preventative Care STROKE [...] Assistance with quitting is available by contacting 7-280-WGQSNOW. This is a free resource providing counseling, [...] was given the opportunity to ask questions. Patient/Sap Mobility Architect Name: Patient/Sap Mobility Architect Signature: Relationship to Patient: Clinician/Hospital Sap Mobility Architect Signature: Date: Electronically signed by Interface, [facility] Conversion Wash House Supervisor Stacey at 01/19/2023 9:09 PM CDT documented in this encounter Plan of Treatment Not on file documented as of this encounter Visit Diagnoses Not on filedocumented in this encounter
--- OUTSIDE RECORDS SUMMARY | 2025-05-25 11:37 | XMS_ITS | Encounter Summary ---
Author Organization [facility] ([place], [place], [place], [place]) Address [address] [place] [address] Care Team Providers Care Supervisor Records Change Name Role Phone Unavailable Primary Care Provider Unavailabl e Encounter Details Date Type Department Care Team (Late st Contact Info) Description 10/29/2021 Transcribed Document [facility] [place] [address] [place] [address] Manuel Jefferson MD [address] [place] [address] Social History Tobacco Use Types [...] Sex Assigned at Female 08/19/2022 12:34 PM PREPARER SAMPLES AND REPAIRS Legal Sex Female 6:29 PM CDT Gender Identity Female 08/19/2022 12:34 PM PREPARER SAMPLES AND REPAIRS Sexual Orientation Straight 08/19/2022 12 :34 PM PREPARER SAMPLES AND REPAIRS COVID-19 Exposure Response Date Recorded In the [...] PROCEDURE PERFORMED: Right needle localized partial mastectomy. FILM READER: Edward Alcantara PA-C. ANESTHESIA: General. ESTIMATED BLOOD LOSS: Minimal. COMPLICATIONS: None. OPERATIVE INDICATIONS: Ms. Tolbert is a 45-year-old female patient, who is referred to [facility] for surgical evaluation of newly diagnosed right [...] and taken to PACU in stable condition. /[id number] MD NOMI Canales/DEMETRIO / NOMI / MODL /[id number] CC: [facility] documented in this encounter Plan of Treatment Not on file documented as of this encounter Visit Diagnoses Not on filedocumented in this encounter
--- OUTSIDE RECORDS SUMMARY | 2025-05-25 11:37 | XMS_ITS | Referral Summary ---
Author Organization [employer] ([place], [place], [place], [place]) Address [address] [place] [address] Care Team Providers Care Yard Supervisor Cotton Gin Name Role Phone Unavailable Primary Care Provider Unavailabl e Allergies No known active allergies Medications multivitamin capsule 1 Tab, Oral, Daily, 0 Refill(s) 01/27/2022 Active ascorbic acid, vitamin C, (ascorbic acid) 250 mg Chew Take by mouth. Active tamoxifen (NOLVADEX) 20 MG tablet Take 1 tablet (20 mg total) by mouth daily. 90 tablet 3 08/19/2022 Active vraz-AV-imd-epa- CHX-DRPB-zg-mv 1.5 mg iron- 8.73 mg CpID Iron, 9 mg =, Oral, Daily, 0 Refill(s) 01/27/2022 Active Active Problems Problem Noted Date Diagnosed Date Malignant neoplasm of overla pping sites of right breast in female, estrogen receptor positive 08/18/2022 Cancer Staging:Pathologic stage from 10/06/2021:Stage 0(pTis (DCIS), cN0, cM0, ER+, MS+) - Signed by Reyna Mendez MD on [...] Next Due Influenza Four-QIV 6MO+ PF IM ([id number]) 2,07/08/2020 Influenza Four-qiv Pf 09/16/2021 Social History [...] Sex Assigned at Female 08/19/2022 12:34 PM ASBESTOS HAZARD ABATEMENT WORKER Legal Sex Female 6:29 PM CDT Gender Identity Female 08/19/2022 12:34 PM ASBESTOS HAZARD ABATEMENT WORKER Sexual Orientation Straight 08/19/2022 12 :34 PM ASBESTOS HAZARD ABATEMENT WORKER Last Filed Vital Signs Vital Sign Reading [...] in one year. At our facility, a united [place] marker is positioned over a visible skin [...] family history of breast cancer COMPARISON STUDY: [facility] [phone] FINDINGS: Craniocaudal and mediolateral oblique images of [...] family history of breast cancer COMPARISON STUDY: [facility] FINDINGS: Craniocaudal and mediolateral oblique [...] in one year. At our facility, a united [place] marker is positioned over a visible skin [...]
--- OUTSIDE RECORDS SUMMARY | 2025-05-25 11:37 | XMS_ITS | Encounter Summary ---
Author Organization [employer] ([place], [place], [place], [place]) Address [address] [place] [address] Care Team Providers Care Professor Of History Name Role Phone Unavailable Primary Care Provider Unavailabl e Encounter Details Date Type Department Care Team (Late st Contact Info) Description 11/18/2021 Transcribed Document [facility] [place] Family Medicine [address] [place] [address] ProviderGuerita MD [address] [place] [address] Social History Tobacco Use Types [...] Date Murray rded Speak language other than Portuguese at home Not on file 10/22/2023 Want help with school or training Not on file 10/22/2023 Substance Use Answer Date Recorded Used prescription meds for non-medical reasons N ot on file 10/22/2023 Used illegal drugs past 12 months Not on file 10/22/2023 Comments Unknown Sex and Gender Information Value Date Recorded Sex Assigned at Female 08/19/2022 12:34 PM HEAVY MOBILE EQUIPMENT REPAIRER Legal Sex Female 6:29 PM CDT Gender Identity Female 08/19/2022 12:34 PM HEAVY MOBILE EQUIPMENT REPAIRER Sexual Orientation Straight 08/19/2022 12 :34 PM HEAVY MOBILE EQUIPMENT REPAIRER COVID-19 Exposure Response Date Recorded In the last 10 days, have rufino reyes been in contact with someone who was confirmed or suspected to have Coronavirus/COVID-19? No / Unsure 02/08/2023 1:28 PM EDT documented as of this encounter Miscellaneous Notes * Cerner Conversion Note - Historical Provider, - 11/18/2021 12:07 PM HEAVY MOBILE EQUIPMENT REPAIRER [facility] Main OR PostOp Summary Primary Physician: IBIS OLIVAS MD-SUR Finalized Date/Time: 11/18/21 15:00:45 Pt. Name: ROBERTA ROE TIANNA /Sex: 1975 Female Med Rec #: [id number] Physician: IBIS OLIVAS MD-SUR Financial #: [id number] Pt. Type: O Room/Bed: [facility] Admit/Disch: 11/18/21 07:47:00 - Institution: [facility] Main OR PostOp Case Times Entry 1 In PACU II 11/18/21 13:44:00 Ready for PACU II 11/18/21 14:10:00 Discharge Discharge from PACU 11/18/21 14:10:00 II Last Modified By: Noni Larios Rn 11/18/21 15:00:43 Finalized By: Noni Larios, Rn Document Signatures Signed By: Noni Larois Rn 11/18/21 15:00 Electronically signed by Izabel [facility] Conversion Rehabilitation Engineer Cerner at 01/19/2023 9:03 PM CDT documented in this encounter Plan of Treatment Not on file documented as of this encounter Visit Diagnoses Not on filedocumented in this encounter
--- OUTSIDE RECORDS SUMMARY | 2025-05-25 11:37 | XMS_ITS | Encounter Summary ---
Author Organization [facility] Address [address] [place] [address] Care Team Providers Care Customer Technical Services Manager Name Role Phone Андрей Thornton MD Primary Care Provider + Reason for Visit * Reason Onset Date Comments Med Refill 05/15/2024 Encounter Details Date Type Department Care Team (Late st Contact Info) Description 05/15/2024 Refill [facility] HEMATOLOGY & ONCOLOGY [address] [phone] Mavis Huffman MD [address] [place] [address] Social History Tobacco Use Types Packs/Day Years [...] Info) Description 08/06/2025 9:00 AM EST Appointment [facility] [place] [address] [facility] [address] [place] [address] 08/23/2025 10:15 AM EST Office Visit [facility] HEMATOLOGY & ONCOLOGY [address] [facility] [address] [place] [address] Mavis Huffman MD [address] [facility] [address] [place] [address] 10/09/2025 10:15 AM EST Office Visit [facility] FAMILY MEDICINE [address] [facility] [place] [address] Андрей Thornton MD [address] [place] [address] documented as of this encounter Visit Diagnoses Not on filedocumented in this encounter Care Teams Customer Technical Services Manager Relationship Specialty Start Date End Date Андрей Thornton MD [address] [place] [address] PCP - General Family Medicine 03/25/23 documented as of this encounter
--- OUTSIDE RECORDS SUMMARY | 2025-05-25 11:37 | XMS_ITS | Encounter Summary ---
Author Organization [employer] ([place], [place], [place], [place]) Address [address] [place] [address] Care Team Providers Care Etcher Photoengraving Name Role Phone Unavailable Primary Care Provider Unavailabl e Encounter Details Date Type Department Care Team (Late st Contact Info) Description 02/03/2022 Transcribed Document [facility] Surgery - [place] [address] [place] [address] Manuel Jefferson MD [address] [place] [address] Social History Tobacco Use Types [...] Sex Assigned at Female 08/19/2022 12:34 PM BREAKDOWN MILL OPERATOR Legal Sex Female 6:29 PM CDT Gender Identity Female 08/19/2022 12:34 PM BREAKDOWN MILL OPERATOR Sexual Orientation Straight 08/19/2022 12 :34 PM BREAKDOWN MILL OPERATOR COVID-19 Exposure Response Date Recorded In [...] PROCEDURES PERFORMED: Right breast re-excision partial mastectomy. MATERIAL CONTROL SUPERVISOR: Emily Shelton. ANESTHESIA: General. ESTIMATED BLOOD LOSS: [...] his bilateral reduction portion of the procedure. /[id number] MD NOMI Canales/DEMETRIO / NOMI / MODL /[id number] CC: [facility] documented in this encounter Plan of Treatment Not on file documented as of this encounter Visit Diagnoses Not on filedocumented in this encounter
--- OUTSIDE RECORDS SUMMARY | 2025-05-25 11:37 | XMS_ITS | Encounter Summary ---
Author Organization [employer] ([place], [place], [place], [place]) Address [address] [place] [address] Care Team Providers Care Clinical Nursing Coordinator Name Role Phone Unavailable Primary Care Provider Unavailabl e Encounter Details Date Type Department Care Team (Late st Contact Info) Description 10/31/2021 Transcribed Document [facility] Family Medicine [address] [place] [address] ProviderGuerita MD [address] [place] [address] Social History Tobacco Use Types [...] Date Murray rded Speak language other than [place] at home Not on file 10/22/2023 Want help with school or training Not on file 10/22/2023 Substance Use Answer Date Recorded Used prescription meds for non-medical reasons N ot on file 10/22/2023 Used illegal drugs past 12 months Not on file 10/22/2023 Comments Unknown Sex and Gender Information Value Date Recorded Sex Assigned at Female 08/19/2022 12:34 PM MANAGER BEHAVIORAL Legal Sex Female 6:29 PM CDT Gender Identity Female 08/19/2022 12:34 PM MANAGER BEHAVIORAL Sexual Orientation Straight 08/19/2022 12 :34 PM MANAGER BEHAVIORAL COVID-19 Exposure Response Date Recorded In the last 10 days, have rufino reyes been in contact with someone who was confirmed or suspected to have Coronavirus/COVID-19? No / Unsure 02/08/2023 1:28 PM EDT documented as of this encounter Miscellaneous Notes * Cerner Conversion Note - Historical Provider, - 10/31/2021 3:42 PM MANAGER BEHAVIORAL Broset Violence Assessment Entered On: 10/31/2021 16:06 EST Performed On: 10/31/2021 16:06 EST by NATHANIEL NOYOLA Rn Broset Violence Assessment Broset Violence Checklist of Symptoms : None Broset Violence Symptoms Subtotal : 0 Broset Violence Symptoms Indicator : Low risk (0) Broset Interventions : [place] precautions for safety used NATHANIEL NOYOLA Rn - 10/31/2021 16:06 EST documented in this encounter Plan of Treatment Not on file documented as of this encounter Visit Diagnoses Not on filedocumented in this encounter
--- OUTSIDE RECORDS SUMMARY | 2025-05-25 11:37 | XMS_ITS | Encounter Summary ---
Author Organization [employer] ([place], [place], [place], [place]) Address [address] [place] [address] Care Team Providers Care Social Worker Name Role Phone Unavailable Primary Care Provider Unavailabl e Encounter Details Date Type Department Care Team (Late st Contact Info) Description 10/31/2021 Transcribed Document [facility] [place] Medicine [address] [place] [address] ProviderGuerita MD [address] [place] [address] Social History Tobacco Use Types [...] Sex Assigned at Female 08/19/2022 12:34 PM DEPUTY K 9 Legal Sex Female 6:29 PM CDT Gender Identity Female 08/19/2022 12:34 PM DEPUTY K 9 Sexual Orientation Straight 08/19/2022 12 :34 PM DEPUTY K 9 COVID-19 Exposure Response Date Recorded In the last 10 days, have yo u been in contact with someone who was confirmed or suspected to have Coronavirus/COVID-19? No / Unsure 02/08/2023 1:28 PM EDT documented as of this encounter Miscellaneous Notes * Cerner Conversion Note - Historical Provider, - 10/31/2021 6:00 PM DEPUTY K 9 Patient: ROBERTA TOLBERT Age: 45 Years Sex: Female : 1975 documented in this encounter Plan of Treatment Not on file documented as of this encounter Visit Diagnoses Not on filedocumented in this encounter
--- OUTSIDE RECORDS SUMMARY | 2025-05-25 11:37 | XMS_ITS | Encounter Summary ---
Author Organization [employer] ([place], [place], [place], [place]) Address [address] [place] [address] Care Team Providers Care Electrical Wirer Name Role Phone Unavailable Primary Care Provider Unavailabl e Encounter Details Date Type Department Care Team (Late st Contact Info) Description 01/27/2022 Transcribed Document [facility] [place] Family Medicine [address] [place] [address] ProviderGuerita MD [address] [place] [address] Social History Tobacco Use Types [...] Sex Assigned at Female 08/19/2022 12:34 PM PANTS CUTTER Legal Sex Female 6:29 PM CDT Gender Identity Female 08/19/2022 12:34 PM PANTS CUTTER Sexual Orientation Straight 08/19/2022 12 :34 PM PANTS CUTTER COVID-19 Exposure Response Date Recorded In the [...] Source : Measured Height Entry Format : [place] Height, Feet : 5 ft(Converted to: 152 cm, 60 Inch) Height, Inches : 2 Inch(Converted to: 0 ft 2 Inch, 5.08 cm) Clinical Height : 157.48 cm Weight Source : Standing scale Weight Entry Format : Buda Clinical Dosing Weight : 91.36 kg Weight, Pounds : 201 lb Body Surface Area (BSA) : 1.92 m2 Body Mass Index : 36.8 kg/m2 (HI) Frost Body Weight : 50 kg Melani Pillai [...] RN) Infectious Disease History COVID19 Link [address] [facility] Symptoms : Right click and select [...] Melani Pillai RN - 01/27/2022 14:08 EDT [place] Suicide Severity Rating Scale (C-SSRS) CSSRS [...] #2 Relationship : . Primary Language : Romansh Preferred Communication Mode : Verbal Communication Barrier : None Water Control Station Engineer Needed : No Melani Pillai RN - [...]
--- OUTSIDE RECORDS SUMMARY | 2025-05-25 11:37 | XMS_ITS | Encounter Summary ---
Author Organization [employer] ([place], [place], [place], [place]) Address [address] [place] [address] Care Team Providers Care Sample Dye Mixer Name Role Phone Unavailable Primary Care Provider Unavailabl e Encounter Details Date Type Department Care Team (Late st Contact Info) Description 10/31/2021 Transcribed Document [facility] [place] [address] [place] [address] ProviderGuerita MD [address] [place] [address] Social History Tobacco Use Types [...] Date Murray rded Speak language other than [place] at home Not on file 10/22/2023 Want help with school or training Not on file 10/22/2023 Substance Use Answer Date Recorded Used prescription meds for non-medical reasons N ot on file 10/22/2023 Used illegal drugs past 12 months Not on file 10/22/2023 Comments Unknown Sex and Gender Information Value Date Recorded Sex Assigned at Female 08/19/2022 12:34 PM TRANSFORMER BUILDER Legal Sex Female 6:29 PM CDT Gender Identity Female 08/19/2022 12:34 PM TRANSFORMER BUILDER Sexual Orientation Straight 08/19/2022 12 :34 PM TRANSFORMER BUILDER COVID-19 Exposure Response Date Recorded In the last 10 days, have rufino reyes been in contact with someone who was confirmed or suspected to have Coronavirus/COVID-19? No / Unsure 02/08/2023 1:28 PM EDT documented as of this encounter Miscellaneous Notes * Cerner Conversion Note - Historical Provider, - 10/31/2021 3:42 PM TRANSFORMER BUILDER ED Assessment Entered On: 10/31/2021 17:04 EST Performed On: 10/31/2021 17:02 EST by TOM ENRIQUE, MANAGER OF INFORMATION Quick Look Assessment Level of Consciousness : Alert, Awake Affect/Behavior : Cooperative, Anxious Orientation : Oriented x 4 Skin Temperature : Warm Skin Description : Dry TOM ENRIQUE RN - 10/31/2021 17:02 EST ED General-Functional Assess Information Obtained From : Patient Preferred Communication Mode : Verbal Communication Barrier : None Primary Language : [place] Any Spiritual/Cultural Needs or Requests : No [...]
--- OUTSIDE RECORDS SUMMARY | 2025-05-25 11:37 | XMS_ITS | Encounter Summary ---
Author Organization [employer] ([place], [place], [place], [place]) Address [address] [place] [address] Care Team Providers Care Mix House Operator Name Role Phone Unavailable Primary Care Provider Unavailabl e Encounter Details Date Type Department Care Team (Late st Contact Info) Description 10/31/2021 Transcribed Document [facility] [place] Family Medicine [address] [place] [address] ProviderGuerita MD [address] [place] [address] Social History Tobacco Use Types [...] Assigned at Female 08/19/2022 12:34 PM PRODUCTION REPRODUCTION MANAGER Legal Sex Female 6:29 PM CDT Gender Identity Female 08/19/2022 12:34 PM PRODUCTION REPRODUCTION MANAGER Sexual Orientation Straight 08/19/2022 12 :34 PM PRODUCTION REPRODUCTION MANAGER COVID-19 Exposure Response Date Recorded In the last 10 days, have rufino reyes been in contact with someone who was confirmed or suspected to have Coronavirus/COVID-19? No / Unsure 02/08/2023 1:28 PM EDT documented as of this encounter Miscellaneous Notes * Cerner Conversion Note - Historical Provider, - 10/31/2021 8:38 PM PRODUCTION REPRODUCTION MANAGER ED Discharge Entered On: 10/31/2021 20:39 EST Performed On: 10/31/2021 20:38 EST by Laurie Salazar RN-PATIENT CARE BEDSIDE NON-EXEMPT Discharge Process [...] 10/31/2021 20:38 EST Electronically signed by Izabel [facility] Conversion Marketing Summer Intern Cerner at 01/19/2023 9:16 PM CDT documented in this encounter Plan of Treatment Not on file documented as of this encounter Visit Diagnoses Not on filedocumented in this encounter
--- OUTSIDE RECORDS SUMMARY | 2025-05-25 11:37 | XMS_ITS | Encounter Summary ---
Author Organization [employer] ([place], [place], [place], [place]) Address [address] [place] [address] Care Team Providers Care Chart Calculator Name Role Phone Unavailable Primary Care Provider Unavailabl e Encounter Details Date Type Department Care Team (Late st Contact Info) Description 11/18/2021 Transcribed Document [facility] [place] Family [place] [address] [place] [address] ProviderGuerita MD [address] [place] [address] Social History Tobacco Use Types [...] Date Murray rded Speak language other than Hungarian at home Not on file 10/22/2023 Want help with school or training Not on file 10/22/2023 Substance Use Answer Date Recorded Used prescription meds for non-medical reasons N ot on file 10/22/2023 Used illegal drugs past 12 months Not on file 10/22/2023 Comments Unknown Sex and Gender Information Value Date Recorded Sex Assigned at Female 08/19/2022 12:34 PM RADIOPHONE OPERATOR Legal Sex Female 6:29 PM CDT Gender Identity Female 08/19/2022 12:34 PM RADIOPHONE OPERATOR Sexual Orientation Straight 08/19/2022 12 :34 PM RADIOPHONE OPERATOR COVID-19 Exposure Response Date Recorded In the last 10 days, have rufino reyes been in contact with someone who was confirmed or suspected to have Coronavirus/COVID-19? No / Unsure 02/08/2023 1:28 PM EDT documented as of this encounter Miscellaneous Notes * Cerner Conversion Note - Historical Provider, - 11/18/2021 12:07 PM RADIOPHONE OPERATOR [facility] OR PACU Summary Primary Physician: IBIS OLIVAS MD-SUR Finalized Date/Time: 11/18/21 13:47:31 Pt. Name: ROBERTA ROE TIANNA /Sex: 1975 Female Med Rec #: [id number] Physician: IBIS OLIVAS MD-SUR Financial #: [id number] Pt. Type: O Room/Bed: [facility] Admit/Disch: 11/18/21 07:47:00 - Institution: [facility] OR PACU Case Times Entry 1 In PACU I 11/18/21 12:56:00 Ready for PACU 11/18/21 13:43:00 Discharge Discharge from PACU 11/18/21 13:43:00 I Last Modified By: Soledad Gonzales RN 11/18/21 13:47:21 [facility] OR PACU Case Times Audit 11/18/21 13:47:21 Bail Bond Agent: COLLEEN Modifier: AMBENREY <+> 1 Ready for PACU Discharge <+> 1 Discharge from PACU I Finalized By: Soledad Gonzales, RN Document Signatures Signed By: Soledad Gonzales RN 11/18/21 13:47 Electronically signed by Izabel [facility] Conversion Electrician Substation Cerner at 01/19/2023 9:13 PM CDT documented in this encounter Plan of Treatment Not on file documented as of this encounter Visit Diagnoses Not on filedocumented in this encounter
--- OUTSIDE RECORDS SUMMARY | 2025-05-25 11:37 | XMS_ITS | Encounter Summary ---
Author Organization [employer] ([place], [place], [place], [place]) Address [address] [place] [address] Care Team Providers Care On Car Supervisor Name Role Phone Unavailable Primary Care Provider Unavailabl e Encounter Details Date Type Department Care Team (Late st Contact Info) Description 10/31/2021 Transcribed Document [facility] [place] [address] [place] [address] ProviderGuerita MD [address] [place] [address] Social History Tobacco Use Types [...] Date Murray rded Speak language other than Serbian at home Not on file 10/22/2023 Want help with school or training Not on file 10/22/2023 Substance Use Answer Date Recorded Used prescription meds for non-medical reasons N ot on file 10/22/2023 Used illegal drugs past 12 months Not on file 10/22/2023 Comments Unknown Sex and Gender Information Value Date Recorded Sex Assigned at Female 08/19/2022 12:34 PM EDITORIAL CLERK Legal Sex Female 6:29 PM CDT Gender Identity Female 08/19/2022 12:34 PM EDITORIAL CLERK Sexual Orientation Straight 08/19/2022 12 :34 PM EDITORIAL CLERK COVID-19 Exposure Response Date Recorded In the last 10 days, have rufino u been in contact with someone who was confirmed or suspected to have Coronavirus/COVID-19? No / Unsure 02/08/2023 1:28 PM EDT documented as of this encounter Miscellaneous Notes * Cerner Conversion Note - Historical Provider, - 10/31/2021 4:51 PM EDITORIAL CLERK Patient: DEMETRIA ROE Age: 45 years Sex: [...] EST Height Source Stated Height Entry Format [place] Height/Length, MONEGASQUE (ft) 5 ft Height/Length MONEGASQUE 2 Inch CLINICALHEIGHT 157.48 cm [place] Body Weight 49.73 kg Weight Source, ED Standing scale Weight Entry Format [place] Weight Serbian lb 201 lb CLINICALWEIGHT 91.36 kg Body [...] Color Yellow Urine Appearance Cloudy Urine Specific [place] 1.018 Urine pH Dipstick 7.0 Urine Leukocyte [...] % 34.0 % Lymph # 3.20 K/uL [place] % 6.2 % [place] # 0.58 K/uL Eos % 1.0 % Eos # 0.09 K/uL Baso % 0.8 % Baso # 0.08 K/uL Slide Review No IG# 0 x10(3)/uL IG% 0 % HCG Urine Qualitative Negative HCG Serum Quant <1.0 mIU/mL NA . Radiology results: Radiology Results (Last 48 hours) [id number] -- 10/31/2021 15:42 CT Head WO Code [...] MD , Radiology Results (Last 48 hours) [id number] -- 10/31/2021 15:42 CT Head WO Code [...]
--- OUTSIDE RECORDS SUMMARY | 2025-05-25 11:37 | XMS_ITS | Encounter Summary ---
Author Organization [employer] ([place], [place], [place], [place]) Address [address] [place] [address] Care Team Providers Care Pipe Insulator Helper Name Role Phone Unavailable Primary Care Provider Unavailabl e Encounter Details Date Type Department Care Team (Late st Contact Info) Description 08/20/2022 Outside Orders [facility] [address] [place] [address] Manuel Jefferson MD [address] [place] [address] Personal history of breast cancer (Primary Dx) Social History Tobacco Use Types Packs/Day Years Used Date Smoking Tobacco: Former Smokeless Tobacco: Never Alcohol Use Standard Drinks/Week Comments Not Currently 0 (1 standard drink = 0.6 oz pur e alcohol) Comments Unknown Sex and Gender Information Value Date Recorded Sex Assigned at Female 08/19/2022 12:34 PM TOBACCO SIEVE OPERATOR Legal Sex Female 6:29 PM CDT Gender Identity Female 08/19/2022 12:34 PM TOBACCO SIEVE OPERATOR Sexual Orientation Straight 08/19/2022 12 :34 PM TOBACCO SIEVE OPERATOR documented as of this encounter Plan of Treatment Not on file documented as of this encounter Visit Diagnoses Diagnosis Personal history of breast cancer- Primary Personal history of malignant neoplasm of breast documented in this encounter
--- OUTSIDE RECORDS SUMMARY | 2025-05-25 11:37 | XMS_ITS | Encounter Summary ---
Author Organization [employer] ([place], [place], [place], [place]) Address [address] [place] [address] Care Team Providers Care Percussion Instrument Repairer Name Role Phone Unavailable Primary Care Provider Unavailabl e Encounter Details Date Type Department Care Team (Late st Contact Info) Description 11/18/2021 Transcribed Document [facility] [place] Family Medicine [address] [place] [address] ProviderGuerita MD [address] [place] [address] Social History Tobacco Use Types [...] Date Murray rded Speak language other than Greek at home Not on file 10/22/2023 Want help with school or training Not on file 10/22/2023 Substance Use Answer Date Recorded Used prescription meds for non-medical reasons N ot on file 10/22/2023 Used illegal drugs past 12 months Not on file 10/22/2023 Comments Unknown Sex and Gender Information Value Date Recorded Sex Assigned at Female 08/19/2022 12:34 PM HAT BODY SORTER Legal Sex Female 6:29 PM CDT Gender Identity Female 08/19/2022 12:34 PM HAT BODY SORTER Sexual Orientation Straight 08/19/2022 12 :34 PM HAT BODY SORTER COVID-19 Exposure Response Date Recorded In the last 10 days, have rufino reyes been in contact with someone who was confirmed or suspected to have Coronavirus/COVID-19? 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 Instructions From Your Care Team no heavy lifting, no pressure to right breast may shower tomorrow, pat incision dry pain medication at [facility] follow with as instructed Discharge Diet: Resume usual diet as tolerated Follow-Up Appointments Follow Up with IBIS OLIVAS MD-YARA When 11/27/2021 03:15 PM EST Comments Appointment has been made Where: [address] [facility] [address] [place] [address]- Medications What How Much When Instructions Next Dose acetaminophen-oxyCODONE (Percocet 5/ 325 oral tablet) 2 Tablet(s) Oral Every 4 Hours as needed for for pain Duration: 2 Day(s) Max 6 tabs per day. Pickup at [id number] 5:30pm Pharmacy Information [id number]: [address] [phone] Take your medications faithfully. Do NOT skip [...] including vitamins, herbs, eye drops, creams, and icpf-rcg-rwukquv medicines. ??? Any problems you or family [...] tells you to take them. ??? Taking qhio-xqi-wbopnsm medicines, vitamins, herbs, and supplements. Do not [...] Reviewed: 01/01/2021 Elsevier Patient Education ?? 2020 [employer] Lumpectomy, Care After This sheet gives [...] these instructions at home: Medicines ??? Take bzxt-oxs-cqnfxzl and prescription medicines only as told by [...] keep your urine pale yellow. ? Take pmsn-ihu-yfoktlh or prescription medicines. ? Eat foods that [...] and water are not available, use hand money market clerk. ? Change your dressing as told by [...] provider. Document Revised: 03/25/2020 Document Reviewed: 03/25/2020 [employer] Patient Education ?? 2020 [employer]. acetaminophen and oxycodone (a SEET a MIN [...] may report side effects to FDA at 6-093-KXQ-6395. What other drugs will affect acetaminophen and [...] affect acetaminophen and oxycodone, including prescription and rlid-znz-qogqktb medicines, vitamins, and herbal products. Not all [...] to ensure that the information provided by [employer] ('[employer]') is accurate, up-to-date, and complete, but no guarantee is made to that effect. Drug information contained herein may be time sensitive. [employer] information has been compiled for use by healthcare practitioners and consumers in the [place] and therefore [employer] does not warrant that uses outside of the [place] are appropriate, unless specifically indicated otherwise. [employer]'s drug information does not endorse drugs, diagnose patients or recommend therapy. [facility] drug information is an informational resource designed [...] effective or appropriate for any given patient. [facility] does not assume any responsibility for any aspect of healthcare administered with the aid of information [facility] provides. The information contained herein is not intended to cover all possible uses, directions, precautions, warnings, drug interactions, allergic reactions, or adverse effects. If you have questions about the drugs you are taking, check with your doctor, nurse or pharmacist. Copyright 5818-4416 [facility]. Version: .. Revision Date: 11/08/2020. Emergency Awareness [...] Assistance with quitting is available by contacting 2-714-ABZJ-NOW. This is a free resource providing counseling, [...] was given the opportunity to ask questions. Patient/Account Supervisor Name: Patient/Account Supervisor Signature: Relationship to Patient: Clinician/Hospital Account Supervisor Signature: Date: documented in this encounter Plan of Treatment Not on file documented as of this encounter Visit Diagnoses Not on filedocumented in this encounter
--- OUTSIDE RECORDS SUMMARY | 2025-05-25 11:37 | XMS_ITS | Encounter Summary ---
Author Organization [email or web address] ([place], [place], [place], [place]) Address [address] [place] [address] Care Team Providers Care Metal Cutter Name Role Phone Unavailable Primary Care Provider Unavailabl e Encounter Details Date Type Department Care Team (Late st Contact Info) Description 02/03/2022 Transcribed Document [facility] Radiology [address] [place] [address] Cricket Bonilla MD [address] [place] [address] Social History Tobacco Use Types Packs/Day Years [...] Date Murray rded Speak language other than Upper Sorbian at home Not on file 10/22/2023 Want help with school or training Not on file 10/22/2023 Substance Use Answer Date Recorded Used prescription meds for non-medical reasons N ot on file 10/22/2023 Used illegal drugs past 12 months Not on file 10/22/2023 Comments Unknown Sex and Gender Information Value Date Recorded Sex Assigned at Female 08/19/2022 12:34 PM RESIDENCE MANAGER Legal Sex Female 6:29 PM CDT Gender Identity Female 08/19/2022 12:34 PM RESIDENCE MANAGER Sexual Orientation Straight 08/19/2022 12 :34 PM RESIDENCE MANAGER COVID-19 Exposure Response Date Recorded In [...] 1. Right breast cancer. 2. Breast asymmetry. LOCKSTITCH LINING MAKER: Emily Shelton, who was essential in completion [...] justin-areola was marked with a 42 mm [employer] cutter. Both breasts were injected with 0.25% [...] LOSS: Minimal. DRAINS: None. COMPLICATIONS: None immediate. /[id number] MD SHERLEY Mayen/DEMETRIO / SHERLEY / MODL /[id number] documented in this encounter Plan of Treatment Not on file documented as of this encounter Visit Diagnoses Not on filedocumented in this encounter
--- OUTSIDE RECORDS SUMMARY | 2025-05-25 11:37 | XMS_ITS | Encounter Summary ---
Author Organization [employer] ([place], [place], [place], [place]) Address [address] [place] [address] Care Team Providers Care Greens Or Grounds Superintendent Name Role Phone Unavailable Primary Care Provider Unavailabl e Encounter Details Date Type Department Care Team (Late st Contact Info) Description 11/18/2021 Transcribed Document [facility] [place] Family Medicine [address] [place] [address] ProviderGuerita MD [address] [place] [address] Social History Tobacco Use Types [...] Sex Assigned at Female 08/19/2022 12:34 PM ERP PM Legal Sex Female 6:29 PM CDT Gender Identity Female 08/19/2022 12:34 PM ERP PM Sexual Orientation Straight 08/19/2022 12 :34 PM ERP PM COVID-19 Exposure Response Date Recorded In the last 10 days, have rufino reyes been in contact with someone who was confirmed or suspected to have Coronavirus/COVID-19? No / Unsure 02/08/2023 1:28 PM EDT documented as of this encounter Miscellaneous Notes * Cerner Conversion Note - Historical Provider, - 11/18/2021 12:07 PM ERP PM [facility] Main OR IntraOp Summary Primary Physician: IBIS OLIVAS MD-SUR Finalized Date/Time: 11/18/21 12:55:41 Pt. Name: DEMETRIA ROE TIANNA /Sex: 1975 Female Med Rec #: [id number] Physician: IBIS OLIVAS MD-SUR Financial #: [id number] Pt. Type: O Room/Bed: [facility] Admit/Disch: 11/18/21 07:47:00 - [place] [facility] [place] Case Attendance Entry 1 Entry 2 Entry 3 Case Attendee IBIS OLIVAS Evans, Mandy, MORROW, ERIC, PA MD-SUR RN-PATIENT CARE BEDSIDE NON-EXEMPT Role Performed Surgeon/Proceduralist, Distribution Associate, First Physician nutritional assistant First Time In 11/18/21 11:43:00 11/18/21 [...] 5 Entry 6 Case Attendee Soledad Mcduffie, ERP PM LES RIOS, BONDING SUPERVISOR OTHER, ATTENDEE #1 Role Performed Scrub, First BONDING SUPERVISOR/Nurse Humanities Division Chair Student Time In 11/18/21 11:43:00 11/18/21 11:43:00 11/18/21 11:43:00 Time Out 11/18/21 12:20:00 11/18/21 12:55:00 11/18/21 12:55:00 Procedure Breast Biopsy FS Needle Breast Biopsy FS Needle Breast Biopsy FS Needle Localization Localization Localization Other Attendee BONDING SUPERVISOR STUDENT - YONNY SERVIN Superficial Wound [...] [facility] IntraOp Case Attendance Audit 11/18/21 12:55:39 Recruiting Coordinator: [id number] Modifier: [id number] 1 <+> Time Out 1 <*> Procedure [...] Breast Biopsy FS Needle Localization 11/18/21 12:25:47 Recruiting Coordinator: [id number] Modifier: [id number] <+> 1 Procedure 2 <*> Procedure Breast Biopsy FS Needle Localization 3 <*> Procedure Breast Biopsy FS Needle Localization 4 <*> Procedure Breast Biopsy FS Needle Localization 5 <*> Procedure Breast Biopsy FS Needle Localization 6 <*> Procedure Breast Biopsy FS Needle Localization 7 <*> Procedure Breast Biopsy FS Needle Localization 11/18/21 12:23:29 Recruiting Coordinator: [id number] Modifier: [id number] <+> Time Out 4 <*> Procedure Breast Biopsy FS Needle Localization 11/18/21 12:17:26 Recruiting Coordinator: [id number] Modifier: [id number] 2 <+> Time In 2 <*> Procedure [...] Time In <+> 7 Procedure 11/18/21 12:12:51 Recruiting Coordinator: [id number] Modifier: [id number] <+> 1 Time In <+> 2 Case [...] [facility] IntraOp Case Times Audit 11/18/21 12:55:25 Recruiting Coordinator: [id number] Modifier: [id number] <+> 1 Out Room Time <+> 1 [...] Patient Transport Jolene Massey, Accompanied by RN-PATIENT [facility] NON-EXEMPT, RIOS, LES, BONDING SUPERVISOR, OTHER, ATTENDEE #1 Last Modified By: [...] NON-EXEMPT 11/18/21 12:18:38 [facility] IntraOp General Case Hand Rug Cleaner 1 Case Information OR OR 02 [facility] [...] 1% w/ epinephrine 1:100,000 30ml vial - [id number] Route of LOCAL INJECTION Administration Dose Dose [...] Massey RN-PATIENT CARE BEDSIDE NON-EXEMPT, RIOS, LES, BONDING SUPERVISOR, IBIS OLIVAS MD-YARA, OTHER, ATTENDEE #1, [...] Intra Op Sign Out Audit 11/18/21 12:55:32 Recruiting Coordinator: [id number] Modifier: [id number] <+> 1 RN Sign Out Signature Date/Time [...] [facility] IntraOp Surgical Procedures Audit 11/18/21 12:55:36 Recruiting Coordinator: [id number] Modifier: [id number] <+> 1 Stop [facility] IntraOp Time Out [...]
--- OUTSIDE RECORDS SUMMARY | 2025-05-25 11:37 | XMS_ITS | Encounter Summary ---
Author Organization [employer] ([place], [place], [place], [place]) Address [address] [place] [address] Care Team Providers Care Thermostat Repairer Name Role Phone Unavailable Primary Care Provider Unavailabl e Encounter Details Date Type Department Care Team (Late st Contact Info) Description 11/18/2021 Transcribed Document [facility] [place] Family Medicine [address] [place] [address] ProviderGuerita MD [address] [place] [address] Social History Tobacco Use Types [...] Date Murray rded Speak language other than German at home Not on file 10/22/2023 Want help with school or training Not on file 10/22/2023 Substance Use Answer Date Recorded Used prescription meds for non-medical reasons N ot on file 10/22/2023 Used illegal drugs past 12 months Not on file 10/22/2023 Comments Unknown Sex and Gender Information Value Date Recorded Sex Assigned at Female 08/19/2022 12:34 PM MD SENIOR RESEARCH SCIENTIST Legal Sex Female 6:29 PM CDT Gender Identity Female 08/19/2022 12:34 PM MD SENIOR RESEARCH SCIENTIST Sexual Orientation Straight 08/19/2022 12 :34 PM MD SENIOR RESEARCH SCIENTIST COVID-19 Exposure Response Date Recorded In the last 10 days, have rufino reyes been in contact with someone who was confirmed or suspected to have Coronavirus/COVID-19? No / Unsure 02/08/2023 1:28 PM EDT documented as of this encounter Miscellaneous Notes * Cerner Conversion Note - Historical Provider, - 11/18/2021 11:25 AM MD SENIOR RESEARCH SCIENTIST [facility] Main OR PreOp Summary Primary Physician: IBIS OLIVAS MD-SUR Finalized Date/Time: 11/18/21 12:03:35 Pt. Name: ROBERTA ROE TIANNA /Sex: 1975 Female Med Rec #: [id number] Physician: IBIS OLIVAS MD-SUR Financial #: [id number] Pt. Type: O Room/Bed: [facility] Admit/Disch: 11/18/21 07:47:00 - [place] [facility] [place] Case Times Entry 1 In Preop 11/18/21 07:30:00 Ready for Holding n/a Room Patient Ready for 11/18/21 08:55:00 Surgery Patient Out of Preop 11/18/21 11:39:00 Patient Out of n/a Holding Room Last Modified By: Plamira Wong RN 11/18/21 12:03:33 [facility] Case Times Audit 11/18/21 12:03:33 Mgmt Specialist: [id number] Modifier: [id number] <+> 1 Patient Out of Preop Finalized By: Palmira Wong, RN Document Signatures Signed By: Palmira Wong, CLARENCE 11/18/21 12:03 Electronically signed by Izabel [facility] Conversion Electrician Powerhouse Cerner at 01/19/2023 9:11 PM CDT documented in this encounter Plan of Treatment Not on file documented as of this encounter Visit Diagnoses Not on filedocumented in this encounter
--- OUTSIDE RECORDS SUMMARY | 2025-05-25 11:37 | XMS_ITS | Encounter Summary ---
Author Organization [facility] ([place], [place], [place], [place]) Address [address] [place] [address] Care Team Providers Care Section Forest Fire Warden Name Role Phone Unavailable Primary Care Provider Unavailabl e Encounter Details Date Type Department Care Team (Late st Contact Info) Description 10/29/2021 Transcribed Document [facility] [place] [address] [place] [address] ProviderGuerita MD [address] [place] [address] Social History Tobacco Use Types [...] Date Murray rded Speak language other than Lithuanian at home Not on file 10/22/2023 Want help with school or training Not on file 10/22/2023 Substance Use Answer Date Recorded Used prescription meds for non-medical reasons N ot on file 10/22/2023 Used illegal drugs past 12 months Not on file 10/22/2023 Comments Unknown Sex and Gender Information Value Date Recorded Sex Assigned at Female 08/19/2022 12:34 PM MANAGER OFFICE SERVICES Legal Sex Female 6:29 PM CDT Gender Identity Female 08/19/2022 12:34 PM MANAGER OFFICE SERVICES Sexual Orientation Straight 08/19/2022 12 :34 PM MANAGER OFFICE SERVICES COVID-19 Exposure Response Date Recorded In the last 10 days, have rufino reyes been in contact with someone who was confirmed or suspected to have Coronavirus/COVID-19? No / Unsure 02/08/2023 1:28 PM EDT documented as of this encounter Miscellaneous Notes * Cerner Conversion Note - Historical Provider, - 10/29/2021 9:44 AM MANAGER OFFICE SERVICES [facility] Main OR IntraOp Summary Primary Physician: IBIS OLIVAS MD-SUR Finalized Date/Time: 10/29/21 10:20:01 Pt. Name: DEMETRIA ROE TIANNA /Sex: 1975 Female Med Rec #: [id number] Physician: IBIS OLIVAS MD-SUR Financial #: [id number] Pt. Type: O Room/Bed: [facility] Admit/Disch: 10/29/21 06:31:00 - [place] [facility] [place]Op Case Attendance Entry 1 Entry 2 Entry 3 Case Attendee IBIS OLIVAS Dooley, Carol, RN OTHER, ATTENDEE #1 LOURDES Role Performed Surgeon/Proceduralist, Sewer Head, First CLUBHOUSE ATTENDANT/Nurse Solution Design Engineer First Time In 10/29/21 09:20:00 10/29/21 [...] JAVIER MARISCAL PA Antrobus, Monica, LEININGER, SUSAN, metal door assemblerDish Machine Operator Role Performed Pediatric Np, First Scrub, First Sewer Head, Second Time In 10/29/21 09:20:00 10/29/21 09:20:00 10/29/21 10:09:00 Time Out 10/29/21 10:30:00 10/29/21 10:30:00 10/29/21 10:30:00 Procedure Breast Lumpectomy, Breast Lumpectomy, Breast Lumpectomy, Breast Biopsy FS Needle Breast Biopsy FS Needle Breast Biopsy FS Needle Localization Localization Localization Other Attendee cafeteria counter attendant break Superficial Wound Closed By: Last Modified By: Demetrice Dunham, RN Demetrice Dunham, RN Demetrice Dunham RN 10/29/21 10:19:36 10/29/21 10:19:36 10/29/21 10:19:36 [facility] IntraOp Case Attendance Audit 10/29/21 10:19:36 Laboratory Technician: [email or web address] Modifier: [email or web address] 1 <+> Time Out [...] Breast Biopsy FS Needle Localization 10/29/21 10:14:29 Laboratory Technician: DOOLEYC Modifier: [email or web address] 1 <+> Time In [...] [facility] IntraOp Case Times Audit 10/29/21 10:19:35 Laboratory Technician: DOOLEYC Modifier: [email or web address] <+> 1 Out Room [...] By Count Performed By Rozina Bhatia, (Scrub) Dish Machine Operator Count Performed By Demetrice Dunham RN (RN) Last Modified By: Demetrice Dunham RN 10/29/21 09:47:42 [facility] IntraOp Counts Final Entry 1 Procedure Breast Lumpectomy, Breast Biopsy FS Needle Localization Final Count Info Count Type Sponge, Sharps Counts Verification Skin Closure/end of Sequence procedure Count Results Correct, surgeon notified Counts Performed By Count Performed By Rozina Bhatia, (Scrub) Dish Machine Operator Count Performed By Demetrice Dunham RN (RN) [...] RN 10/29/21 09:48:26 [facility] IntraOp General Case Cash Management Clerk 1 Case Information OR OR 03 [facility] [...] 1% w/ epinephrine 1:100,000 30ml vial - [id number] Route of LOCAL INJECTION Administration Dose Dose [...] Intra Op Sign Out Audit 10/29/21 10:19:23 Laboratory Technician: DOOLEYC Modifier: [email or web address] <+> 1 RN Sign [...] [facility] IntraOp Surgical Procedures Audit 10/29/21 10:19:55 Laboratory Technician: JOSH Modifier: [email or web address] 1 <*> Procedure Breast [...] Signed By: Demetrice Dunham RN 10/29/21 10:20 documented in this encounter Plan of Treatment Not on file documented as of this encounter Visit Diagnoses Not on filedocumented in this encounter
--- OUTSIDE RECORDS SUMMARY | 2025-05-25 11:37 | XMS_ITS | Encounter Summary ---
Author Organization [employer] ([place], [place], [place], [place]) Address [address] [place] [address] Care Team Providers Care Neuropsychologist Name Role Phone Unavailable Primary Care Provider Unavailabl e Encounter Details Date Type Department Care Team (Late st Contact Info) Description 11/19/2021 Transcribed Document [facility] [place] [address] [place] [address] Manuel Jefferson MD [address] [place] [address] Social History Tobacco Use Types [...] Date Murray rded Speak language other than Uzbek at home Not on file 10/22/2023 Want help with school or training Not on file 10/22/2023 Substance Use Answer Date Recorded Used prescription meds for non-medical reasons N ot on file 10/22/2023 Used illegal drugs past 12 months Not on file 10/22/2023 Comments Unknown Sex and Gender Information Value Date Recorded Sex Assigned at Female 08/19/2022 12:34 PM RESEARCH QUALITY ASSURANCE SPECIALIST Legal Sex Female 6:29 PM CDT Gender Identity Female 08/19/2022 12:34 PM RESEARCH QUALITY ASSURANCE SPECIALIST Sexual Orientation Straight 08/19/2022 12 :34 PM RESEARCH QUALITY ASSURANCE SPECIALIST COVID-19 Exposure Response Date Recorded In [...] PERFORMED: Right needle localized re-excision partial mastectomy. PVC MONITOR: Edward Alcantara PA-C ANESTHESIA: General. ESTIMATED BLOOD [...] taken to the PACU in stable condition. /[id number] MD NOMI Canales/DEMETRIO / NOMI / MODL /[id number] CC: [facility] documented in this encounter Plan of Treatment Not on file documented as of this encounter Visit Diagnoses Not on filedocumented in this encounter
[2025-05-25 11:45] VITALS: BP 125/74; PULSE 75; RESP 16; TEMP 36.7; O2SAT 98
[2025-05-25] MEDS: RABIES VACCINE (PCEC)/PF 2.5 UNIT VIAL IM (11:45)
== END 2025-05-25 12:15 | disposition home or self-care (01) ==
LOC: INF 11:34
PROVIDERS: PCP Family Medicine; Visit Provider Student in an Organized Health Care Education/Training Program
DX: Z29.14 Encounter for prophylactic rabies immune globulin (principal); Y93.9 Activity, unspecified; Y92.9 Unspecified place or not applicable
CPT/HCPCS: 90675; 96372

== ENCOUNTER 2025-05-30 08:34 | Outpatient (CLI) | payer BC, SELFPAY ==
--- OUTSIDE RECORDS SUMMARY | 2025-05-30 08:38 | XMS_ITS | Encounter Summary ---
Author Organization [employer] ([place], [place], [place], [place]) Address [address] [place] [address] Care Team Providers Care Skiing Teacher Name Role Phone Unavailable Primary Care Provider Unavailabl e Encounter Details Date Type Department Care Team (Late st Contact Info) Description 10/29/[address] [facility] [place] Family Medicine [address] [place] [address] ProviderGuerita MD [address] [place] [address] Social History Tobacco Use Types [...] Sex Assigned at Female 08/19/2022 12:34 PM PUBLIC HOUSING INTERVIEWER Legal Sex Female 6:29 PM CDT Gender Identity Female 08/19/2022 12:34 PM PUBLIC HOUSING INTERVIEWER Sexual Orientation Straight 08/19/2022 12 :34 PM PUBLIC HOUSING INTERVIEWER COVID-19 Exposure Response Date Recorded In the last 10 days, have rufino reyes been in contact with someone who was confirmed or suspected to have Coronavirus/COVID-19? No / Unsure 02/08/2023 1:28 PM EDT documented as of this encounter Miscellaneous Notes * Cerner Conversion Note - Historical Provider, - 10/29/2021 9:44 AM PUBLIC HOUSING INTERVIEWER [facility] [place] PreOp Summary Primary Physician: IBIS OLIVAS MD-SUR Finalized Date/Time: 10/30/21 07:51:10 Pt. Name: ROBERTA ROE TIANNA /Sex: 1975 Female Med Rec #: [id number] Physician: IBIS OLIVAS MD-SUR Financial #: [id number] Pt. Type: O Room/Bed: [facility] Admit/Disch: 10/29/21 06:31:00 - 10/29/21 11:10:00 Institution: [facility] [place] PreOp Case Times Entry 1 In Preop 10/29/21 06:50:00 Ready for Holding n/a Room Patient Ready for 10/29/21 07:50:00 Surgery Patient Out of Preop 10/29/21 12:08:00 Patient Out of n/a Holding Room Last Modified By: KAMILLE HARRIS 10/30/21 07:51:08 [facility] [place] PreOp Case Times Audit 10/30/21 07:51:08 Supervisor Dyer: [id number] Modifier: [email or web address] <+> 1 Patient Out of Preop Finalized By: KAMILLE HARRIS Document Signatures Signed By: KAMILLE HARRIS 10/30/21 07:51 Electronically signed by Izabel [facility] Conversion Marine Services Technician Cerner at 01/19/2023 9:06 PM CDT documented in this encounter Plan of Treatment Not on file documented as of this encounter Visit Diagnoses Not on filedocumented in this encounter
--- OUTSIDE RECORDS SUMMARY | 2025-05-30 08:38 | XMS_ITS | Clinical Summary ---
Author Organization [employer] ([place], [place], [place], [place]) Address [address] [place] [address] Care Team Providers Care Veneer Clipper Name Role Phone Unavailable Primary Care Provider Unavailabl e Allergies No known active allergies Medications multivitamin capsule 1 Tab, Oral, Daily, 0 Refill(s) 01/27/2022 Active ascorbic acid, vitamin C, (ascorbic acid) 250 mg Chew Take by mouth. Active tamoxifen (NOLVADEX) 20 MG tablet Take 1 tablet (20 mg total) by mouth daily. 90 tablet 3 08/19/2022 Active xnrc-CD-orx-epa- JJZ-IXNP-wa-mv 1.5 mg iron- 8.73 mg CpID Iron, 9 mg =, Oral, Daily, 0 Refill(s) 01/27/2022 Active Active Problems Problem Noted Date Diagnosed Date Malignant neoplasm of overla pping sites of right breast in female, estrogen receptor positive 08/18/2022 Cancer Staging:Pathologic stage from 10/06/2021:Stage 0(pTis (DCIS), cN0, cM0, ER+, OH+) - Signed by Reyna Mendez MD on [...] Next Due Influenza Four-QIV 6MO+ PF IM ([id number]) 2,07/08/2020 Influenza Four-qiv Pf 09/16/2021 Family History [...] Date Murray rded Speak language other than Tunisian at home Not on file 10/22/2023 Want help with school or training Not on file 10/22/2023 Substance Use Answer Date Recorded Used prescription meds for non-medical reasons N ot on file 10/22/2023 Used illegal drugs past 12 months Not on file 10/22/2023 Comments Unknown Sex and Gender Information Value Date Recorded Sex Assigned at Female 08/19/2022 12:34 PM HOOP BENDING MACHINE OPERATOR Legal Sex Female 6:29 PM CDT Gender Identity Female 08/19/2022 12:34 PM HOOP BENDING MACHINE OPERATOR Sexual Orientation Straight 08/19/2022 12 :34 PM HOOP BENDING MACHINE OPERATOR Last Filed Vital Signs Vital Sign Reading [...] in one year. At our facility, a kluti kaah marker is positioned over a visible skin [...] family history of breast cancer COMPARISON STUDY: [facility] FINDINGS: Craniocaudal and mediolateral oblique images [...] family history of breast cancer COMPARISON STUDY: [facility] FINDINGS: Craniocaudal and mediolateral oblique images [...] in one year. At our facility, a kluti kaah marker is positioned over a visible skin [...]
--- OUTSIDE RECORDS SUMMARY | 2025-05-30 08:38 | XMS_ITS | Encounter Summary ---
Author Organization [employer] ([place], [place], [place], [place]) Address [address] [place] [address] Care Team Providers Care Plunger Shovel Operator Name Role Phone Unavailable Primary Care Provider Unavailabl e Encounter Details Date Type Department Care Team (Late st Contact Info) Description 02/03/2022 Transcribed Document [facility] [place] Family Medicine [address] [place] [address] ProviderGuerita MD [address] [place] [address] Social History Tobacco Use Types [...] Sex Assigned at Female 08/19/2022 12:34 PM BLACK OXIDE OPERATOR Legal Sex Female 6:29 PM CDT Gender Identity Female 08/19/2022 12:34 PM BLACK OXIDE OPERATOR Sexual Orientation Straight 08/19/2022 12 :34 PM BLACK OXIDE OPERATOR COVID-19 Exposure Response Date Recorded In [...] these instructions at home: Medicines ??? Take zinb-cqs-osrxmvs and prescription medicines only as told by [...] keep your urine pale yellow. ? Take rrxm-wvv-hkbsgej or prescription medicines. ? Eat foods that [...] and water are not available, use hand metal fabricating supervisor. ? Change your dressing as told by [...] provider. Document Revised: 03/22/2020 Document Reviewed: 03/22/2020 [employer] Patient Education ? 2020 [employer]. Lumpectomy, Care After This sheet gives you [...] these instructions at home: Medicines ??? Take vonu-jyu-tescavb and prescription medicines only as told by [...] keep your urine pale yellow. ? Take zqdv-eld-goczfhw or prescription medicines. ? Eat foods that [...] and water are not available, use hand metal fabricating supervisor. ? Change your dressing as told by [...] provider. Document Revised: 03/25/2020 Document Reviewed: 03/25/2020 [employer] Patient Education ? 2020 [employer]. Pharmacology General Anesthesia, Adult, Care After This [...] activities are safe for you. ??? Take vlcz-osq-flxpyfr and prescription medicines only as told by [...] provider. Document Revised: 06/05/2021 Document Reviewed: 01/02/2021 [employer] Patient Education ? 2020 [employer]. documented in this encounter Plan of Treatment Not on file documented as of this encounter Visit Diagnoses Not on filedocumented in this encounter
--- OUTSIDE RECORDS SUMMARY | 2025-05-30 08:38 | XMS_ITS | Encounter Summary ---
Author Organization [employer] ([place], [place], [place], [place]) Address [address] [place] [address] Care Team Providers Care Key Punch Teacher Name Role Phone Unavailable Primary Care Provider Unavailabl e Encounter Details Date Type Department Care Team (Late st Contact Info) Description 10/29/2021 Transcribed Document [facility] [place] Family Medicine [address] [place] [address] ProviderGuerita MD [address] [place] [address] Social History Tobacco Use Types [...] Date Murray rded Speak language other than Bengali at home Not on file 10/22/2023 Want help with school or training Not on file 10/22/2023 Substance Use Answer Date Recorded Used prescription meds for non-medical reasons N ot on file 10/22/2023 Used illegal drugs past 12 months Not on file 10/22/2023 Comments Unknown Sex and Gender Information Value Date Recorded Sex Assigned at Female 08/19/2022 12:34 PM STEREOPTIC PROJECTION TOPOGRAPHER Legal Sex Female 6:29 PM CDT Gender Identity Female 08/19/2022 12:34 PM STEREOPTIC PROJECTION TOPOGRAPHER Sexual Orientation Straight 08/19/2022 12 :34 PM STEREOPTIC PROJECTION TOPOGRAPHER COVID-19 Exposure Response Date Recorded In the last 10 days, have rufino reyes been in contact with someone who was confirmed or suspected to have Coronavirus/COVID-19? No / Unsure 02/08/2023 1:28 PM EDT documented as of this encounter Miscellaneous Notes * Cerner Conversion Note - Historical Provider, - 10/29/2021 9:44 AM STEREOPTIC PROJECTION TOPOGRAPHER [facility] Main OR PostOp Summary Primary Physician: IBIS OLIVAS MD-SUR Finalized Date/Time: 10/29/21 11:08:54 Pt. Name: ROBERTA ROE TIANNA /Sex: 1975 Female Med Rec #: [id number] Physician: IBIS OLIVAS MD-SUR Financial #: [id number] Pt. Type: O Room/Bed: [facility] Admit/Disch: 10/29/21 06:31:00 - Institution: [facility] Main OR PostOp Case Times Entry 1 In PACU II 10/29/21 10:57:00 Ready for PACU II 10/29/21 11:10:00 Discharge Discharge from PACU 10/29/21 11:10:00 II Last Modified By: Jesenia Kruger RN 10/29/21 11:08:45 Finalized By: Jesenia Kruger, RN Document Signatures Signed By: Jesenia Kruger RN 10/29/21 11:08 Electronically signed by Izabel [facility] Conversion Senior Label Specialist Cerner at 01/19/2023 9:06 PM CDT documented in this encounter Plan of Treatment Not on file documented as of this encounter Visit Diagnoses Not on filedocumented in this encounter
--- OUTSIDE RECORDS SUMMARY | 2025-05-30 08:38 | XMS_ITS | Encounter Summary ---
Author Organization [employer] ([place], [place], [place], [place]) Address [address] [place] [address] Care Team Providers Care Back Order Clerk Name Role Phone Unavailable Primary Care Provider Unavailabl e Encounter Details Date Type Department Care Team (Late st Contact Info) Description 02/03/2022 Transcribed Document [facility] [place] Medicine [address] [place] [address] ProviderGuerita MD [address] [place] [address] Social History Tobacco Use Types [...] Sex Assigned at Female 08/19/2022 12:34 PM CYLINDER BATCHER Legal Sex Female 6:29 PM CDT Gender Identity Female 08/19/2022 12:34 PM CYLINDER BATCHER Sexual Orientation Straight 08/19/2022 12 :34 PM CYLINDER BATCHER COVID-19 Exposure Response Date Recorded In the [...] TIANNA /Sex: 1975 Female Med Rec #: [id number] Physician: IBIS OLIVAS MD-SUR Financial #: [id number] Pt. Type: O Room/Bed: [facility] Admit/Disch: 02/03/22 05:18:00 - Institution: [facility] Main OR PostOp Case Times Entry 1 In PACU II 02/03/22 11:50:00 Ready for PACU II 02/03/22 12:05:00 Discharge Discharge from PACU 02/03/22 12:05:00 II Last Modified By: LUIZA GRIDER, RN 02/03/22 12:05:19 Finalized By: LUIZA GRIDER, RN Document Signatures Signed By: LUIZA GRIDER, RN 02/03/22 12:05 Electronically signed by Izabel [facility] Conversion Field Irrigation Worker Cerner at 01/19/2023 9:22 PM CDT documented in this encounter Plan of Treatment Not on file documented as of this encounter Visit Diagnoses Not on filedocumented in this encounter
--- OUTSIDE RECORDS SUMMARY | 2025-05-30 08:38 | XMS_ITS | Encounter Summary ---
Author Organization [employer] ([place], [place], [place], [place]) Address [address] [place] [address] Care Team Providers Care Tax Manager Public Name Role Phone Unavailable Primary Care Provider Unavailabl e Reason for Visit * Reason Onset Date Comments Follow-up 03/10/2023 Encounter Details Date Type Department Care Team (Late st Contact Info) Description 03/10/2023 Telephone [facility] [employer] [address] [address] Toma Muse, ELECTRICAL INSTRUMENTATION TECHNICIAN [address] [employer] [facility] [address] [place] [address] Follow-up Social History Tobacco Use Types Packs/Day Years Used Date Smoking Tobacco: Former Smokeless Tobacco: Never Alcohol Use Standard Drinks/Week Comments Not Currently 0 (1 standard drink = 0.6 oz pur e alcohol) Comments Unknown Sex and Gender Information Value Date Recorded Sex Assigned at Female 08/19/2022 12:34 PM CUPOLA PATCHER HELPER Legal Sex Female 6:29 PM CDT Gender Identity Female 08/19/2022 12:34 PM CUPOLA PATCHER HELPER Sexual Orientation Straight 08/19/2022 12 :34 PM CUPOLA PATCHER HELPER COVID-19 Exposure Response Date Recorded In [...]
--- OUTSIDE RECORDS SUMMARY | 2025-05-30 08:38 | XMS_ITS | Encounter Summary ---
Author Organization [employer] ([place], [place], [place], [place]) Address [address] [place] [address] Care Team Providers Care Senior Product Engineer Name Role Phone Unavailable Primary Care Provider Unavailabl e Encounter Details Date Type Department Care Team (Late st Contact Info) Description 10/31/[address] [facility] [place] Family Medicine [address] [place] [address] ProviderGuerita MD [address] [place] [address] Social History Tobacco Use Types [...] Assigned at Female 08/19/2022 12:34 PM SECURITY PATROL OFFICER Legal Sex Female 6:29 PM CDT Gender Identity Female 08/19/2022 12:34 PM SECURITY PATROL OFFICER Sexual Orientation Straight 08/19/2022 12 :34 PM SECURITY PATROL OFFICER COVID-19 Exposure Response Date Recorded In the last 10 days, have rufino reyes been in contact with someone who was confirmed or suspected to have Coronavirus/COVID-19? No / Unsure 02/08/2023 1:28 PM EDT documented as of this encounter Miscellaneous Notes * Cerner Conversion Note - Historical Provider, - 10/31/2021 8:38 PM SECURITY PATROL OFFICER ED Discharge Entered On: 10/31/2021 20:39 EST [...] 10/31/2021 20:38 EST Electronically signed by Izabel [facility] Conversion Butadiene Converter Utility Operator Cerner at 01/19/2023 9:16 PM CDT documented in this encounter Plan of Treatment Not on file documented as of this encounter Visit Diagnoses Not on filedocumented in this encounter
--- OUTSIDE RECORDS SUMMARY | 2025-05-30 08:38 | XMS_ITS | Encounter Summary ---
Author Organization [employer] ([place], [place], [place], [place]) Address [address] [place] [address] Care Team Providers Care Spindle Tester Name Role Phone Unavailable Primary Care Provider Unavailabl e Encounter Details Date Type Department Care Team (Late st Contact Info) Description 10/31/2021 Transcribed Document [facility] [place] [address] [place] [address] ProviderGuerita MD [address] [place] [address] Social History Tobacco Use Types [...] Sex Assigned at Female 08/19/2022 12:34 PM AIR SEALING TECHNICIAN Legal Sex Female 6:29 PM CDT Gender Identity Female 08/19/2022 12:34 PM AIR SEALING TECHNICIAN Sexual Orientation Straight 08/19/2022 12 :34 PM AIR SEALING TECHNICIAN COVID-19 Exposure Response Date Recorded In the last 10 days, have yo u been in contact with someone who was confirmed or suspected to have Coronavirus/COVID-19? No / Unsure 02/08/2023 1:28 PM EDT documented as of this encounter Miscellaneous Notes * Cerner Conversion Note - Historical Provider, - 10/31/2021 6:00 PM AIR SEALING TECHNICIAN Patient: ROBERTA TOLBERT Age: 45 Years Sex: Female : 1975 Electronically signed by Wiliam Paiz Conversion Toy Trains And Accessories Salesperson Cerner at 01/19/2023 9:19 PM CDT documented in this encounter Plan of Treatment Not on file documented as of this encounter Visit Diagnoses Not on filedocumented in this encounter
--- OUTSIDE RECORDS SUMMARY | 2025-05-30 08:38 | XMS_ITS | Encounter Summary ---
Author Organization [employer] ([place], [place], [place], [place]) Address [address] [place] [address] Care Team Providers Care Rules Examiner Name Role Phone Unavailable Primary Care Provider Unavailabl e Encounter Details Date Type Department Care Team (Late st Contact Info) Description 10/31/2021 Transcribed Document [facility] [place] [address] [place] [address] ProviderGuerita MD [address] [place] [address] Social History Tobacco Use Types [...] Sex Assigned at Female 08/19/2022 12:34 PM EMBROIDERY WORKER Legal Sex Female 6:29 PM CDT Gender Identity Female 08/19/2022 12:34 PM EMBROIDERY WORKER Sexual Orientation Straight 08/19/2022 12 :34 PM EMBROIDERY WORKER COVID-19 Exposure Response Date Recorded In the last 10 days, have rufino u been in contact with someone who was confirmed or suspected to have Coronavirus/COVID-19? No / Unsure 02/08/2023 1:28 PM EDT documented as of this encounter Miscellaneous Notes * Cerner Conversion Note - Historical Provider, - 10/31/2021 3:42 PM EMBROIDERY WORKER [place] Suicide Severity Rating Scale (C-SSRS) Entered On: 10/31/2021 16:06 EST Performed On: 10/31/2021 16:06 EST by NATHANIEL NOYOLA Rn [place] Suicide Severity Rating Scale (C-SSRS) CSSRS Past [...]
--- OUTSIDE RECORDS SUMMARY | 2025-05-30 08:38 | XMS_ITS | Encounter Summary ---
Author Organization [employer] ([place], [place], [place], [place]) Address [address] [place] [address] Care Team Providers Care Testing Coordinator Name Role Phone Unavailable Primary Care Provider Unavailabl e Encounter Details Date Type Department Care Team (Late st Contact Info) Description 10/29/2021 Transcribed Document [facility] [place] Family Medicine [address] [place] [address] ProviderGuerita MD [address] [place] [address] Social History Tobacco Use Types [...] Sex Assigned at Female 08/19/2022 12:34 PM FINE PATCHER Legal Sex Female 6:29 PM CDT Gender Identity Female 08/19/2022 12:34 PM FINE PATCHER Sexual Orientation Straight 08/19/2022 12 :34 PM FINE PATCHER COVID-19 Exposure Response Date Recorded In the last 10 days, have rufino reyes been in contact with someone who was confirmed or suspected to have Coronavirus/COVID-19? 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 you have medicine to sampler pickup at your pharmacy. Discharge Follow Up Instructions: Follow up 7-10 days Diet: Discharge Diet: Resume usual diet as tolerated Follow-Up Appointments Follow Up with IBIS OLIVAS MD-YARA When 11/10/2021 10:30 AM EST Comments Appointment has been made Where: [address] [facility] [address] [place] [address]- Medications What How Much When Instructions Next Dose acetaminophen-oxyCODONE (Percocet 5/ 325 oral tablet) 2 Tablet(s) Oral Every 4 Hours as needed for for pain Duration: 5 Day(s) Max 6 tabs per day. Pickup at [id number] Pharmacy Information [id number]: [address] [phone] Take your medications faithfully. Do NOT skip [...] activities are safe for you. ??? Take meqx-moc-kbwumnx and prescription medicines only as told by [...] provider. Document Revised: 06/05/2021 Document Reviewed: 01/02/2021 [employer] Patient Education ?? 2020 [employer] Lumpectomy, Care After This sheet gives [...] these instructions at home: Medicines ??? Take ladg-wge-crjxepd and prescription medicines only as told by [...] keep your urine pale yellow. ? Take bhox-qoh-ouvtbfh or prescription medicines. ? Eat foods that [...] and water are not available, use hand parimutuel ticket checker. ? Change your dressing as told by [...] Assistance with quitting is available by contacting 7-845-VZYANOW. This is a free resource providing counseling, support, and referral. Or you may contact your personal physician. [place] [facility]: The National Suicide Prevention Lifeline is [...] was given the opportunity to ask questions. Patient/Palliative Senior Np Name: Patient/Palliative Senior Np Signature: Relationship to Patient: Clinician/Hospital Palliative Senior Np Signature: Date: documented in this encounter Plan of Treatment Not on file documented as of this encounter Visit Diagnoses Not on filedocumented in this encounter
--- OUTSIDE RECORDS SUMMARY | 2025-05-30 08:38 | XMS_ITS | Encounter Summary ---
Author Organization [employer] ([place], [place], [place], [place]) Address [address] [place] [address] Care Team Providers Care Electric Stove Installer Name Role Phone Unavailable Primary Care Provider Unavailabl e Encounter Details Date Type Department Care Team (Late st Contact Info) Description 02/03/2022 Transcribed Document [facility] [place] [address] [place] [address] ProviderGuerita MD [address] [place] [address] Social History Tobacco Use Types [...] Assigned at Female 08/19/2022 12:34 PM PRODUCTION TECH Legal Sex Female 6:29 PM CDT Gender Identity Female 08/19/2022 12:34 PM PRODUCTION TECH Sexual Orientation Straight 08/19/2022 12 :34 PM PRODUCTION TECH COVID-19 Exposure Response Date Recorded In [...] TIANNA /Sex: 1975 Female Med Rec #: [id number] Physician: IBIS OLIVAS MD-SUR Financial #: [id number] Pt. Type: O Room/Bed: [facility] Admit/Disch: 02/03/22 05:18:00 - 02/03/22 12:05:00 Institution: [facility] PreOp Case Times Entry 1 In Preop 02/03/22 05:20:00 Ready for Holding n/a Room Patient Ready for 02/03/22 07:00:00 Surgery Patient Out of Preop 02/03/22 07:45:00 Patient Out of n/a Holding Room Last Modified By: Kim Ivory RN 02/03/22 16:19:32 [facility] PreOp Case Times Audit 02/03/22 16:19:32 Inspector Wire Rope: MAYNARL Modifier: [email or web address] <+> 1 Patient Ready for Surgery 02/03/22 07:45:52 Inspector Wire Rope: [id number] Modifier: MAYNARL <+> 1 Patient Out of Preop Finalized By: Kim Ivory, RN Document Signatures Signed By: Kim Ivory, RN 02/03/22 16:19 documented in this encounter Plan of Treatment Not on file documented as of this encounter Visit Diagnoses Not on filedocumented in this encounter
--- OUTSIDE RECORDS SUMMARY | 2025-05-30 08:38 | XMS_ITS | Encounter Summary ---
Author Organization [employer] ([place], [place], [place], [place]) Address [address] [place] [address] Care Team Providers Care Seed Analyst Name Role Phone Unavailable Primary Care Provider Unavailabl e Encounter Details Date Type Department Care Team (Late st Contact Info) Description 02/03/2022 Transcribed Document [facility] [place] Family Medicine [address] [place] [address] ProviderGuerita MD [address] [place] [address] Social History Tobacco Use Types [...] Sex Assigned at Female 08/19/2022 12:34 PM UNBUNDLER Legal Sex Female 6:29 PM CDT Gender Identity Female 08/19/2022 12:34 PM UNBUNDLER Sexual Orientation Straight 08/19/2022 12 :34 PM UNBUNDLER COVID-19 Exposure Response Date Recorded In the [...] TIANNA /Sex: 1975 Female Med Rec #: [id number] Physician: IBIS OLIVAS MD-SUR Financial #: [id number] Pt. Type: O Room/Bed: [facility] Admit/Disch: 02/03/22 05:18:00 - Institution: [facility] PACU Case Times Entry 1 In PACU I 02/03/22 11:01:00 Ready for PACU 02/03/22 11:46:00 Discharge Discharge from PACU 02/03/22 11:46:00 I Last Modified By: Graciela Lam RN 02/03/22 11:46:42 [facility] PACU Case Times Audit 02/03/22 11:46:42 Carton Forming Machine Helper: RODOLFO Modifier: CARRIEC <+> 1 Ready for PACU Discharge <+> 1 Discharge from PACU I Finalized By: Graciela Lam, CLARENCE Document Signatures Signed By: Graciela Lam RN 02/03/22 11:54 Electronically signed by Izabel [facility] Conversion Gun Repair Clerk Cerner at 01/19/2023 9:12 PM CDT documented in this encounter Plan of Treatment Not on file documented as of this encounter Visit Diagnoses Not on filedocumented in this encounter
--- OUTSIDE RECORDS SUMMARY | 2025-05-30 08:38 | XMS_ITS | Encounter Summary ---
Author Organization [employer] ([place], [place], [place], [place]) Address [address] [place] [address] Care Team Providers Care Mining And Quarrying Machinery Repairer Name Role Phone Unavailable Primary Care Provider Unavailabl e Encounter Details Date Type Department Care Team (Late st Contact Info) Description 02/03/2022 Transcribed Document [facility] [place] [address] [place] [address] ProviderGuerita MD [address] [place] [address] Social History Tobacco Use Types [...] Sex Assigned at Female 08/19/2022 12:34 PM EVENT ORGANIZER Legal Sex Female 6:29 PM CDT Gender Identity Female 08/19/2022 12:34 PM EVENT ORGANIZER Sexual Orientation Straight 08/19/2022 12 :34 PM EVENT ORGANIZER COVID-19 Exposure Response Date Recorded In the last 10 days, have yo u been in contact with someone who was confirmed or suspected to have Coronavirus/COVID-19? No / Unsure 02/08/2023 1:28 PM EDT documented as of this encounter Miscellaneous Notes * Cerner Conversion Note - Historical Provider, - 02/03/2022 11:59 AM CDT [facility] [address] [place] [address] ROBERTA ROE :1975 Visit Time:02/03/2022 What to do next Your Diagnosis Intraductal carcinoma in situ of right breast, Intraductal carcinoma in situ of right breast Instructions From Your Care Team refer to dr olivas's post op instruction sheet. you have Meds to warehouse order picker at your pharmacy. Keep surgical bra [...] be at the Breast Center Where: [address] [place] [address]- Medications What How Much When Instructions Next [...] these instructions at home: Medicines ??? Take cjtu-bft-fgxsgwv and prescription medicines only as told by [...] keep your urine pale yellow. ? Take lrty-ocb-dijgrzb or prescription medicines. ? Eat foods that [...] and water are not available, use hand paunch trimmer. ? Change your dressing as told by [...] provider. Document Revised: 03/22/2020 Document Reviewed: 03/22/2020 [employer] Patient Education ?? 2020 [employer]. General Anesthesia, Adult, Care After This sheet [...] activities are safe for you. ??? Take pnul-prp-tpnmils and prescription medicines only as told by [...] provider. Document Revised: 06/05/2021 Document Reviewed: 01/02/2021 [employer] Patient Education ?? 2020 [employer]. Lumpectomy, Care After This sheet gives you [...] these instructions at home: Medicines ??? Take ftqh-iuv-yqaekze and prescription medicines only as told by [...] keep your urine pale yellow. ? Take mygn-lgr-itqhmli or prescription medicines. ? Eat foods that [...] and water are not available, use hand paunch trimmer. ? Change your dressing as told by [...] provider. Document Revised: 03/25/2020 Document Reviewed: 03/25/2020 [employer] Patient Education ?? 2020 [employer]. Emergency Awareness and Preventative Care STROKE is [...] Assistance with quitting is available by contacting 6-506-MLAINOW. This is a free resource providing counseling, [...] was given the opportunity to ask questions. Patient/Blanket Maker Name: Patient/Blanket Maker Signature: Relationship to Patient: Clinician/Hospital Blanket Maker Signature: Date: Electronically signed by Interface, [facility] Conversion Plywood Factory Worker Stacey at 01/19/2023 9:09 PM CDT documented in this encounter Plan of Treatment Not on file documented as of this encounter Visit Diagnoses Not on filedocumented in this encounter
--- OUTSIDE RECORDS SUMMARY | 2025-05-30 08:38 | XMS_ITS | Encounter Summary ---
Author Organization [employer] ([place], [place], [place], [place]) Address [address] [place] [address] Care Team Providers Care Slip Cover Seamstress Name Role Phone Unavailable Primary Care Provider Unavailabl e Encounter Details Date Type Department Care Team (Late st Contact Info) Description 02/03/2022 Transcribed Document [facility] Radiology [address] [place] [address] Cricket Bonilla MD [address] [place] [address] Social History Tobacco Use Types Packs/Day Years [...] Sex Assigned at Female 08/19/2022 12:34 PM STRIPPER AND OPAQUER APPRENTICE Legal Sex Female 6:29 PM CDT Gender Identity Female 08/19/2022 12:34 PM STRIPPER AND OPAQUER APPRENTICE Sexual Orientation Straight 08/19/2022 12 :34 PM STRIPPER AND OPAQUER APPRENTICE COVID-19 Exposure Response Date Recorded In the [...] 1. Right breast cancer. 2. Breast asymmetry. DANCE HISTORIAN: Emily Shelton, who was essential in completion [...] justin-areola was marked with a 42 mm Gizmoz cutter. Both breasts were injected with 0.25% [...] LOSS: Minimal. DRAINS: None. COMPLICATIONS: None immediate. /[id number] MD SHERLEY Mayen/DEMETRIO / SHERLEY / MODL /[id number] documented in this encounter Plan of Treatment Not on file documented as of this encounter Visit Diagnoses Not on filedocumented in this encounter
--- OUTSIDE RECORDS SUMMARY | 2025-05-30 08:38 | XMS_ITS | Encounter Summary ---
Author Organization [employer] ([place], [place], [place], [place]) Address [address] [place] [address] Care Team Providers Care Cotton Stomper Name Role Phone Unavailable Primary Care Provider Unavailabl e Encounter Details Date Type Department Care Team (Late st Contact Info) Description 10/31/2021 Transcribed Document [facility] [place] Family Medicine [address] [place] [address] ProviderGuerita MD [address] [place] [address] Social History Tobacco Use Types [...] Sex Assigned at Female 08/19/2022 12:34 PM GENERAL LEDGER ACCOUNTANT Legal Sex Female 6:29 PM CDT Gender Identity Female 08/19/2022 12:34 PM GENERAL LEDGER ACCOUNTANT Sexual Orientation Straight 08/19/2022 12 :34 PM GENERAL LEDGER ACCOUNTANT COVID-19 Exposure Response Date Recorded In the last 10 days, have rufino reyes been in contact with someone who was confirmed or suspected to have Coronavirus/COVID-19? No / Unsure 02/08/2023 1:28 PM EDT documented as of this encounter Miscellaneous Notes * Cerner Conversion Note - Historical Provider, - 10/31/2021 6:36 PM GENERAL LEDGER ACCOUNTANT CR Chest 1 Vw Portable Ordered: 10/31/2021 Modified Reason for Exam: numbness 10/31/2021 17:47 10/31/2021 18:36 (ROSEANN LEY) No further action required documented in this encounter Plan of Treatment Not on file documented as of this encounter Visit Diagnoses Not on filedocumented in this encounter
--- OUTSIDE RECORDS SUMMARY | 2025-05-30 08:38 | XMS_ITS | Encounter Summary ---
Author Organization [employer] ([place], [place], [place], [place]) Address [address] [place] [address] Care Team Providers Care Employee Development Manager Name Role Phone Unavailable Primary Care Provider Unavailabl e Encounter Details Date Type Department Care Team (Late st Contact Info) Description 08/20/2022 Outside Orders [facility] [address] [place] [address] Manuel Jefferson MD [address] [place] [address] Personal history of breast cancer (Primary Dx) Social History Tobacco Use Types Packs/Day Years Used Date Smoking Tobacco: Former Smokeless Tobacco: Never Alcohol Use Standard Drinks/Week Comments Not Currently 0 (1 standard drink = 0.6 oz pur e alcohol) Comments Unknown Sex and Gender Information Value Date Recorded Sex Assigned at Female 08/19/2022 12:34 PM ELECTRIC TRUCK OPERATOR Legal Sex Female 6:29 PM CDT Gender Identity Female 08/19/2022 12:34 PM ELECTRIC TRUCK OPERATOR Sexual Orientation Straight 08/19/2022 12 :34 PM ELECTRIC TRUCK OPERATOR documented as of this encounter Plan of Treatment Not on file documented as of this encounter Visit Diagnoses Diagnosis Personal history of breast cancer- Primary Personal history of malignant neoplasm of breast documented in this encounter
--- OUTSIDE RECORDS SUMMARY | 2025-05-30 08:38 | XMS_ITS | Encounter Summary ---
Author Organization [employer] ([place], [place], [place], [place]) Address [address] [place] [address] Care Team Providers Care Tool Crib Manager Name Role Phone Unavailable Primary Care Provider Unavailabl e Encounter Details Date Type Department Care Team (Late st Contact Info) Description 02/03/2022 Transcribed Document [facility] [place] [address] [place] [address] ProviderGuerita MD [address] [place] [address] Social History Tobacco Use Types [...] Assigned at Female 08/19/2022 12:34 PM CHEMICAL ENGRAVER Legal Sex Female 6:29 PM CDT Gender Identity Female 08/19/2022 12:34 PM CHEMICAL ENGRAVER Sexual Orientation Straight 08/19/2022 12 :34 PM CHEMICAL ENGRAVER COVID-19 Exposure Response Date Recorded In the [...] TIANNA /Sex: 1975 Female Med Rec #: [id number] Physician: IBIS OLIVAS MD-SUR Financial #: [id number] Pt. Type: O Room/Bed: [facility] Admit/Disch: 02/03/22 05:18:00 - Institution: [facility] [place]Op Case Attendance Entry 1 Entry 2 Entry 3 Case Attendee IBIS OLIVAS HILL, JOSEPH L, MD-Emily Rogers MD-SUR Weaver Needle Loom Role Performed Surgeon/Proceduralist, Surgeon/Proceduralist, Scrub, Second First [...] Marie DAWNIELLE, RHOTEN, CAROLYN, RN-PATIENT CARE BEDSIDE AUTO CLOCKS REPAIRER-NURSE DIRECTOR OF PRIMARY NON-EXEMPT Role Performed Scrub, First Biometrics Consultant, First Student Time In 02/03/22 07:48:00 02/03/22 [...] Attendee FAUSTO SHAIKH, HO, Tung Gibbons ST BUSINESS LAW INSTRUCTOR-ANS Role Performed BUSINESS LAW INSTRUCTOR/Nurse Agricultural Sales Representative Scrub, First Time In 02/03/22 07:48:00 02/03/22 09:45:00 Time Out 02/03/22 10:59:00 02/03/22 10:59:00 Procedure Breast Lumpectomy, Breast Lumpectomy, Mammoplasty Reduction Mammoplasty Reduction Other Attendee BREAK Superficial Wound Closed By: Last Modified By: [place] RIOS, [place] RIOS, RN-PATIENT CARE BEDSIDE RN-PATIENT CARE BEDSIDE NON-EXEMPT 02/03/22 NON-EXEMPT 02/03/22 11:02:15 11:02:15 [facility] IntraOp Case Attendance Audit 02/03/22 11:02:52 Ssis Ssrs Developer: [id number] Modifier: [id number] <+> 1 Procedure <+> 2 Procedure 02/03/22 11:02:15 Ssis Ssrs Developer: [id number] Modifier: [id number] <+> 1 Time Out <+> 2 Time [...] Procedure Breast Lumpectomy, Mammoplasty Reduction 02/03/22 10:29:35 Ssis Ssrs Developer: [id number] Modifier: [id number] <+> 8 Case Attendee <+> 8 Role Performed <+> 8 Time In <+> 8 Procedure <+> 8 Other Attendee 02/03/22 09:30:00 Ssis Ssrs Developer: [id number] Modifier: [id number] <*> Procedure Breast Lumpectomy, Mammoplasty Reduction 4 <*> Procedure Breast Lumpectomy, Mammoplasty Reduction 5 <+> Time In 5 <*> Procedure Breast Lumpectomy, Mammoplasty Reduction 6 <+> Time In 6 <*> Procedure Breast Lumpectomy, Mammoplasty Reduction 7 <+> Time In 7 <*> Procedure Breast Lumpectomy, Mammoplasty Reduction 02/03/22 08:34:00 Ssis Ssrs Developer: [id number] Modifier: [id number] 3 <+> Time In 3 <*> Procedure [...] [facility] IntraOp Case Times Audit 02/03/22 11:02:13 Ssis Ssrs Developer: [id number] Modifier: [id number] <+> 1 Out Room Time <+> 1 Stop Time 02/03/22 10:59:14 Ssis Ssrs Developer: [id number] Modifier: [id number] <+> 1 Stop Time 02/03/22 08:28:24 Ssis Ssrs Developer: [id number] Modifier: [id number] 1 <*> Start Time 02/03/22 08:18:00 [facility] [...] by RN-PATIENT CARE BEDSIDE NON-EXEMPT, FAUSTO SHAIKH, SEROLOGY TECHNICIAN, BUSINESS LAW INSTRUCTOR-ANS Last Modified By: [place] RIOS RN-PATIENT CARE [...] NON-EXEMPT 02/03/22 08:56:03 [facility] IntraOp General Case Line Ordering Clinician 1 Case Information OR OR 02 [facility]JE [...] 1% w/ epinephrine 1:200,000 30ml vial - [id number] Combo Med List 1 - Combo Med [...] RN-PATIENT CARE BEDSIDE NON-EXEMPT, FAUSTO SHAIKH, HO, BUSINESS LAW INSTRUCTOR-ANS Position Verified Positioning Yes Verified by Anesthesia [...] Intra Op Sign Out Audit 02/03/22 11:02:22 Ssis Ssrs Developer: [id number] Modifier: [id number] <+> 1 RN Sign Out Signature Date/Time [...] [facility] IntraOp Surgical Procedures Audit 02/03/22 10:59:36 Ssis Ssrs Developer: [id number] Modifier: [id number] <+> 1 Stop <+> 2 Stop SJE [...] [facility] IntraOp Time Out Audit 02/03/22 10:59:31 Ssis Ssrs Developer: [id number] Modifier: [id number] 1 <+> Antibiotic Prophylaxis Administered Or In [...] EFRAIN Chart Audit Electronically signed by Izabel [facility] Conversion Ecological Technical Officer Cerner at 01/19/2023 9:05 PM CDT documented in this encounter Plan of Treatment Not on file documented as of this encounter Visit Diagnoses Not on filedocumented in this encounter
--- OUTSIDE RECORDS SUMMARY | 2025-05-30 08:38 | XMS_ITS | Encounter Summary ---
Author Organization [employer] ([place], [place], [place], [place]) Address [address] [place] [address] Care Team Providers Care Painting Contractor Name Role Phone Unavailable Primary Care Provider Unavailabl e Encounter Details Date Type Department Care Team (Late st Contact Info) Description 02/03/2022 Transcribed Document [facility] [place] [address] [place] [address] Manuel Jefferson MD [address] [place] [address] Social History Tobacco Use Types [...] Sex Assigned at Female 08/19/2022 12:34 PM COPYWRITER Legal Sex Female 6:29 PM CDT Gender Identity Female 08/19/2022 12:34 PM COPYWRITER Sexual Orientation Straight 08/19/2022 12 :34 PM COPYWRITER COVID-19 Exposure Response Date Recorded In the [...] PROCEDURES PERFORMED: Right breast re-excision partial mastectomy. VICE PRESIDENT RISK MANAGEMENT: Emily Shelton. ANESTHESIA: General. ESTIMATED BLOOD LOSS: [...] his bilateral reduction portion of the procedure. /[id number] MD NOMI Canales/DEMETRIO / NOMI / MODL /[id number] CC: [facility] documented in this encounter Plan of Treatment Not on file documented as of this encounter Visit Diagnoses Not on filedocumented in this encounter
--- OUTSIDE RECORDS SUMMARY | 2025-05-30 08:39 | XMS_ITS | Encounter Summary ---
Author Organization [employer] ([place], [place], [place], [place]) Address [address] [place] [address] Care Team Providers Care Paper Control Clerk Name Role Phone Unavailable Primary Care Provider Unavailabl e Encounter Details Date Type Department Care Team (Late st Contact Info) Description 11/18/2021 Transcribed Document [facility] [place] [address] [place] [address] ProviderGuerita MD [address] [place] [address] Social History Tobacco Use Types [...] Sex Assigned at Female 08/19/2022 12:34 PM OYSTER GROWER Legal Sex Female 6:29 PM CDT Gender Identity Female 08/19/2022 12:34 PM OYSTER GROWER Sexual Orientation Straight 08/19/2022 12 :34 PM OYSTER GROWER COVID-19 Exposure Response Date Recorded In the last 10 days, have rufino reyes been in contact with someone who was confirmed or suspected to have Coronavirus/COVID-19? No / Unsure 02/08/2023 1:28 PM EDT documented as of this encounter Miscellaneous Notes * Cerner Conversion Note - Historical Provider, - 11/18/2021 11:25 AM OYSTER GROWER [facility] Main OR PreOp Summary Primary Physician: IBIS OLIVAS MD-SUR Finalized Date/Time: 11/18/21 12:03:35 Pt. Name: ROBERTA ROE TIANNA /Sex: 1975 Female Med Rec #: [id number] Physician: IBIS OLIVAS MD-SUR Financial #: [id number] Pt. Type: O Room/Bed: [facility] Admit/Disch: 11/18/21 07:47:00 - Institution: [facility] [place] PreOp Case Times Entry 1 In Preop 11/18/21 07:30:00 Ready for Holding n/a Room Patient Ready for 11/18/21 08:55:00 Surgery Patient Out of Preop 11/18/21 11:39:00 Patient Out of n/a Holding Room Last Modified By: Palmira Wong RN 11/18/21 12:03:33 [facility] [place] PreOp Case Times Audit 11/18/21 12:03:33 Coding Consultant: [id number] Modifier: [id number] <+> 1 Patient Out of Preop Finalized By: Palmira Wong, RN Document Signatures Signed By: Palmira Wong, CLARENCE 11/18/21 12:03 Electronically signed by Izabel [facility] Conversion Public Information Director Cerner at 01/19/2023 9:11 PM CDT documented in this encounter Plan of Treatment Not on file documented as of this encounter Visit Diagnoses Not on filedocumented in this encounter
--- OUTSIDE RECORDS SUMMARY | 2025-05-30 08:39 | XMS_ITS | Encounter Summary ---
Author Organization [employer] ([place], [place], [place], [place]) Address [address] [place] [address] Care Team Providers Care Supervisor Paper Coating Name Role Phone Unavailable Primary Care Provider Unavailabl e Encounter Details Date Type Department Care Team (Late st Contact Info) Description 10/29/[address] [facility] [place] Family [place] [address] [place] [address] ProviderGuerita MD [address] [place] [address] Social History Tobacco Use Types [...] Date Murray rded Speak language other than Grenadian at home Not on file 10/22/2023 Want help with school or training Not on file 10/22/2023 Substance Use Answer Date Recorded Used prescription meds for non-medical reasons N ot on file 10/22/2023 Used illegal drugs past 12 months Not on file 10/22/2023 Comments Unknown Sex and Gender Information Value Date Recorded Sex Assigned at Female 08/19/2022 12:34 PM LABORATORY MECHANICAL TECHNICIAN Legal Sex Female 6:29 PM CDT Gender Identity Female 08/19/2022 12:34 PM LABORATORY MECHANICAL TECHNICIAN Sexual Orientation Straight 08/19/2022 12 :34 PM LABORATORY MECHANICAL TECHNICIAN COVID-19 Exposure Response Date Recorded In the last 10 days, have rufino reyes been in contact with someone who was confirmed or suspected to have Coronavirus/COVID-19? No / Unsure 02/08/2023 1:28 PM EDT documented as of this encounter Miscellaneous Notes * Cerner Conversion Note - Historical Provider, - 10/29/2021 7:29 AM LABORATORY MECHANICAL TECHNICIAN PAT Adult Entered On: 10/29/2021 7:36 EST [...] Source : Stated Height Entry Format : Beverly Height, Feet : 5 ft(Converted to: 152 cm, 60 Inch) Height, Inches : 2 Inch(Converted to: 0 ft 2 Inch, 5.08 cm) Clinical Height : 157.48 cm Weight Source : Standing scale Weight Entry Format : Beverly Clinical Dosing Weight : 91.73 kg Weight, Pounds : 201.8 lb Body Surface Area (BSA) : 1.92 m2 Body Mass Index : 37 kg/m2 (HI) Tyler Body Weight : 50 kg Nhi Alba [...] and When was COVID19 testing completed? : [facility] 10/27/21 Does the Patient state known exposure [...] Nhi Alba RN - 10/29/2021 7:29 EST [place] Suicide Severity Rating Scale (C-SSRS) CSSRS Past [...] Obtained From : Patient Primary Language : Grenadian Preferred Communication Mode : Verbal Communication Barrier : None Flash Welding Machine Operator Needed : No Objects to Sharing Info [...] the text rendition version of the form. Electronically signed by Wiliam Paiz Conversion Stocking And Box Shop Supervisor Cerner at 01/19/2023 9:20 PM CDT documented in this encounter Plan of Treatment Not on file documented as of this encounter Visit Diagnoses Not on filedocumented in this encounter
--- OUTSIDE RECORDS SUMMARY | 2025-05-30 08:39 | XMS_ITS | Encounter Summary ---
Author Organization [employer] ([place], [place], [place], [place]) Address [address] [place] [address] Care Team Providers Care Motor Carrier Inspector Name Role Phone Unavailable Primary Care Provider Unavailabl e Encounter Details Date Type Department Care Team (Late st Contact Info) Description 10/29/2021 Transcribed Document [facility] [place] [address] [place] [address] ProviderGuerita MD [address] [place] [address] Social History Tobacco Use Types [...] Date Murray rded Speak language other than French at home Not on file 10/22/2023 Want help with school or training Not on file 10/22/2023 Substance Use Answer Date Recorded Used prescription meds for non-medical reasons N ot on file 10/22/2023 Used illegal drugs past 12 months Not on file 10/22/2023 Comments Unknown Sex and Gender Information Value Date Recorded Sex Assigned at Female 08/19/2022 12:34 PM BAND SPLITTER Legal Sex Female 6:29 PM CDT Gender Identity Female 08/19/2022 12:34 PM BAND SPLITTER Sexual Orientation Straight 08/19/2022 12 :34 PM BAND SPLITTER COVID-19 Exposure Response Date Recorded In the last 10 days, have rufino reyes been in contact with someone who was confirmed or suspected to have Coronavirus/COVID-19? No / Unsure 02/08/2023 1:28 PM EDT documented as of this encounter Miscellaneous Notes * Cerner Conversion Note - Historical Provider, - 10/29/2021 10:26 AM BAND SPLITTER Patient Education Materials Follows:and Gynecology Lumpectomy, Care [...] these instructions at home: Medicines ??? Take bkmm-geo-hfsyywc and prescription medicines only as told by [...] keep your urine pale yellow. ? Take pdky-ysv-efzldof or prescription medicines. ? Eat foods that [...] and water are not available, use hand basket operator. ? Change your dressing as told [...] Reviewed: 03/25/2020 Elsevier Patient Education ? 2020 [employer] Pharmacology General Anesthesia, Adult, Care After [...] activities are safe for you. ??? Take ygby-xsg-zaxzsnp and prescription medicines only as told by [...] provider. Document Revised: 06/05/2021 Document Reviewed: 01/02/2021 Well Patient Education ? 2020 [employer] documented in this encounter Plan of Treatment Not on file documented as of this encounter Visit Diagnoses Not on filedocumented in this encounter
--- OUTSIDE RECORDS SUMMARY | 2025-05-30 08:39 | XMS_ITS | Encounter Summary ---
Author Organization [employer] ([place], [place], [place], [place]) Address [address] [place] [address] Care Team Providers Care Absorption Plant Operator Name Role Phone Unavailable Primary Care Provider Unavailabl e Encounter Details Date Type Department Care Team (Late st Contact Info) Description 11/18/2021 Transcribed Document [facility] [place] [address] [place] [address] ProviderGuerita MD [address] [place] [address] Social History Tobacco Use Types [...] Sex Assigned at Female 08/19/2022 12:34 PM HUMAN RESOURCES TEMP Legal Sex Female 6:29 PM CDT Gender Identity Female 08/19/2022 12:34 PM HUMAN RESOURCES TEMP Sexual Orientation Straight 08/19/2022 12 :34 PM HUMAN RESOURCES TEMP COVID-19 Exposure Response Date Recorded In the last 10 days, have rufino reyes been in contact with someone who was confirmed or suspected to have Coronavirus/COVID-19? No / Unsure 02/08/2023 1:28 PM EDT documented as of this encounter Miscellaneous Notes * Cerner Conversion Note - Historical Provider, - 11/18/2021 12:07 PM HUMAN RESOURCES TEMP [facility] PostOp Summary Primary Physician: IBIS OLIVAS MD-SUR Finalized Date/Time: 11/18/21 15:00:45 Pt. Name: ROBERTA ROE TIANNA /Sex: 1975 Female Med Rec #: [id number] Physician: IBIS OLIVAS MD-SUR Financial #: [id number] Pt. Type: O Room/Bed: [facility] Admit/Disch: 11/18/21 07:47:00 - Institution: [facility] OR PostOp Case Times Entry 1 In PACU II 11/18/21 13:44:00 Ready for PACU II 11/18/21 14:10:00 Discharge Discharge from PACU 11/18/21 14:10:00 II Last Modified By: Noni Larios Rn 11/18/21 15:00:43 Finalized By: Noni Larios, Rn Document Signatures Signed By: Noni Larios Rn 11/18/21 15:00 Electronically signed by Izabel [facility] Conversion Anthropology Instructor Cerner at 01/19/2023 9:03 PM CDT documented in this encounter Plan of Treatment Not on file documented as of this encounter Visit Diagnoses Not on filedocumented in this encounter
--- OUTSIDE RECORDS SUMMARY | 2025-05-30 08:39 | XMS_ITS | Clinical Summary ---
Author Organization [facility] Address [address] [place] [address] Care Team Providers Care Fire Apparatus Engineer Name Role Phone Андрей Thornton MD Primary [...] Appointment [facility] [place] [address] [facility] [address] [place] [id number] 08/23/2025 10:15 AM EST Office Visit [facility] HEMATOLOGY [facility]COLOG[facility] [address] [facility] [address] [place] [phone] Mavis Huffman MD [address] [facility] [address] [place] [address] 10/09/2025 10:15 AM EST Office Visit [facility] FAMILY MEDICINE [address] [place] [address] Андрей Thornton MD [address] [place] [address] Health Maintenance Due Date Last Done Comments [...] Most Recently Relevant to Health Maintenance Insurance [facility] PPO [facility] BLUE CROSS BLUE SHIELD PPO Care Teams Fire Apparatus Engineer Relationship Specialty Start Date End Date Андрей Thornton MD [address] [place] [address] PCP - General Family Medicine 03/25/23
--- OUTSIDE RECORDS SUMMARY | 2025-05-30 08:39 | XMS_ITS | Encounter Summary ---
Author Organization [employer] ([place], [place], [place], [place]) Address [address] [place] [address] Care Team Providers Care Foam Tank Laminator Name Role Phone Unavailable Primary Care Provider Unavailabl e Encounter Details Date Type Department Care Team (Late st Contact Info) Description 11/18/2021 Transcribed Document [facility] [place] [address] [place] [address] ProviderGuerita MD [address] [place] [address] Social History Tobacco Use Types [...] Sex Assigned at Female 08/19/2022 12:34 PM RN STARS Legal Sex Female 6:29 PM CDT Gender Identity Female 08/19/2022 12:34 PM RN STARS Sexual Orientation Straight 08/19/2022 12 :34 PM RN STARS COVID-19 Exposure Response Date Recorded In the last 10 days, have rufino u been in contact with someone who was confirmed or suspected to have Coronavirus/COVID-19? No / Unsure 02/08/2023 1:28 PM EDT documented as of this encounter Miscellaneous Notes * Cerner Conversion Note - Historical Provider, - 11/18/2021 1:53 PM RN STARS Patient Education Materials Follows:and Gynecology Lumpectomy, Care [...] these instructions at home: Medicines ??? Take lfkg-cbs-fagwdyh and prescription medicines only as told by [...] keep your urine pale yellow. ? Take zhkg-pvn-iyhaeoo or prescription medicines. ? Eat foods that [...] and water are not available, use hand poultry service technician. ? Change your dressing as [...] including vitamins, herbs, eye drops, creams, and lsgr-gje-wgghoiv medicines. ??? Any problems you or family [...] tells you to take them. ??? Taking dugr-rbg-iatnryl medicines, vitamins, herbs, and supplements. Do not [...] provider. Document Revised: 06/02/2021 Document Reviewed: 01/01/2021 [employer] Trans Patient Education ? 2020 [employer]. documented in this encounter Plan of Treatment Not on file documented as of this encounter Visit Diagnoses Not on filedocumented in this encounter
--- OUTSIDE RECORDS SUMMARY | 2025-05-30 08:39 | XMS_ITS | Encounter Summary ---
Author Organization [employer] ([place], [place], [place], [place]) Address [address] [place] [address] Care Team Providers Care Television Production Technician Name Role Phone Unavailable Primary Care Provider Unavailabl e Encounter Details Date Type Department Care Team (Late st Contact Info) Description 10/31/2021 Transcribed Document [facility] [place] [address] [place] [address] ProviderGuerita MD [address] [place] [address] Social History Tobacco Use Types [...] Date Murray rded Speak language other than Australian at home Not on file 10/22/2023 Want help with school or training Not on file 10/22/2023 Substance Use Answer Date Recorded Used prescription meds for non-medical reasons N ot on file 10/22/2023 Used illegal drugs past 12 months Not on file 10/22/2023 Comments Unknown Sex and Gender Information Value Date Recorded Sex Assigned at Female 08/19/2022 12:34 PM ARTISAN PLASTERER Legal Sex Female 6:29 PM CDT Gender Identity Female 08/19/2022 12:34 PM ARTISAN PLASTERER Sexual Orientation Straight 08/19/2022 12 :34 PM ARTISAN PLASTERER COVID-19 Exposure Response Date Recorded In the last 10 days, have rufino eryes been in contact with someone who was confirmed or suspected to have Coronavirus/COVID-19? No / Unsure 02/08/2023 1:28 PM EDT documented as of this encounter Miscellaneous Notes * Cerner Conversion Note - Historical Provider, - 10/31/2021 3:42 PM ARTISAN PLASTERER ED Assessment Entered On: 10/31/2021 17:04 EST Performed On: 10/31/2021 17:02 EST by TOM ENRIQUE, PLASTIC PANEL INSTALLER Quick Look Assessment Level of Consciousness : Alert, Awake Affect/Behavior : Cooperative, Anxious Orientation : Oriented x 4 Skin Temperature : Warm Skin Description : Dry TOM ENRIQUE RN - 10/31/2021 17:02 EST ED General-Functional Assess Information Obtained From : Patient Preferred Communication Mode : Verbal Communication Barrier : None Primary Language : Australian Any Spiritual/Cultural Needs or Requests : No [...]
--- OUTSIDE RECORDS SUMMARY | 2025-05-30 08:39 | XMS_ITS | Encounter Summary ---
Author Organization [employer] ([place], [place], [place], [place]) Address [address] [place] [address] Care Team Providers Care Sas Programmer Name Role Phone Unavailable Primary Care Provider Unavailabl e Encounter Details Date Type Department Care Team (Late st Contact Info) Description 11/18/2021 Transcribed Document [facility] [place] [address] [place] [address] ProviderGuerita MD [address] [place] [address] Social History Tobacco Use Types [...] Date Murray rded Speak language other than Urdu at home Not on file 10/22/2023 Want help with school or training Not on file 10/22/2023 Substance Use Answer Date Recorded Used prescription meds for non-medical reasons N ot on file 10/22/2023 Used illegal drugs past 12 months Not on file 10/22/2023 Comments Unknown Sex and Gender Information Value Date Recorded Sex Assigned at Female 08/19/2022 12:34 PM RN ALLERGY Legal Sex Female 6:29 PM CDT Gender Identity Female 08/19/2022 12:34 PM RN ALLERGY Sexual Orientation Straight 08/19/2022 12 :34 PM RN ALLERGY COVID-19 Exposure Response Date Recorded In the last 10 days, have rufino reyes been in contact with someone who was confirmed or suspected to have Coronavirus/COVID-19? No / Unsure 02/08/2023 1:28 PM EDT documented as of this encounter Miscellaneous Notes * Cerner Conversion Note - Historical Provider, - 11/18/2021 12:07 PM RN ALLERGY [facility] Main OR PACU Summary Primary Physician: IBIS OLIVAS MD-SUR Finalized Date/Time: 11/18/21 13:47:31 Pt. Name: ROBERTA ROE TIANNA /Sex: 1975 Female Med Rec #: [id number] Physician: IBIS OLIVAS MD-SUR Financial #: [id number] Pt. Type: O Room/Bed: [facility] Admit/Disch: 11/18/21 07:47:00 - Institution: [facility] Main OR PACU Case Times Entry 1 In PACU I 11/18/21 12:56:00 Ready for PACU 11/18/21 13:43:00 Discharge Discharge from PACU 11/18/21 13:43:00 I Last Modified By: Soledad Gonzales RN 11/18/21 13:47:21 [facility] OR PACU Case Times Audit 11/18/21 13:47:21 Lead Medical Technologist: COLLEEN Modifier: [email or web address] <+> 1 Ready for PACU Discharge <+> 1 Discharge from PACU I Finalized By: Soledad Gonzales, RN Document Signatures Signed By: Soledad Gonzales RN 11/18/21 13:47 Electronically signed by Izabel [facility] Conversion Airfreight Loading Supervisor Cerner at 01/19/2023 9:13 PM CDT documented in this encounter Plan of Treatment Not on file documented as of this encounter Visit Diagnoses Not on filedocumented in this encounter
--- OUTSIDE RECORDS SUMMARY | 2025-05-30 08:39 | XMS_ITS | Encounter Summary ---
Author Organization [employer] ([place], [place], [place], [place]) Address [address] [place] [address] Care Team Providers Care Finance Vice President Name Role Phone Unavailable Primary Care Provider Unavailabl e Encounter Details Date Type Department Care Team (Late st Contact Info) Description 11/18/2021 Transcribed Document [facility] [place] [address] [place] [address] ProviderGuerita MD [address] [place] [address] Social History Tobacco Use Types [...] Sex Assigned at Female 08/19/2022 12:34 PM SUNGLASS CLIP ATTACHER Legal Sex Female 6:29 PM CDT Gender Identity Female 08/19/2022 12:34 PM SUNGLASS CLIP ATTACHER Sexual Orientation Straight 08/19/2022 12 :34 PM SUNGLASS CLIP ATTACHER COVID-19 Exposure Response Date Recorded In the last 10 days, have rufino reyes been in contact with someone who was confirmed or suspected to have Coronavirus/COVID-19? No / Unsure 02/08/2023 1:28 PM EDT documented as of this encounter Miscellaneous Notes * Cerner Conversion Note - Historical Provider, - 11/18/2021 12:07 PM SUNGLASS CLIP ATTACHER [facility] Main OR IntraOp Summary Primary Physician: IBIS OLIVAS MD-SUR Finalized Date/Time: 11/18/21 12:55:41 Pt. Name: DEMETRIA ROE TIANNA /Sex: 1975 Female Med Rec #: [id number] Physician: BIIS OLIVAS MD-SUR Financial #: [id number] Pt. Type: O Room/Bed: [facility] Admit/Disch: 11/18/21 07:47:00 - Institution: [facility] [place] IntraOp Case Attendance Entry 1 Entry 2 Entry 3 Case Attendee IBIS OLIVAS Evans, Mandy, MORROW, ERIC, PA MD-SUR RN-PATIENT CARE BEDSIDE NON-EXEMPT Role Performed Surgeon/Proceduralist, Convenience Store Clerk, First Physician recruitment and outreach assistant First Time In 11/18/21 11:43:00 11/18/21 [...] 5 Entry 6 Case Attendee Soledad Mcduffie, SUNGLASS CLIP ATTACHER LES RIOS, DISPENSING OPTICIAN APPRENTICE OTHER, ATTENDEE #1 Role Performed Scrub, First DISPENSING OPTICIAN APPRENTICE/Nurse Entry Level Recruiter Student Time In 11/18/21 11:43:00 11/18/21 11:43:00 11/18/21 11:43:00 Time Out 11/18/21 12:20:00 11/18/21 12:55:00 11/18/21 12:55:00 Procedure Breast Biopsy FS Needle Breast Biopsy FS Needle Breast Biopsy FS Needle Localization Localization Localization Other Attendee DISPENSING OPTICIAN APPRENTICE STUDENT - YONNY SERVIN Superficial Wound Closed [...] [facility] IntraOp Case Attendance Audit 11/18/21 12:55:39 Chain Saw Driver: [id number] Modifier: [id number] 1 <+> Time Out 1 <*> Procedure [...] Breast Biopsy FS Needle Localization 11/18/21 12:25:47 Chain Saw Driver: [id number] Modifier: [id number] <+> 1 Procedure 2 <*> Procedure Breast Biopsy FS Needle Localization 3 <*> Procedure Breast Biopsy FS Needle Localization 4 <*> Procedure Breast Biopsy FS Needle Localization 5 <*> Procedure Breast Biopsy FS Needle Localization 6 <*> Procedure Breast Biopsy FS Needle Localization 7 <*> Procedure Breast Biopsy FS Needle Localization 11/18/21 12:23:29 Chain Saw Driver: [id number] Modifier: [id number] <+> Time Out 4 <*> Procedure Breast Biopsy FS Needle Localization 11/18/21 12:17:26 Chain Saw Driver: [id number] Modifier: [id number] 2 <+> Time In 2 <*> Procedure [...] Time In <+> 7 Procedure 11/18/21 12:12:51 Chain Saw Driver: [id number] Modifier: [id number] <+> 1 Time In <+> 2 Case [...] [facility] IntraOp Case Times Audit 11/18/21 12:55:25 Chain Saw Driver: [id number] Modifier: [id number] <+> 1 Out Room Time <+> 1 [...] Patient Transport Jolene Massey, Accompanied by RN-PATIENT [facility] NON-EXEMPT, RIOS, LES, DISPENSING OPTICIAN APPRENTICE, OTHER, ATTENDEE #1 Last Modified By: Jolene [...] NON-EXEMPT 11/18/21 12:18:38 [facility] IntraOp General Case Building Construction Inspector 1 Case Information OR OR 02 [facility] [...] 1% w/ epinephrine 1:100,000 30ml vial - [id number] Route of LOCAL INJECTION Administration Dose Dose [...] Massey RN-PATIENT CARE BEDSIDE NON-EXEMPT, RIOS, LES, DISPENSING OPTICIAN APPRENTICE, IBIS OLIVAS MD-YARA, OTHER, ATTENDEE #1, FRANCISCO [...] Intra Op Sign Out Audit 11/18/21 12:55:32 Chain Saw Driver: [id number] Modifier: [id number] <+> 1 RN Sign Out Signature Date/Time [...] [facility] IntraOp Surgical Procedures Audit 11/18/21 12:55:36 Chain Saw Driver: [id number] Modifier: [id number] <+> 1 Stop [facility] IntraOp Time Out [...]
--- OUTSIDE RECORDS SUMMARY | 2025-05-30 08:39 | XMS_ITS | Encounter Summary ---
Author Organization [employer] ([place], [place], [place], [place]) Address [address] [place] [address] Care Team Providers Care Design Eng Name Role Phone Unavailable Primary Care Provider Unavailabl e Encounter Details Date Type Department Care Team (Late st Contact Info) Description 11/18/[address] [facility] [place] Family Medicine [address] [place] [address] ProviderGuerita MD [address] [place] [address] Social History Tobacco Use Types [...] Sex Assigned at Female 08/19/2022 12:34 PM SWIMMER Legal Sex Female 6:29 PM CDT Gender Identity Female 08/19/2022 12:34 PM SWIMMER Sexual Orientation Straight 08/19/2022 12 :34 PM SWIMMER COVID-19 Exposure Response Date Recorded In the last 10 days, have rufino reyes been in contact with someone who was confirmed or suspected to have Coronavirus/COVID-19? No / Unsure 02/08/2023 1:28 PM EDT documented as of this encounter Miscellaneous Notes * Cerner Conversion Note - Historical Provider, - 11/18/2021 8:47 AM SWIMMER PAT Adult Entered On: 11/18/2021 8:49 EST [...] Source : Stated Height Entry Format : Ransom Height, Feet : 5 ft(Converted to: 152 cm, 60 Inch) Height, Inches : 2 Inch(Converted to: 0 ft 2 Inch, 5.08 cm) Clinical Height : 157.48 cm Weight Source : Standing scale Weight Entry Format : Ransom Clinical Dosing Weight : 93.18 kg Weight, Pounds : 205 lb Body Surface Area (BSA) : 1.93 m2 Body Mass Index : 37.6 kg/m2 (HI) [place] Body Weight : 50 kg Palmira Wong [...] Palmira Wong RN - 11/18/2021 8:47 EST [place] Suicide Severity Rating Scale (C-SSRS) CSSRS Past [...] #2 Relationship : . Primary Language : Faroese Preferred Communication Mode : Verbal Communication Barrier : None Casing Soaker Needed : Palmira Myrick RN - 11/18/2021 [...]
--- OUTSIDE RECORDS SUMMARY | 2025-05-30 08:39 | XMS_ITS | Encounter Summary ---
Author Organization [employer] ([place], [place], [place], [place]) Address [address] [place] [address] Care Team Providers Care Mac Operator Name Role Phone Unavailable Primary Care Provider Unavailabl e Encounter Details Date Type Department Care Team (Late st Contact Info) Description 11/19/2021 Transcribed Document [facility] - [place] [address] [place] [address] Manuel Jefferson MD [address] [place] [address] Social History Tobacco Use Types [...] Sex Assigned at Female 08/19/2022 12:34 PM DROP WORKER Legal Sex Female 6:29 PM CDT Gender Identity Female 08/19/2022 12:34 PM DROP WORKER Sexual Orientation Straight 08/19/2022 12 :34 PM DROP WORKER COVID-19 Exposure Response Date Recorded In [...] PERFORMED: Right needle localized re-excision partial mastectomy. CHIEF SUPPLY CHAIN OFFICER: Edward Alcantara PA-C ANESTHESIA: General. ESTIMATED BLOOD [...] taken to the PACU in stable condition. /[id number] MD NOMI Canales/DEMETRIO / NOMI / MODL /[id number] CC: [facility] documented in this encounter Plan of Treatment Not on file documented as of this encounter Visit Diagnoses Not on filedocumented in this encounter
--- OUTSIDE RECORDS SUMMARY | 2025-05-30 08:39 | XMS_ITS | Encounter Summary ---
Author Organization [employer] ([place], [place], [place], [place]) Address [address] [place] [address] Care Team Providers Care Rod Greaser Name Role Phone Unavailable Primary Care Provider Unavailabl e Encounter Details Date Type Department Care Team (Late st Contact Info) Description 10/29/2021 Transcribed Document [facility] Surgery - [place] [address] [place] [address] Manuel Jefferson MD [address] [place] [address] Social History Tobacco Use Types [...] Sex Assigned at Female 08/19/2022 12:34 PM SHOES HAND SEWER Legal Sex Female 6:29 PM CDT Gender Identity Female 08/19/2022 12:34 PM SHOES HAND SEWER Sexual Orientation Straight 08/19/2022 12 :34 PM SHOES HAND SEWER COVID-19 Exposure Response Date Recorded In the [...] PROCEDURE PERFORMED: Right needle localized partial mastectomy. CIVIL CELEBRANT: Edward Alcantara PA-C. ANESTHESIA: General. ESTIMATED BLOOD LOSS: Minimal. COMPLICATIONS: None. OPERATIVE INDICATIONS: Ms. Tolbert is a 45-year-old female patient, who is referred to [facility] for surgical evaluation of newly diagnosed right [...] and taken to PACU in stable condition. /[id number] MD NOMI Canales/DEMETRIO / NOMI / MODL /[id number] CC: [facility] documented in this encounter Plan of Treatment Not on file documented as of this encounter Visit Diagnoses Not on filedocumented in this encounter
--- OUTSIDE RECORDS SUMMARY | 2025-05-30 08:39 | XMS_ITS | Encounter Summary ---
Author Organization [employer] ([place], [place], [place], [place]) Address [address] [place] [address] Care Team Providers Care Asbestos Abatement Worker Name Role Phone Unavailable Primary Care Provider Unavailabl e Encounter Details Date Type Department Care Team (Late st Contact Info) Description 01/27/2022 Transcribed Document [facility] [place] [address] [place] [address] ProviderGuerita MD [address] [place] [address] Social History Tobacco Use Types [...] Sex Assigned at Female 08/19/2022 12:34 PM ASSISTANT SERVICE MANAGER Legal Sex Female 6:29 PM CDT Gender Identity Female 08/19/2022 12:34 PM ASSISTANT SERVICE MANAGER Sexual Orientation Straight 08/19/2022 12 :34 PM ASSISTANT SERVICE MANAGER COVID-19 Exposure Response Date Recorded In [...] Source : Measured Height Entry Format : Titus Height, Feet : 5 ft(Converted to: 152 cm, 60 Inch) Height, Inches : 2 Inch(Converted to: 0 ft 2 Inch, 5.08 cm) Clinical Height : 157.48 cm Weight Source : Standing scale Weight Entry Format : Titus Clinical Dosing Weight : 91.36 kg Weight, Pounds : 201 lb Body Surface Area (BSA) : 1.92 m2 Body Mass Index : 36.8 kg/m2 (HI) [place] Body Weight : 50 kg Melani Pillai [...] RN) Infectious Disease History COVID19 Link to [facility] Symptoms : Right click and select reference [...] Melani Pillai RN - 01/27/2022 14:08 EDT [place] Suicide Severity Rating Scale (C-SSRS) CSSRS Past [...] #2 Relationship : . Primary Language : Turkish Preferred Communication Mode : Verbal Communication Barrier : None Loft Patternmaker Needed : No Melani Pillai RN - 01/27/2022 14:08 EDT Oneil Scale Oneil Sensory Perception : Slightly limited Oneil Moisture : Rarely moist Oneil Activity : Walks frequently Oneil Mobility : No limitation Oneil Nutrition : Excellent Oneil Friction and Shear : No apparent problem Oneil Score : 22 eMlani Pillai RN - 01/27/2022 14:08 EDT Sleep [...]
--- OUTSIDE RECORDS SUMMARY | 2025-05-30 08:39 | XMS_ITS | Referral Summary ---
Author Organization [email or web address] ([place], [place], [place], [place]) Address [address] [place] [address] Care Team Providers Care Lab Specialist Name Role Phone Unavailable Primary Care Provider Unavailabl e Allergies No known active allergies Medications multivitamin capsule 1 Tab, Oral, Daily, 0 Refill(s) 01/27/2022 Active ascorbic acid, vitamin C, (ascorbic acid) 250 mg Chew Take by mouth. Active tamoxifen (NOLVADEX) 20 MG tablet Take 1 tablet (20 mg total) by mouth daily. 90 tablet 3 08/19/2022 Active gmfs-FG-jkw-epa- DTK-WXMR-ne-mv 1.5 mg iron- 8.73 mg CpID Iron, [...] Next Due Influenza Four-QIV 6MO+ PF IM ([id number]) 2,07/08/2020 Influenza Four-qiv Pf 09/16/2021 Social History [...] Date Murray rded Speak language other than Montserratian at home Not on file 10/22/2023 Want help with school or training Not on file 10/22/2023 Substance Use Answer Date Recorded Used prescription meds for non-medical reasons N ot on file 10/22/2023 Used illegal drugs past 12 months Not on file 10/22/2023 Comments Unknown Sex and Gender Information Value Date Recorded Sex Assigned at Female 08/19/2022 12:34 PM ORNAMENTAL IRON WORKER Legal Sex Female 6:29 PM CDT Gender Identity Female 08/19/2022 12:34 PM ORNAMENTAL IRON WORKER Sexual Orientation Straight 08/19/2022 12 :34 PM ORNAMENTAL IRON WORKER Last Filed Vital Signs Vital Sign [...] in one year. At our facility, a kashia marker is positioned over a visible skin [...] family history of breast cancer COMPARISON STUDY: [facility] [phone] FINDINGS: Craniocaudal and mediolateral oblique images of [...] family history of breast cancer COMPARISON STUDY: [facility] FINDINGS: Craniocaudal and mediolateral oblique images [...] in one year. At our facility, a kashia marker is positioned over a visible skin [...]
--- OUTSIDE RECORDS SUMMARY | 2025-05-30 08:39 | XMS_ITS | Encounter Summary ---
Author Organization [employer] ([place], [place], [place], [place]) Address [address] [place] [address] Care Team Providers Care Seasoner Hand Name Role Phone Unavailable Primary Care Provider Unavailabl e Encounter Details Date Type Department Care Team (Late st Contact Info) Description 10/31/2021 Transcribed Document [facility] [place] Family Medicine [address] [place] [address] ProviderGuerita MD [address] [place] [address] Social History Tobacco Use Types [...] Date Murray rded Speak language other than Yakut at home Not on file 10/22/2023 Want help with school or training Not on file 10/22/2023 Substance Use Answer Date Recorded Used prescription meds for non-medical reasons N ot on file 10/22/2023 Used illegal drugs past 12 months Not on file 10/22/2023 Comments Unknown Sex and Gender Information Value Date Recorded Sex Assigned at Female 08/19/2022 12:34 PM NEWSPAPER DELIVERY DRIVER Legal Sex Female 6:29 PM CDT Gender Identity Female 08/19/2022 12:34 PM NEWSPAPER DELIVERY DRIVER Sexual Orientation Straight 08/19/2022 12 :34 PM NEWSPAPER DELIVERY DRIVER COVID-19 Exposure Response Date Recorded In the last 10 days, have rufino reyes been in contact with someone who was confirmed or suspected to have Coronavirus/COVID-19? No / Unsure 02/08/2023 1:28 PM EDT documented as of this encounter Miscellaneous Notes * Cerner Conversion Note - Historical Provider, - 10/31/2021 8:30 PM [place] [address] AGATHA ROESANTIAGO WYNN :1975 Visit Time:10/31/2021 Your [...] mental status, fainting, chest pain Where: [address] [facility] [address] [place] [phone] Business (1) Follow Up with WINDY WELSH When Within 2 to 3 days Comments Call for follow up appointment with neurologist if symptoms persist Where: [address] [facility] [address] [place] [address]- Business (1) Follow Up with [...] range between ( 1.0 and 7.0 ) Dukes #: 0.58 K/uL -- Normal range between ( 0.24 and 0.82 ) Eos #: 0.09 K/uL -- Normal range between ( 0.04 and 0.54 ) Dukes %: 6.2 % -- Normal range between [...] ) Urine Bilirubin Dipstick: Negative Urine Specific [place]: 1.018 -- Normal range between ( 1.005 [...] these instructions at home: Medicines ??? Take cdel-nzx-jgbxlpl and prescription medicines only as told by [...] keep your urine pale yellow. ? Take eqyg-eqq-eqabsay or prescription medicines. ? Eat foods that [...] and water are not available, use hand script writer. ? Change your dressing as told by [...] provider. Document Revised: 03/25/2020 Document Reviewed: 03/25/2020 [employer] Patient Education ?? 2020 [employer]. Lumpectomy A lumpectomy, sometimes called a partial [...] including vitamins, herbs, eye drops, creams, and cxbh-zkn-sivpgft medicines. ??? Any problems you or family [...] tells you to take them. ??? Taking wphm-zio-fhhjvhj medicines, vitamins, herbs, and supplements. General instructions [...] provider. Document Revised: 03/25/2020 Document Reviewed: 03/25/2020 [employer] Patient Education ?? 2020 [employer]. Paresthesia Paresthesia is an abnormal burning or [...] or sweet foods. General instructions ??? Take iexm-tef-gakalzz and prescription medicines only as told by [...] provider. Document Revised: 10/16/2019 Document Reviewed: 09/29/2018 [employer] Patient Education ?? 2020 [employer]. Emergency Awareness and Preventative Care STROKE is [...] Assistance with quitting is available by contacting 4-221-ILQS-NOW. This is a free resource providing counseling, [...] was given the opportunity to ask questions. Patient/Math Professor Name: Patient/Math Professor Signature: Relationship to Patient: Clinician/Hospital Math Professor Signature: Please Provide a Telephone Number Where You Can Be Reached: Is it Permissible To Leave a Message? Date: documented in this encounter Plan of Treatment Not on file documented as of this encounter Visit Diagnoses Not on filedocumented in this encounter
--- OUTSIDE RECORDS SUMMARY | 2025-05-30 08:39 | XMS_ITS | Encounter Summary ---
Author Organization [employer] ([place], [place], [place], [place]) Address [address] [place] [address] Care Team Providers Care Tailor Garment Fitter Name Role Phone Unavailable Primary Care Provider Unavailabl e Encounter Details Date Type Department Care Team (Late st Contact Info) Description 10/31/2021 Transcribed Document [facility] [place] [address] [place] [address] ProviderGuerita MD [address] [place] [address] Social History Tobacco Use Types [...] Date Murray rded Speak language other than Greenlandic at home Not on file 10/22/2023 Want help with school or training Not on file 10/22/2023 Substance Use Answer Date Recorded Used prescription meds for non-medical reasons N ot on file 10/22/2023 Used illegal drugs past 12 months Not on file 10/22/2023 Comments Unknown Sex and Gender Information Value Date Recorded Sex Assigned at Female 08/19/2022 12:34 PM PROFESSIONAL APPLICATION DESIGNER Legal Sex Female 6:29 PM CDT Gender Identity Female 08/19/2022 12:34 PM PROFESSIONAL APPLICATION DESIGNER Sexual Orientation Straight 08/19/2022 12 :34 PM PROFESSIONAL APPLICATION DESIGNER COVID-19 Exposure Response Date Recorded In the last 10 days, have rufino reyes been in contact with someone who was confirmed or suspected to have Coronavirus/COVID-19? No / Unsure 02/08/2023 1:28 PM EDT documented as of this encounter Miscellaneous Notes * Cerner Conversion Note - Historical Provider, - 10/31/2021 3:42 PM PROFESSIONAL APPLICATION DESIGNER Broset Violence Assessment Entered On: 10/31/2021 16:06 EST Performed On: 10/31/2021 16:06 EST by NATHANIEL NOYOLA Rn Broset Violence Assessment Broset Violence Checklist of Symptoms : None Broset Violence Symptoms Subtotal : 0 Broset Violence Symptoms Indicator : Low risk (0) Broset Interventions : [place] precautions for safety used NATHANIEL NOYOLA Rn - 10/31/2021 16:06 EST documented in this encounter Plan of Treatment Not on file documented as of this encounter Visit Diagnoses Not on filedocumented in this encounter
--- OUTSIDE RECORDS SUMMARY | 2025-05-30 08:39 | XMS_ITS | Encounter Summary ---
Author Organization [employer] ([place], [place], [place], [place]) Address [address] [place] [address] Care Team Providers Care Medical Technologist Hematology Name Role Phone Unavailable Primary Care Provider Unavailabl e Encounter Details Date Type Department Care Team (Late st Contact Info) Description 11/18/2021 Transcribed Document [facility] [place] [address] [place] [address] ProviderGuerita MD [address] [place] [address] Social History Tobacco Use Types [...] Sex Assigned at Female 08/19/2022 12:34 PM DEVOPS ARCHITECT Legal Sex Female 6:29 PM CDT Gender Identity Female 08/19/2022 12:34 PM DEVOPS ARCHITECT Sexual Orientation Straight 08/19/2022 12 :34 PM DEVOPS ARCHITECT COVID-19 Exposure Response Date Recorded In the last 10 days, have rufino reyes been in contact with someone who was confirmed or suspected to have Coronavirus/COVID-19? 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 Instructions From Your Care Team no heavy lifting, no pressure to right breast may shower tomorrow, pat incision dry pain medication at [facility] pharmacy follow with as instructed Discharge Diet: Resume usual diet as tolerated Follow-Up Appointments Follow Up with IBIS OLIVAS MD-YARA When 11/27/2021 03:15 PM EST Comments Appointment has been made Where: [address] [facility] [address] [place] [address]- Medications What How Much When Instructions Next Dose acetaminophen-oxyCODONE (Percocet 5/ 325 oral tablet) 2 Tablet(s) Oral Every 4 Hours as needed for for pain Duration: 2 Day(s) Max 6 tabs per day. Pickup at [id number] 5:30pm Pharmacy Information [id number]: [address] [phone] Take your medications faithfully. Do NOT skip [...] including vitamins, herbs, eye drops, creams, and vmbe-fnm-rpymnkv medicines. ??? Any problems you or family [...] tells you to take them. ??? Taking zxrt-twl-klekzzb medicines, vitamins, herbs, and supplements. Do not [...] Reviewed: 01/01/2021 Elsevier Patient Education ?? 2020 [employer]. Lumpectomy, Care After This sheet gives [...] these instructions at home: Medicines ??? Take hfqf-rxl-csqdctx and prescription medicines only as told by [...] keep your urine pale yellow. ? Take ysyn-zzy-fdreowm or prescription medicines. ? Eat foods that [...] and water are not available, use hand imaging scheduler. ? Change your dressing as told by [...] provider. Document Revised: 03/25/2020 Document Reviewed: 03/25/2020 [employer] Patient Education ?? 2020 [employer]. acetaminophen and oxycodone (a SEET a MIN [...] may report side effects to FDA at 8-437-PVQ-1375. What other drugs will affect acetaminophen and [...] affect acetaminophen and oxycodone, including prescription and dlec-czs-lvyuuiq medicines, vitamins, and herbal products. Not all [...] to ensure that the information provided by [employer]. ('[employer]') is accurate, up-to-date, and complete, but no guarantee is made to that effect. Drug information contained herein may be time sensitive. [employer] information has been compiled for use by healthcare practitioners and consumers in the [place] and therefore [employer] does not warrant that uses outside of the [place] are appropriate, unless specifically indicated otherwise. [employer]'s drug information does not endorse drugs, diagnose patients or recommend therapy. [facility] [employer] drug information is an informational resource designed [...] effective or appropriate for any given patient. [facility] does not assume any responsibility for any aspect of healthcare administered with the aid of information [facility] provides. The information contained herein is not intended to cover all possible uses, directions, precautions, warnings, drug interactions, allergic reactions, or adverse effects. If you have questions about the drugs you are taking, check with your doctor, nurse or pharmacist. Copyright 5137-5735 [facility]. Version: .. Revision Date: 11/08/2020. Emergency Awareness [...] Assistance with quitting is available by contacting 6-919-VJGE-NOW. This is a free resource providing counseling, [...] was given the opportunity to ask questions. Patient/River Transportation Worker Name: Patient/River Transportation Worker Signature: Relationship to Patient: Clinician/Hospital River Transportation Worker Signature: Date: documented in this encounter Plan of Treatment Not on file documented as of this encounter Visit Diagnoses Not on filedocumented in this encounter
--- OUTSIDE RECORDS SUMMARY | 2025-05-30 08:39 | XMS_ITS | Encounter Summary ---
Author Organization [employer] ([place], [place], [place], [place]) Address [address] [place] [address] Care Team Providers Care Flat Sorter Processor Name Role Phone Unavailable Primary Care Provider Unavailabl e Encounter Details Date Type Department Care Team (Late st Contact Info) Description 10/31/2021 Transcribed Document [facility] [place] [address] [place] [address] ProviderGuerita MD [address] [place] [address] Social History Tobacco Use Types [...] Assigned at Female 08/19/2022 12:34 PM BUSINESS MAIL ENTRY CLERK Legal Sex Female 6:29 PM CDT Gender Identity Female 08/19/2022 12:34 PM BUSINESS MAIL ENTRY CLERK Sexual Orientation Straight 08/19/2022 12 :34 PM BUSINESS MAIL ENTRY CLERK COVID-19 Exposure Response Date Recorded In the last 10 days, have yo u been in contact with someone who was confirmed or suspected to have Coronavirus/COVID-19? No / Unsure 02/08/2023 1:28 PM EDT documented as of this encounter Miscellaneous Notes * Cerner Conversion Note - Historical Provider, - 10/31/2021 8:15 PM BUSINESS MAIL ENTRY CLERK Electronically signed by Izabel, [facility] Conversion Project Controls Scheduler Cerner at 01/19/2023 9:30 PM CDT documented in this encounter Plan of Treatment Not on file documented as of this encounter Visit Diagnoses Not on filedocumented in this encounter
--- OUTSIDE RECORDS SUMMARY | 2025-05-30 08:40 | XMS_ITS | Encounter Summary ---
Author Organization [employer] ([place], [place], [place], [place]) Address [address] [place] [address] Care Team Providers Care Cable Ferryboat Operator Name Role Phone Unavailable Primary Care Provider Unavailabl e Encounter Details Date Type Department Care Team (Late st Contact Info) Description 10/31/2021 Transcribed Document [facility] [place] [address] [place] [address] ProviderGuerita MD [address] [place] [address] Social History Tobacco Use Types [...] Sex Assigned at Female 08/19/2022 12:34 PM CORRECTIONS IDENTIFICATION TECHNICIAN Legal Sex Female 6:29 PM CDT Gender Identity Female 08/19/2022 12:34 PM CORRECTIONS IDENTIFICATION TECHNICIAN Sexual Orientation Straight 08/19/2022 12 :34 PM CORRECTIONS IDENTIFICATION TECHNICIAN COVID-19 Exposure Response Date Recorded In the last 10 days, have yo u been in contact with someone who was confirmed or suspected to have Coronavirus/COVID-19? No / Unsure 02/08/2023 1:28 PM EDT documented as of this encounter Miscellaneous Notes * Cerner Conversion Note - Historical Provider, - 10/31/2021 3:42 PM CORRECTIONS IDENTIFICATION TECHNICIAN ED Triage Entered On: 10/31/2021 16:05 EST Performed On: 10/31/2021 16:03 EST by NATHANIEL NOYOLA taper operator Triage Across the Room Chief Complaint : PT had lumpectomy/ right breast this past Wed, c/o BL arm, BL leg, and limp numbness, resp even andunlabored, denies pain Triage Date/Time : 10/31/2021 16:03 EST NATHANIEL NOYOLA Rn - 10/31/2021 16:03 EST DCP GENERIC CODE Tracking Acuity : 3 - Urgent Tracking Group : [facility] ED [place] NATHANIEL NOYOLA Rn - 10/31/2021 [...] in situ of right breast (SNOMED CT :[id number] ) 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 ; Recorder: Nhi Alba RN; Confirmation: Confirmed ; Classification: Medical ; Code: [id number] ; Contributor System: PowerChart ; Last Updated: 10/29/2021 7:28 EST ; Life Cycle Date: 10/29/2021 ; Life Cycle Status: Active ; Vocabulary: SNOMED CT Diagnoses(Active) Surgical problem reevaluation Date: 10/31/2021 ; Diagnosis Type: Reason For Visit ; Confirmation: Complaint of ; Clinical Dx: Surgical problem reevaluation ; Classification: Medical ; Clinical Service: Non-Specified ; Code: PNED ; Probability: 0 ; Diagnosis Code: [id number] ED Height and Weight Height Source : Stated Height Entry Format : [place] Height, Feet : 5 ft(Converted to: 152 cm, 60 Inch) Height, Inches : 2 Inch(Converted to: 0 ft 2 Inch, 5.08 cm) Clinical Height : 157.48 cm Weight Source, ED : Standing scale Weight Entry Format : [place] Weight, Pounds : 201 lb Clinical Dosing Weight : 91.36 kg Body Surface Area (BSA) : 1.92 m2 Body Mass Index : 36.8 kg/m2 (HI) [place] Body Weight (IBW) : 49.73 kg NATHANIEL NOYOLA Rn - 10/31/2021 16:03 EST Electronically signed by Izabel [facility] Conversion Reset Merchandiser Cerner at 01/19/2023 9:12 PM CDT documented in this encounter Plan of Treatment Not on file documented as of this encounter Visit Diagnoses Not on filedocumented in this encounter
--- OUTSIDE RECORDS SUMMARY | 2025-05-30 08:40 | XMS_ITS | Encounter Summary ---
Author Organization [employer] ([place], [place], [place], [place]) Address [address] [place] [address] Care Team Providers Care Fbi Sharpshooter Name Role Phone Unavailable Primary Care Provider Unavailabl e Encounter Details Date Type Department Care Team (Late st Contact Info) Description 10/29/2021 Transcribed Document [facility] [place] [address] [place] [address] ProviderGuerita MD [address] [place] [address] Social History Tobacco Use Types [...] Sex Assigned at Female 08/19/2022 12:34 PM MALTED MILK MASHER Legal Sex Female 6:29 PM CDT Gender Identity Female 08/19/2022 12:34 PM MALTED MILK MASHER Sexual Orientation Straight 08/19/2022 12 :34 PM MALTED MILK MASHER COVID-19 Exposure Response Date Recorded In the last 10 days, have rufino reyse been in contact with someone who was confirmed or suspected to have Coronavirus/COVID-19? No / Unsure 02/08/2023 1:28 PM EDT documented as of this encounter Miscellaneous Notes * Cerner Conversion Note - Historical Provider, - 10/29/2021 9:44 AM MALTED MILK MASHER [facility] Main OR IntraOp Summary Primary Physician: IBIS OLIVAS MD-SUR Finalized Date/Time: 10/29/21 10:20:01 Pt. Name: DEMETRIA ROE TIANNA /Sex: 1975 Female Med Rec #: [id number] Physician: IBIS OLIVAS MD-SUR Financial #: [id number] Pt. Type: O Room/Bed: [facility] Admit/Disch: 10/29/21 06:31:00 - Institution: [facility] IntraOp Case Attendance Entry 1 Entry 2 Entry 3 Case Attendee IBIS OLIVAS Dooley, Carol, RN OTHER, ATTENDEE #1 LOURDES Role Performed Surgeon/Proceduralist, Retail Sales Manager, First PORT DRIER/Nurse Toy Assembler First Time In 10/29/21 09:20:00 10/29/21 09:20:00 [...] JAVIER MARISCAL PA Antrobus, Monica, LEININGER, SUSAN, tanner rotary drum continuous processFingernail Sculpturer Role Performed Traveling Inventory Associate, First Scrub, First Retail Sales Manager, Second Time In 10/29/21 09:20:00 10/29/21 09:20:00 10/29/21 10:09:00 Time Out 10/29/21 10:30:00 10/29/21 10:30:00 10/29/21 10:30:00 Procedure Breast Lumpectomy, Breast Lumpectomy, Breast Lumpectomy, Breast Biopsy FS Needle Breast Biopsy FS Needle Breast Biopsy FS Needle Localization Localization Localization Other Attendee healthcare market consultant break Superficial Wound Closed By: Last Modified By: Demetrice Dunham, RN Demetrice Dunham, RN Demetrice Dunham RN 10/29/21 10:19:36 10/29/21 10:19:36 10/29/21 10:19:36 [facility] IntraOp Case Attendance Audit 10/29/21 10:19:36 Transition Advisor: DOOLEYC Modifier: DOOLEYC 1 <+> Time Out [...] Breast Biopsy FS Needle Localization 10/29/21 10:14:29 Transition Advisor: DOOLEYC Modifier: DOOLEYC 1 <+> Time In [...] [facility] IntraOp Case Times Audit 10/29/21 10:19:35 Transition Advisor: DOOLEYC Modifier: DOOLEYC <+> 1 Out Room [...] By Count Performed By Rozina Bhatia, (Scrub) Fingernail Sculpturer Count Performed By Demetrice Dunham RN (RN) Last Modified By: Demetrice Dunham RN 10/29/21 09:47:42 [facility] IntraOp Counts Final Entry 1 Procedure Breast Lumpectomy, Breast Biopsy FS Needle Localization Final Count Info Count Type Sponge, Sharps Counts Verification Skin Closure/end of Sequence procedure Count Results Correct, surgeon notified Counts Performed By Count Performed By Rozina Bhatia, (Scrub) Fingernail Sculpturer Count Performed By Demetrice Dunham RN (RN) [...] RN 10/29/21 09:48:26 [facility] IntraOp General Case Roof Cement And Paint Maker Helper 1 Case Information OR OR 03 [facility] [...] 1% w/ epinephrine 1:100,000 30ml vial - [id number] Route of LOCAL INJECTION Administration Dose Dose 20 Unit of Measure ml Volume QS Administered By IBIS OLIVAS MD-SUR Procedure Irrigation Last Modified By: Demetrice Dunhma RN 10/29/21 09:49:08 [facility] IntraOp Patient Positioning [...] Intra Op Sign Out Audit 10/29/21 10:19:23 Transition Advisor: DOOLEYC Modifier: DOOLEYC <+> 1 RN Sign [...] [facility] IntraOp Surgical Procedures Audit 10/29/21 10:19:55 Transition Advisor: JOSH Modifier: DOOLEYC 1 <*> Procedure Breast [...]
--- OUTSIDE RECORDS SUMMARY | 2025-05-30 08:40 | XMS_ITS | Encounter Summary ---
Author Organization [facility] Address [address] [place] [address] Care Team Providers Care Ob/Gyn Name Role Phone Андрей Thornton MD Primary Care Provider + Reason for Visit * Reason Onset Date Comments Med Refill 05/15/2024 Encounter Details Date Type Department Care Team (Late st Contact Info) Description 05/15/[address] [facility] HEMATOLOGY & ONCOLOGY [address] [phone] Mavis Huffman MD [address] [place] [address] Social History Tobacco Use Types Packs/Day Years [...] Info) Description 08/06/2025 9:00 AM EST Appointment [facility] [place] [address] [facility] [address] [place] [address] 08/23/2025 10:15 AM EST Office Visit [facility] HEMATOLOGY & ONCOLOGY [address] [facility] [address] [place] [address] Mavis Huffman MD [address] [facility] [address] [place] [address] 10/09/2025 10:15 AM EST Office Visit [facility] FAMILY MEDICINE [address] [facility] [place] [address] Андрей Thornton MD [address] [place] [address] documented as of this encounter Visit Diagnoses Not on filedocumented in this encounter Care Teams Ob/Gyn Relationship Specialty Start Date End Date Андрей Thornton MD [address] [place] [address] PCP - General Family Medicine 03/25/23 documented as of this encounter
--- OUTSIDE RECORDS SUMMARY | 2025-05-30 08:40 | XMS_ITS | Encounter Summary ---
Author Organization [employer] ([place], [place], [place], [place]) Address [address] [place] [address] Care Team Providers Care Folder And Notcher Name Role Phone Unavailable Primary Care Provider Unavailabl e Encounter Details Date Type Department Care Team (Late st Contact Info) Description 10/31/2021 Transcribed Document [facility] [place] [address] [place] [address] ProviderGuerita MD [address] [place] [address] Social History Tobacco Use Types [...] Date Murray rded Speak language other than Irish at home Not on file 10/22/2023 Want help with school or training Not on file 10/22/2023 Substance Use Answer Date Recorded Used prescription meds for non-medical reasons N ot on file 10/22/2023 Used illegal drugs past 12 months Not on file 10/22/2023 Comments Unknown Sex and Gender Information Value Date Recorded Sex Assigned at Female 08/19/2022 12:34 PM PAPER PRODUCTS SUPERVISOR Legal Sex Female 6:29 PM CDT Gender Identity Female 08/19/2022 12:34 PM PAPER PRODUCTS SUPERVISOR Sexual Orientation Straight 08/19/2022 12 :34 PM PAPER PRODUCTS SUPERVISOR COVID-19 Exposure Response Date Recorded In the last 10 days, have rufino u been in contact with someone who was confirmed or suspected to have Coronavirus/COVID-19? No / Unsure 02/08/2023 1:28 PM EDT documented as of this encounter Miscellaneous Notes * Cerner Conversion Note - Historical Provider, - 10/31/2021 4:51 PM PAPER PRODUCTS SUPERVISOR Patient: DEMETRIA ROE Age: 45 years Sex: [...] EST Height Source Stated Height Entry Format [place] Height/Length, [place] (ft) 5 ft Height/Length [place] 2 Inch CLINICALHEIGHT 157.48 cm [place] Body Weight 49.73 kg Weight Source, ED Standing scale Weight Entry Format [place] Weight [place] lb 201 lb CLINICALWEIGHT 91.36 kg Body [...] Color Yellow Urine Appearance Cloudy Urine Specific [place] 1.018 Urine pH Dipstick 7.0 Urine Leukocyte [...] % 34.0 % Lymph # 3.20 K/uL [place] % 6.2 % [place] # 0.58 K/uL Eos % 1.0 % Eos # 0.09 K/uL Baso % 0.8 % Baso # 0.08 K/uL Slide Review No IG# 0 x10(3)/uL IG% 0 % HCG Urine Qualitative Negative HCG Serum Quant <1.0 mIU/mL NA . Radiology results: Radiology Results (Last 48 hours) [id number] -- 10/31/2021 15:42 CT Head WO Code [...] MD , Radiology Results (Last 48 hours) [id number] -- 10/31/2021 15:42 CT Head WO Code [...]
--- OUTSIDE RECORDS SUMMARY | 2025-05-30 08:40 | XMS_ITS | Encounter Summary ---
Author Organization [employer] ([place], [place], [place], [place]) Address [address] [place] [address] Care Team Providers Care Operater Name Role Phone Unavailable Primary Care Provider Unavailabl e Encounter Details Date Type Department Care Team (Late st Contact Info) Description 10/31/2021 Transcribed Document [facility] [place] [address] [place] [address] ProviderGuerita MD [address] [place] [address] Social History Tobacco Use Types [...] Date Murray rded Speak language other than Czech at home Not on file 10/22/2023 Want help with school or training Not on file 10/22/2023 Substance Use Answer Date Recorded Used prescription meds for non-medical reasons N ot on file 10/22/2023 Used illegal drugs past 12 months Not on file 10/22/2023 Comments Unknown Sex and Gender Information Value Date Recorded Sex Assigned at Female 08/19/2022 12:34 PM STEAMTABLE ATTENDANT RAILROAD Legal Sex Female 6:29 PM CDT Gender Identity Female 08/19/2022 12:34 PM STEAMTABLE ATTENDANT RAILROAD Sexual Orientation Straight 08/19/2022 12 :34 PM STEAMTABLE ATTENDANT RAILROAD COVID-19 Exposure Response Date Recorded In the last 10 days, have rufino reyes been in contact with someone who was confirmed or suspected to have Coronavirus/COVID-19? No / Unsure 02/08/2023 1:28 PM EDT documented as of this encounter Miscellaneous Notes * Cerner Conversion Note - Historical Provider, - 10/31/2021 5:18 PM STEAMTABLE ATTENDANT RAILROAD Modified [place] Bedside Swallowing Screen Entered On: [...] TOM ENRIQUE RN - 10/31/2021 17:18 EST documented in this encounter Plan of Treatment Not on file documented as of this encounter Visit Diagnoses Not on filedocumented in this encounter
--- OUTSIDE RECORDS SUMMARY | 2025-05-30 08:40 | XMS_ITS | Encounter Summary ---
Author Organization [employer] ([place], [place], [place], [place]) Address [address] [place] [address] Care Team Providers Care Metal Template Maker Name Role Phone Unavailable Primary Care Provider Unavailabl e Encounter Details Date Type Department Care Team (Late st Contact Info) Description 10/29/2021 Transcribed Document [facility] [place] [address] [place] [address] ProviderGuerita MD [address] [place] [address] Social History Tobacco Use Types [...] Date Murray rded Speak language other than Arabic at home Not on file 10/22/2023 Want help with school or training Not on file 10/22/2023 Substance Use Answer Date Recorded Used prescription meds for non-medical reasons N ot on file 10/22/2023 Used illegal drugs past 12 months Not on file 10/22/2023 Comments Unknown Sex and Gender Information Value Date Recorded Sex Assigned at Female 08/19/2022 12:34 PM LOSS MITIGATION SPECIALIST Legal Sex Female 6:29 PM CDT Gender Identity Female 08/19/2022 12:34 PM LOSS MITIGATION SPECIALIST Sexual Orientation Straight 08/19/2022 12 :34 PM LOSS MITIGATION SPECIALIST COVID-19 Exposure Response Date Recorded In the last 10 days, have rufino reyes been in contact with someone who was confirmed or suspected to have Coronavirus/COVID-19? No / Unsure 02/08/2023 1:28 PM EDT documented as of this encounter Miscellaneous Notes * Cerner Conversion Note - Historical Provider, - 10/29/2021 9:44 AM LOSS MITIGATION SPECIALIST [facility] Main OR PACU Summary Primary Physician: IBIS OLIVAS MD-SUR Finalized Date/Time: 10/29/21 11:05:08 Pt. Name: ROBERTA ROE TIANNA /Sex: 1975 Female Med Rec #: [id number] Physician: IBIS OLIVAS MD-SUR Financial #: [id number] Pt. Type: O Room/Bed: [facility] Admit/Disch: 10/29/21 06:31:00 - Institution: [facility] Main OR PACU Case Times Entry 1 In PACU I 10/29/21 10:24:00 Ready for PACU 10/29/21 10:54:00 Discharge Discharge from PACU 10/29/21 10:54:00 I Last Modified By: Graciela Lam RN 10/29/21 10:54:13 Finalized By: Graciela Lam, CLARENCE Document Signatures Signed By: Graciela Lam RN 10/29/21 11:05 Electronically signed by Izabel [facility] Conversion Technical Project Coordinator Cerner at 01/19/2023 9:16 PM CDT documented in this encounter Plan of Treatment Not on file documented as of this encounter Visit Diagnoses Not on filedocumented in this encounter
[2025-05-30 08:52] VITALS: BP 142/93; PULSE 84; RESP 20; TEMP 36.1; O2SAT 99
[2025-05-30] MEDS: RABIES VACCINE (PCEC)/PF 2.5 UNIT VIAL IM (08:52)
== END 2025-05-30 09:22 | disposition home or self-care (01) ==
LOC: INF 08:36
PROVIDERS: PCP Family Medicine; Visit Provider Student in an Organized Health Care Education/Training Program
DX: Z29.14 Encounter for prophylactic rabies immune globulin (principal); W55.01XA Bitten by cat, initial encounter
CPT/HCPCS: 90675; 96372

== ENCOUNTER 2025-06-06 08:22 | Outpatient (CLI) | payer BC, SELFPAY ==
[2025-06-06 08:35] VITALS: BP 148/98; PULSE 88; RESP 20; TEMP 36.6; O2SAT 99
[2025-06-06] MEDS: RABIES VACCINE (PCEC)/PF 2.5 UNIT VIAL IM (08:35)
--- OUTSIDE RECORDS SUMMARY | 2025-06-06 08:40 | XMS_ITS | Clinical Summary ---
Author Organization [facility] Address [address] [place] [address] Care Team Providers Care Medical Tech Name Role Phone Андрей Thornton MD Primary [...] Info) Description 08/06/2025 9:00 AM EST Appointment [facility] [place] [address] [facility] [address] [place] [phone] 08/23/2025 10:15 AM EST Office Visit [facility] HEMATOLOGY & ONCOLOGY [address] [facility] [address] [place] [phone] Mavis Huffman MD [address] [facility] [address] [place] [address] 10/09/2025 10:15 AM EST Office Visit [facility] FAMILY MEDICINE [address] [facility] [place] [address] Андрей Thornton MD [address] [place] [address] Health Maintenance Due Date Last Done Comments [...] Most Recently Relevant to Health Maintenance Insurance [facility] P[facility] [employer] [employer]UE [employer] PPO Care Teams Medical Tech Relationship Specialty Start Date End Date Андрей Thornton MD [address] [facility] [place] [address] PCP - General Family Medicine 03/25/23
--- OUTSIDE RECORDS SUMMARY | 2025-06-06 08:40 | XMS_ITS | Encounter Summary ---
Author Organization [facility] Address [address] [place] [address] Care Team Providers Care Certified Tower Climber Name Role Phone Андрей Thornton MD Primary Care Provider + Reason for Visit * Reason Onset Date Comments Med Refill 05/15/2024 Encounter Details Date Type Department Care Team (Late st Contact Info) Description 05/15/2024 Refill [facility] HEMATOLOGY & ONCOLOGY [address] [phone] Mavis Huffman MD [address] [place] [address] Social History Tobacco Use Types Packs/Day Years [...] Info) Description 08/06/2025 9:00 AM EST Appointment [facility] [place] [address] [facility] [address] [place] [address] 08/23/2025 10:15 AM EST Office Visit [facility] HEMATOLOGY & ONCOLOGY [address] [facility] [address] [place] [address] Mavis Huffman MD [address] [facility] [address] [place] [address] 10/09/2025 10:15 AM EST Office Visit [facility] FAMILY MEDICINE [address] [facility] [place] [address] Андрей Thornton MD [address] [place] [address] documented as of this encounter Visit Diagnoses Not on filedocumented in this encounter Care Teams Certified Tower Climber Relationship Specialty Start Date End Date Андрей Thornton MD [address] [place] [address] PCP - General Family Medicine 03/25/23 documented as of this encounter
--- OUTSIDE RECORDS SUMMARY | 2025-06-06 08:40 | XMS_ITS | Clinical Summary ---
Author Organization [employer] ([place], [place], [place], [place]) Address [address] [place] [address] Care Team Providers Care Casino Worker Name Role Phone Unavailable Primary Care Provider Unavailabl e Allergies No known active allergies Medications multivitamin capsule 1 Tab, Oral, Daily, 0 Refill(s) 01/27/2022 Active ascorbic acid, vitamin C, (ascorbic acid) 250 mg Chew Take by mouth. Active tamoxifen (NOLVADEX) 20 MG tablet Take 1 tablet (20 mg total) by mouth daily. 90 tablet 3 08/19/2022 Active ycez-BO-uei-epa- PPF-NDTL-rz-mv 1.5 mg iron- 8.73 mg CpID Iron, 9 mg =, Oral, Daily, 0 Refill(s) 01/27/2022 Active Active Problems Problem Noted Date Diagnosed Date Malignant neoplasm of overla pping sites of right breast in female, estrogen receptor positive 08/18/2022 Cancer Staging:Pathologic stage from 10/06/2021:Stage 0(pTis (DCIS), cN0, cM0, ER+, MA+) - Signed by Reyna Mendez MD on [...] Next Due Influenza Four-QIV 6MO+ PF IM ([id number]) 2,07/08/2020 Influenza Four-qiv Pf 09/16/2021 Family History [...] Date Murray rded Speak language other than [place]araguan at home Not on file 10/22/2023 Want help with school or training Not on file 10/22/2023 Substance Use Answer Date Recorded Used prescription meds for non-medical reasons N ot on file 10/22/2023 Used illegal drugs past 12 months Not on file 10/22/2023 Comments Unknown Sex and Gender Information Value Date Recorded Sex Assigned at Female 08/19/2022 12:34 PM AMUSEMENT PARK ENTERTAINER Legal Sex Female 6:29 PM CDT Gender Identity Female 08/19/2022 12:34 PM AMUSEMENT PARK ENTERTAINER Sexual Orientation Straight 08/19/2022 12 :34 PM AMUSEMENT PARK ENTERTAINER Last Filed Vital Signs Vital Sign Reading [...] in one year. At our facility, a [place] marker is positioned over a visible skin [...] breast cancer COMPARISON STUDY: [facility] FINDINGS: Craniocaudal and mediolateral oblique images [...] breast cancer COMPARISON STUDY: [facility] FINDINGS: Craniocaudal and mediolateral oblique images [...] in one year. At our facility, a [place] marker is positioned over a visible skin [...]
--- OUTSIDE RECORDS SUMMARY | 2025-06-06 08:40 | XMS_ITS | Encounter Summary ---
Author Organization [employer] ([place], [place], [place]) Address [address] [place] [address] Care Team Providers Care Jitney Driver Name Role Phone Unavailable Primary Care Provider Unavailabl e Encounter Details Date Type Department Care Team (Late st Contact Info) Description 08/20/2022 Outside Orders [facility] [address] [place] [address] Manuel Jefferson MD [address] [place] [address] Personal history of breast cancer (Primary Dx) Social History Tobacco Use Types Packs/Day Years Used Date Smoking Tobacco: Former Smokeless Tobacco: Never Alcohol Use Standard Drinks/Week Comments Not Currently 0 (1 standard drink = 0.6 oz pur e alcohol) Comments Unknown Sex and Gender Information Value Date Recorded Sex Assigned at Female 08/19/2022 12:34 PM PROFESSOR OF POULTRY SCIENCE Legal Sex Female 6:29 PM CDT Gender Identity Female 08/19/2022 12:34 PM PROFESSOR OF POULTRY SCIENCE Sexual Orientation Straight 08/19/2022 12 :34 PM PROFESSOR OF POULTRY SCIENCE documented as of this encounter Plan of Treatment Not on file documented as of this encounter Visit Diagnoses Diagnosis Personal history of breast cancer- Primary Personal history of malignant neoplasm of breast documented in this encounter
--- OUTSIDE RECORDS SUMMARY | 2025-06-06 08:40 | XMS_ITS | Referral Summary ---
Author Organization [employer] ([place], [place], [place], [place]) Address [address] [place] [address] Care Team Providers Care Vp Care Management Name Role Phone Unavailable Primary Care Provider Unavailabl e Allergies No known active allergies Medications multivitamin capsule 1 Tab, Oral, Daily, 0 Refill(s) 01/27/2022 Active ascorbic acid, vitamin C, (ascorbic acid) 250 mg Chew Take by mouth. Active tamoxifen (NOLVADEX) 20 MG tablet Take 1 tablet (20 mg total) by mouth daily. 90 tablet 3 08/19/2022 Active [id number]- [id number] 1.5 mg iron- 8.73 mg CpID Iron, [...] Next Due Influenza Four-QIV 6MO+ PF IM (QZX027) 2,07/08/2020 Influenza Four-qiv Pf 09/16/2021 Social History [...] Date Murray rded Speak language other than [place] Citizen at home Not on file 10/22/2023 Want help with school or training Not on file 10/22/2023 Substance Use Answer Date Recorded Used prescription meds for non-medical reasons N ot on file 10/22/2023 Used illegal drugs past 12 months Not on file 10/22/2023 Comments Unknown Sex and Gender Information Value Date Recorded Sex Assigned at Female 08/19/2022 12:34 PM [employer] PROCESS CONTROL TECHNICIAN Legal Sex Female 6:29 PM CDT Gender Identity Female 08/19/2022 12:34 PM BIODIESEL PROCESS CONTROL TECHNICIAN Sexual Orientation Straight 08/19/2022 12 :34 PM BIODIESEL PROCESS CONTROL TECHNICIAN Last Filed Vital Signs Vital Sign Reading [...] in one year. At our facility, a ugash[place] marker is positioned over a visible skin [...] STUDY: [facility] [id number] FINDINGS: Craniocaudal and mediolateral oblique images of [...] in one year. At our facility, a ugash[place] marker is positioned over a visible skin [...]
--- OUTSIDE RECORDS SUMMARY | 2025-06-06 08:40 | XMS_ITS | Encounter Summary ---
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 Name Role Phone Unavailable Primary Care Provider Unavailabl e Reason for Visit * Reason Onset Date Comments Follow-up 03/10/2023 Encounter Details Date Type Department Care Team (Late st Contact Info) Description 03/10/2023 Telephone [facility] [address] [id number] Toma Muse, DIRECTOR OF AGRONOMY [address] [facility] [address] [place] [address] Follow-up Social History Tobacco Use Types Packs/Day Years Used Date Smoking Tobacco: Former Smokeless Tobacco: Never Alcohol Use Standard Drinks/Week Comments Not Currently 0 (1 standard drink = 0.6 oz pur e alcohol) Comments Unknown Sex and Gender Information Value Date Recorded Sex Assigned at Female 08/19/2022 12:34 PM CAD SPECIALIST Legal Sex Female 6:29 PM CDT Gender Identity Female 08/19/2022 12:34 PM CAD SPECIALIST Sexual Orientation Straight 08/19/2022 12 :34 PM CAD SPECIALIST COVID-19 Exposure Response Date Recorded In [...]
== END 2025-06-06 09:05 | disposition home or self-care (01) ==
LOC: INF 08:22
PROVIDERS: PCP Family Medicine; Visit Provider Student in an Organized Health Care Education/Training Program
DX: Z29.14 Encounter for prophylactic rabies immune globulin (principal); W55.01XA Bitten by cat, initial encounter; Y93.9 Activity, unspecified; Y92.9 Unspecified place or not applicable
CPT/HCPCS: 90675; 96372